=== PATIENT | male | born 1970 | race Caucasian/White ===

== ENCOUNTER 2016-10-27 18:30 | Emergency (ER) | payer MEDICARE, MEDICAID ==
[~2016-10-27] VITALS: Ht 182.9 cm; Wt 120.2 kg
[~2016-10-27 18:30] MED LIST: AMITRIPTYLINE 225 MG PO; ASPIRIN EC81 MG PO; ATORVASTATIN CA20 M1 PO; BACTRIM DS 8001 TA1 PO; BACTRIM DS 8001 TAB PO; BACTROBAN22 TP; CYCLOBENZAPRINE10 M1 PO; ETODOLAC400 MG PO; GABAPENTIN800 MG PO; HYDROCODONE-APA1 TA2 PO; KEFLEX 500MG.500 MG PO; KEFLEX500 M1 PO; LISINOPRIL 20MG20 MG PO; LISINOPRIL40 MG; LISINOPRIL40 MG PO; MEDROL 4MG. DOSE4 MG PO; PERCOCET 5/3251 EACH PO; PRILOSEC20 MG PO; SURFAK 240MG C240 MG PO; TRAMADOL 50MG T50 MG PO; VICODIN 5/500 T1 TAB PO
--- OUTSIDE RECORDS SUMMARY | 2016-10-27 18:42 | External Medical Summary Rpt ---
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 Care Taper Machine Name Role Phone [facility] Unavailable Unavailable [facility], [facility] ALFARIS MOH, ALFARIS Unavailable Unavailable MOH RHIANNON PRINGLELEY Unavailable Unavailable HANSEL MCNULTY, Unavailable Unavailable HANSEL ANDRES SAUL, Unavailable Unavailable ROSHNI MTZ JIMÉNEZ ALL, JIMÉNEZ ALL Unavailable Unavailable [facility] Un[facility] Unavailable [facility] BRANDSER, CRUZ A, Unavailable Unavailable BRANDSER, CRUZ A BEE CARLOS, DASHAWN Unavailable Unavailable F, BEE CARLOS, DASHAWN F [facility], Unavailable Unavailable [facility] MCLEAN, MCLEAN Unavailable Unavailable PATRICIA SAAD, Unavailable Unavailable PATRICIA SAAD [facility] Unavailable Unavailable [facility] Unavailable Unavailable [facility], Unavailable Unavailable [facility] SLADE DECALVO, Unavailable Unavailable MING V, SLADE DECALVO, MING V ANN MONREAL, Unavailable Unavailable ANN MONREAL JANELL M, Unavailable Unavailable DEVORAH BANG FINLEY Unavailable Unavailable KEEÁngel CASTILLO ARISTEOANNA Unavailable Unavailable ARISTEO SUKHWINDER CORTEZ CHACORTA Unavailable Unavailable SUKHWINDER CORTEZ Unavailable Unavailable ANN CLEVELAND, Unavailable Unavailable ANN C[facility]AND, Unavailable Unavailable NIKHIL RENEE [facility] Unavailable Unavailable INC, [facility] LUCAS KWADWO, LUCAS Unavailable Unavailable KWADWO RHONDA LUCAS S, Unavailable Unavailable RHONDA LUCAS S [facility] Unavailable Unavailable [facility], [facility], Unavailable Unavailable [facility], Unavailable Unavailable [facility], Unavailable Unavailable [facility] & Unavailable Unavailable [facility] BRITTANY GUPTA, Unavailable Unavailable BRITTANY GUPTA RACHEL J, Unavailable Unavailable [facility] Unavailable Unavailable [facility] CRUZ RICHARDSON, Unavailable Unavailable CRUZ RICHARDSON HAROLD V, Unavailable Unavailable JOVANNI GIBSON V [facility] Unavailable Unavailable SERVICES, [facility] & Unavailable Unavailable SPINE IN, [facility] Unavailable Unavailable ASSOCIAT, [facility] Unavailable Unavailable MEDICAL, [facility] Unavailable Unavailable [facility] CENTER, [facility] Unavailable Unavailable MEDICAL, [facility] MACIAS THO, MACIAS Unavailable Unavailable THO CANDIDO, SANJOYDEB, Unavailable Unavailable CANDIDO, SANJOYDEB NEUS SRIKANTH, NEUS SRIKANTH Unavailable Unavailable NEUS SRIKANTH, NEUS SRIKANTH Unavailable Unavailable NEUS, TYESHA E, NEUS, Unavailable Unavailable TYESHA E [facility], Unavailable Unavailable [facility] MCGEE DECKER, MCGEE Unavailable Unavailable DECKER [facility], Unavailable [facility]available PLL[facility], [facility] PORNOY LESA, PORNOY Unavailable Unavailable LES[facility], Unavailable Unavailable [facility] Unavailable Unavailable INCORPORAT, [facility] Unavailable Unavailable INCORPORAT, [facility] NENA MELARA, Unavailable Unavailable NENA MELARA [facility] Unavailable Unavailable SOTINGBETSY MACDONALD [facility] Unavailable Unavailable [facility], [facility] Unavailable Unavailable [facility] JOSE, MARCELO Unavailable Unavailable JOSE SONIA PHI, SONIA PHI Unavailable Unavailable [facility] # Unavailable Unavailable [id number], [facility] # [id number] [facility] # Unavailable Unavailable [id number], [facility] # [id number] [facility] # [id number], Unavailable Unavailable [facility] # [id number] ELOY GALINDO WELLS, Unavailable Unavailable ELOY VILLA, Unavailable Unavailable MAL VILLA Purpose Continuity of Care Document - 07-14-2007 through 2016 Problems Code Diagnosis DOS Provider Status [id number] SPONDYLOSIS 09-05-2016 [facility] W/O PAIN & MYELOPATH/R SPINE ADICULOPATH INSTIT Y CERV RGN [id number] PRIMARY 07-12-2016 [facility] TIS RIGHT ASSOCIAT SHOULDER E53127 PRIMARY 07-12-2016 [facility] TIS LEFT ASSOCIAT SHOULDER Z79247 PAIN IN 07-12-2016 [facility] RIGHT REGIONAL SHOULDER MEDICAL Z12089 PAIN IN 07-12-2016 [facility] LEFT REGIONAL SHOULDER MEDICAL C16544 PAIN IN 07-11-2016 [facility] UNSPECIFIED PAIN & SHOULDER SPINE INSTIT I10 ESSENTIAL 05-22-2016 [facility] HYPERTENSIO INC N K34874 PAIN IN 05-22-2016 [place] LEFT MEDICAL FINGERS IMAGING ASS [id number] LAC W/O FB 05-22-2016 [place] LT INDEX MEDICAL FINGER W/O IMAGING ASS DAMAGE NAIL INIT [id number] NDSPLC FX 05-22-2016 [facility], LT INDX PLLC FNGR INIT ENC OPN FX Z23 ENCOUNTER 05-22-2016 [facility] IMMUNIZATIO INC N Z720 TOBACCO USE 05-22-2016 [facility] INC Z5181 ENCOUNTER 04-18-2016 [facility] THERAPEUTIC INCORPORAT DRUG LEVEL MONITORING I96925 MCC 04-18-2016 [facility] OF OPIATE INCORPORAT ANALGESIC B24808 MIGRAINE 02-23-2016 [facility] PAINTER NOT PHYSICIANS, INTRACT W/O PLLC STATUS MIGRAINOSUS F00651 SPONDYLOSIS 02-16-2016 [facility] W/O PAIN & MYELOPATH/R SPINE ADICULOPATH INSTIT Y LUMB RGN M5416 RADICULOPAT 01-19-2016 [facility] HY LUMBAR PAIN & REGION SPINE INSTIT 7210 CERVICAL 07-07-2014 [facility] SPONDYLOSIS PAIN & WITHOUT SPINE MYELOPATHY INSTIT 7234 BRACHIAL 06-02-2014 [facility] NEURITIS OR PAIN & SPINE RADICULITIS INSTIT NOS 7244 THORACIC/KOREY 06-02-2014 [facility]ED MBOSACRAL PAIN & NEURITIS/RA SPINE DICULITIS INSTIT UNSPEC 7265 ENTHESOPATH 04-13-2014 [facility] Y OF HIP PAIN & REGION SPINE INSTIT 7202 SACROILIITI 04-07-2014 [facility]ED S NOT PAIN & ELSEWHERE SPINE CLASSIFIED INSTIT 7295 PAIN IN 04-04-2014 [place] SOFT MEDICAL TISSUES OF IMAGING ASS LIMB 80107 SWELLING OF 04-04-2014 [place] LIMB MEDICAL IMAGING ASS 7823 EDEMA 04-04-2014 [place] [facility] 6826 CELLULITIS 04-03-2014 [facility] N EMERGENCY OF LEG PHYS EXCEPT FOOT V642 SURG/OTH 03-30-2014 [facility] NOT [facility] CARRIED OUT INC BECAUSE PTS DECN 7213 LUMBOSACRAL 02-10-2014 [facility] PAIN & SPONDYLOSIS SPINE WITHOUT INSTIT MYELOPATHY 7212 THORACIC 07-28-2013 [facility] SPONDYLOSIS PAIN & WITHOUT SPINE MYELOPATHY INSTIT V5869 LONG-TERM 07-02-2013 [facility]ED (CURRENT) PAIN & USE OF SPINE OTHER INSTIT MEDICATIONS 92288 PAIN IN 06-25-2013 [place] [facility] PELVIC ASSOCIAT REGION AND THIGH 7222 DISPLCMT 06-24-2012 [facility] INTERVERT DISC SITE UNS W/O MYELOPATHY 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 7242 LUMBAGO 06-24-2012 [facility] 79087 CONTUSION 06-24-2012 [facility] THO OF [place] 94133 PAIN IN 05-26-2012 [place] [facility], RADIOLOGY UPPER ARM ASSOCIAT 03176 LATERAL 05-26-2012 [facility] EPIC[facility] IS OF [place] SERVICES 9593 INJURY 05-26-2012 [place] OTHER&UNSPE RADI[facility]Y CIFIED ASSOCIAT [place] FOREARM&WRI ST E8859 FALL FROM 05-26-2012 [facility] OTHER EMERGENCY SLIPPING SERVICES TRIPPING OR STUMBLING 71965 BLEPHARITIS 10-16-2011 NEUS SRIKANTH , UNSPECIFIED 6821 CELLULITIS 09-07-2011 [facility] OF NECK INC 6828 CELLULITIS 09-07-2011 [facility] AND ABSCESS OF OTHER SPECIFIED SITE 77280 SPINAL 06-05-2011 NEUS SRIKANTH STENOSIS UNSPEC REGION OTH THAN CERVICAL 7245 UNSPECIFIED 06-05-2011 NEUS SRIKANTH BACKACHE 7230 SPINAL 04-17-2011 [facility] STENOSIS IN REGIONAL CERVICAL MEDICAL REGION 69697 SPASM OF 04-04-2011 [facility] 47949 DIAB W/O 03-27-2011 [facility] COMP TYPE PRIMARY II/UNS NOT CARE CENTER STATED UNCNTRL 4019 UNSPECIFIED 03-27-2011 [facility] ESSENTIAL PRIMARY HYPERTENSIO CARE CENTER N 6868 OTH SPEC 03-27-2011 [facility] LOCAL PRIMARY INFECTIONS CARE CENTER SKIN&SUBCUT TISSUE 36346 CONTUSION 03-23-2011 [facility] OF [facility] EMERGENCY SERVICES 59986 PAIN IN 03-22-2011 [place] [facility], HAND RADIOLOGY ASSOCIAT 22741 CONTUSION 03-22-2011 [facility] OF BACK EMERGENCY SERVICES 58246 CONTUSION 03-22-2011 [facility] HAND EMERGENCY SERVICES E8889 UNSPECIFIED 03-22-2011 [place] FALL RADIOLOGY ASSOCIAT 7840 HEADACHE 11-10-2010 [facility] 6961 OTHER 10-01-2010 [facility] PSORIASIS EMERGENCY AND SIMILAR SERVICES DISORDERS 7231 CERVICALGIA 06-29-2010 [facility] 920 CONTUSION 04-14-2010 [facility] OF FACE REGIONAL SCALP AND MEDICAL NECK EXCEPT EYE V571 OTHER 03-15-2010 [facility] PHYSICAL REGIONAL THERAPY MEDICAL 51545 UNSPECIFIED 12-27-2009 [facility]ORDER 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 OTH 7220 DISPLCMT 06-06-2009 [facility] CERV H INTERVERT ORTHOPAEDIC DISC CTR PSC WITHOUT MYELOPATHY 8404 ROTATOR 05-05-2009 [facility] CUFF SPRAIN H AND STRAIN ORTHOPAEDIC CTR PSC 65063 EXOSTOSIS 05-02-2009 [facility] OF H UNSPECIFIED ORTHOPAEDIC SITE CTR PSC 44493 OSTEOARTHRO 04-22-2009 RADIOLOGY S UNSPEC ASSOCIATES WHETHER PSC GEN/LOC SHLDR REGION 35548 UNSPECIFIED 04-22-2009 [facility] H ARTHROPATHY ORTHOPAEDIC SHOULDER CTR PSC REGION 64508 PAIN IN 04-22-2009 [facility] JOINT, H SHOULDER ORTHOPAEDIC REGION CTR PSC 7820 DISTURBANCE 04-22-2009 [facility] 8406 SUPRASPINAT 04-22-2009 [facility] US SPRAIN H AND STRAIN ORTHOPAEDIC CTR PSC 51506 UNSPEC 04-18-2009 [facility] DISORDERS H BURSAE&TEND ORTHOPAEDIC ONS CTR PSC SHOULDER REGION 4011 ESSENTIAL 04-11-2009 [facility] HYPERTENSIO HEART PSC N, BENIGN 44430 REFLUX 04-11-2009 [facility] ESOPHAGITIS HEART PSC 37617 SHORTNESS 04-11-2009 [facility] OF BREATH HEART PSC 01361 CHEST PAIN 04-11-2009 [facility] UNSPECIFIED HEART PSC 11388 NONSPECIFIC 04-11-2009 [facility] ABNORMAL HEART PSC ELECTROCARD IOGRAM 12162 PAIN IN 04-04-2009 [facility], PRIMARY ANKLE AND CARE FOOT CENTERINC 55749 OTH SPEC 04-04-2009 [facility] D/O ROTATOR PRIMARY CUFF SYND CARE SHLDR&SASHA CENTERINC D D/O 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 25376 ESOPHAGEAL 03-30-2009 [facility] REFLUX PRIMARY CARE CENTERINC 4293 CARDIOMEGAL 03-29-2009 [place] Y [facility] ASSOCIATES PSC 94548 OTHER 03-29-2009 [place] DYSPNEA AND RADIOLOGY ASSOCIATES [place] [address] OTHER CHEST 03-29-2009 [facility] PAIN AMB SERVICE V489 UNSPECIFIED 03-01-2009 [facility] PROBLEM PRIMARY WITH HEAD CARE NECK OR CENTERINC TRUNK 7239 UNSPEC 02-14-2009 [facility] MUSCULOSKEL PRIMARY CARE D/O&SYMPTOM CENTERINC S REFERABLE NECK 73834 UNSPECIFIED 02-14-2009 [facility] SYNOVITIS PRIMARY AND CARE TENOSYNOVIT CENTERINC IS 9057 LATE EFF 10-27-2007 ST [facility] IN W/O MED CTR MENTION TENDON INJURY 7962 ELEVATED BP 10-02-2007 [facility] WITHOUT DX [facility] [employer] [facility], INC[facility] N 8409 SPRAIN&STRA 09-22-2007 EMERGENCY IN UNSPEC CARE PHYS SITE [facility] SHOULDER&UP PER ARM 9599 INJURY 09-22-2007 RADIOLOGY OTHER AND ASSOCIATES UNSPECIFIED PSC UNSPECIFIED SITE 39932 PAIN IN 09-02-2007 ST [facility], IVÁN FOREARM MED CTR 9597 INJURY 07-14-2007 ST OTHER&UNSPE IVÁN CIFIED KNEE MED CTR LEG ANKLE&FOOT Medications Na ND Rx Da Fi Fi Am Da Di Ph RX Ph St me C No te ll ll ou ys ag ar # ys at rm s nt no ma ic us Or Da si cy ia de te s n re d CY 00 10 10 1 30 10 DE 64 BL Ac CL 37 -1 -1 .0 AN 17 UM ti OB 80 9- 00 S 43 ve EN 75 20 20 PH 0 CH ZA 11 11 11 AR RI SC [address] IN CY IN E E 10 IN C MG TA BL ET 64 10 10 5 30 30 DE 64 NE Ac 67 -1 -1 .0 AN 17 US ti 90 2- 2- 00 S 09 ve 94 [address] 20 11 11 AR EV 2 MA EN CY E IN C CL 51 10 10 5 60 30 DE 64 NE Ac OB 67 -1 -1 .0 AN 17 US ti ET 21 1- 2- 00 S 09 ve 25 [address] OL 90 11 11 AR EV 3 MA EN 0. CY E 05 % IN OI C NT ME NT OX 53 10 10 0 20 2 WA 22 GR Ac YC 74 -0 -0 .0 L- 20 AY ti OD 60 7- 7- 00 MA 64 ve ON 20 20 20 RT 7 RO E- 30 11 11 BE AC 1 PH RT ET AR B AM MA IN CY OP # HE N 10 5- 05 32 91 5 CE 00 07 07 0 10 3 DE 64 GA Ac PH 14 -1 -1 .0 AN 13 IN ti AL 39 7- 8- 00 S 41 EY ve EX 89 20 20 PH 3 IN 70 11 11 AR PA 5 MA CH 50 CY AE 0 L MG IN S C CA PS UL E PATHAK 53 07 07 0 10 5 DE 64 GA Ac LF 74 -1 -1 .0 AN 13 IN ti AM 60 7- 8- 00 S 41 EY ve ET 27 20 20 PH 4 HO 20 11 11 AR PA XA 5 MA CH ZO CY AE LE L -T IN S MP C DS TA BL ET 00 05 05 0 12 3 DE 40 GA Ac 40 -2 -2 .0 AN 63 IN ti 60 8- 8- 00 S 63 EY ve 35 20 20 PH 5 70 11 11 AR PA 5 MA CH CY AE L IN S C SC 00 05 05 0 21 6 DE 64 GA Ac ED 60 -2 -2 .0 AN 11 IN ti NI 35 8- 8- 00 S 49 EY ve SO 33 20 20 PH 7 NE 71 11 11 AR PA 5 5 MA CH CY AE MG L IN S TA C BL ET TR 65 01 01 0 90 30 DE 40 NI Ac AM 16 -1 -1 .0 AN 62 CH ti AD 20 3- 3- 00 S 70 OL ve OL 62 20 20 PH 8 S 71 11 11 AR TA HC 1 MA NN L CY A 50 IN MG C TA BL ET AC 00 10 11 [address] Ac ET 60 -2 -0 .0 AN 62 OU ti AM 32 9- 1- 00 S 17 T ve IN 33 20 20 PH 6 KE OP 83 10 10 AR RR HE 2 MA IC N- CY K CO L D IN #3 C TA BL ET 00 09 09 0 40 5 DE 40 BA Ac 60 -2 -2 .0 AN 61 IL ti 33 3- 3- 00 S 89 EY ve 88 20 20 PH 4 [address] 8 MA EV CY EN C IN C LI 00 10 09 10 30 30 DE 63 DE Ac SI 17 -2 -0 .0 AN 86 L ti NO 23 0- 2- 00 S 10 CA ve SC 76 [address] [place] 08 09 10 AR IL 0 MA LO 20 CY DE MG IN CA C LV TA O BL MA ET RI A IS AB EL V TR 65 08 08 0 45 15 DE 40 NE Ac AM 16 -1 -1 .0 AN 61 US ti AD 20 8- 8- 00 S 65 ve OL [address] 71 10 10 AR EV HC 1 MA EN L CY E 50 IN MG C TA BL ET 00 08 08 0 16 4 DE 40 HU Ac 60 -1 -1 .0 AN 61 HN ti 35 3- 3- 00 S 63 ve 46 20 20 PH 3 TH 63 10 10 AR OM 2 MA CY M IN C LI 00 10 07 10 30 30 DE 63 DE Ac SI 17 -2 -2 .0 AN 86 L ti NO 23 0- 0- 00 S 10 CA ve SC 76 [address] [place] 08 09 10 AR [place] 0 MA LO 20 CY DE MG IN CA C LV TA O BL MA ET RI A IS AB EL V OX 00 07 07 0 24 2 WA 22 PO Ac YC 40 -0 -0 .0 L- 33 RN ti OD 60 5- 5- 00 MA 27 OY ve ON 51 20 20 RT 2 E- 20 10 10 GE AC 1 PH OF ET AR FR AM MA EY IN CY A OP # HE N 10 5- 15 32 69 5 LI 00 10 05 10 30 30 DE 63 DE Ac SI 17 -2 -2 .0 AN 86 L ti NO 23 0- 2- 00 S 10 CA ve SC 76 [address] [place] 08 09 10 AR IL 0 MA LO 20 CY DE MG IN CA C LV TA O BL MA ET RI A IS AB EL V LI 00 10 04 10 30 30 DE 63 DE Ac SI 17 -2 -1 .0 AN 86 L ti NO 23 0- 6- 00 S 10 CA ve SC 76 [address] [place] 08 09 10 AR IL 0 MA LO 20 CY DE MG IN CA C LV TA O BL MA ET RI A IS AB EL V LI 00 10 03 10 30 30 DE 63 DE Ac SI 17 -2 -1 .0 AN 86 L ti NO 23 0- 6- 00 S 10 CA ve SC 76 [address] [place] 08 09 10 AR IL 0 MA LO 20 CY DE MG IN CA C LV TA O BL MA ET RI A IS AB EL V NA 00 03 03 0 [address] Ac BU 09 -0 -0 .0 L- 56 OU ti ME 31 3- 3- 00 MA 41 T ve TO 01 20 20 RT 7 KE NE 50 10 10 RR 1 PH IC 50 AR K 0 MA L MG CY # TA BL 10 ET 15 69 LI 00 10 02 03 30 30 DE 63 DE Ac SI 17 -2 -2 .0 AN 86 L ti NO 23 0- 6- 00 S 10 CA ve SC 76 [address] [place] 08 09 10 AR IL 0 MA LO 20 CY DE MG CA LV TA O BL MA ET RI A IS AB EL V LI 00 10 01 02 30 30 DE 63 DE Ac SI 17 -2 -2 .0 AN 86 L ti NO 23 0- 8- 00 S 10 CA ve SC 76 [address] [place] 08 09 10 AR IL 0 MA LO 20 CY DE MG CA LV TA O BL MA ET RI A IS AB EL V TR 65 12 12 00 20 5 DE 40 PATHAK Ac AM 16 -1 -3 .0 AN 60 LL ti AD 20 5- 1- 00 S 04 IV ve OL 62 20 20 PH 1 AN 71 09 09 AR HC 1 MA CH L CY RI 50 ST IN MG A M TA BL ET 00 12 12 00 40 13 DE 40 LA Ac 60 -2 -3 .0 AN 60 RK ti 33 1- 1- 00 S 07 IN ve 88 20 20 PH 8 12 09 09 AR ANNI 8 MA HN CY J CY 00 12 12 00 20 7 DE 63 PATHAK Ac CL 59 -1 -3 .0 AN 88 LL ti OB 15 5- 1- 00 S 72 IV ve EN 65 20 20 PH 9 AN ZA 81 09 09 AR SC 0 MA CH IN CY RI E ST 10 IN A MG M TA BL ET LI 00 10 12 01 30 30 DE 63 DE Ac SI 17 -2 -3 .0 AN 86 L ti NO 23 0- 1- 00 S 10 CA ve SC 76 [address] [place] 08 09 09 AR IL 0 MA LO 20 CY DE MG CA LV TA O BL MA ET RI A IS AB EL V 00 10 12 01 60 30 DE 40 NE Ac 60 -1 -0 .0 AN 59 US ti 35 9- 3- 00 S 65 ve [address] 63 09 09 AR EV 2 MA EN CY E LI 00 10 11 00 30 30 DE 63 DE Ac SI 17 -2 -1 .0 AN 86 L ti NO 23 0- 9- 00 S 10 CA ve SC 76 [address] [place] 08 09 09 AR IL 0 MA LO 20 CY DE MG CA LV TA O BL MA ET RI A IS AB EL V ME 00 11 11 00 21 6 DE 63 LA Ac TH 78 -1 -1 .0 AN 87 RK ti YL 15 1- 9- 00 S 14 IN ve SC 02 20 20 PH 1 ED 20 09 09 AR ANNI NI 7 MA HN SO CY J LO NE 4 MG DO SE PK ME 68 11 11 00 30 30 DE 63 LA Ac LO 38 -0 -1 .0 AN 86 RK ti XI 20 3- 9- 00 S 77 IN ve CA 05 20 20 PH 3 M 10 09 09 AR ANNI 15 1 MA HN CY J MG TA BL ET 00 10 11 00 60 30 DE 40 NE Ac 60 -1 -0 .0 AN 59 US ti 35 9- 5- 00 S 65 ve [address] 63 09 09 AR EV 2 MA EN CY E SC 37 10 11 00 60 30 DE 63 NE Ac IL 00 -2 -0 .0 AN 86 US ti OS 00 0- 5- 00 S 10 ve EC [address] 50 09 09 AR EV OT 3 MA EN C CY E 20 .6 MG TA BL ET LI 00 10 10 00 30 30 DE 63 DE Ac SI 17 -1 -2 .0 AN 85 L ti NO 23 4- 2- 00 S 81 CA ve SC 76 [address] [place] 08 09 09 AR IL 0 MA LO 20 CY DE MG CA LV TA O BL MA ET RI A IS AB EL V DI 00 08 09 00 20 10 DE 63 MA Ac CL 78 -3 -1 .0 AN 83 RK ti OF 11 1- 0- 00 S 90 ES ve EN 78 20 20 PH 6 BE AC 96 09 09 AR RY 0 MA SO CY YOUNG D RO EC LD V 75 MG TA B 00 08 09 00 20 30 DE 63 MA Ac 14 -3 -1 .0 AN 83 RK ti 31 1- 0- 00 S 90 ES ve 47 20 20 PH 7 BE 30 09 09 AR RY 1 MA CY YOUNG RO LD V 00 05 05 00 6. 1 WA 26 MU Ac 59 -1 -2 00 LG 07 KH ti 10 2- 2- 0 RE 51 ER ve 38 20 20 EN 1 JE 50 08 08 # E 5 SA 07 NJ 34 OY 6 DE B 00 04 04 00 15 4 NE 91 No Ac 59 -0 -2 .0 WP 58 t ti 10 7- 4- 00 OR 95 Av ve 34 20 20 T ai [address] la 5 UG bl e CE NT ER 00 03 04 00 20 3 WA 25 No Ac 59 -1 -1 .0 LG 82 t ti 10 8- 7- 00 RE 37 Av ve 34 20 20 EN 9 ai 90 08 08 # la 5 bl 07 e 34 6 TR 65 01 03 00 15 2 WA 25 No Ac AM 16 -2 -2 .0 LG 58 t ti AD 20 8- 6- 00 RE 82 Av ve OL 62 20 20 EN 1 ai 71 08 08 # la HC 1 bl L 07 e 50 34 6 MG TA BL ET Immunization Name Date Route CVX Reacti Commen Provid Is Given on t er Refuse d TDAP DIOGENES No VACCIN 2016 ON MEM E 7 HOSP YRS/> INC IM Procedures Procedure DOS Code Location Performer Comment RADEX 29561 [facility] SH[facility] 7 W W [facility]TE REGIONAL REGIONAL MINIMUM 2 MEDICAL MEDICAL VIEWS SIMPLE 76513 [facility] PHYSICIAN U RENAE SCALP/NEC S, PLLC K/AX/SHAILESH T/TRUNK 2.5CM/< IM ADM 15028 [facility] PRQ ID 6 [facility] SUBQ/IM INC INC NJXS 1 VACCINE TDAP 48016 [facility] VACCINE 7 6 [facility] YRS/> IM INC INC APPLICATI 41170 [facility] ON FINGER 6 [facility] SPLINT INC INC STATIC RADEX 45875 [place] JIMÉNEZ ALL FINGR 6 MEDICAL MINIMUM 2 IMAGING VIEWS ASS DRUG TEST G0480 [facility] DEFINITV [address] RUSS CS CS METH P INCORPORA INCORPORA DAY 1-7 T T DRUG CL DRUG TEST G0479 [facility] 6 DIAGNOSTI DIAGNOSTI PRESUMP;I CS CS NSTRUMENT INCORPORA INCORPORA ED T T CHEMISTRY ANLYZER INJ J0702 [facility] BETAMETHA 6 PAIN & MAG SONE SPINE ACETATE & INSTIT PHOSPHATE 3 MG DSTR 04170 [facility] NROLYTC 6 PAIN & MAG AGNT SPINE PARVERTEB INSTIT FCT ADDL LMBR/SACR AL DSTR 69008 [facility] NROLYTC 6 PAIN & MAG AGNT SPINE PARVERTEB INSTIT FCT SNGL LMBR/SACR AL DSTR 69339 [facility] NROLYTC 6 PAIN & MAG AGNT SPINE PARVERTEB INSTIT FCT SNGL LMBR/SACR AL DSTR 75377 [facility] NROLYTC 6 PAIN & MAG AGNT SPINE PARVERTEB INSTIT FCT ADDL LMBR/SACR AL INJ J0702 [facility] BETAMETHA 6 PAIN & MAG SONE SPINE ACETATE & INSTIT PHOSPHATE 3 MG INJ J0702 [facility] BETAMETHA 6 PAIN & MAG SONE SPINE ACETATE & INSTIT PHOSPHATE 3 MG NJX 09308 [facility] ANES&/STR 6 PAIN & MAG D W/IMG SPINE TFRML INSTIT EDRL LMBR/SAC 1 LVL NJX 87586 [facility] ANES&/STR 6 PAIN & MAG D W/IMG SPINE TFRML INSTIT EDRL LMBR/SAC EA LV DRUG TEST G0480 [facility] DEFINITV [address] ID CS CS METH P DAY 1-7 DRUG CL DRUG TEST G0479 [facility] 6 DIAGNOSTI DIAGNOSTI PRESUMP;I CS CS NSTRUMENT ED CHEMISTRY ANLYZER INJ J0702 [facility] BETAMETHA 5 PAIN & MAG SONE SPINE ACETATE & INSTIT PHOSPHATE 3 MG DSTR 17181 [facility] NROLYTC 5 PAIN & MAG AGNT SPINE PARVERTEB INSTIT FCT ADDL LMBR/SACR AL DSTR 31807 [facility] NROLYTC 5 PAIN & MAG AGNT SPINE PARVERTEB INSTIT FCT SNGL LMBR/SACR AL DSTR 51734 [facility] NROLYTC 5 PAIN & MAG AGNT SPINE PARVERTEB INSTIT FCT SNGL CRVCL/THO RA DSTR 01632 [facility] NROLYTC 5 PAIN & MAG AGNT SPINE PARVERTEB INSTIT FCT ADDL CRVCL/THO RA NJX 34800 [facility] DX/THER 4 PAIN & MAG SBST SPINE EPIDURAL/ INSTIT SUBRACH CERV/THOR ACIC FLUOR 64017 [facility] NEEDLE/CA 4 PAIN & MAG TH SPINE SPINE/PAR INSTIT ASPINAL DX/THER ADDON NJX 48408 [facility] ANES&/STR 4 PAIN & MAG D W/IMG SPINE TFRML INSTIT EDRL LMBR/SAC EA LV NJX 07510 [facility] ANES&/STR 4 PAIN & MAG D W/IMG SPINE TFRML INSTIT EDRL LMBR/SAC 1 LVL ARTHROCEN 79443 ADVANCED [facility] TESIS 4 PAIN & MAG ASPIR&/IN SPINE J MAJOR INSTIT JT/BURSA W/O US FLUOROSCO 30451 ADV[facility]ED [facility] PIC 4 PAIN & MAG GUIDANCE SPINE NEEDLE INSTIT PLACEMENT ADD ON DUP-SCAN 62410 JEREMY GOMEZ XTR VEINS 4 MEDICAL SAAD IMAGING UNILATERA ASS L/LIMITED STUDY GLUC BLD 30593 CARLOS ENRIQUE MONACO GLUC MNTR 4 [facility] DEV INC INC CLEARED FDA SPEC HOME USE ARTHROCEN 90754 ADVANCED [facility] TESIS 4 PAIN & MAG ASPIR&/IN SPINE J MAJOR INSTIT JT/BURSA W/O US FLUOROSCO 94750 ADVANCED [facility] PIC 4 PAIN & MAG GUIDANCE SPINE [place] IN[place] [address] ADVANCED [facility] JOINT 4 PAIN & MAG ARTHRGRPH SPINE Y&/ANES/S INSTIT TEROID W/SHANE NJX 10589 ADVANCED [facility] DX/THER 4 PAIN & MAG AGT PVRT SPINE FACET JT INSTIT CRV/THRC 2ND LEVEL NJX 57638 ADVANCED [facility] DX/THER 4 PAIN & MAG AGT PVRT SPINE FACET JT INSTIT CRV/THRC 1 LEVEL NJX 00896 ADVANCED [facility] DX/THER 4 PAIN & MAG AGT PVRT SPINE FACET JT INSTIT CRV/THRC 3+ LEVEL NJX 36178 ADVANCED K[facility]NER DX/THER 4 PAIN & MAG AGT PVRT SPINE FACET JT INSTIT LMBR/SAC 3+ LEVEL NJX 33634 ADVANCED KERSCHNER DX/THER 4 PAIN & MAG AGT PVRT SPINE FACET JT INSTIT LMBR/SAC 1 LEVEL NJX 17687 ADVANCED KERS[facility]NER DX/THER 4 PAIN & MAG AGT PVRT SPINE FACET JT INSTIT LMBR/[place] 2[place] [address] ADVANCED K[facility]NER JOINT 4 PAIN & MAG ARTHRGRPH SPINE Y&/ANES/S INSTIT TEROID W/SHANE NJX 86029 ADVANCED [facility] DX/THER 4 PAIN & MAG SBST SPINE EPIDURAL/ INSTIT SUBRACH CERV/THOR ACIC FLUOR 10343 ADVANCED [facility]NER NEEDLE/CA 4 PAIN & MAG TH SPINE SPINE/PAR INSTIT ASPINAL DX/[place] NJX 33104 ADVANCED MAL DX/THER 4 PAIN & IRM AGT PVRT SPINE FACET JT INSTIT CRV/THRC 3+ L[place]EL NJX 01123 ADVANCED MAL DX/THER 4 PAIN & IRM AGT PVRT SPINE FACET JT INSTIT CRV/THRC 1 LEVEL NJX 43108 ADVANCED MAL DX/THER 4 PAIN & IRM AGT PVRT SPINE FACET JT INSTIT CRV/THRC 2ND LEVEL DSTR 66457 ADVANCED KERSCHNER NROLYTC 4 PAIN & MAG AGNT SPINE PARVERTEB INSTIT FCT SNGL LMBR/SACR AL DSTR 16299 ADVANCED KERSCHNER NROLYTC 4 PAIN & MAG AGNT SPINE PARVERTEB INSTIT FCT [place] [address] ADVANCED KERSCHNER JOINT 4 PAIN & MAG ARTHRGRPH SPINE Y&/ANES/S INSTIT TEROID W/SHANE DSTR 06057 ADVANCED KERSCHNER NROLYTC 4 PAIN & MAG AGNT SPINE PARVERTEB INSTIT FCT SNGL LMBR/SACR AL DSTR 17278 ADVANCED KERSCHNER NROLYTC 4 PAIN & MAG AGNT SPINE PARVERTEB INSTIT FCT ADDL LMBR/[place]CR [place] NJX 57781 ADVANCED KERSCHNER DX/THER 4 PAIN & MAG AGT PVRT SPINE FACET JT INSTIT LMBR/SAC 2ND LEVEL NJX 80733 ADVANCED KERSCHNER DX/THER 4 PAIN & MAG AGT PVRT SPINE FACET JT INSTIT LMBR/SAC 1 LEVEL NJX 72836 ADVANCED KERSCHNER DX/THER 4 PAIN & MAG AGT PVRT SPINE FACET JT INSTIT LMBR/SAC 3+ LEVEL NJX 07575 ADVANCED KERSCHNER ANES&/STR 4 PAIN & MAG D W/IMG SPINE TFRML INSTIT EDRL LMBR/SAC 1 LVL NJX 21125 ADVANCED KERSCHNER ANES&/STR 4 PAIN & MAG D W/IMG SPINE TFRML INSTIT EDRL LMBR/SAC EA LV DSTR 14874 ADVANCED KERSCHNER NROLYTC 4 PAIN & MAG AGNT SPINE PARVERTEB INSTIT FCT SNGL CRVCL/THO RA DSTR 36299 ADVANCED KERSCHNER NROLYTC 4 PAIN & MAG AGNT SPINE PARVERTEB INSTIT FCT ADDL CRVCL/[place] NJX 35269 ADVANCED KERSCHNER DX/THER 4 PAIN & MAG SBST SPINE EPIDURAL/ INSTIT SUBRACH CERV/THOR ACIC INJ J0702 ADVANCED KERSCHNER BETAMETHA 4 PAIN & MAG SONE SPINE ACETATE & INSTIT PHOSPHATE 3 MG FLUOR 26232 ADVANCED KERSCHNER NEEDLE/CA 4 PAIN & MAG TH SPINE SPINE/PAR INSTIT ASPINAL DX/THER ADDON DSTR 32759 ADVANCED KERSCHNER NROLYTC 4 PAIN & MAG AGNT SPINE PARVERTEB INSTIT FCT ADDL CRVCL/THO RA DSTR 85693 ADVANCED KERSCHNER NROLYTC 4 PAIN & MAG AGNT SPINE PARVERTEB INSTIT FCT SNGL CRVCL/THO RA NJX 23629 ADVANCED KERSCHNER DX/THER 4 PAIN & MAG AGT PVRT SPINE FACET JT INSTIT CRV/THRC 3+ LEVEL NJX 02115 ADVANCED KERSCHNER DX/THER 4 PAIN & MAG AGT PVRT SPINE FACET JT INSTIT CRV/THRC 1 LEVEL NJX 28380 ADVANCED KERSCHNER DX/THER 4 PAIN & MAG AGT PVRT SPINE FACET JT INSTIT CRV/THRC 2ND LEVEL NJX 69689 ADVANCED KERSCHNER ANES&/STR 4 PAIN & MAG D W/IMG SPINE TFRML INSTIT EDRL LMBR/SAC 1 LVL NJX 06307 ADVANCED KERSCHNER DX/THER 4 PAIN & MAG AGT PVRT SPINE FACET JT INSTIT CRV/THRC 2ND LEVEL NJX 71009 ADVANCED KERSCHNER DX/THER 4 PAIN & MAG AGT PVRT SPINE FACET JT INSTIT CRV/THRC 1 LEVEL NJX 39468 ADVANCED KERSCHNER DX/THER 4 PAIN & MAG AGT PVRT SPINE FACET JT INSTIT CRV/THRC 3+ LEVEL NJX 85197 ADVANCED KERSCHNER ANES&/STR 4 PAIN & MAG D W/IMG SPINE TFRML INSTIT EDRL [place]BR/[place]AC 1 [place] [address] ADVANCED MAL JOINT 4 PAIN & IRM ARTHRGRPH SPINE Y&/ANES/S INSTIT TEROID W/SHANE RADEX HIP 59879 TAD LUCAS 4 [facility] L ASSOCIAT COMPLETE MINIMUM 2 VIEWS NJX 05068 ADVANCED KERSCHNER ANES&/STR 4 PAIN & MAG D W/IMG SPINE TFRML INSTIT EDRL CRV/THRC EA LV NJX 98810 ADVANCED KERSCHNER ANES&/STR 4 PAIN & MAG D W/IMG SPINE TFRML INSTIT EDRL CRV/THRC 1 LVL EPIDUROGR 25240 ADVANCED KERSCHNER APY RS&I 4 PAIN & [place] [address] KERSCHNER KERSCHNER JOINT 3 MAG MAG ARTHRGRPH Y&/ANES/S TEROID W/SHANE INJECTION 89712 KERSCHNER KERSCHNER ANES 3 MAG MAG OTHER PERIPHERA L NERVE/BRA NCH DSTR 51673 KERSCHNER KERSCHNER NROLYTC 3 MAG MAG AGNT PARVERTEB FCT ADDL CRVCL/THO RA DSTR 98878 KERSCHNER KERSCHNER NROLYTC 3 MAG MAG AGNT PARVERTEB FCT SNGL CRVCL/THO RA LUMB-SACR L0637 DASCO HME DASCO HME AL ORTHOS 3 SAG-COR CNTRL RIGD A&P PREFAB RADEX 42791 [facility] ELBOW 2 EIDER VÍCTOR COMPLETE RADIOLOGY MINIMUM 3 ASSOCIAT VIEWS NEEDLE A4215 KERSCHNER KERSCHNER STERILE 2 MAG MAG ANY SIZE EACH NJX 79049 KERSCHNER KERSCHNER DX/THER 2 MAG MAG AGT PVRT FACET JT LMBR/SAC 3+ LEVEL NJX 66709 KERSCHNER KERSCHNER DX/THER 2 MAG MAG AGT PVRT FACET JT LMBR/SAC 1 LEVEL NJX 77191 KERSCHNER KERSCHNER DX/THER 2 MAG MAG AGT PVRT FACET JT LMBR/SAC 2ND LEVEL NJX 07052 KERSCHNER KERSCHNER DX/THER 2 MAG MAG AGT PVRT FACET JT CRV/THRC 1 LEVEL NJX 65999 KERSCHNER KERSCHNER DX/THER 2 MAG MAG AGT PVRT FACET JT CRV/THRC 2ND LEVEL NJX 56831 KERSCHNER KERSCHNER DX/THER 2 MAG MAG AGT PVRT FACET JT CRV/THRC 3+ LEVEL NJX 04049 KERSCHNER KERSCHNER DX/THER 2 MAG MAG AGT PVRT FACET JT CRV/THRC 3+ LEVEL NJX 25087 KERSCHNER KERSCHNER DX/THER 2 MAG MAG AGT PVRT FACET JT CRV/THRC 2ND LEVEL NJX 92645 KERSCHNER KERSCHNER DX/THER 2 MAG MAG AGT PVRT FACET JT CRV/THRC 1 LEVEL LOCM Q9967 KERSCHNER KERSCHNER 300-399 2 MAG MAG MG/ML IODINE CONCENTRA TION PER ML FLUOR 18686 KERSCHNER KERSCHNER NEEDLE/CA 2 MAG MAG TH SPINE/PAR ASPINAL DX/THER ADDON NJX 09475 KERSCHNER KERSCHNER DX/THER 2 MAG MAG SBST EPIDURAL/ SUBARACH LUMBAR/SA CRAL FLUOR 09732 KERSCHNER KERSCHNER NEEDLE/CA 2 MAG MAG TH SPINE/PAR ASPINAL DX/THER ADDON LOCM Q9967 KERSCHNER KERSCHNER 300-399 2 MAG MAG MG/ML IODINE CONCENTRA TION PER ML INJECTION J1100 KERSCHNER KERSCHNER 2 MAG MAG DEXAMETHO SONE SODIUM PHOSPHATE 1 MG NJX 10177 KERSCHNER KERSCHNER DX/THER 2 MAG MAG SBST EPIDURAL/ SUBRACH CERV/THOR ACIC LOCM Q9967 KERSCHNER KERSCHNER 300-399 2 MAG MAG MG/ML IODINE CONCENTRA TION PER ML NJX 93788 KERSCHNER KERSCHNER DX/THER 2 MAG MAG SBST EPIDURAL/ SUBARACH LUMBAR/SA CRAL LOCM Q9967 KERSCHNER KERSCHNER 300-399 2 MAG MAG MG/ML IODINE CONCENTRA TION PER ML INJECTION J1100 KERSCHNER KERSCHNER 2 MAG MAG DEXAMETHO SONE SODIUM PHOSPHATE 1 MG NJX 20749 KERSCHNER KERSCHNER DX/THER 2 MAG MAG SBST EPIDURAL/ SUBRACH CERV/THOR ACIC MRI 50562 MEADOW[facility]IE MEADOWVIE SPINAL 1 W W CANAL REGIONAL REGIONAL CERVICAL MEDICAL MEDICAL W/O CONTRAST MATRL THERAPEUT 82293 [facility] KRISTAL SRIKANTH IC 1 PRIMARY PROPHYLAC CARE TIC/DX CENTER INJECTION SUBQ/IM INJECTION J1885 [facility] NEUS SRIKANTH 1 PRIMARY KETOROLAC CARE CENTER TROMETHAM INE PER 15 MG BASIC 66668 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 METABOLIC 1 Y & Y & PANEL BIODIAGNO BIODIAGNO CALCIUM STICS STICS TOTAL COLLECTIO 37490 [facility] KRISTAL SRIKANTH N VENOUS 1 PRIMARY BLOOD CARE VENIPUNCT CENTER URE COLLECTIO 50044 [facility] N 1 PRIMARY PRIMARY CAPILLARY CARE CARE BLOOD CENTER CENTER SPECIMEN RADEX 63412 [facility] HAND 1 EIDER VÍCTOR MINIMUM 3 RADIOLOGY VIEWS ASSOCIAT COMPREHEN 97763 CARLOS ENRIQUE MONACO SIVE 1 [facility] METABOLIC INC INC PANEL CUL BACT 90205 CARLOS ENRIQUE MONACO AEROBIC 1 [facility] ADDL [place] [address] CARLOS ERNIQUE MONACO INFUSION 1 [facility] THERAPY INC INC PROPHYLAX IS/DX EA HOUR RADIOLOGI 60625 [place] PATRICIA C 1 MEDICAL SAAD EXAMINATI IMAGING ON TIBIA ASS & FIBULA 2 VIEWS BLOOD 64866 CARLOS ENRIQUE MONACO COUNT 1 [facility] COMPLETE INC INC AUTO&AUTO DIFRNTL WBC CULTURE 67878 CARLOS ENRIQUE MONACO BACTERIAL 1 [facility] BLOOD INC INC AEROBIC W/ID ISOLATES SUSCEPTIB 85133 CARLOS ENRIQUE MONACO LTY STDY 1 [facility] ANTIMICRB INC INC IAL MICRO/[place] [address] CARLOS ENRIQUE MONACO INFUSION 1 [facility] THERAPY/P INC INC ROPHYLAXI S /DX 1ST TO 1 HR BASIC 52697 CARLOS ENRIQUE MONACO METABOLIC 1 [facility] PANEL INC INC CALCIUM TOTAL SEDIMENTA 47314 CARLOS ENRIQUE MONACO TION RATE 1 [facility] RBC INC INC NON-AUTOM ATED 3D 89322 CARLOS ENRIQUE MONACO RENDERING 1 [facility] W/INTERP INC INC & [place] [address] CARLOS ENRIQUE MONACO HEAD/BRAI 1 [facility] W/O INC INC CONTRAST MATERIAL BLOOD 45100 CARLOS ENRIQUE MONACO COUNT 1 [facility] COMPLETE INC INC AUTO&AUTO DIFRNTL WBC PHYSICAL 06025 MEADOW[facility]IE MEADOWVIE THERAPY 0 W W [facility] N MEDICAL MEDICAL APPL 94499 MEADOWVIE MEADOWVIE MODALITY 0 W W 1/> [facility] MEDICAL ULTRASOUN D EA 15 MIN MRI 27383 SHAKILA ROBERTSON SPINAL 0 [facility] CANAL SPINE IN LUMBAR W/O CONTRAST MATERIAL MRI 29671 SHAKILA ROBERTSON SPINAL 0 [facility] CANAL SPINE IN CERVICAL W/O CONTRAST MATRL RADEX 89376 MEADOWVIE MEADOWVIE SACRUM & 0 W W COCCYX [facility] 2 MEDICAL MEDICAL VIEWS CENTER CENTER THERAPEUT 41268 MEADOWVIE MEADOWVIE IC 0 W W PROPHYLAC REGIONAL REGIONAL TIC/DX MEDICAL MEDICAL INJECTION CENTER CENTER SUBQ/IM THERAPEUT 07295 MEADOWVIE MEADOWVIE IC 9 W W PROPHYLAC REGIONAL REGIONAL TIC/DX MEDICAL MEDICAL INJECTION CENTER CENTER SUBQ/IM FLUOR 31098 RADIOLOGY MATEO, NEEDLE/CA 9 ELOY D TH ASSOCIATE SPINE/PAR S PSC ASPINAL DX/[place]X [address]01 RADIOLOGY MATEO, DX/THER 9 ELOY D SBST ASSOCIATE EPIDURAL/ S PSC SUBRACH CERV/THOR ACIC MRI 67845 [place]ON[place] GREFER, SPINAL 9 LTH DANIEL CANAL ORTHOPAED CERVICAL IC CTR W/O PSC CONTRAST MATRL [place] ANY 31116 RADIOLOGY Hi JUAREZT UPPER 9 CRUZ A EXTREMITY ASSOCIATE W/O S PSC CONTRAST MATRL NRV CNDJ 54984 MCKENNA ANDRES, AMPLT&LAT 9 HANSEL HADLEYY EA NRV MOTR W/O F-WAVE STD NRV CNDJ 37920 MCKENNA ANDRES, AMPLITUDE 9 HANSEL HAMM & LATENCY EACH NERVE SENSORY NDL EMG 1 29101 MCKENNA ANDRES, XTR W/WO 9 HANSEL HAMM RELATED PARASPINA L AREAS RADEX 23148 COMMONLADANA CANDY, SHOULDER 9 [facility] Do COMPLETE ORTHOPAED MINIMUM 2 IC CTR VIEWS PSC RADEX 50303 VIPIN GUPTA, SPINE 9 [facility] Do CERVICAL ORTHOPAED 2 OR 3 IC CTR VIEWS PSC ECHO 63298 [facility] TTHRC R-T 9 [facility] 2D HEART PSC W/WOM-MOD E COMPL SPEC&COLR D ECG 33241 [facility], ROUTINE 9 [facility] ECG HEART PSC W/LEAST 12 LDS W/I&R INJECTION 89939 [facility], CARDIAC 9 [facility] CATHJ L HEART PSC VENTR/L ATR ANGIOGRAP H L HRT 28123 [facility] CATHETERI 9 [facility] ZATION HEART P[place] [address] [facility], C-CATHJ 9 [facility] F/SLCTV C HEART PSC ANGRPH I SI&R 97026 [facility], F/NJX PX 9 [facility] DURING HEART PSC C-CATHJ VENTR&/AT R ANGRPH I SI&R 22542 [facility], F/NJX PX 9 [facility] DURING HEART PSC C-CATHJ PULM&/OR SELECT OBSERVATI 53582 [facility] CHIN BEE ON/INPATI 9 PRIMARY CAR[facility] MINUTES INITIAL 89888 [facility], INPATIENT 9 [facility] CONSULT HEART PSC NEW/ESTAB PT 110 MIN GROUND A0425 [facility] MILEAGE 9 CO AMB CO AMB PER SERVICE SERVICE STATUTE MILE [facility]0429 [facility] CO AMB CO AMB BLS SERVICE SERVICE EMERGENCY TRANSPORT BLS A0382 [facility] BR[facility]EN ROUTINE 9 CO AMB CO AMB DISPOSABL SERVICE SERVICE E SUPPLIES AMB A0422 [facility] OXYGEN&O2 9 CO AMB CO AMB SUPPLIES SERVICE SERVICE LIFE SUSTAININ G SITUATION RADIOLOGI 49203 Tk HONG 9 RHONDA S EXAMINATI RADIOLOGY ON CHEST SINGLE ASSOCIATE VIEW S PSC FRONTAL BASIC 33622 [facility] METABOLIC 9 [facility] PANEL CALCIUM TOTAL COLLECTIO 32914 [facility] JANET N VENOUS 9 PRIMARY Y, JOVANNI BLOOD CARE V VENIPUNCT CENTERINC URE RADEX 61433 RADIOLOGY MELARA, SHOULDER 8 NENA L COMPLETE ASSOCIATE MINIMUM 2 S PSC VIEWS Encounters Encounter Start End Date Code Location Performer Type Date OFFICE 71250 AD[facility]ANCED [facility] OUTPATIEN 7 7 PAIN & T VISIT SPINE 15 INSTIT MINUTES [facility] - 7 7 W OUTPATIEN [facility] OFF[facility] 44877 ADVANCED MCLEAN OUTPATIEN 7 7 PAIN & T VISIT SPINE 15 INSTIT MINUTES EMERGENCY 82453 ABRIL ROMAN 6 6 PHYSICIAN U [facility], [facility] T VISIT MODERATE SEVERITY EMERGENCY 34286 CARLOS ENRIQUE 6 6 [facility] T VISIT HIGH/URGE NT SEVERITY HOSPITAL CARLOS ENRIQUE - 6 6 [facility] OUTPATIEN [facility] T EMERGENCY 76832 ABRIL ROMAN 6 6 PHYSICIAN U [facility], [facility] T VISIT MODERATE SEVERITY OFFICE 60880 ADVANCED CHENTHILM OUTPATIEN 5 5 PAIN & URUGAN T VISIT SPINE HEM 15 INSTIT MINUTES OFFICE 81654 ADVANCED KERSCHNER OUTPATIEN 4 4 PAIN & MAG T VISIT SPINE 15 INSTIT MINUTES OFFICE 37297 ADVANCED KERSCHNER OUTPATIEN 4 4 PAIN & MAG T VISIT SPINE 15 INSTIT MINUTES OFFICE 52204 ADVANCED KERSCHNER OUTPATIEN 4 4 PAIN & MAG T VISIT SPINE 15 INSTIT MINUTES HOSPITAL CARLOS ENRIQUE - 4 4 [facility] OUTPATIEN INC T EMERGENCY 06087 [facility] DEPT 4 4 [place] MOH VISIT EMERGENCY HIGH PHYS SEVERITY& THREAT [facility] CARLOS ENRIQUE - 4 4 [facility] OUTPATIEN INC T EMERGENCY 53363 CARLOS ENRIQUE 4 4 [facility] DEPARTMEN INC T VISIT LOW/MODER SEVERITY OFFICE 74642 ADVANCED KERSCHNER OUTPATIEN 4 4 PAIN & MAG T VISIT SPINE 15 INSTIT MINUTES OFFICE 53188 ADVANCED MAL OUTPATIEN 4 4 PAIN & IRM T VISIT SPINE 15 INSTIT MINUTES OFFICE 67590 ADVANCED MAL OUTPATIEN 4 4 PAIN & IRM T VISIT SPINE 15 INSTIT MINUTES OFFICE 53742 ADVANCED MAL OUTPATIEN 4 4 PAIN & IRM T VISIT SPINE 15 INSTIT MINUTES OFFICE 22667 ADVANCED MAL OUTPATIEN 4 4 PAIN & IRM T VISIT SPINE 15 INSTIT MINUTES OFFICE 21611 ADVANCED KERSCHNER OUTPATIEN 4 4 PAIN & MAG T VISIT SPINE 15 INSTIT MINUTES OFFICE 56725 ADVANCED KERSCHNER OUTPATIEN 4 4 PAIN & MAG T VISIT SPINE 15 INSTIT MINUTES OFFICE 79244 ADVANCED KERSCHNER OUTPATIEN 4 4 PAIN & MAG T VISIT SPINE 15 INSTIT MINUTES OFFICE 61089 ADVANCED KERSCHNER OUTPATIEN 4 4 PAIN & MAG T VISIT SPINE 15 INSTIT MINUTES OFFICE 65049 ADVANCED KERSCHNER OUTPATIEN 4 4 PAIN & MAG T VISIT SPINE 15 INSTIT MINUTES OFFICE 40311 ADVANCED MAL OUTPATIEN 4 4 PAIN & IRM T VISIT SPINE 15 INSTIT MINUTES OFFICE 55785 ADVANCED KERSCHNER OUTPATIEN 4 4 PAIN & MAG T VISIT SPINE 15 INSTIT MINUTES OFFICE 42563 ADVANCED KERSCHNER OUTPATIEN 4 4 PAIN & MAG T VISIT SPINE 15 INSTIT MINUTES OFFICE 35559 ADVANCED MAL OUTPATIEN 4 4 PAIN & IRM T VISIT SPINE 15 INSTIT MINUTES OFFICE 22257 MACIAS OUTPATIEN 3 3 THO T VISIT 15 MINUTES EMERGENCY 37038 RICARDO PORNOY 2 2 EMERGENCY [facility] T VISIT HIGH/URGE NT SEVERITY OFFICE 47602 ADVANCED KERSCHNER OUTPATIEN 2 2 PAIN & MAG T VISIT SPINE 10 INSTIT MINUTES OFFICE 32121 NEUS SRIKANTH OUTPATIEN 2 2 T VISIT 15 MINUTES EMERGENCY 97215 [facility] PRETTY [facility] 2 2 DEPARTMEN T VISIT MODERATE SEVERITY EMERGENCY 61964 CARLOS ENRIQUE 2 2 [facility] DEPARTMEN INC T VISIT LOW/MODER SEVERITY HOSPITAL CARLOS ENRIQUE - 2 2 [facility] OUTPATIEN INC T OFFICE 10726 KERSCHNER KERSCHNER OUTPATIEN 2 2 MAG MAG T NEW 45 MINUTES OFFICE 71041 SONIA PHI SONIA PHI CONSULTAT 2 2 ION NEW/ESTAB PATIENT 40 MIN OFFICE 98274 NEUS SRIKANTH NEUS SRIKANTH OUTPATIEN 1 1 T VISIT 25 MINUTES [facility] - 1 1 W OUTPATIEN REGIONAL T MEDICAL OFFICE 21103 [facility] NEUS SRIKANTH OUTPATIEN 1 1 PRIMARY T VISIT CARE 15 CENTER MINUTES OFFICE 54584 [facility] NEUS SRIKANTH OUTPATIEN 1 1 PRIMARY T VISIT CARE 15 CENTER MINUTES EMERGENCY 25335 RICARDO PRETTY [place] 1 1 EMERGENCY DEPARTMEN SERVICES T VISIT HIGH/URGE NT SEVERITY EMERGENCY 16875 RICARDO ARAIZANOY 1 1 EMERGENCY [facility] T VISIT HIGH/URGE NT SEVERITY EMERGENCY 42483 CARLOS ENRIQUE 1 1 [facility] DEPARTMEN INC T VISIT HIGH/URGE NT SEVERITY HOSPITAL CARLOS ENRIQUE - 1 1 [facility] OUTPATIEN INC T HOSPITAL CARLOS ENRIQUE - 1 1 [facility] OUTPATIEN INC T EMERGENCY 71330 RICARDO CASTILLO DEPT 1 1 EMERGENCY ARISTEO VISIT SERVICES HIGH SEVERITY& THREAT FUNCJ EMERGENCY 02014 CARLOS ENRIQUE 1 1 [facility] INC T VISIT HIGH/URGE NT SEVERITY EMERGENCY 66399 RICARDO DIAZ 1 1 EMERGENCY KEE [facility] SERVICES T VISIT MODERATE SEVERITY OFFICE 45784 JHAVERI ARELY OUTPATIEN 1 1 CLINIC & DECKER T VISIT SPINE IN 25 MINUTES HOSPITAL MEADOWVIE - 0 0 W OUTPSYCHIATRIC REGIONAL T MEDICAL EMERGENCY 31179 MEADOWVIE 0 0 W [facility] T VISIT MEDICAL MODERATE SEVERITY HOSPITAL ME[facility]OW[facility]IE - [facility] 61372 JHAVERIFIELD ELI CONSULTAT 0 0 CLINIC & SRIKANTH ION SPINE IN NEW/ESTAB PATIENT 40 MIN OFFICE 09002 ZEE HERNANDEZ 0 0 PRIMARY TYESHA Jordan T VISIT CARE [address] [facility] - [facility] EM[facility] 86195 MEADOWVIE 0 0 W [facility] T VISIT MEDICAL MODERATE CENTER SEVERITY [facility]OSPITAL [facility] - [facility] 0 [facility] 71197 MEADOWVIE 0 0 W [facility] T VISIT MEDICAL MODERATE CENTER SEVERITY OFFICE 42923 ZEE HERNANDEZ 0 0 PRIMARY TYESHA E T VISIT CARE 15 CENTERINC MINUTES OFFICE 30334 ZEE EATON 9 9 [facility] Do T VISIT ORTHOPAED 25 IC CTR MINUTES [facility] EMERGENCY 40119 [facility] 9 9 [facility] MEDICAL MODERATE CENTER SEVERITY HOSPITAL LEANNESAULRULA - 9 9 W OUTPATIEN REGIONAL T MEDICAL CENTER OFFICE 83349 BRIANCHANG CANDY OUTPATIEN 9 9 LT BRITTANY Robles VISIT ORTHOPAED 25 IC CTR MINUTES [facility] OFFICE 28666 VIPIN CANDY OUTPATIEN 9 9 LT BR[place] Robles VISIT ORTHOPAED 25 IC CTR MINUTES [facility] ST - 9 9 IV[facility] OFF[facility] 50478 VIPIN CANDY, CONSULTAT 9 9 [facility] STEVENSON ORTHOPAED NEW/ESTAB IC CTR PATIENT PSC 40 MIN OFFICE 92912 [facility] T VISIT HEART PSC 25 MINUTES OFFICE 24205 [facility] NEUS, OUTPATIEN 9 9 PRIMARY TYESHA E T VISIT CARE 25 CENTERINC MINUTES OFFICE 11383 [facility] DEL OUTPATIEN 9 9 PRIMARY STRAUSS T VISIT CARE DECALVO, 15 CENTERINC BESSY MINUTES FREDDIE V OFFICE 31788 [facility]ESBER [facility] 9 9 PRIMARY Y, OJVANNI T NEW 20 CARE V MINUTES CENTERINC EMERGENCY 39648 CANDIDO 8 8 [facility] CTR SANJOYDEB T VISIT MODERATE SEVERITY OFFICE 62733 [facility] OUTPSYCHIATRIC 8 8 PO[place] ROSHNI T VISIT FAMILY 25 CARE, MINUTES INC. EMERGENCY 17458 EMERGENCY JOCELIN, 8 8 [facility]ISIT [facility] [place]/URGE [place] NT SEVERITY EMERGENCY [address] [place], 8 8 IVÁN Do [facility] T VISIT MODERATE SEVERITY EMERGENCY [address] ST [place], 8 8 IVÁN Dupree [facility] MED CTR T VISIT HIGH/URGE NT SEVERITY
--- OUTSIDE RECORDS SUMMARY | 2016-10-27 18:42 | External Medical Summary Rpt ---
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 Name Role Phone [facility] PAIN & SPINE [...] LUCAS S, Unavailable Unavailable RHONDA LUCAS S [facility] Unavailable Unavailable IMAGING ASS, [facility], Unavailable Unavailable [facility], Unavailable Unavailable [facility] [employer], Unavailable Unavailable [facility] & Unavailable Unavailable [facility] BRITTANY GUPTA, Unavailable Unavailable BRITTANY GUPTA RACHEL J, Unavailable Unavailable [facility] Unavailable Unavailable [facility] CRUZ RICHARDSON, Unavailable Unavailable CRUZ RICHARDSON HAROLD V, Unavailable Unavailable JOVANNI GIBSON V [facility] Unavailable Unavailable SERVICES, [facility] & Unavailable Unavailable SPINE IN, [facility] Unavailable Unavailable ASSOCIAT, [facility] Unavailable Unavailable MEDICAL, [facility] Unavailable Unavailable [facility]ENTER, [facility] Unavailable Unavailable MEDICAL, [facility] MACIAS THO, MACIAS Unavailable Unavailable THO CANDIDO, SANJOYDEB, Unavailable Unavailable CANDIDO, SANJOYDEB NEUS SRIKANTH, NEUS SRIKANTH Unavailable Unavailable NEUS SRIKANTH, NEUS SRIKANTH Unavailable Unavailable NEUS, TYESHA E, NEUS, Unavailable Unavailable TYESHA E [facility], Unavailable Unavailable [facility] MCGEE DEKCER, MCGEE Unavailable Unavailable DECKER [facility], Unavailable Unavailable PLL[facility], [facility] PORNOY LESA, PORNOY Unavailable Unavailable LESA [facility], Unavailable Unavailable [facility] Unavailable Unavailable INCORPORAT, [facility] Unavailable Unavailable INCORPORAT, [facility] NENA MELARA, Unavailable Unavailable NENA MELARA [facility] Unavailable Unavailable SOTINGBETSY MACDONALD [facility] Unavailable Unavailable EMERGENCY PH[facility], [facility] Unavailable Unavailable [facility] JOSE, MARCELO Unavailable Unavailable JOSE SONIA PHI, SONIA PHI Unavailable Unavailable [facility] # Unavailable Unavailable [id number], [facility] # [id number] [facility] # Unavailable Unavailable [id number], [facility] # [id number] [facility] # [id number], Unavailable Unavailable [facility] # [id number] ELOY GALINDO WELLS, Unavailable Unavailable ELOY VILLA, Unavailable Unavailable MAL VILLA Purpose Continuity of Care Document - 07-14-2007 through 2016 Problems Code Diagnosis DOS Provider Status [id number] SPONDYLOSIS 09-05-2016 ADV[facility]ED W/O PAIN & MYELOPATH/R SPINE ADICULOPATH INSTIT Y CERV RGN [id number] PRIMARY 07-12-2016 [facility] TIS RIGHT ASSOCIAT SHOULDER [id number] PRIMARY 07-12-2016 [facility] TIS LEFT ASSOCIAT SHOULDER [id number] PAIN IN 07-12-2016 [facility] RIGHT REGIONAL SHOULDER MEDICAL H17081 PAIN IN 07-12-2016 [facility] LEFT REGIONAL SHOULDER MEDICAL S13751 PAIN IN 07-11-2016 ADV[facility]ED UNSPECIFIED PAIN & SHOULDER SPINE INSTIT I10 ESSENTIAL 05-22-2016 [facility] HYPERTENSIO INC N E17920 PAIN IN 05-22-2016 [place] LEFT MEDICAL FINGERS IMAGING ASS [id number] LAC W/O FB 05-22-2016 [place] LT INDEX MEDICAL FINGER W/O IMAGING ASS DAMAGE NAIL INIT [id number] NDSPLC FX 05-22-2016 [facility], LT INDX PLLC FNGR INIT ENC OPN FX Z23 ENCOUNTER 05-22-2016 [facility] IMMUNIZATIO INC N Z720 TOBACCO USE 05-22-2016 [facility] INC Z5181 ENCOUNTER 04-18-2016 [facility] THERAPEUTIC INCORPORAT DRUG LEVEL MONITORING C96642 FCI 04-18-2016 [facility] CURRENT USE DIAGNOSTICS OF OPIATE INCORPORAT ANALGESIC A31377 MIGRAINE 02-23-2016 [facility] PAINTER NOT PHYSICIANS, INTRACT W/O PLLC STATUS MIGRAINOSUS [id number] SPONDYLOSIS 02-16-2016 ADVANCED W/O PAIN & MYELOPATH/R [...] SPINE CLASSIFIED INSTIT 7295 PAIN IN 04-04-2014 [place] SOFT MEDICAL TISSUES OF IMAGING ASS LIMB 16475 SWELLING OF 04-04-2014 [place] LIMB MEDICAL IMAGING ASS 7823 EDEMA 04-04-2014 [place] [facility] 6826 CELLULITIS 04-03-2014 [facility] [...] & USE OF SPINE OTHER INSTIT MEDICATIONS 34485 PAIN IN 06-25-2013 [facility] RADI[facility] PELVIC ASSOCIAT REGION AND THIGH 7222 DISPLCMT 06-24-2012 [facility] THO INTERVERT DISC SITE UNS W/O MYELOPATHY 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 7242 LUMBAGO 06-24-2012 [facility] THO 16915 CONTUSION 06-24-2012 MAC[facility] THO OF ELBOW 68146 PAIN IN 05-26-2012 [facility], RADIOLOGY UPPER ARM ASSOCIAT 15901 LATERAL 05-26-2012 [facility] EP[facility] IS OF [place] SERVICES 9593 INJURY 05-26-2012 [facility] OTHER&UNSPE RADIOLOGY CIFIED ASSOCIAT [place] FOREARM&WRI ST E8859 FALL FROM 05-26-2012 [facility] OTHER EMERGENCY SLIPPING SERVICES TRIPPING OR STUMBLING 72537 BLEPHARITIS 10-16-2011 NEUS SRIKANTH , UNSPECIFIED 6821 CELLULITIS 09-07-2011 [facility] AND ABSCESS [facility] OF NECK INC 6828 CELLULITIS 09-07-2011 [facility] AND ABSCESS OF OTHER SPECIFIED SITE 61503 SPINAL 06-05-2011 NEUS SRIKANTH STENOSIS UNSPEC REGION OTH THAN CERVICAL 7245 UNSPECIFIED 06-05-2011 NEUS SRIKANTH BACKACHE 7230 SPINAL 04-17-2011 [facility] STENOSIS IN REGIONAL CERVICAL MEDICAL REGION 19507 SPASM OF 04-04-2011 [facility] 36438 DIAB W/O 03-27-2011 [facility] COMP TYPE PRIMARY II/UNS NOT CARE CENTER STATED UNCNTRL 4019 UNSPECIFIED 03-27-2011 [facility] ESSENTIAL PRIMARY HYPERTENSIO CARE CENTER N 6868 OTH SPEC 03-27-2011 [facility] LOCAL PRIMARY INFECTIONS CARE CENTER SKIN&SUBCUT TISSUE 41366 CONTUSION 03-23-2011 [facility] OF [facility]ERG[facility] SERVICES 73524 PAIN IN 03-22-2011 [facility], HAND RADIOLOGY ASSOCIAT 49634 CONTUSION 03-22-2011 [facility] OF BACK EMERGENCY SERVICES 54928 CONTUSION 03-22-2011 [facility] HAND EMERGENCY SERVICES E8889 UNSPECIFIED 03-22-2011 [facility] FALL RADIOLOGY ASSOCIAT 7840 HEADACHE 11-10-2010 [facility] 6961 OTHER 10-01-2010 [facility] PSORIASIS EMERGENCY AND SIMILAR SERVICES DISORDERS 7231 CERVICALGIA 06-29-2010 [facility] 920 CONTUSION 04-14-2010 [facility] OF FACE REGIONAL SCALP AND MEDICAL NECK EXCEPT EYE V571 OTHER 03-15-2010 [facility] PHYSICAL REGIONAL THERAPY MEDICAL 80521 UNSPECIFIED 12-27-2009 [facility]ORDER [facility] 58744 OTHER 12-19-2009 [facility] DISORDER OF RADIOLOGY COCCYX ASSOCIAT 8056 CLOS FX 12-19-2009 [facility] SACRUM&COCC REGIONAL YX W/O MEDICAL MENTION SP CENTER CORD INJURY 86560 OTHER 11-07-2009 [facility] CHRONIC REGIONAL [facility] 3540 CARPAL 11-07-2009 [facility] TUNNEL REGIONAL [facility] 412 OLD 11-07-2009 [facility] MYOCARDIAL REGIONAL [facility] 6968 OTH 08-29-2009 [facility] PSORIASIS & PRIMARY SIMILAR CARE [facility]ORD[facility] OTH 7220 DISPLCMT 06-06-2009 [facility] CERV H INTERVERT ORTHOPAEDIC DISC CTR PSC WITHOUT MYELOPATHY 8404 ROTATOR 05-05-2009 [facility] CUFF SPRAIN H AND STRAIN ORTHOPAEDIC CTR PSC 90721 EXOSTOSIS 05-02-2009 [facility] OF H UNSPECIFIED ORTHOPAEDIC SITE CTR PSC 06215 OSTEOARTHRO 04-22-2009 RADIOLOGY S UNSPEC ASSOCIATES WHETHER PSC GEN/LOC SHLDR REGION 44036 UNSPECIFIED 04-22-2009 [facility] H ARTHROPATHY ORTHOPAEDIC SHOULDER CTR PSC REGION 98928 PAIN IN 04-22-2009 [facility] JOINT, H SHOULDER ORTHOPAEDIC REGION CTR PSC 7820 DISTURBANCE 04-22-2009 [facility] 8406 SUPRASPINAT 04-22-2009 [facility] US SPRAIN H AND STRAIN ORTHOPAEDIC CTR PSC 17573 UNSPEC 04-18-2009 [facility] DISORDERS H BURSAE&TEND ORTHOPAEDIC ONS CTR PSC SHOULDER REGION 4011 ESSENTIAL 04-11-2009 [facility] HYPERTENSIO HEART PSC N, BENIGN 70594 REFLUX 04-11-2009 [facility] ESOPHAGITIS HEART PSC 87710 SHORTNESS 04-11-2009 [facility] OF BREATH HEART PSC 99147 CHEST PAIN 04-11-2009 [facility] UNSPECIFIED HEART PSC 55569 NONSPECIFIC 04-11-2009 [facility] ABNORMAL HEART PSC ELECTROCARD IOGRAM 98670 PAIN IN 04-04-2009 [facility] JOINT, PRIMARY ANKLE AND CARE FOOT CENTERINC 94913 OTH SPEC 04-04-2009 [facility] D/O ROTATOR PRIMARY CUFF SYND CARE SHLDR&SASHA CENTERINC D D/O 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 79574 ESOPHAGEAL 03-30-2009 [facility] REFLUX PRIMARY CARE CENTERINC 4293 CARDIOMEGAL 03-29-2009 [facility] Y [facility] ASSOCIATES PSC 71990 OTHER 03-29-2009 [facility] DYSPNEA AND RADIOLOGY ASSOCIATES [place] [address] OTHER CHEST 03-29-2009 [facility] PAIN AMB SERVICE V489 UNSPECIFIED 03-01-2009 [facility] PROBLEM PRIMARY WITH HEAD CARE NECK OR CENTERINC TRUNK 7239 UNSPEC 02-14-2009 [facility] MUSCULOSKEL PRIMARY CARE D/O&SYMPTOM CENTERINC S REFERABLE NECK 57152 UNSPECIFIED 02-14-2009 [facility] SYNOVITIS PRIMARY AND CARE TENOSYNOVIT CENTERINC IS 9057 LATE EFF 10-27-2007 ST SPR[facility]STRA IVÁN IN W/O MED CTR MENTION TENDON INJURY 7962 ELEVATED BP 10-02-2007 [facility] WITHOUT DX [facility]ILY [employer] CARE, INC. N 8409 SPRAIN&STRA 09-22-2007 EMERGENCY IN UNSPEC CARE PHYS SITE [facility] SHOULDER&UP PER ARM 9599 INJURY 09-22-2007 RADIOLOGY OTHER AND ASSOCIATES UNSPECIFIED PSC UNSPECIFIED SITE 73268 PAIN IN 09-02-2007 ST JOINT, IVÁN FOREARM [...] CH ZA 11 11 11 [place] [address] IN CY IN E [...] PH 3 IN 70 11 11 AR MN 5 MA CH 50 CY AE 0 L MG IN S C CA PS UL E PATHAK 53 07 07 0 10 5 DE 64 GA Ac LF 74 -1 -1 .0 AN 13 IN ti AM 60 7- 8- 00 S 41 EY ve ET 27 20 20 PH 4 HO 20 11 11 AR MN XA 5 MA CH ZO CY AE LE L -T IN S MP C DS TA BL ET 00 05 05 0 12 3 DE 40 GA Ac 40 -2 -2 .0 AN 63 IN ti 60 8- 8- 00 S 63 EY ve 35 20 20 PH 5 70 11 11 AR MN 5 MA CH CY AE L IN S C WV 00 05 05 0 21 6 DE 64 GA Ac ED 60 -2 -2 .0 AN 11 IN ti NI 35 8- 8- 00 S 49 EY ve SO 33 20 20 PH 7 NE 71 11 11 AR MN 5 5 MA CH CY AE MG [...] 0- 2- 00 S 10 CA ve WV [address] IL [...] 0- 0- 00 S 10 CA ve WV [address] IL [...] 0- 2- 00 S 10 CA ve WV [address] [place] 08 09 10 AR IL 0 MA LO 20 CY DE MG IN CA C LV TA O BL MA ET RI A IS AB EL V LI 00 10 04 10 30 30 DE 63 DE Ac SI 17 -2 -1 .0 AN 86 L ti NO 23 0- 6- 00 S 10 CA ve WV [address] IL 08 09 10 AR IL 0 MA LO 20 CY DE MG IN CA C LV TA O BL MA ET RI A IS AB EL V LI 00 10 03 10 30 30 DE 63 DE Ac SI 17 -2 -1 .0 AN 86 L ti NO 23 0- 6- 00 S 10 CA ve WV [address] IL [...] 0- 6- 00 S 10 CA ve WV [address] IL 08 09 10 AR IL 0 MA LO 20 CY DE MG CA LV TA O BL MA ET RI A IS AB EL V LI 00 10 01 02 30 30 DE 63 DE Ac SI 17 -2 -2 .0 AN 86 L ti NO 23 0- 8- 00 S 10 CA ve WV [address] IL [...] 9 AN ZA 81 09 09 AR WV 0 MA CH IN CY RI E ST 10 IN A MG M TA BL ET LI 00 10 12 01 30 30 DE 63 DE Ac SI 17 -2 -3 .0 AN 86 L ti NO 23 0- 1- 00 S 10 CA ve WV [address] IL [...] 0- 9- 00 S 10 CA ve WV [address] [place] 08 09 09 AR IL 0 MA LO 20 CY DE MG CA LV TA O BL MA ET RI A IS AB EL V ME 00 11 11 00 21 6 DE 63 LA Ac TH 78 -1 -1 .0 AN 87 RK ti YL 15 1- 9- 00 S 14 IN ve WV 02 20 20 PH 1 ED 20 [...] AR EV 2 MA EN CY E WV 37 10 11 00 60 30 DE [...] 4- 2- 00 S 81 CA ve WV [address] IL [...] Procedure DOS Code Location Performer Comment RADEX 23435 [facility] 7 W W COMPLETE REGIONAL REGIONAL MINIMUM 2 MEDICAL MEDICAL VIEWS SIMPLE 99031 [facility] RE[facility] 6 PHYSICIAN U RENAE SCALP/NEC S, PLLC K/AX/SHAILESH T/TRUNK 2.5CM/< IM ADM 60899 [facility] PRQ ID 6 [facility] SUBQ/IM INC INC NJXS 1 VACCINE TDAP 60039 [facility]ACCINE 7 6 [facility] YRS/> IM INC INC APPLICATI 06635 [facility] ON FINGER 6 [facility] SPLINT INC INC STATIC RADEX 61154 [place] JIMÉNEZ ALL FINGR 6 MEDICAL MINIMUM 2 [...] ACETATE & INSTIT PHOSPHATE 3 MG DSTR 76515 ADVANCED KERSCHNER NROLYTC 6 PAIN & MAG AGNT SPINE PARVERTEB INSTIT FCT ADDL LMBR/SACR AL DSTR 10715 ADVANCED [facility] NROLYTC 6 PAIN & MAG AGNT SPINE PARVERTEB INSTIT FCT SNGL LMBR/SACR AL DSTR 43230 ADVANCED KERSCHNER NROLYTC 6 PAIN & MAG AGNT SPINE PARVERTEB INSTIT FCT SNGL LMBR/SACR AL DSTR 91799 ADVANCED KERSCHNER NROLYTC 6 PAIN & MAG AGNT SPINE PARVERTEB INSTIT FCT ADDL LMBR/SACR AL INJ J0702 ADVANCED [facility] BETAMETHA 6 PAIN & MAG SONE SPINE ACETATE & INSTIT PHOSPHATE 3 MG INJ J0702 ADVANCED [facility] BETAMETHA 6 PAIN & MAG SONE SPINE ACETATE & INSTIT PHOSPHATE 3 MG NJX 22492 ADVANCED K[facility] ANES&/STR 6 PAIN & MAG D W/IMG SPINE TFRML INSTIT EDRL LMBR/SAC 1 LVL NJX 39428 ADVANCED K[facility] ANES&/STR 6 PAIN & MAG [...] ACETATE & INSTIT PHOSPHATE 3 MG DSTR 70858 ADVANCED KERSCHNER NROLYTC 5 PAIN & MAG AGNT SPINE PARVERTEB INSTIT FCT ADDL LMBR/SACR AL DSTR 53265 ADVANCED KERSCHNER NROLYTC 5 PAIN & MAG AGNT SPINE PARVERTEB INSTIT FCT SNGL LMBR/SACR AL DSTR 26547 ADVANCED KERSCHNER NROLYTC 5 PAIN & MAG AGNT SPINE PARVERTEB INSTIT FCT SNGL CRVCL/THO RA DSTR 75056 ADVANCED K[facility]CHNER NROLYTC 5 PAIN & MAG AGNT SPINE PARVERTEB INSTIT FCT ADDL CRVCL/[place] NJX 62133 ADVANCED K[facility]CHNER DX/THER 4 PAIN & MAG SBST SPINE EPIDURAL/ INSTIT SUBRACH CERV/THOR ACIC FLUOR 20021 ADVANCED [facility] NEEDLE/CA 4 PAIN & MAG TH SPINE SPINE/PAR INSTIT ASPINAL DX/[place] NJX 40698 ADVANCED [facility] ANES&/STR 4 PAIN & MAG D W/IMG SPINE TFRML INSTIT EDRL LMBR/SAC EA LV NJX 02657 ADVANCED [facility] ANES&/STR 4 PAIN & MAG D W/IMG SPINE TFRML INSTIT EDRL LMBR/SAC 1 LVL ARTHROCEN 37068 AD[facility]ED [facility] TESIS 4 PAIN & MAG ASPIR&/IN SPINE J MAJOR INSTIT JT/BURSA W/O US FLUOROSCO 15462 ADVANCED [facility] PIC 4 PAIN & MAG GUIDANCE SPINE NEEDLE INSTIT PLACEMENT ADD ON DUP-SCAN 69147 JEREMY GOMEZ XTR VEINS 4 MEDICAL SAAD IMAGING UNILATERA ASS L/LIMITED STUDY GLUC BLD 52557 [facility] GLUC MNTR 4 [facility] DEV INC INC CLEARED FDA SPEC HOME USE ARTHROCEN 59622 ADV[facility]ED [facility] TESIS 4 PAIN & MAG ASPIR&/IN SPINE J MAJOR INSTIT JT/BURSA W/O US FLUOROSCO 39694 ADVANCED [facility] PIC 4 PAIN & MAG GUIDANCE SPINE NEED[place] IN[place] [address] ADVANCED [facility] JOINT 4 PAIN & MAG ARTHRGRPH SPINE Y&/ANES/S INSTIT TEROID W/SHANE NJX 03354 ADVANCED [facility] DX/THER 4 PAIN & MAG AGT PVRT SPINE FACET JT INSTIT CRV/THRC 2ND LEVEL NJX 33855 ADVANCED K[facility]CHNER DX/THER 4 PAIN & MAG AGT PVRT SPINE FACET JT INSTIT CRV/THRC 1 LEVEL NJX 60235 ADVANCED KERSCHNER DX/THER 4 PAIN & MAG AGT PVRT SPINE FACET JT INSTIT CRV/THRC 3+ LEVEL NJX 37731 ADVANCED KERSCHNER DX/THER 4 PAIN & MAG AGT PVRT SPINE FACET JT INSTIT LMBR/SAC 3+ LEVEL NJX 29957 ADVANCED KERSCHNER DX/THER 4 PAIN & MAG AGT PVRT SPINE FACET JT INSTIT LMBR/SAC 1 LEVEL NJX 91618 ADVANCED KERSCHNER DX/THER 4 PAIN & MAG AGT PVRT SPINE FACET JT INSTIT LMBR/[place] 2[place] [address] ADVANCED K[facility]CHNER JOINT 4 PAIN & MAG ARTHRGRPH SPINE Y&/ANES/S INSTIT TEROID W/SHANE NJX 10307 ADVANCED KERSCHNER DX/THER 4 PAIN & MAG SBST SPINE EPIDURAL/ INSTIT SUBRACH CERV/THOR ACIC FLUOR 96067 ADVANCED KERSCHNER NEEDLE/CA 4 PAIN & MAG TH SPINE SPINE/PAR INSTIT ASPINAL DX/THER [place]ON NJX 55423 ADVANCED MAL DX/THER 4 PAIN & IRM AGT PVRT SPINE FACET JT INSTIT CRV/THRC 3+ LEVEL NJX 97326 ADVANCED MAL DX/THER 4 PAIN & IRM AGT PVRT SPINE FACET JT INSTIT CRV/THRC 1 LEVEL NJX 67480 ADVANCED MAL DX/THER 4 PAIN & IRM AGT PVRT SPINE FACET JT INSTIT CRV/THRC 2ND LEVEL DSTR 21360 ADVANCED KERSCHNER NROLYTC 4 PAIN & MAG AGNT SPINE PARVERTEB INSTIT FCT SNGL LMBR/SACR AL DSTR 01538 ADVANCED KERSCHNER NROLYTC 4 PAIN & MAG AGNT SPINE PARVERTEB INSTIT [place] [address] ADVANCED KERSCHNER JOINT 4 PAIN & MAG ARTHRGRPH SPINE Y&/ANES/S INSTIT TEROID W/SHANE DSTR 99761 ADVANCED KERSCHNER NROLYTC 4 PAIN & MAG AGNT SPINE PARVERTEB INSTIT FCT SNGL LMBR/SACR AL DSTR 32036 ADVANCED KERSCHNER NROLYTC 4 PAIN & MAG AGNT SPINE PARVERTEB INSTIT FCT ADDL LMBR/SACR AL NJX 50661 ADVANCED KERSCHNER DX/THER 4 PAIN & MAG AGT PVRT SPINE FACET JT INSTIT LMBR/SAC 2ND LEVEL NJX 63092 ADVANCED KERSCHNER DX/THER 4 PAIN & MAG AGT PVRT SPINE FACET JT INSTIT LMBR/SAC 1 LEVEL NJX 93649 ADVANCED KERSCHNER DX/THER 4 PAIN & MAG AGT PVRT SPINE FACET JT INSTIT LMBR/SAC 3+ LEVEL NJX 71772 ADVANCED KERSCHNER ANES&/STR 4 PAIN & MAG D W/IMG SPINE TFRML INSTIT EDRL LMBR/SAC 1 LVL NJX 12403 ADVANCED KERSCHNER ANES&/STR 4 PAIN & MAG D W/IMG SPINE TFRML INSTIT EDRL LMBR/SAC EA LV DSTR 36720 ADVANCED KERSCHNER NROLYTC 4 PAIN & MAG AGNT SPINE PARVERTEB INSTIT FCT SNGL CRVCL/THO RA DSTR 35736 ADVANCED KERSCHNER NROLYTC 4 PAIN & MAG AGNT SPINE PARVERTEB INSTIT FCT ADDL CRVCL/THO [place] NJX 73260 ADVANCED KERSCHNER DX/THER 4 PAIN & MAG SBST SPINE EPIDURAL/ INSTIT SUBRACH CERV/THOR ACIC INJ J0702 ADVANCED [facility] BETAMETHA 4 PAIN & MAG SONE SPINE ACETATE & INSTIT PHOSPHATE 3 MG FLUOR 16313 ADVANCED K[facility]CHNER NEEDLE/CA 4 PAIN & MAG TH SPINE SPINE/PAR INSTIT ASPINAL DX/THER ADDON DSTR 93963 ADVANCED KERSCHNER NROLYTC 4 PAIN & MAG AGNT SPINE PARVERTEB INSTIT FCT ADDL CRVCL/THO RA DSTR 24382 ADVANCED KERSCHNER NROLYTC 4 PAIN & MAG AGNT SPINE PARVERTEB INSTIT FCT SNGL CRVCL/THO RA NJX 70489 ADVANCED KERSCHNER DX/THER 4 PAIN & MAG AGT PVRT SPINE FACET JT INSTIT CRV/THRC 3+ LEVEL NJX 40659 ADVANCED KERSCHNER DX/THER 4 PAIN & MAG AGT PVRT SPINE FACET JT INSTIT CRV/THRC 1 LEVEL NJX 29564 ADVANCED KERSCHNER DX/THER 4 PAIN & MAG AGT PVRT SPINE FACET JT INSTIT CRV/THRC 2ND LEVEL NJX 01395 ADVANCED KERSCHNER ANES&/STR 4 PAIN & MAG D W/IMG SPINE TFRML INSTIT EDRL LMBR/SAC 1 LVL NJX 03066 ADVANCED KERSCHNER DX/THER 4 PAIN & MAG AGT PVRT SPINE FACET JT INSTIT CRV/THRC 2ND LEVEL NJX 38891 ADVANCED KERSCHNER DX/THER 4 PAIN & MAG AGT PVRT SPINE FACET JT INSTIT CRV/THRC 1 LEVEL NJX 77339 ADVANCED KERSCHNER DX/THER 4 PAIN & MAG AGT PVRT SPINE FACET JT INSTIT CRV/THRC 3+ LEVEL NJX 48317 ADVANCED KERSCHNER ANES&/STR 4 PAIN & MAG D W/IMG SPINE TFRML INSTIT EDRL [place]BR/SAC 1 [place] [address] ADVANCED MAL JOINT 4 PAIN & IRM ARTHRGRPH SPINE Y&/ANES/S INSTIT TEROID W/SHANE RADEX HIP 18302 TAD LUCAS 4 [facility] RADIOLOGY L ASSOCIAT COMPLETE MINIMUM 2 VIEWS NJX 38426 ADVANCED KERSCHNER ANES&/STR 4 PAIN & MAG D W/IMG SPINE TFRML INSTIT EDRL CRV/THRC EA LV NJX 05456 ADVANCED KERSCHNER ANES&/STR 4 PAIN & MAG D W/IMG SPINE TFRML INSTIT EDRL CRV/THRC 1 LVL EPIDUROGR 12995 ADVANCED KERSCHNER APY RS&I 4 PAIN [place] [address] KERSCHNER KERSCHNER JOINT 3 MAG MAG ARTHRGRPH Y&/ANES/S TEROID W/SHANE INJECTION 88348 K[facility]NER KERSCHNER ANES 3 MAG MAG OTHER PERIPHERA L NERVE/BRA NCH DSTR 77991 KERSCHNER KERSCHNER NROLYTC 3 MAG MAG AGNT PARVERTEB FCT ADDL CRVCL/THO RA DSTR 67575 KERSCHNER KERSCHNER NROLYTC 3 MAG MAG AGNT PARVERTEB FCT SNGL CRVCL/THO RA LUMB-SACR L0637 DASCO HME DASCO HME AL ORTHOS 3 [facility] CNTRL RIGD A&P PREFAB RADEX 13780 [facility] 2 EIDER VÍCTOR COMPLETE RADIOLOGY MINIMUM 3 ASSOCIAT VIEWS NEEDLE A4215 [facility] KERSCHNER STERILE 2 [place]X 14296 KERSCHNER KERSCHNER DX/THER 2 MAG MAG AGT PVRT FACET JT LMBR/SAC 3+ LEVEL NJX 64063 KERSCHNER KERSCHNER DX/THER 2 MAG MAG AGT PVRT FACET JT LMBR/SAC 1 LEVEL NJX 58342 KERSCHNER KERSCHNER DX/THER 2 MAG MAG AGT PVRT FACET JT LMBR/SAC 2ND LEVEL NJX 17719 KERSCHNER KERSCHNER DX/THER 2 MAG MAG AGT PVRT FACET JT CRV/THRC 1 LEVEL NJX 40429 KERSCHNER KERSCHNER DX/THER 2 MAG MAG AGT PVRT FACET JT CRV/THRC 2ND LEVEL NJX 26893 KERSCHNER KERSCHNER DX/THER 2 MAG MAG AGT PVRT FACET JT CRV/THRC 3+ LEVEL NJX 00034 KERSCHNER KERSCHNER DX/THER 2 MAG MAG AGT PVRT FACET JT CRV/THRC 3+ LEVEL NJX 16186 KERSCHNER KERSCHNER DX/THER 2 MAG MAG AGT PVRT FACET JT CRV/THRC 2ND LEVEL NJX 13380 KERSCHNER KERSCHNER DX/THER 2 MAG MAG AGT PVRT FACET JT CRV/THRC 1 LEVEL LOCM Q9967 KERSCHNER KERSCHNER 300-399 2 MAG MAG MG/ML IODINE CONCENTRA TION PER ML FLUOR 42101 K[facility]NER KERSCHNER NEEDLE/CA 2 MAG MAG TH SPINE/PAR ASPINAL DX/THER ADDON NJX 00441 KERSCHNER KERSCHNER DX/THER 2 MAG MAG SBST EPIDURAL/ SUBARACH LUMBAR/SA CRAL FLUOR 23384 KERSCHNER KERSCHNER NEEDLE/CA 2 MAG MAG TH SPINE/PAR ASPINAL DX/THER ADDON LOCM Q9967 KERSCHNER KERSCHNER 300-399 2 MAG MAG MG/ML IODINE CONCENTRA TION PER ML INJECTION J1100 KERSCHNER KERSCHNER 2 MAG MAG DEXAMETHO SONE SODIUM PHOSPHATE 1 MG NJX 30606 KERSCHNER KERSCHNER DX/THER 2 MAG MAG SBST EPIDURAL/ SUBRACH CERV/THOR ACIC LOCM Q9967 KERSCHNER KERSCHNER [phone] 2 MAG MAG MG/ML IODINE CONCENTRA TION PER ML NJX 47091 KERSCHNER KERSCHNER DX/THER 2 MAG MAG SBST EPIDURAL/ SUBARACH LUMBAR/SA CRAL LOCM Q9967 KERSCHNER KERSCHNER 300-399 2 MAG MAG MG/ML IODINE CONCENTRA TION PER ML INJECTION J1100 KERSCHNER KERSCHNER 2 MAG MAG DEXAMETHO SONE SODIUM PHOSPHATE 1 MG NJX 55372 KERSCHNER KERSCHNER DX/THER 2 MAG MAG SBST EPIDURAL/ SUBRACH CERV/THOR ACIC MRI 34736 MEADOWVIE MEADOWVIE SPINAL 1 W W CANAL REGIONAL REGIONAL CERVICAL MEDICAL MEDICAL W/O CONTRAST MATRL THERAPEUT 83200 [facility] KRISTAL SRIKANTH IC 1 PRIMARY PROPHYLAC CARE TIC/DX CENTER INJECTION SUBQ/IM INJECTION J1885 [facility] NEUS SRIKANTH 1 PRIMARY KETOROLAC CARE CENTER TROMETHAM INE PER 15 MG BASIC 59362 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 METABOLIC 1 Y & Y & PANEL BIODIAGNO BIODIAGNO CALCIUM STICS STICS TOTAL COLLECTIO 41152 [facility] KRISTAL SRIKANTH N VENOUS 1 PRIMARY BLOOD CARE VENIPUNCT CENTER URE COLLECTIO 05167 [facility] N 1 PRIMARY PRIMARY CAPILLARY CARE CARE BLOOD CENTER CENTER SPECIMEN RADEX 44741 [facility] EIDER VÍCTOR MINIMUM 3 RADIOLOGY VIEWS ASSOCIAT COMPREHEN 38895 CARL[facility] ENRIQUE [facility] SIVE 1 [facility] METABOLIC INC INC PANEL CUL BACT 83639 CARLOS ENRIQUE MONACO AEROBIC 1 [facility] ADDL INC [place] [address] CARLOS ENRIQUE MONACO INFUSION 1 [facility] THERAPY INC INC PROPHYLAX IS/DX EA HOUR RADIOLOGI 56185 [place] PATRICIA C 1 MEDICAL SAAD EXAMINATI IMAGING ON TIBIA ASS & FIBULA 2 VIEWS BLOOD 56429 CARLOS ENRIQUE MONACO COUNT 1 [facility] COMPLETE INC INC AUTO&AUTO DIFRNTL WBC CULTURE 78850 CARLOS ENRIQUE MONACO BACTERIAL 1 [facility] BLOOD INC INC AEROBIC W/ID ISOLATES SUSCEPTIB 89711 CARLOS ENRIQUE MONACO LTY STDY 1 [facility] ANTIMICRB INC INC I[place] [address] CARLOS ENRIQUE MONACO INFUSION 1 [facility] THERAPY/P INC INC ROPHYLAXI S /DX 1ST TO 1 HR BASIC 68836 CARLOS ENRIQUE MONACO METABOLIC 1 [facility] PANEL INC INC CALCIUM TOTAL SEDIMENTA 81682 CARLOS ENRIQUE MONACO TION RATE 1 [facility] RBC INC INC NON-AUTOM ATED 3D 88091 CARLOS ENRIQUE MONACO RENDERING 1 [facility] W/INTERP INC INC & [place] [address] CARLOS ENRIQUE MONACO HEAD/BRAI 1 [facility] N W/O INC INC CONTRAST MATERIAL BLOOD 06201 CARLOS ENRIQUE MONACO COUNT 1 [facility] COMPLETE INC INC AUTO&AUTO DIFRNTL WBC PHYSICAL 76200 MEADOWVIE MEADOWVIE THERAPY 0 W W EVALUATIO [facility] N MEDICAL MEDICAL APPL 69328 MEADOWVIE MEADOWVIE MODALITY 0 W W 1/> [facility] MEDICAL ULTRASOUN D EA 15 MIN MRI 66112 SHAKILA ROBERTSON SPINAL [facility] CANAL SPINE IN LUMBAR W/O CONTRAST MATERIAL MRI 63676 SHAKILA ROBERTSON SPINAL 0 [facility] CANAL SPINE IN CERVICAL W/O CONTRAST MATRL RADEX 56319 MEADOWVIE MEADOWVIE SACRUM & 0 W W [facility]X [facility] 2 MEDICAL MEDICAL VIEWS CENTER CENTER THERAPEUT 47752 MEADOWVIE MEADOWVIE IC 0 W W PROPHYLAC [facility] CENTER SUBQ/IM THERAPEUT 26066 MEADOWVIE MEADOWVIE IC 9 W W PROPHYLAC REGIONAL [facility] CENTER SUBQ/IM FLUOR 33157 RADIOLOGY MATEO, NEEDLE/CA 9 ELOY D TH ASSOCIATE SPINE/PAR S PSC ASPINAL DX[place] [address] RADIOLOGY MATEO, DX/THER 9 ELOY D SBST ASSOCIATE EPIDURAL/ S PSC SUBRACH CERV/THOR ACIC MRI 56490 [place]ON[place] GREFER, SPINAL 9 LTH DANIEL CANAL ORTHOPAED CERVICAL IC CTR W/O [place] [address] RADIOLOGY Hi JUAREZT UPPER 9 CRUZ A EXTREMITY ASSOCIATE W/O S PSC CONTRAST MATRL NRV CNDJ 65975 MCKENNA ANDRES, AMPLT&LAT 9 HANSEL HADLEYY EA NRV MOTR W/O F-WAVE STD NRV CNDJ 27988 MCKENNA ANDRES, AMPLITUDE 9 HANSEL HAMM & LATENCY EACH NERVE SENSORY NDL EMG 1 57111 MCKENNA ANDRES, XTR W/WO 9 HANSEL HAMM RELATED PARASPINA L AREAS RADEX 02408 COMMONLADANA CANDY, SHOULDER 9 [facility] Do COMPLETE ORTHOPAED MINIMUM 2 IC CTR VIEWS PSC RADEX 24543 VIPIN GUPTA, SPINE 9 [facility] Do CERVICAL ORTHOPAED 2 OR 3 IC CTR VIEWS PSC ECHO 71694 [facility] TTHRC R-T 9 [facility] 2D HEART PSC W/WOM-MOD E COMPL SPEC&COLR D ECG 11202 [facility], ROUTINE 9 [facility] ECG HEART PSC W/LEAST 12 LDS W/I&R INJECTION 87958 [facility], CARDIAC 9 [facility] CATHJ L HEART PSC VENTR/L ATR ANGIOGRAP H L HRT 41010 [facility] CATHETERI 9 [facility] ZATION HEART P[place] [address] [facility], C-CATHJ 9 [facility] F/SLCTV C HEART PSC ANGRPH I SI&R 54796 [facility], F/NJX PX 9 [facility] R[facility] DURING HEART PSC C-CATHJ VENTR&/AT R ANGRPH I SI&R 02904 [facility], F/NJX PX 9 [facility] DURING HEART PSC C-CATHJ PULM&/OR SELECT OBSERVATI 60303 [facility] CHIN BEE ON/INPATI 9 PRIMARY CARLOS[facility] MINUTES INITIAL 43191 [facility], INPATIENT 9 [facility] CONSULT HEART PSC NEW/ESTAB PT 110 MIN GROUND A0425 [facility] MILEAGE 9 CO AMB CO AMB PER SERVICE SERVICE STATUTE MILE [facility] A0429 [facility] CO AMB CO AMB BLS SERVICE SERVICE EMERGENCY TRANSPORT BLS A0382 [facility] ROUTINE 9 CO AMB CO AMB DISPOSABL SERVICE SERVICE E SUPPLIES AMB A0422 [facility] OXYGEN&O2 9 CO AMB CO AMB SUPPLIES SERVICE SERVICE LIFE SUSTAININ G SITUATION RADIOLOGI 35222 Tk HONG 9 RHONDA S EXAMINATI RADIOLOGY ON CHEST SINGLE ASSOCIATE VIEW S PSC FRONTAL BASIC 33632 [facility] 9 [facility] PANEL CALCIUM TOTAL COLLECTIO 83434 [facility] JANET N VENOUS 9 PRIMARY Y, JOVANNI BLOOD CARE V VENIPUNCT CENTERINC URE RADEX 30080 RADIOLOGY MELARA, SHOULDER 8 NENA L COMPLETE ASSOCIATE MINIMUM 2 S PSC VIEWS Encounters Encounter Start End Date Code Location Performer Type Date OFFICE 18386 [facility] 7 7 PAIN & T VISIT SPINE 15 INSTIT MINUTES [facility] 7 7 W [facility]EN [facility] MEDICAL OFFICE 73530 [facility] OUTPATI[facility] 7 7 PAIN & T VISIT SPINE 15 INSTIT MINUTES EMERGENCY 86353 ABRIL ROMAN 6 6 PHYSICIAN U [facility] S, [facility] T VISIT MODERATE SEVERITY EMERGENCY 19568 CARLOS ENRIQUE 6 6 [facility] T VISIT HIGH/URGE NT SEVERITY HOSPITAL CARLOS ENRIQUE - 6 6 [facility] OUTPATIEN [facility] T EMERGENCY 17334 ABRIL ROMAN 6 6 PHYSICIAN U [facility] S, [facility] T VISIT MODERATE SEVERITY OFFICE 25847 [facility] OUTPATIEN 5 5 PAIN & URUGAN T VISIT SPINE HEM 15 INSTIT MINUTES OFFICE 22095 [facility] OUTPATIEN 4 4 PAIN & MAG T VISIT SPINE 15 INSTIT MINUTES OFFICE 53331 [facility] OUTPATIEN 4 4 PAIN & MAG T VISIT SPINE 15 INSTIT MINUTES OFFICE 32797 [facility] OUT[facility] 4 4 PAIN & MAG T VISIT SPINE 15 INSTIT MINUTES HOSPITAL CARLOS ENRIQUE - 4 4 [facility] OUT[facility] INC T EMERGENCY 32608 [facility] DEPT 4 4 [place] MOH VISIT EMERGENCY HIGH PHYS SEVERITY& THREAT [facility] CARLOS ENRIQUE - 4 4 [facility] OUTPATIEN INC T EMERGENCY 97957 CARLOS ENRIQUE 4 4 [facility] DEPARTMEN INC T VISIT LOW/MODER SEVERITY OFFICE 95841 [facility] OUTPATIEN 4 4 PAIN & MAG T VISIT SPINE 15 INSTIT MINUTES OFFICE 72988 [facility] MAL OUTPATIEN 4 4 PAIN & IRM T VISIT SPINE 15 INSTIT MINUTES OFFICE 03159 AD[facility]ANCED MAL OUTPATIEN 4 4 PAIN & IRM T VISIT SPINE 15 INSTIT MINUTES OFFICE 90671 ADVANCED MAL OUTPATIEN 4 4 PAIN & IRM T VISIT SPINE 15 INSTIT MINUTES OFFICE 08484 AD[facility]ANCED MAL OUTPATIEN 4 4 PAIN & IRM T VISIT SPINE 15 INSTIT MINUTES OFFICE 15226 [facility] OUTPATIEN 4 4 PAIN & MAG T VISIT SPINE 15 INSTIT MINUTES OFFICE 96318 [facility] OUTPATIEN 4 4 PAIN & MAG T VISIT SPINE 15 INSTIT MINUTES OFFICE 66860 [facility] OUTPATIEN 4 4 PAIN & MAG T VISIT SPINE 15 INSTIT MINUTES OFFICE 81719 [facility] OUTPATIEN 4 4 PAIN & MAG T VISIT SPINE 15 INSTIT MINUTES OFFICE 02766 [facility] OUTPATIEN 4 4 PAIN & MAG T VISIT SPINE 15 INSTIT MINUTES OFFICE 15151 ADVANCED MAL OUTPATIEN 4 4 PAIN & IRM T VISIT SPINE 15 INSTIT MINUTES OFFICE 64148 [facility] OUTPATIEN 4 4 PAIN & MAG T VISIT SPINE 15 INSTIT MINUTES OFFICE 68691 [facility]ED [facility] OUTPATIEN 4 4 PAIN & MAG T VISIT SPINE 15 INSTIT MINUTES OFFICE 25471 ADVANCED MAL OUTPATIEN 4 4 PAIN & IRM T VISIT SPINE 15 INSTIT MINUTES OFFICE 28351 MACIAS OUTPATIEN 3 3 THO T VISIT 15 MINUTES EMERGENCY 50967 RICARDO PORNOY 2 2 EMERGENCY [facility] T VISIT HIGH/URGE NT SEVERITY OFFICE 86359 [facility]ED [facility]ERS[facility]NER OUTPATIEN 2 2 PAIN & MAG T VISIT SPINE 10 INSTIT MINUTES OFFICE 50174 NEUS SRIKANTH OUTPATIEN 2 2 T VISIT 15 MINUTES EMERGENCY 48322 SUKHWINDER [facility] PRETTY [facility] 2 2 DEPARTMEN T VISIT MODERATE SEVERITY EMERGENCY 37932 CARLOS ENRIQUE 2 2 [facility]PART[facility] T VISIT LOW/MODER SEVERITY HOSPITAL CARLOS ENRIQUE - 2 2 [facility] OUTPATIEN INC T OFFICE 13715 KERSCHNER KERSCHNER OUTPATIEN 2 2 MAG MAG T NEW 45 MINUTES OFFICE 59904 SONIA PHI SONIA PHI CONSULTAT 2 2 ION NEW/ESTAB PATIENT 40 MIN OFFICE 96540 NEUS SRIKANTH NEUS SRIKANTH OUTPATIEN 1 1 T VISIT 25 MINUTES [facility] - 1 1 W OUTPATIEN REGIONAL T MEDICAL OFFICE 13666 [facility] NEUS SRIKANTH OUTPATIEN 1 1 PRIMARY T VISIT CARE 15 CENTER MINUTES OFFICE 04497 [facility] NEUS SRIKANTH OUTPATIEN 1 1 PRIMARY T VISIT CARE 15 CENTER MINUTES EMERGENCY 19754 RICARDO PRETTY [place] 1 1 EMERGENCY DEPARTMEN SERVICES T VISIT HIGH/URGE NT SEVERITY EMERGENCY 29492 RICARDO ARAIZANOY 1 1 EMERGENCY [facility] T VISIT HIGH/URGE NT SEVERITY EMERGENCY 39709 CARLOS ENRIQUE 1 1 [facility] DEPARTMEN INC T VISIT HIGH/URGE NT SEVERITY HOSPITAL CARLOS ENRIQUE - 1 1 [facility] OUTPATIEN INC T HOSPITAL CARLOS ENRIQUE - 1 1 [facility] OUTPATIEN INC T EMERGENCY 77180 RICARDO CASTILLO DEPT 1 1 EMERGENCY ARISTEO VISIT SERVICES HIGH SEVERITY& THREAT FUNCJ EMERGENCY 46827 CARLOS ENRIQUE 1 1 [facility] INC T VISIT HIGH/URGE NT SEVERITY EMERGENCY 18244 RICARDO DIAZ 1 1 EMERGENCY KEE [facility] SERVICES T VISIT MODERATE SEVERITY OFFICE 82021 JHAVERI ARELY OUTPATIEN 1 1 CLINIC & DECKER T VISIT SPINE IN 25 MINUTES HOSPITAL [facility] 03786 MEADOWVIE 0 0 [facility] T VISIT MEDICAL MODERATE SEVERITY [facility] ME[facility] - [facility] 0 [facility] 15065 JHAVERIFIELD ELI CONSULTAT 0 0 CLINIC & SRIKANTH ION SPINE IN NEW/ESTAB PATIENT 40 MIN OFFICE 49600 ZEE HERNANDEZ 0 0 PRIMARY TYESHA Jordan T VISIT CARE 25 CENTERINC MINUTES [facility] MEADOWVIE - 0 0 [facility] EMERGENC[facility] 69747 MEADOWVIE 0 0 [facility] T VISIT MEDICAL MODERATE CENTER SEVERITY [facility]OSPITAL [facility] 0 0 [facility] 23120 MEADOWVIE 0 0 [facility] T VISIT MEDICAL MODERATE CENTER SEVERITY OFFICE 99477 ZEE HERNANDEZ 0 0 PRIMARY TYESHA E T VISIT CARE 15 CENTERINC MINUTES OFFICE 82520 ZEE EATON 9 9 [facility] Do T VISIT ORTHOPAED 25 IC CTR MINUTES [facility] EMERGENCY 10349 EDAWRD 9 9 [facility] C[facility] SEVERITY [facility]OSPITAL LEANNESAULRULA - 9 9 W OUTPATIEN REGIONAL T MEDICAL CENTER OFFICE 46472 BRIANCHANG CANDY OUTPATIEN 9 9 LT [place] Robles VISIT ORTHOPAED 25 IC CTR MINUTES [facility] OFFICE 70572 VIPIN CANDY OUTPATIEN 9 9 LT [place] Robles VISIT ORTHOPAED 25 IC CTR MINUTES [facility] ST - 9 9 IV[facility] NTER OFFICE 02463 VIPIN CANDY, CONSULTAT 9 9 [facility] STEVENSON ORTHOPAED NEW/ESTAB IC CTR PATIENT PSC 40 MIN OFFICE 95173 [facility] 9 9 [facility] T VISIT HEART PSC 25 MINUTES OFFICE 56976 [facility] NEUS, OUTPATIEN 9 9 PRIMARY TYESHA E T VISIT CARE 25 CENTERINC MINUTES OFFICE 64863 [facility] DEL OUTPATIEN 9 9 PRIMARY STRAUSS T VISIT CARE DECALVO, 15 CENTERINC BESSY MINUTES FREDDIE V OFFICE 04955 [facility]ES[facility] 9 9 PRIMARY Y, JOVANNI T NEW 20 CARE V MINUTES CENTERINC EMERGENCY 49222 CANDIDO 8 8 [facility] SANJOYDEB T VISIT MODERATE SEVERITY OFFICE 62656 [facility] 8 8 [place] ROS[place]NI T VISIT FAMILY 25 CARE, MINUTES INC. EMERGENCY 64632 EMERGENCY JOCELIN, 8 8 [facility] SEVERITY EMERGENCY [address] [facility] [place], 8 8 IVÁN [facility] T VISIT MODERATE SEVERITY EMERGENCY [address] [facility] BANG, 8 8 IVÁN Dupree [facility] MED CTR T VISIT HIGH/URGE NT SEVERITY
--- OUTSIDE RECORDS SUMMARY | 2016-10-27 18:47 | External Medical Summary Rpt ---
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 Care Plant Tender Name Role Phone [facility] Unavailable Unavailable IN[facility], [facility] ALFARIS MOH, ALFARIS Unavailable Unavailable MOH SREEDHAR PRINGLE Unavailable Unavailable HANSEL MCNULTY, Unavailable Unavailable HANSEL ANDRES SAUL, Unavailable Unavailable SMITH ROSHNI JIMÉNEZ ALL, JIMÉNEZ ALL Unavailable Unavailable [facility] Unavailable Unavailable SERV[facility], [facility] BRANDSER CRUZ A, Unavailable Unavailable BRANDSER CRUZ A BEE CARLOS, DASHAWN Unavailable Unavailable F, BEE CARLOS, DASHAWN F [facility] Unavailable Unavailable [facility] CARIDAD MCLEAN Unavailable Unavailable PATRICIA SAAD, Unavailable Unavailable PATRICIA SAAD [facility] Unavailable Unavailable [facility] Un[facility] Unavailable [facility], Unavailable Unavailable [facility] SLADE DECALVO, Unavailable Unavailable MING V, SLADE DECALVO, MING V ANN MONREAL, Unavailable Unavailable ANN MONREAL JANELL M, Unavailable Unavailable DEVORAH BANG FINLEY Unavailable Unavailable KEE ANNA ARISTEO, ANNA Unavailable Unavailable ARISTEO SUKHWINDER CORTEZ CHACORTA Unavailable Unavailable SUKHWINDER CORTEZ Unavailable Unavailable ANN CLEVELAND, Unavailable Unavailable ANN CLEVELAND, Unavailable Unavailable DEEJAYCHCORTEZ TEJEDA VÍCTOR, Unavailable Unavailable HAGCHNENORA VÍCTOR [facility] Unavailable Unavailable INC, [facility] LUCAS KWADWO, LUCAS Unavailable Unavailable KWADWO RHONDA LUCAS S, Unavailable Unavailable RHONAD LUCAS S [facility] Unavailable Unavailable [facility], [facility], Unavailable Unavailable [facility], Unavailable Unavailable [facility], Unavailable Unavailable [facility] & Unavailable Unavailable [facility] BRITTANY GUPTA, Unavailable Unavailable BRITTANY GUPTA RACHEL J, Unavailable Unavailable [facility] Unavailable Unavailable [place], [facility] CRUZ RICHARDSON, Unavailable Unavailable CRUZ RICHARDSON HAROLD V, Unavailable Unavailable JOVANNI GIBSON V [facility] Unavailable Unavailable SERVICES, [facility] & Unavailable Unavailable SPINE IN, [facility] Unavailable Unavailable ASSOCIAT, [facility] Unavailable Unavailable MEDICAL, [facility] Unavailable Unavailable [facility], [facility] Unavailable Unavailable MEDICAL, [facility] MACIAS THO, MACIAS Unavailable Unavailable THO CANDIDO, SANJOYDEB, Unavailable Unavailable CANDIDO, SANJOYDEB NEUS SRIKANTH, NEUS SRIKANTH Unavailable Unavailable NEUS SRIKANTH, NEUS SRIKANTH Unavailable Unavailable NEUS, TYESHA E, NEUS, Unavailable Unavailable TYESHA E [facility], Unavailable Unavailable [facility] MCGEE DECKER, MCGEE Unavailable Unavailable DECKER [facility], Unavailable [facility]available [facility], [facility] PORNOY LESA, PORNOY Unavailable Unavailable [facility], Unavailable Unavailable [facility] Unavailable Unavailable INCORPORAT, [facility] Unavailable Unavailable INCORPORAT, [facility] NENA MELARA, Unavailable Unavailable NENA MELARA, Unavailable Unavailable SOTINGBETSY MACDONALD [facility] Unavailable Unavailable EMERGENCY PH[facility], [facility] Unavailable Unavailable [facility] MARCELO JOSE, MARCELO Unavailable Unavailable JOSE SONIA PHI, SONIA PHI Unavailable Unavailable [facility] # Unavailable Unavailable [id number], [facility] # [id number] [facility] # Unavailable Unavailable [id number], [facility] # [id number] [facility] [id number], Unavailable Unavailable [facility] # [id number] ELOY GALINDO, MATEO, Unavailable Unavailable ELOY RESENDEZ IRM, Unavailable Unavailable MAL VILLA Purpose Continuity of Care Document - 07-14-2007 through 2016 Problems Code Diagnosis DOS Provider Status [id number] SPONDYLOSIS 09-05-2016 [facility] W/O PAIN & MYELOPATH/R SPINE ADICULOPATH INSTIT Y CERV RGN [id number] PRIMARY 07-12-2016 [place] TIS RIGHT ASSOCIAT SHOULDER [id number] PRIMARY 07-12-2016 [place] TIS LEFT ASSOCIAT SHOULDER [id number] PAIN IN 07-12-2016 [facility] RIGHT REGIONAL SHOULDER MEDICAL H80328 PAIN IN 07-12-2016 [facility] LEFT REGIONAL SHOULDER MEDICAL Q48083 PAIN IN 07-11-2016 [facility] UNSPECIFIED PAIN & SHOULDER SPINE INSTIT I10 ESSENTIAL 05-22-2016 [facility] HYPERTENSIO INC N Y35608 PAIN IN 05-22-2016 [facility]ICAL [facility] [id number] LAC W/O FB 05-22-2016 [facility] LT INDEX MEDICAL FINGER W/O IMAGING ASS DAMAGE NAIL INIT [id number] NDSPLC FX 05-22-2016 [facility], LT INDX PLLC FNGR INIT ENC OPN FX Z23 ENCOUNTER 05-22-2016 [facility] IMMUNIZATIO INC N Z720 TOBACCO USE 05-22-2016 [facility] INC Z5181 ENCOUNTER 04-18-2016 [facility] THERAPEUTIC INCORPORAT DRUG LEVEL MONITORING [id number] INTERMEDIATE 04-18-2016 [facility] CURRENT USE DIAGNOSTICS OF OPIATE INCORPORAT ANALGESIC S27478 MIGRAINE 02-23-2016 [facility] UNS NOT PHYSICIANS, INTRACT W/O PLLC STATUS MIGRAINOSUS [id number] SPONDYLOSIS 02-16-2016 [facility] W/O PAIN & MYELOPATH/R [...] SPINE CLASSIFIED INSTIT 7295 PAIN IN 04-04-2014 [facility] TISSUES OF IMAGING ASS LIMB 23690 SWELLING OF 04-04-2014 [facility] 7823 EDEMA 04-04-2014 [facility] 6826 CELLULITIS 04-03-2014 [facility] [...] & USE OF SPINE OTHER INSTIT MEDICATIONS 93800 PAIN IN 06-25-2013 [place] [facility] PELVIC ASSOCIAT REGION AND THIGH 7222 DISPLCMT 06-24-2012 [facility] INTERVERT DISC SITE UNS W/O MYELOPATHY 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 7242 LUMBAGO 06-24-2012 [facility] 10229 CONTUSION 06-24-2012 [facility] THO OF ELBOW 31676 PAIN IN 05-26-2012 [place] JOINT, RADIOLOGY UPPER ARM ASSOCIAT 57905 LATERAL 05-26-2012 [facility] EP[facility] IS OF [place] SERVICES 9593 INJURY 05-26-2012 [place] OTHER&UNSPE RADIOLOGY CIFIED ASSOCIAT [place] FOREARM&WRI ST E8859 FALL FROM 05-26-2012 [facility] OTHER EMERGENCY SLIPPING SERVICES TRIPPING OR STUMBLING 29894 BLEPHARITIS 10-16-2011 NEUS SRIKANTH , UNSPECIFIED 6821 CELLULITIS 09-07-2011 [facility] OF NECK INC 6828 CELLULITIS 09-07-2011 [facility] AND ABSCESS OF OTHER SPECIFIED SITE 87042 SPINAL 06-05-2011 NEUS SRIKANTH STENOSIS UNSPEC REGION OTH THAN CERVICAL 7245 UNSPECIFIED 06-05-2011 NEUS SRIKANTH BACKACHE 7230 SPINAL 04-17-2011 [facility] STENOSIS IN REGIONAL CERVICAL MEDICAL REGION 95295 SPASM OF 04-04-2011 [facility] 98259 DIAB W/O 03-27-2011 [facility] COMP TYPE PRIMARY II/UNS NOT CARE CENTER STATED UNCNTRL 4019 UNSPECIFIED 03-27-2011 [facility] ESSENTIAL PRIMARY HYPERTENSIO CARE CENTER N 6868 OTH SPEC 03-27-2011 [facility] LOCAL [facility]IMARY INFECTIONS [facility]ARE CENTER SKIN&SUBCUT TISSUE 99120 CONTUSION 03-23-2011 [facility] 37555 PAIN IN 03-22-2011 [place] [facility], HAND RADIOLOGY ASSOCIAT 66979 CONTUSION 03-22-2011 [facility] OF BACK EMERGENCY SERVICES 63963 CONTUSION 03-22-2011 [facility] OF HAND EMERGENCY SERVICES E8889 UNSPECIFIED 03-22-2011 [place] FALL RADIOLOGY ASSOCIAT 7840 HEADACHE 11-10-2010 [facility] 6961 OTHER 10-01-2010 [facility] PSORIASIS EMERGENCY AND SIMILAR SERVICES DISORDERS 7231 CERVICALGIA 06-29-2010 [facility] 920 CONTUSION 04-14-2010 [facility]AL SCALP AND MEDICAL NECK EXCEPT EYE V571 OTHER 03-15-2010 [facility] PHYSICAL REGIONAL THERAPY MEDICAL 57057 UNSPECIFIED 12-27-2009 [facility] DISORDER PRIMARY OF COCCYX CARE CENTERINC 03093 OTHER 12-19-2009 [place] DISORDER OF RADIOLOGY COCCYX ASSOCIAT 8056 CLOS FX 12-19-2009 [facility] SACRUM&COCC REGIONAL YX W/O MEDICAL MENTION SP CENTER CORD INJURY 90190 OTHER 11-07-2009 [facility] CHRONIC REGIONAL PAIN [facility] 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 [facility] 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 [facility] 6968 OTH 08-29-2009 [facility] PSORIASIS & PRIMARY SIMILAR CARE DISORDERS CENTERINC OTH 7220 DISPLCMT 06-06-2009 [facility] CERV H INTERVERT ORTHOPAEDIC DISC CTR PSC WITHOUT MYELOPATHY 8404 ROTATOR 05-05-2009 [facility] CUFF SPRAIN H AND STRAIN ORTHOPAEDIC CTR PSC 30983 EXOSTOSIS 05-02-2009 [facility] OF H UNSPECIFIED ORTHOPAEDIC SITE CTR PSC 24526 OSTEOARTHRO 04-22-2009 RADIOLOGY S UNSPEC ASSOCIATES WHETHER PSC GEN/LOC SHLDR REGION 66873 UNSPECIFIED 04-22-2009 [facility] H ARTHROPATHY ORTHOPAEDIC SHOULDER CTR PSC REGION 39617 PAIN IN 04-22-2009 [facility] JOINT, H SHOULDER ORTHOPAEDIC REGION CTR PSC 7820 DISTURBANCE 04-22-2009 [facility] 8406 SUPRASPINAT 04-22-2009 [facility] US SPRAIN H AND STRAIN ORTHOPAEDIC CTR PSC 60558 UNSPEC 04-18-2009 [facility] DISORDERS H BURSAE&TEND ORTHOPAEDIC ONS CTR PSC SHOULDER REGION 4011 ESSENTIAL 04-11-2009 [facility] HYPERTENSIO HEART PSC N, BENIGN 20041 REFLUX 04-11-2009 [facility] ESOPHAGITIS HEART PSC 36942 SHORTNESS 04-11-2009 [facility] OF BREATH HEART PSC 35990 CHEST PAIN 04-11-2009 [facility] UNSPECIFIED HEART PSC 43201 NONSPECIFIC 04-11-2009 [facility] ABNORMAL HEART PSC ELECTROCARD IOGRAM 40153 PAIN IN 04-04-2009 [facility], PRIMARY ANKLE AND CARE FOOT CENTERINC 57385 OTH SPEC 04-04-2009 [facility] D/O ROTATOR PRIMARY CUFF SYND CARE SHLDR&SASHA CENTERINC D D/O 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 65683 ESOPHAGEAL 03-30-2009 [facility] REFLUX PRIMARY CARE CENTERINC 4293 CARDIOMEGAL 03-29-2009 [place] Y RADIOLOGY ASSOCIATES PSC 22383 OTHER 03-29-2009 [place] DYSPNEA AND RADIOLOGY ASSOCIATES [place] [address] OTHER CHEST 03-29-2009 [facility] PAIN AMB SERVICE V489 UNSPECIFIED 03-01-2009 [facility] PROBLEM PRIMARY WITH HEAD CARE NECK OR CENTERINC TRUNK 7239 UNSPEC 02-14-2009 [facility] MUSCULOSKEL PRIMARY CARE D/O&SYMPTOM CENTERINC S REFERABLE NECK 88080 UNSPECIFIED 02-14-2009 [facility] SYNOVITIS PRIMARY AND CARE TENOSYNOVIT CENTERINC IS 9057 LATE EFF 10-27-2007 ST SPR[facility]STRA IVÁN IN W/O MED CTR MENTION TENDON INJURY 7962 ELEVATED BP 10-02-2007 [facility] WITHOUT DX [facility] [employer] N 8409 SPRAIN&STRA 09-22-2007 EMERGENCY IN UNSPEC CARE PHYS SITE [facility] SHOULDER&UP PER ARM 9599 INJURY 09-22-2007 RADIOLOGY OTHER AND ASSOCIATES UNSPECIFIED PSC UNSPECIFIED SITE 94123 PAIN IN 09-02-2007 ST JOINT, IVÁN FOREARM [...] AN 17 UM ti OB 80 9- 9- 00 S 43 ve EN 75 20 20 PH 0 CH ZA 11 11 11 AR RI IN [address] IN CY IN E [...] PH 3 IN 70 11 11 AR MO 5 MA CH 50 CY AE 0 L MG IN S C CA PS UL E PATHAK 53 07 07 0 10 5 DE 64 GA Ac LF 74 -1 -1 .0 AN 13 IN ti AM 60 7- 8- 00 S 41 EY ve ET 27 20 20 PH 4 HO 20 11 11 AR MO XA 5 MA CH ZO CY AE LE L -T IN S MP C DS TA BL ET 00 05 05 0 12 3 DE 40 GA Ac 40 -2 -2 .0 AN 63 IN ti 60 8- 8- 00 S 63 EY ve 35 20 20 PH 5 70 11 11 AR MO 5 MA CH CY AE L IN S C IN 00 05 05 0 21 6 DE 64 GA Ac ED 60 -2 -2 .0 AN 11 IN ti NI 35 8- 8- 00 S 49 EY ve SO 33 20 20 PH 7 NE 71 11 11 AR MO 5 5 MA CH CY AE MG [...] 0- 2- 00 S 10 CA ve IN [address] [place] [...] 0- 0- 00 S 10 CA ve IN [address] IL [...] 0- 2- 00 S 10 CA ve IN [address] [place] 08 09 10 AR IL 0 MA LO 20 CY DE MG IN CA C LV TA O BL MA ET RI A IS AB EL V LI 00 10 04 10 30 30 DE 63 DE Ac SI 17 -2 -1 .0 AN 86 L ti NO 23 0- 6- 00 S 10 CA ve IN [address] IL 08 09 10 AR IL 0 MA LO 20 CY DE MG IN CA C LV TA O BL MA ET RI A IS AB EL V LI 00 10 03 10 30 30 DE 63 DE Ac SI 17 -2 -1 .0 AN 86 L ti NO 23 0- 6- 00 S 10 CA ve IN [address] IL [...] 0- 6- 00 S 10 CA ve IN [address] IL 08 09 10 AR IL 0 MA LO 20 CY DE MG CA LV TA O BL MA ET RI A IS AB EL V LI 00 10 01 02 30 30 DE 63 DE Ac SI 17 -2 -2 .0 AN 86 L ti NO 23 0- 8- 00 S 10 CA ve IN [address] IL 08 09 10 AR IL 0 MA LO 20 CY DE MG CA LV TA O BL MA ET RI A IS AB EL V CY 00 12 12 00 20 7 DE 63 PATHAK Ac CL 59 -1 -3 .0 AN 88 LL ti OB 15 5- 1- 00 S 72 IV ve EN 65 20 20 PH 9 AN ZA 81 09 09 AR IN 0 MA CH IN CY RI E ST 10 IN A MG M TA BL ET TR 65 12 12 00 20 5 [...] AR ANNI 8 MA HN CY J LI 00 10 12 01 30 30 DE 63 DE Ac SI 17 -2 -3 .0 AN 86 L ti NO 23 0- 1- 00 S 10 CA ve IN [address] IL [...] 0- 9- 00 S 10 CA ve IN [address] IL 08 09 09 AR IL 0 MA LO 20 CY DE MG CA LV TA O BL MA ET RI A IS AB EL V ME 00 11 11 00 21 6 DE 63 LA Ac TH 78 -1 -1 .0 AN 87 RK ti YL 15 1- 9- 00 S 14 IN ve IN 02 20 20 PH 1 ED 20 [...] HN CY J MG TA BL ET IN 37 10 11 00 60 30 DE 63 NE Ac IL 00 -2 -0 .0 AN 86 US ti OS 00 0- 5- 00 S 10 ve EC [address] 50 09 09 AR EV OT 3 MA EN C CY E 20 .6 MG TA BL ET 00 10 11 00 60 30 DE 40 NE Ac 60 -1 -0 .0 AN 59 US ti 35 9- 5- 00 S 65 ve [address] 63 09 09 AR EV 2 MA EN CY E LI 00 10 10 00 30 30 DE 63 DE Ac SI 17 -1 -2 .0 AN 85 L ti NO 23 4- 2- 00 S 81 CA ve IN [address] [place] [...] Procedure DOS Code Location Performer Comment RADEX [address] [facility] SHOULDER 7 [facility] COMPLETE RADIOLOGY MINIMUM 2 ASSOCIAT VIEWS IM ADM 47727 [facility] PRQ ID 6 [facility] SUBQ/IM INC INC NJXS 1 VACCINE TDAP 09538 [facility] VACCINE 7 6 [facility] YRS/> IM INC INC APPLICATI 38301 [facility] MNOAC[facility] ON FINGER 6 [facility] SPLINT INC INC STATIC SIMPLE 91456 [facility] MATIASTINGEAN REPAIR 6 PHYSICIAN U RENAE SCALP/NEC S, PLLC K/AX/SHAILESH T/TRUNK 2.5CM/< RADEX 60117 [facility] JIM[facility]NEZ ALL FINGR 6 MEDICAL MINIMUM 2 IMAGING VIEWS ASS DRUG TEST G0479 [facility] 6 DIAGNOSTI DIAGNOSTI PRESUMP;I CS NSTRUMENT INCORPORA INCORPORA ED T T CHEMISTRY ANLYZER DRUG TEST G0480 [facility] DEFINITV [address] RUSS CS CS METH P INCORPORA INCORPORA DAY 1-7 T T DRUG CL DSTR 79928 [facility] NROLYTC 6 PAIN & MAG AGNT SPINE PARVERTEB INSTIT FCT SNGL LMBR/SACR AL DSTR 31562 [facility] NROLYTC 6 PAIN & MAG AGNT SPINE PARVERTEB INSTIT FCT ADDL LMBR/SACR AL INJ J0702 [facility] BETAMETHA 6 PAIN & MAG SONE SPINE ACETATE & INSTIT PHOSPHATE 3 MG INJ J0702 [facility] BETAMETHA 6 PAIN & MAG SONE SPINE ACETATE & INSTIT PHOSPHATE 3 MG DSTR 55638 [facility] NROLYTC 6 PAIN & MAG AGNT SPINE PARVERTEB INSTIT FCT ADDL LMBR/SACR AL DSTR 78872 [facility] NROLYTC 6 PAIN & MAG AGNT SPINE PARVERTEB INSTIT FCT SNGL LMBR/SACR AL INJ J0702 [facility] BETAMETHA 6 PAIN & MAG SONE SPINE ACETATE & INSTIT PHOSPHATE 3 MG NJX 13133 [facility] ANES&/STR 6 PAIN & MAG D W/IMG SPINE TFRML INSTIT EDRL LMBR/SAC 1 LVL NJX 75852 [facility] ANES&/STR 6 PAIN & MAG D W/IMG SPINE TFRML INSTIT EDRL LMBR/SAC EA LV DRUG TEST G0480 [facility] DEFINITV [address] RUSS CS CS METH P DAY 1-7 DRUG CL DRUG TEST G0479 [facility] 6 DIAGNOSTI DIAGNOSTI PRESUMP;I CS CS NSTRUMENT ED CHEMISTRY ANLYZER DSTR 01267 [facility] NROLYTC 5 PAIN & MAG AGNT SPINE PARVERTEB INSTIT FCT SNGL LMBR/SACR AL DSTR 35746 [facility] NROLYTC 5 PAIN & MAG AGNT SPINE PARVERTEB INSTIT FCT ADDL LMBR/SACR AL INJ J0702 [facility] BETAMETHA 5 PAIN & MAG SONE SPINE ACETATE & INSTIT PHOSPHATE 3 MG DSTR 24614 [facility] NROLYTC 5 PAIN & MAG AGNT SPINE PARVERTEB INSTIT FCT SNGL CRVCL/THO RA DSTR 40462 [facility] NROLYTC 5 PAIN & MAG AGNT SPINE PARVERTEB INSTIT FCT ADDL CRVCL/THO RA FLUOR 39717 [facility] NEEDLE/CA 4 PAIN & MAG TH SPINE SPINE/PAR INSTIT ASPINAL DX/THER ADDON NJX 76599 AD[facility] DX/THER 4 PAIN & MAG SBST SPINE EPIDURAL/ INSTIT SUBRACH CERV/THOR ACIC NJX 87535 [facility] ANES&/STR 4 PAIN & MAG D W/IMG SPINE TFRML INSTIT EDRL LMBR/SAC 1 LVL NJX 65528 [facility] ANES&/STR 4 PAIN & MAG D W/IMG SPINE TFRML INSTIT EDRL LMBR/SAC EA LV FLUOROSCO 58703 [facility] PIC 4 PAIN & MAG GUIDANCE SPINE NEEDLE INSTIT PLACEMENT ADD ON ARTHROCEN 53257 [facility] TESIS 4 PAIN & MAG ASPIR&/IN SPINE J MAJOR INSTIT JT/BURSA W/O US DUP-SCAN 06689 [facility] XTR VEINS 4 [facility] INC INC UNILATERA L/LIMITED STUDY GLUC BLD 18995 [facility] GLUC MNTR 4 [facility] DEV INC INC CLEARED FDA SPEC HOME USE FLUOROSCO 27643 [facility] PIC 4 PAIN & MAG GUIDANCE SPINE NEEDLE INSTIT PLACEMENT ADD ON ARTHROCEN 81165 [facility] TESIS 4 PAIN & MAG ASPIR&/IN SPINE J MAJOR INSTIT JT/BURSA W/[place] [address] [facility] JOINT 4 PAIN & MAG ARTHRGRPH SPINE Y&/ANES/S INSTIT TEROID W/SHANE NJX 31505 [facility] DX/THER 4 PAIN & MAG AGT PVRT SPINE FACET JT INSTIT CRV/THRC 3+ LEVEL NJX 40462 [facility] DX/THER 4 PAIN & MAG AGT PVRT SPINE FACET JT INSTIT CRV/THRC 2ND LEVEL NJX 76998 [facility] DX/THER 4 PAIN & MAG AGT PVRT SPINE FACET JT INSTIT CRV/THRC 1 LEVEL NJX 95862 [facility] DX/THER 4 PAIN & MAG AGT PVRT SPINE FACET JT INSTIT LMBR/SAC 3+ LEVEL NJX 34388 AD[facility]ED [facility] DX/THER 4 PAIN & MAG AGT PVRT SPINE FACET JT INSTIT LMBR/SAC 1 LEVEL NJX 04858 [facility]ED [facility] DX/THER 4 PAIN & MAG AGT PVRT SPINE FACET JT INSTIT LMBR/[place] 2[place] [address] [facility] JOINT 4 PAIN & MAG ARTHRGRPH SPINE Y&/ANES/S INSTIT TEROID W/SHANE NJX 52404 [facility] DX/THER 4 PAIN & MAG SBST SPINE EPIDURAL/ INSTIT SUBRACH CERV/THOR ACIC FLUOR 96605 [facility] NEEDLE/CA 4 PAIN & MAG TH SPINE SPINE/PAR INSTIT ASPINAL DX/THER [place] NJX 41047 ADVANCED MAL DX/THER 4 PAIN & IRM AGT PVRT SPINE FACET JT INSTIT CRV/THRC 3+ LEVEL NJX 09748 ADVANCED MAL DX/THER 4 PAIN & IRM AGT PVRT SPINE FACET JT INSTIT CRV/THRC 2ND LEVEL NJX 61736 ADVANCED MAL DX/THER 4 PAIN & IRM AGT PVRT SPINE FACET JT INSTIT CRV/THRC 1 LEVEL DSTR 19639 [facility] NROLYTC 4 PAIN & MAG AGNT SPINE PARVERTEB INSTIT FCT SNGL LMBR/SACR AL DSTR 59677 [facility] NROLYTC 4 PAIN & MAG AGNT SPINE PARVERTEB INSTIT [place] [address] [facility] JOINT 4 PAIN & MAG ARTHRGRPH SPINE Y&/ANES/S INSTIT TEROID W/SHANE DSTR 14075 [facility] NROLYTC 4 PAIN & MAG AGNT SPINE PARVERTEB INSTIT FCT ADDL LMBR/SACR AL DSTR 54077 [facility] NROLYTC 4 PAIN & MAG AGNT SPINE PARVERTEB INSTIT FCT SNGL LMBR/SACR AL NJX 06166 ADVANCED K[facility]CHNER DX/THER 4 PAIN & MAG AGT PVRT SPINE FACET JT INSTIT LMBR/SAC 3+ LEVEL NJX 07517 AD[facility]ED K[facility]NER DX/THER 4 PAIN & MAG AGT PVRT SPINE FACET JT INSTIT LMBR/SAC 1 LEVEL NJX 13418 AD[facility]ED KERSCHNER DX/THER 4 PAIN & MAG AGT PVRT SPINE FACET JT INSTIT LMBR/SAC 2ND LEVEL NJX 26502 [facility] ANES&/STR 4 PAIN & MAG D W/IMG SPINE TFRML INSTIT EDRL LMBR/SAC 1 LVL NJX 19388 [facility]ED [facility] ANES&/STR 4 PAIN & MAG D W/IMG SPINE TFRML INSTIT EDRL LMBR/SAC EA LV DSTR 10555 [facility] NROLYTC 4 PAIN & MAG AGNT SPINE PARVERTEB INSTIT FCT SNGL CRVCL/THO RA DSTR 67271 [facility] NROLYTC 4 PAIN & MAG AGNT SPINE PARVERTEB INSTIT FCT ADDL CRVCL/THO RA INJ J0702 [facility] BETAMETHA 4 PAIN & MAG SONE SPINE ACETATE & INSTIT PHOSPHATE 3 MG NJX 86227 [facility] DX/THER 4 PAIN & MAG SBST SPINE EPIDURAL/ INSTIT SUBRACH CERV/THOR ACIC FLUOR 30494 [facility] NEEDLE/CA 4 PAIN & MAG TH SPINE SPINE/PAR INSTIT ASPINAL DX/THER ADDON DSTR 28144 [facility] NROLYTC 4 PAIN & MAG AGNT SPINE PARVERTEB INSTIT FCT SNGL CRVCL/THO RA DSTR 98932 [facility] NROLYTC 4 PAIN & MAG AGNT SPINE PARVERTEB INSTIT FCT ADDL CRVCL/TH[place] NJX 28382 AD[facility]ED [facility] DX/THER 4 PAIN & MAG AGT PVRT SPINE FACET JT INSTIT CRV/THRC 1 LEVEL NJX 80915 ADVANCED K[facility]CHNER DX/THER 4 PAIN & MAG AGT PVRT SPINE FACET JT INSTIT CRV/THRC 2ND LEVEL NJX 54225 ADVANCED KERSCHNER DX/THER 4 PAIN & MAG AGT PVRT SPINE FACET JT INSTIT CRV/THRC 3+ LEVEL NJX 19707 AD[facility]ED KERS[facility]NER ANES&/STR 4 PAIN & MAG D W/IMG SPINE TFRML INSTIT EDRL LMBR/SAC 1 LVL NJX 03414 ADVANCED K[facility]CHNER DX/THER 4 PAIN & MAG AGT PVRT SPINE FACET JT INSTIT CRV/THRC 3+ LEVEL NJX 60374 ADVANCED KERSCHNER DX/THER 4 PAIN & MAG AGT PVRT SPINE FACET JT INSTIT CRV/THRC 2ND LEVEL NJX 26087 ADVANCED KERSCHNER DX/THER 4 PAIN & MAG AGT PVRT SPINE FACET JT INSTIT CRV/THRC 1 LEVEL NJX 92223 [facility] ANES&/STR 4 PAIN & MAG D W/IMG SPINE TFRML INSTIT EDRL LMBR/[place]AC 1 [place] [address] ADVANCED MAL JOINT 4 PAIN & IRM ARTHRGRPH SPINE Y&/ANES/S INSTIT TEROID W/SHANE RADEX HIP 64856 TAD LUCAS 4 [facility] UNILATERA RADIOLOGY L ASSOCIAT COMPLETE MINIMUM 2 VIEWS NJX 13516 [facility] ANES&/STR 4 PAIN & MAG D W/IMG SPINE TFRML INSTIT EDRL CRV/[place] NJX [address] ADVANCED KERSCHNER ANES&/STR 4 PAIN & MAG D W/IMG SPINE TFRML INSTIT EDRL CRV/THRC 1 LVL EPIDUROGR 83355 ADVANCED KERSCHNER APY RS&I 4 PAIN & [place] [address] KERSCHNER KERSCHNER JOINT 3 MAG MAG ARTHRGRPH Y&/ANES/S TEROID W/SHANE INJECTION 45429 KERSCHNER KERSCHNER ANES 3 MAG MAG OTHER PERIPHERA L NERVE/BRA NCH DSTR 28032 KERSCHNER KERSCHNER NROLYTC 3 MAG MAG AGNT PARVERTEB FCT SNGL CRVCL/THO RA DSTR 02229 KERSCHNER KERSCHNER NROLYTC 3 MAG MAG AGNT PARVERTEB FCT ADDL CRVCL/THO RA LUMB-SACR L0637 DASCO HME DASCO HME AL ORTHOS 3 SAG-COR CNTRL RIGD A&P PREFAB RADEX 324[address] [facility]CTOR COMPLETE RADIOLOGY MINIMUM 3 ASSOCIAT VIEWS NEEDLE A4215 KERSCHNER KERSCHNER STERILE 2 MAG MAG [place]X [address]644 KERSCHNER KERSCHNER DX/THER 2 MAG MAG AGT PVRT FACET JT LMBR/SAC 3+ L[place]EL NJX 66623 KERSCHNER KERSCHNER DX/THER 2 MAG MAG AGT PVRT FACET JT LMBR/SAC 1 LEVEL NJX 51821 KERSCHNER KERSCHNER DX/THER 2 MAG MAG AGT PVRT FACET JT LMBR/SAC 2ND [place]X [address]131 KERSCHNER KERSCHNER DX/THER 2 MAG MAG AGT PVRT FACET JT CRV/THRC 2ND [place] NJX [address]22 KERSCHNER KERSCHNER DX/THER 2 MAG MAG AGT PVRT FACET JT CRV/THRC 1 L[place] NJX [address]75 KERSCHNER KERSCHNER DX/THER 2 MAG MAG AGT PVRT FACET JT CRV/THRC 3+ [place]X 41828 KERSCHNER KERSCHNER DX/THER 2 MAG MAG AGT PVRT FACET JT CRV/THRC 3+ [place] NJX 26778 KERSCHNER KERSCHNER DX/THER 2 MAG MAG AGT PVRT FACET JT CRV/THRC 1 L[place]EL NJX 34763 KERSCHNER KERSCHNER DX/THER 2 MAG MAG AGT PVRT FACET JT CRV/THRC 2ND LEVEL LOCM Q9967 KERSCHNER KERSCHNER 300-399 2 MAG MAG MG/ML IODINE CONCENTRA TION PER ML FLUOR 44864 KERSCHNER KERSCHNER NEEDLE/CA 2 MAG MAG TH SPINE/PAR ASPINAL DX/[place]X [address] KERSCHNER KERSCHNER DX/THER 2 MAG MAG SBST EPIDURAL/ SUBARACH LUMBAR/SA CRAL FLUOR 98092 KERSCHNER KERSCHNER NEEDLE/CA 2 MAG MAG TH SPINE/PAR [place]INAL [place] [address] KERSCHNER KERSCHNER DX/THER 2 MAG MAG SBST EPIDURAL/ SUBRACH CERV/THOR ACIC LOCM Q9967 KERSCHNER KERSCHNER 300-399 2 MAG MAG MG/ML IODINE CONCENTRA TION PER ML INJECTION J1100 KERSCHNER KERSCHNER 2 MAG MAG DEXAMETHO SONE SODIUM PHOSPHATE 1 MG LOCM Q9967 KERSCHNER KERSCHNER 300-399 2 MAG MAG MG/ML IODINE CONCENTRA [place] NJX 67193 KERSCHNER KERSCHNER DX/THER 2 MAG MAG SBST EPIDURAL/ SUBARACH LUMBAR/[place] NJX 68593 KERSCHNER KERSCHNER DX/THER 2 MAG MAG SBST EPIDURAL/ SUBRACH CERV/THOR ACIC LOCM Q9967 KERSCHNER KERSCHNER 300-399 2 MAG MAG MG/ML IODINE CONCENTRA TION PER ML INJECTION J1100 KERSCHNER KERSCHNER 2 MAG MAG DEXAMETHO SONE SODIUM PHOSPHATE 1 MG MRI 14334 MEADOWVIE MEADOWVIE SPINAL [address] 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 METABOLIC 1 Y & Y & PANEL BIODIAGNO BIODIAGNO CALCIUM STICS STICS TOTAL COLLECTIO 88277 ROCIO GIRALDO SRIKANTH N VENOUS 1 PRIMARY BLOOD CARE VENIPUNCT CENTER URE COLLECTIO 53919 ROCIO CO ROCIO CO N 1 PRIMARY PRIMARY CAPILLARY CARE CARE BLOOD CENTER CENTER SPECIMEN RADEX 94634 [place] DEEJAYJd HAND 1 EIDER VÍCTOR MINIMUM 3 RADIOLOGY VIEWS ASSOCIAT CUL BACT 24081 [facility] EN[facility] AEROBIC 1 [facility] ADDL INC INC METHS DEFINITIV E EA ISOL COMPREHEN 37623 [facility] SIVE 1 [facility] METABOLIC INC INC PANEL RADIOLOGI 54191 JEREMY GOMEZ C 1 MEDICAL SAAD EXAMINATI IMAGING ON TIBIA ASS & FIBULA 2 VIEWS BLOOD 71740 [facility] COUNT 1 [facility] COMPLETE INC INC AUTO&AUTO DIFRNTL WBC CULTURE 68949 [facility] BACTERIAL 1 [facility] BLOOD INC INC AEROBIC W/ID ISOLATES SUSCEPTIB 10593 [facility] ENRI[facility] LTY STDY 1 [facility] ANTIMICRB INC INC IAL [place] [address] [facility] INFUSION 1 [facility] THERAPY INC INC PROPHYLAX IS/[place] [address] [facility] ENRIQUE [facility] INFUSION 1 [facility] THERAPY/P INC INC ROPHYLAXI S /DX 1ST TO 1 HR 3D 47976 JEREMY GOMEZ RENDERING 1 MEDICAL SAAD W/INTERP IMAGING & ASS POSTPROCE SS SUPERVISI ON BASIC 09934 CAR[facility] ENRIQUE [facility] METABOLIC 1 [facility] PANEL INC INC CALCIUM TOTAL BLOOD 97069 [facility] ENRI[facility] COUNT 1 [facility] COMPLETE INC INC AUTO&AUTO DIFRNTL WBC SEDIMENTA 38366 [facility] ENRIQUE [facility] TION RATE 1 [facility] [place] [address] JEREMY GOMEZ HEAD/BRAI 1 MEDICAL SAAD N W/O IMAGING CONTRAST ASS MATERIAL APPL 03107 MEADOWVIE MEADOWVIE MODALITY 0 W W 1/> [facility] MEDICAL MEDICAL ULTRASOUN D EA 15 MIN PHYSICAL 43157 MEADOWVIE MEADOWVIE THERAPY 0 W W EVALUATIO [facility] MEDICAL MEDICAL MRI 48593 [facility] SPINAL 0 CLIN[facility] & JOSE CANAL SPINE IN CERVICAL W/O CONTRAST MATRL MRI 26481 [facility] SPINAL 0 CLINIC & JOSE CANAL SPINE IN LUMBAR W/O CONTRAST MATERIAL RADEX 49900 [facility] SACRUM & 0 EIDER VÍCTOR COCCYX RADIOLOGY MINIMUM 2 ASSOCIAT VIEWS THERAPEUT 00054 MEADOWVIE MEADOWVIE IC 0 W W PROPHYLAC REGIONAL REGIONAL TIC/DX MEDICAL MEDICAL INJECTION CENTER CENTER SUBQ/IM THERAPEUT 71394 MEADOWVIE MEADOWVIE IC 9 W W PROPHYLAC REGIONAL REGIONAL TIC/DX MEDICAL MEDICAL INJECTION CENTER CENTER SUBQ/IM FLUOR 63635 RADIOLOGY MATEO, NEEDLE/CA 9 ELOY D TH ASSOCIATE SPINE/PAR S PSC ASPINAL DX[place] [address] RADIOLOGY MATEO, DX/THER 9 ELOY D SBST ASSOCIATE EPIDURAL/ S PSC SUBRACH CERV/THOR ACIC MRI 79727 [facility] NIHARIKAFER, SPINAL 9 [facility] DANIEL CANAL ORTHOPAED CERVICAL IC CTR W/O PSC CONTRAST MATRL NRV CNDJ [address] AMPLT&LAT 9 IVÁN MINOR NCY EA NRV MOTR MEDICALCE MEDICALCE W/O NTER NTER F-WAVE STD NRV CNDJ 03544 MCKENNA ANDRES, AMPLITUDE 9 HANSEL HAMM & LATENCY EACH NERVE SENSORY NDL EMG [address] XTR W/WO 9 IVÁNDAMIAN MINOR RELATED PARASPINA MEDICALCE MEDICALCE L AREAS NTER NTER MRI ANY 09237 RADIOLOGY LARRY, HiT UPPER 9 CRUZ A EXTREMITY ASSOCIATE W/O S PSC CONTRAST MATRL RADEX 67221 COMMONLADANA CANDY, SPINE 9 [facility] [place] Do CERVICAL ORTHOPAED 2 OR 3 IC CTR VIEWS PSC RADEX 08639 [place] CANDY, SHOULDER 9 [facility] [place] Do COMPLETE ORTHOPAED MINIMUM 2 IC CTR VIEWS PSC ECHO 39910 [facility] TTHRC R-T 9 [facility] R 2D HEART PSC W/WOM-MOD E COMPL SPEC&COLR D ECG 95263 [facility], ROUTINE 9 [facility] R ECG HEART PSC W/LEAST 12 LDS W/I&R INJECTION 18404 [facility] CARDIAC 9 [facility] CATHJ L HEART PSC VENTR/L ATR ANGIOGRAP H OBSERVATI 57928 ROCIO CHIN BEE ON/INPATI 9 PRIMARY CARLOS, [facility] 50 MINUTES INITIAL 01410 [facility] INPATIENT 9 [facility] R CONSULT HEART PSC NEW/ESTAB PT 110 MIN L HRT 30763 [facility] CATHETERI 9 [facility] ZATION HEART [place] [address] [facility], C-CATHJ 9 [facility] R F/SLCTV C HEART PSC ANGRPH I SI&R 81185 [facility], F/NJX PX 9 [facility] DURING HEART PSC C-CATHJ VENTR&/AT R ANGRPH I SI&R 60941 [facility], F/NJX PX 9 VALLEY CURZ R DURING HEART PSC C-CATHJ PULM&/OR SELECT BLS A0382 [facility] ROUTINE 9 CO AMB CO AMB DISPOSABL SERVICE SERVICE E SUPPLIES RADIOLOGI 40832 Tk HONG 9 RHONDA S EXAMINATI RADIOLOGY ON CHEST SINGLE ASSOCIATE VIEW S PSC FRONTAL GROUND A0425 [facility] MILEAGE 9 CO AMB CO AMB PER SERVICE SERVICE STATUTE MILE AMBULANCE A0429 [facility] SERVICE 9 CO AMB CO AMB BLS SERVICE SERVICE EMERGENCY TRANSPORT AMB A0422 [facility] OXYGEN&O2 9 CO AMB CO AMB SUPPLIES SERVICE SERVICE LIFE SUSTAININ G SITUATION BASIC 76020 [facility] MET[facility]OLIC 9 [facility] INC PANEL CALCIUM TOTAL COLLECTIO 53495 ROCIO GONZALES N VENOUS 9 PRIMARY Y, JOVANNI BLOOD CARE V VENIPUNCT CENTERINC URE RADEX 63143 RADIOLOGY MELARA, SHOULDER 8 NENA L COMPLETE ASSOCIATE MINIMUM 2 S PSC VIEWS Encounters Encounter Start End Date Code Location Performer Type Date OFFICE 06409 [facility] 7 7 PAIN & T VISIT SPINE 15 INSTIT MINUTES [facility] - 7 7 W OUTPATIEN [facility] T MEDICAL OFFICE 34696 [facility] OUTPATIEN 7 7 PAIN & T VISIT SPINE 15 INSTIT MINUTES HOSPITAL CARLOS ENRIQUE - 6 6 [facility] OUTPATIEN INC T EMERGENCY 42818 CARLOS ENRIQUE 6 6 [facility] T VISIT HIGH/URGE NT SEVERITY EMERGENCY 28009 ABRIL ROMAN 6 6 PHYSICIAN U [facility] S, [facility] T VISIT MODERATE SEVERITY EMERGENCY 24719 ABRIL FLORENCIOTINGEAN 6 6 PHYSICIAN U [facility] S, [facility] T VISIT MODERATE SEVERITY OFFICE 90280 [facility] OUTPATIEN 5 5 PAIN & URUGAN T VISIT SPINE HEM 15 INSTIT MINUTES OFFICE 17772 [facility] K[facility] OUTPATIEN 4 4 PAIN & MAG T VISIT SPINE 15 INSTIT MINUTES OFFICE 16092 [facility] OUTPATIEN 4 4 PAIN & MAG T VISIT SPINE 15 INSTIT MINUTES OFFICE 54255 [facility] OUTPATIEN 4 4 PAIN & MAG T VISIT SPINE 15 INSTIT MINUTES HOSPITAL CARLOS ENRIQUE - 4 4 [facility] OUTPATIEN INC T EMERGENCY 54669 [facility] AL[facility]AR[facility] DEPT 4 4 [place] MOH VISIT EMERGENCY HIGH PHYS SEVERITY& THREAT FUNCJ EMERGENCY 77961 CARL[facility] ENRIQUE 4 4 [facility] DEPARTMEN INC T VISIT LOW/MODER SEVERITY HOSPITAL CARLOS ENRIQUE - 4 4 [facility] OUTPATIEN INC T OFFICE 78817 [facility] KERSCHNER OUTPATIEN 4 4 PAIN & MAG T VISIT SPINE 15 INSTIT MINUTES OFFICE 04917 [facility]ED MAL OUTPATIEN 4 4 PAIN & IRM T VISIT SPINE 15 INSTIT MINUTES OFFICE 21942 AD[facility]ED MAL OUTPATIEN 4 4 PAIN & IRM T VISIT SPINE 15 INSTIT MINUTES OFFICE 81219 ADVANCED MAL OUTPATIEN 4 4 PAIN & IRM T VISIT SPINE 15 INSTIT MINUTES OFFICE 82452 ADVANCED MAL OUTPATIEN 4 4 PAIN & IRM T VISIT SPINE 15 INSTIT MINUTES OFFICE 48037 [facility]ED KERSCHNER OUTPATIEN 4 4 PAIN & MAG T VISIT SPINE 15 INSTIT MINUTES OFFICE 76776 [facility] OUTPATIEN 4 4 PAIN & MAG T VISIT SPINE 15 INSTIT MINUTES OFFICE 26630 [facility] KERS[facility]NER OUTPATIEN 4 4 PAIN & MAG T VISIT SPINE 15 INSTIT MINUTES OFFICE 82684 AD[facility]ANCED KERSCHNER OUTPATIEN 4 4 PAIN & MAG T VISIT SPINE 15 INSTIT MINUTES OFFICE 99838 AD[facility]ANCED KERSCHNER OUTPATIEN 4 4 PAIN & MAG T VISIT SPINE 15 INSTIT MINUTES OFFICE 57379 ADVANCED MAL OUTPATIEN 4 4 PAIN & IRM T VISIT SPINE 15 INSTIT MINUTES OFFICE 41949 AD[facility]ANCED KERSCHNER OUTPATIEN 4 4 PAIN & MAG T VISIT SPINE 15 INSTIT MINUTES OFFICE 50467 AD[facility]ANCED [facility]ERSCHNER OUTPATIEN 4 4 PAIN & MAG T VISIT SPINE 15 INSTIT MINUTES OFFICE 16855 ADVANCED MAL OUTPATIEN 4 4 PAIN & IRM T VISIT SPINE 15 INSTIT MINUTES OFFICE 43936 MACIAS OUTPATIEN 3 3 THO T VISIT 15 MINUTES EMERGENCY 88296 RICARDO STRATTONY 2 2 EMERGENCY [facility] DEPARTMEN SERVICES T VISIT HIGH/URGE NT SEVERITY OFFICE 55036 ADVANCED KERSCHNER OUTPATIEN 2 2 PAIN & MAG T VISIT SPINE 10 INSTIT MINUTES OFFICE 32410 NEUS SRIKANTH OUTPATIEN 2 2 T VISIT 15 MINUTES EMERGENCY 50073 PRETTY [facility]ORTA PRETTY CHACORTA 2 2 DEPARTMEN T VISIT MODERATE SEVERITY EMERGENCY 51974 CARLOS ENRIQUE 2 2 [facility] DEPARTMEN INC T VISIT LOW/MODER SEVERITY HOSPITAL CARLOS ENRIQUE - 2 2 [facility] OUTPATIEN INC T OFFICE 46130 KERSCHNER KERSCHNER OUTPATIEN 2 2 MAG MAG T NEW 45 MINUTES OFFICE 07124 SONIA PHI SONIA PHI CONSULTAT 2 2 ION NEW/ESTAB PATIENT 40 MIN OFFICE 14563 NEUS SRIKANTH NEUS SRIKANTH OUTPATIEN 1 1 T VISIT 25 MINUTES HOSPITAL EFRAÍNVIE - 1 1 W OUTPATIEN REGIONAL T MEDICAL OFFICE 16305 [facility] CO NEUS SRIKANTH OUTPATIEN 1 1 PRIMARY T VISIT CARE 15 CENTER MINUTES OFFICE 56086 [facility] CO NEUS SRIKANTH OUTPATIEN 1 1 PRIMARY T VISIT CARE 15 CENTER MINUTES EMERGENCY 88652 RICARDO PRETTY [place] 1 1 EMERGENCY DEPARTMEN SERVICES T VISIT HIGH/URGE NT SEVERITY EMERGENCY 99570 RICARDO STRATTONY 1 1 EMERGENCY [facility] DEPARTMEN SERVICES T VISIT HIGH/URGE NT SEVERITY EMERGENCY 07090 CARLOS ENRIQUE 1 1 [facility] DEPARTMEN INC T VISIT HIGH/URGE NT SEVERITY HOSPITAL CARLOS ENRIQUE - 1 1 [facility] OUTPATIEN [facility] CARLOS ENRIQUE - 1 1 [facility] EMERGENCY 97690 CARLOS ENRIQUE 1 1 [facility] T VISIT HIGH/URGE NT SEVERITY EMERGENCY 87839 RICARDO CASTILLO DEPT 1 1 EMERGENCY ARISTEO VISIT SERVICES HIGH SEVERITY& THREAT FUNCJ EMERGENCY 61787 RICARDO DIAZ 1 1 EMERGENCY KEE [facility] SERVICES T VISIT MODERATE SEVERITY OFFICE 47673 [facility] & DECKER T VISIT SPINE IN 25 MINUTES EMERGENCY 68465 MEADOWVIE 0 0 W [facility] VISIT MEDICAL MODERATE SEVERITY HOSPITAL MEADOWVIE - 0 0 W [facility] MEADOWVIE - 0 0 W [facility] MEDICAL OFFICE 42729 SHAKILA SREEDHAR CONSULTAT 0 0 CLINIC & SRIKANTH ION SPINE IN NEW/ESTAB PATIENT 40 MIN OFFICE 15234 ZEE HERNANDEZ 0 0 PRIMARY TYESHA E T VISIT CARE 25 CENTERINC MINUTES EMERGENCY 87551 MEADOWVIE 0 0 W [facility] VISIT MEDICAL MODERATE CENTER SEVERITY HOSPITAL MEADOWVIE - 0 0 [facility] 43598 MEADOWVIE 0 0 W [facility] VISIT MEDICAL MODERATE CENTER SEVERITY HOSPITAL MEADOWVIE - 0 0 W [facility] CENTER OFFICE 58726 TRISHA HERNANDEZPATIEN 0 0 PRIMARY TYESHA E T VISIT CARE 15 CENTERINC MINUTES OFFICE 63066 ZEE EATON 9 9 [facility] [place] Do T VISIT ORTHOPAED 25 IC CTR MINUTES PSC EMERGENCY 28795 MEADOWVIE 9 9 W [facility] REGIONAL T VISIT MEDICAL MODERATE CENTER SEVERITY HOSPITAL EFRAÍNRULA - 9 9 W OUTPATIEN REGIONAL T MEDICAL CENTER OFFICE 16620 VIPIN CANDY OUTPATIEN 9 9 LT [place] Robles VISIT ORTHOPAED 25 IC CTR MINUTES [facility] OFFICE 14417 VIPIN CANDY OUTPATIEN 9 9 LT [place] Robles VISIT ORTHOPAED 25 IC CTR MINUTES [facility] H[facility]PITAL ST - 9 9 IV[facility] MEDICALCE NTER OFFICE 34542 VIPIN CANDY, CONSULTAT 9 9 [facility] [place] STEVENSON ORTHOPAED NEW/ESTAB IC CTR PATIENT PSC 40 MIN OFFICE 18366 [facility] 9 9 [facility] CRUZ R T VISIT HEART PSC 25 MINUTES OFFICE 29892 [facility] CO NEUS, OUTPATIEN 9 9 PRIMARY TYESHA E T VISIT CARE 25 CENTERINC MINUTES OFFICE 51106 [facility] CO DEL OUTPATIEN 9 9 PRIMARY STRAUSS T VISIT CARE DECALVO, 15 CENTERINC BESSY MINUTES FREDDIE V OFFICE 79344 ROCIO CO ELLEESBER OUTPATIEN 9 9 PRIMARY Y, JOVANNI T NEW 20 CARE V MINUTES CENTERINC EMERGENCY 90897 CANDIDO 8 8 [facility] SANJOYDEB T VISIT MODERATE SEVERITY OFFICE 39385 [facility] 8 8 POINT ROSHNI T VISIT FAMILY 25 CARE, MINUTES INC. EMERGENCY 09438 EMERGENCY JOCELIN, 8 8 REENA JUAREZ [facility] PHYS T VISIT [facility] NT SEVERITY EMERGENCY [address] [facility] [place], 8 8 IVÁN Do [facility] T VISIT MODERATE SEVERITY EMERGENCY [address]6480 ST BANG, 8 8 IVÁN Dupree [facility] MED CTR T VISIT HIGH/URGE NT SEVERITY
--- OUTSIDE RECORDS SUMMARY | 2016-10-27 18:47 | External Medical Summary Rpt ---
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 Name Role Phone [facility] Unavailable Unavailable IN[facility], [facility] ALFARIS MOH, ALFARIS Unavailable Unavailable MOH SREEDHAR PRINGLE Unavailable Unavailable HANSEL MCNULTY, Unavailable Unavailable HANSEL ANDRES SAUL, Unavailable Unavailable SMITH RSOHNI JIMÉNEZ ALL, JIMÉNEZ ALL Unavailable Unavailable BRACKEN [...] LUCAS S, Unavailable Unavailable RHONDA LUCAS S [facility] Unavailable Unavailable IMAGING [facility], [facility], Unavailable Unavailable [facility], Unavailable Unavailable [facility], Unavailable Unavailable [facility] & Unavailable Unavailable [facility] BRITTANY GUPTA, Unavailable Unavailable BRITTANY GUPTA RACHEL J, Unavailable Unavailable [facility] Unavailable Unavailable [facility], [facility] CRUZ RICHARDSON, Unavailable Unavailable CRUZ RICHARDSON HAROLD V, Unavailable Unavailable JOVANNI GIBSON V [facility] Unavailable Unavailable SERVICES, [facility] & Unavailable Unavailable SPINE IN, [facility] Unavailable Unavailable ASSOCIAT, [facility] Unavailable Unavailable MEDICAL, [facility] Unavailable Unavailable MED[facility] CENTER, [facility] Unavailable Unavailable MEDICAL, [facility] MACIAS THO, MACIAS Unavailable Unavailable THO CADNIDO, SANJOYDEB, Unavailable Unavailable CANDIDO, SANJOYDEB NEUS SRIKANTH, NEUS SRIKANTH Unavailable Unavailable NEUS SRIKANTH, NEUS SRIKANTH Unavailable Unavailable NEUS, TYESHA E, NEUS, Unavailable Unavailable TYESHA E [facility], Unavailable Unavailable [facility] MCGEE DECKER, MCGEE Unavailable Unavailable DECKER [facility], Unavailable Unavailable PLL[facility], [facility] PORNOY LESA, PORNOY Unavailable Unavailable LES[facility], Unavailable Unavailable [facility] Unavailable Unavailable INCORPORAT, [facility] Unavailable Unavailable INCORPORAT, [facility] NENA MELARA, Unavailable Unavailable NENA MELARA, Unavailable Unavailable SOTINGBETSY [facility] Unavailable Unavailable EMERGENCY PHYS, [facility] Unavailable Unavailable [facility] MARCELO JOSE, MARCELO Unavailable Unavailable JOSE SONIA PHI, SONIA PHI Unavailable Unavailable [facility] # Unavailable Unavailable [id number], [facility] # [id number] [facility] # Unavailable Unavailable [id number], [facility] # [id number] [facility] # [id number], Unavailable Unavailable [facility] # [id number] ELOY GALINDO, MATEO, Unavailable Unavailable ELOY RESENDEZ IRM, Unavailable Unavailable MAL [facility]ILLA Purpose Continuity of Care Document - 07-14-2007 through 2016 Problems Code Diagnosis DOS Provider Status [id number] SPONDYLOSIS 09-05-2016 [facility] W/O PAIN & MYELOPATH/R SPINE ADICULOPATH INSTIT Y CERV RGN [id number] PRIMARY 07-12-2016 [facility] TIS RIGHT ASSOCIAT SHOULDER [id number] PRIMARY 07-12-2016 [facility] TIS LEFT ASSOCIAT SHOULDER [id number] PAIN IN 07-12-2016 [facility] RIGHT REGIONAL SHOULDER MEDICAL V31118 PAIN IN 07-12-2016 [facility] LEFT REGIONAL SHOULDER MEDICAL [id number] PAIN IN 07-11-2016 [facility] UNSPECIFIED PAIN & SHOULDER SPINE INSTIT I10 ESSENTIAL 05-22-2016 [facility] HYPERTENSIO INC N [id number] PAIN IN 05-22-2016 [place] LEFT MEDICAL FINGERS [facility]ING ASS [id number] LAC W/O FB 05-22-2016 [place] LT INDEX MEDICAL FINGER W/O IMAGING ASS DAMAGE NAIL INIT [id number] NDSPLC FX 05-22-2016 [facility], LT INDX PLLC FNGR INIT ENC OPN FX Z23 ENCOUNTER 05-22-2016 [facility] IMMUNIZATIO INC N Z720 TOBACCO USE 05-22-2016 [facility] INC Z5181 ENCOUNTER 04-18-2016 [facility] THERAPEUTIC INCORPORAT DRUG LEVEL MONITORING [id number] SKILLED NURSING 04-18-2016 [facility] CURRENT USE DIAGNOSTICS OF OPIATE INCORPORAT ANALGESIC V69054 MIGRAINE 02-23-2016 [facility] UNS NOT PHYSICIANS, INTRACT W/O PLLC STATUS MIGRAINOSUS [id number] SPONDYLOSIS 02-16-2016 [facility] W/O PAIN & MYELOPATH/R [...] SPINE CLASSIFIED INSTIT 7295 PAIN IN 04-04-2014 [place] SOFT [facility]ICAL TISSUES OF IMAGING ASS LIMB 83843 SWELLING OF 04-04-2014 [facility] [place] 7823 EDEMA 04-04-2014 [facility] 6826 CELLULITIS 04-03-2014 [...] & USE OF SPINE OTHER INSTIT MEDICATIONS 07698 PAIN IN 06-25-2013 [facility] PELVIC ASSOCIAT REGION AND THIGH 7222 DISPLCMT 06-24-2012 [facility] INTERVERT DISC SITE UNS W/O MYELOPATHY 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 7242 LUMBAGO 06-24-2012 [facility] THO 37407 CONTUSION 06-24-2012 [facility] THO OF ELBOW 25201 PAIN IN 05-26-2012 [facility], RADIOLOGY UPPER ARM ASSOCIAT 99530 LATERAL 05-26-2012 [facility] IS OF EL[place] SERVICES 9593 INJURY 05-26-2012 [facility] OTHER&UNSPE RADIOLOGY CIFIED ASSOCIAT ELBOW FOREARM&WRI ST E8859 FALL FROM 05-26-2012 [place] OTHER EMERGENCY SLIPPING SERVICES TRIPPING OR STUMBLING 83468 BLEPHARITIS 10-16-2011 NEUS SRIKANTH , UNSPECIFIED 6821 CELLULITIS 09-07-2011 [facility] AND [facility]ESS [facility] OF NECK INC 6828 CELLULITIS 09-07-2011 [facility] AND ABSCESS OF OTHER SPECIFIED SITE 53944 SPINAL 06-05-2011 NEUS SRIKANTH STENOSIS UNSPEC REGION OTH THAN CERVICAL 7245 UNSPECIFIED 06-05-2011 NEUS SRIKANTH BACKACHE 7230 SPINAL 04-17-2011 [facility] STENOSIS IN REGIONAL CERVICAL MEDICAL REGION 35254 SPASM OF 04-04-2011 [facility] 47799 DIAB W/O 03-27-2011 [facility] COMP TYPE PRIMARY II/UNS NOT CARE CENTER STATED UNCNTRL 4019 UNSPECIFIED 03-27-2011 [facility] ESSENTIAL PRIMARY HYPERTENSIO CARE CENTER N 6868 OTH SPEC 03-27-2011 [facility] LOCAL PRIMARY INFECTIONS CARE CENTER SKIN&SUBCUT TISSUE 17997 CONTUSION 03-23-2011 [facility] [place] 50459 PAIN IN 03-22-2011 [facility], HAND RADIOLOGY ASSOCIAT 32807 CONTUSION 03-22-2011 [place] OF BACK EMERGENCY SERVICES 42387 CONTUSION 03-22-2011 [place] [facility] OF HAND EMERGENCY SERVICES E8889 UNSPECIFIED 03-22-2011 [facility] FALL RADIOLOGY ASSOCIAT 7840 HEADACHE 11-10-2010 [facility] 6961 OTHER 10-01-2010 [facility] PSORIASIS EMERGENCY AND SIMILAR SERVICES DISORDERS 7231 CERVICALGIA 06-29-2010 [facility] 920 CONTUSION 04-14-2010 [facility] SCALP AND MEDICAL NECK EXCEPT EYE V571 OTHER 03-15-2010 [facility] PHYSICAL REGIONAL THERAPY MEDICAL 81149 UNSPECIFIED 12-27-2009 [facility] DISORDER PRIMARY OF COCCYX CARE CENTERINC 70554 OTHER 12-19-2009 [facility] DISORDER OF RADIOLOGY COCCYX ASSOCIAT 8056 CLOS FX 12-19-2009 [facility] SACRUM&COCC REGIONAL YX W/O MEDICAL MENTION SP CENTER CORD INJURY 46138 OTHER 11-07-2009 [facility] CHRONIC REGIONAL [facility]IN [facility] 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 [facility] 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 [facility] 6968 OTH 08-29-2009 [facility] PSORIASIS & PRIMARY SIMILAR CARE DISORDERS CENTERINC OTH 7220 DISPLCMT 06-06-2009 [facility] CERV H INTERVERT ORTHOPAEDIC DISC CTR PSC WITHOUT MYELOPATHY 8404 ROTATOR 05-05-2009 [facility] CUFF SPRAIN H AND STRAIN ORTHOPAEDIC CTR PSC 06578 EXOSTOSIS 05-02-2009 [facility] OF H UNSPECIFIED ORTHOPAEDIC SITE CTR PSC 03836 OSTEOARTHRO 04-22-2009 RADIOLOGY S UNSPEC ASSOCIATES WHETHER PSC GEN/LOC SHLDR REGION 40572 UNSPECIFIED 04-22-2009 [facility] H ARTHROPATHY ORTHOPAEDIC SHOULDER CTR PSC REGION 57274 PAIN IN 04-22-2009 [facility] JOINT, H SHOULDER ORTHOPAEDIC REGION CTR PSC 7820 DISTURBANCE 04-22-2009 [facility] 8406 SUPRASPINAT 04-22-2009 [facility] US SPRAIN H AND STRAIN ORTHOPAEDIC CTR PSC 71557 UNSPEC 04-18-2009 [facility] DISORDERS H BURSAE&TEND ORTHOPAEDIC ONS CTR PSC SHOULDER REGION 4011 ESSENTIAL 04-11-2009 [facility] HYPERT[facility]ART PSC N, BENIGN 62354 REFLUX 04-11-2009 [facility] ESOPHAGITIS HEART PSC 07354 SHORTNESS 04-11-2009 [facility] OF BREATH HEART PSC 00446 CHEST PAIN 04-11-2009 [facility] UNSPECIFIED HEART PSC 78915 NONSPECIFIC 04-11-2009 [facility] ABNORMAL HEART PSC ELECTROCARD IOGRAM 00976 PAIN IN 04-04-2009 [facility] JOINT, PRIMARY ANKLE AND CARE FOOT CENTERINC 37640 OTH SPEC 04-04-2009 [facility] D/O ROTATOR PRIMARY CUFF SYND CARE SHLDR&SASHA CENTERINC D D/O 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 81586 ESOPHAGEAL 03-30-2009 [facility] REFLUX PRIMARY CARE CENTERINC 4293 CARDIOMEGAL 03-29-2009 [facility] Y RADIOLOGY ASSOCIATES PSC 26121 OTHER 03-29-2009 [facility] DYSPNEA AND RADIOLOGY ASSOCIATES [place] [address] OTHER CHEST 03-29-2009 [facility] PAIN AMB SERVICE V489 UNSPECIFIED 03-01-2009 [facility] PROBLEM PRIMARY WITH HEAD CARE NECK OR CENTERINC TRUNK 7239 UNSPEC 02-14-2009 [facility] MUSCULOSKEL PRIMARY CARE D/O&SYMPTOM CENTERINC S REFERABLE NECK 90856 UNSPECIFIED 02-14-2009 [facility] SYNOVITIS PRIMARY AND CARE TENOSYNOVIT CENTERINC IS 9057 LATE EFF 10-27-2007 ST [facility]STRA IVÁN IN W/O MED CTR MENTION TENDON INJURY 7962 ELEVATED BP 10-02-2007 [facility] WITHOUT DX [facility]ILY [employer], INC. N 8409 SPRAIN&STRA 09-22-2007 EMERGENCY IN UNSPEC CARE PHYS SITE [facility] SHOULDER&UP PER ARM 9599 INJURY 09-22-2007 RADIOLOGY OTHER AND ASSOCIATES UNSPECIFIED PSC UNSPECIFIED SITE 14143 PAIN IN 09-02-2007 ST JOINT, IVÁN FOREARM [...] CH ZA 11 11 11 AR RI LA [address] IN CY IN E [...] PH 3 IN 70 11 11 AR IN 5 MA CH 50 CY AE 0 L MG IN S C CA PS UL E PATHAK 53 07 07 0 10 5 DE 64 GA Ac LF 74 -1 -1 .0 AN 13 IN ti AM 60 7- 8- 00 S 41 EY ve ET 27 20 20 PH 4 HO 20 11 11 AR IN XA 5 MA CH ZO CY AE LE L -T IN S MP C DS TA BL ET 00 05 05 0 12 3 DE 40 GA Ac 40 -2 -2 .0 AN 63 IN ti 60 8- 8- 00 S 63 EY ve 35 20 20 PH 5 70 11 11 AR IN 5 MA CH CY AE L IN S C LA 00 05 05 0 21 6 DE 64 GA Ac ED 60 -2 -2 .0 AN 11 IN ti NI 35 8- 8- 00 S 49 EY ve SO 33 20 20 PH 7 NE 71 11 11 AR IN 5 5 MA CH CY AE MG [...] 0- 2- 00 S 10 CA ve LA [address] IL [...] 0- 0- 00 S 10 CA ve LA [address] IL [...] 0- 2- 00 S 10 CA ve LA [address] [place] 08 09 10 AR IL 0 MA LO 20 CY DE MG IN CA C LV TA O BL MA ET RI A IS AB EL V LI 00 10 04 10 30 30 DE 63 DE Ac SI 17 -2 -1 .0 AN 86 L ti NO 23 0- 6- 00 S 10 CA ve LA [address] IL 08 09 10 AR IL 0 MA LO 20 CY DE MG IN CA C LV TA O BL MA ET RI A IS AB EL V LI 00 10 03 10 30 30 DE 63 DE Ac SI 17 -2 -1 .0 AN 86 L ti NO 23 0- 6- 00 S 10 CA ve LA [address] IL [...] 0- 6- 00 S 10 CA ve LA [address] IL 08 09 10 AR IL 0 MA LO 20 CY DE MG CA LV TA O BL MA ET RI A IS AB EL V LI 00 10 01 02 30 30 DE 63 DE Ac SI 17 -2 -2 .0 AN 86 L ti NO 23 0- 8- 00 S 10 CA ve LA [address] IL [...] 9 AN ZA 81 09 09 AR LA 0 MA CH IN CY RI E [...] 0- 1- 00 S 10 CA ve LA [address] IL [...] 0- 9- 00 S 10 CA ve LA [address] [place] 08 09 09 AR IL 0 MA LO 20 CY DE MG CA LV TA O BL MA ET RI A IS AB EL V ME 00 11 11 00 21 6 DE 63 LA Ac TH 78 -1 -1 .0 AN 87 RK ti YL 15 1- 9- 00 S 14 IN ve LA 02 20 20 PH 1 ED 20 [...] HN CY J MG TA BL ET LA 37 10 11 00 60 30 DE [...] 4- 2- 00 S 81 CA ve LA [address] IL [...] Procedure DOS Code Location Performer Comment RADEX 37150 [facility] 7 [facility] COMPLETE RADIOLOGY MINIMUM 2 ASSOCIAT VIEWS IM ADM 50167 [facility] PRQ ID 6 [facility] SUBQ/IM INC INC NJXS 1 VACCINE TDAP 88376 [facility] VACCINE 7 6 [facility] YRS/> IM INC INC APPLICATI 11124 [facility] ON FINGER 6 [facility] SPLINT INC INC STATIC SIMPLE 43314 [facility] MATIASTINGEAN REPAIR 6 PHYSICIAN U RENAE SCALP/NEC S, PLLC K/AX/SHAILESH T/TRUNK 2.5CM/< RADEX 81167 [place] JIMÉNEZ ALL FINGR 6 MEDICAL MINIMUM 2 IMAGING VIEWS ASS DRUG TEST G0479 [facility] 6 DIAGNOSTI DIAGNOSTI PRESUMP;I CS NSTRUMENT INCORPORA INCORPORA ED T T CHEMISTRY ANLYZER DRUG TEST G0480 [facility] DEFINITV [address] RUSS CS CS METH P INCORPORA INCORPORA DAY 1-7 T T DRUG CL DSTR 91892 [facility] NROLYTC 6 PAIN & MAG AGNT SPINE PARVERTEB INSTIT FCT SNGL LMBR/SACR AL DSTR 15267 [facility] NROLYTC 6 PAIN & MAG AGNT SPINE PARVERTEB INSTIT FCT ADDL LMBR/SACR AL INJ J0702 [facility] BETAMETHA 6 PAIN & MAG SONE SPINE ACETATE & INSTIT PHOSPHATE 3 MG INJ J0702 [facility] BETAMETHA 6 PAIN & MAG SONE SPINE ACETATE & INSTIT PHOSPHATE 3 MG DSTR 41763 [facility] NROLYTC 6 PAIN & MAG AGNT SPINE PARVERTEB INSTIT FCT ADDL LMBR/SACR AL DSTR 77967 [facility]ED [facility] NROLYTC 6 PAIN & MAG AGNT SPINE PARVERTEB INSTIT FCT SNGL LMBR/SACR AL INJ J0702 [facility] BETAMETHA 6 PAIN & MAG SONE SPINE ACETATE & INSTIT PHOSPHATE 3 MG NJX 14730 [facility]ED [facility] ANES&/STR 6 PAIN & MAG D W/IMG SPINE TFRML INSTIT EDRL LMBR/SAC 1 LVL NJX 60949 [facility] ANES&/STR 6 PAIN & MAG D W/IMG SPINE TFRML INSTIT EDRL LMBR/SAC EA LV DRUG TEST G0480 [facility] DEFINITV [address] RUSS CS CS METH P DAY 1-7 DRUG CL DRUG TEST G0479 [facility] 6 DIAGNOSTI DIAGNOSTI PRESUMP;I CS CS NSTRUMENT ED CHEMISTRY ANLYZER DSTR 81408 [facility] NROLYTC 5 PAIN & MAG AGNT SPINE PARVERTEB INSTIT FCT SNGL LMBR/SACR AL DSTR 58277 [facility]ED [facility] NROLYTC 5 PAIN & MAG AGNT SPINE PARVERTEB INSTIT FCT ADDL LMBR/SACR AL INJ J0702 [facility] BETAMETHA 5 PAIN & MAG SONE SPINE ACETATE & INSTIT PHOSPHATE 3 MG DSTR 11434 [facility] NROLYTC 5 PAIN & MAG AGNT SPINE PARVERTEB INSTIT FCT SNGL CRVCL/THO RA DSTR 07955 [facility] NROLYTC 5 PAIN & MAG AGNT SPINE PARVERTEB INSTIT FCT ADDL CRVCL/THO RA FLUOR 86462 [facility] NEEDLE/CA 4 PAIN & MAG TH SPINE SPINE/PAR INSTIT ASPINAL DX/[place]X 65462 [facility] DX/THER 4 PAIN & MAG SBST SPINE EPIDURAL/ INSTIT SUBRACH CERV/[place] ACIC NJX 37330 [facility] ANES&/STR 4 PAIN & MAG D W/IMG SPINE TFRML INSTIT EDRL LMBR/SAC 1 LVL NJX 35898 [facility] ANES&/STR 4 PAIN & MAG D W/IMG SPINE TFRML INSTIT EDRL LMBR/SAC EA LV FLUOROSCO 64335 [facility] PIC 4 PAIN & MAG GUIDANCE SPINE NEEDLE INSTIT PLACEMENT ADD ON ARTHROCEN 26772 [facility] TESIS 4 PAIN & MAG ASPIR&/IN SPINE J MAJOR INSTIT JT/BURSA W/O US DUP-SCAN 38762 [facility] XTR VEINS 4 [facility] INC INC UNILATERA L/LIMITED STUDY GLUC BLD 38514 [facility] GLUC MNTR 4 [facility] DEV INC INC CLEARED FDA SPEC HOME USE FLUOROSCO 35266 [facility] PIC 4 PAIN & MAG GUIDANCE SPINE NEEDLE INSTIT PLACEMENT ADD ON ARTHROCEN 47025 [facility] TESIS 4 PAIN & MAG ASPIR&/IN SPINE J MAJOR INSTIT JT/BURSA W/[place] [address] [facility] JOINT 4 PAIN & MAG ARTHRGRPH SPINE Y&/ANES/S INSTIT TEROID W/SHNAE NJX 83436 [facility] DX/THER 4 PAIN & MAG AGT PVRT SPINE FACET JT INSTIT CRV/THRC 3+ LEVEL NJX 62769 [facility] DX/THER 4 PAIN & MAG AGT PVRT SPINE FACET JT INSTIT CRV/THRC 2ND LEVEL NJX 62213 [facility] DX/THER 4 PAIN & MAG AGT PVRT SPINE FACET JT INSTIT CRV/THRC 1 LEVEL NJX 41074 [facility]ED [facility] DX/THER 4 PAIN & MAG AGT PVRT SPINE FACET JT INSTIT LMBR/SAC 3+ LEVEL NJX 08519 [facility]ED [facility] DX/THER 4 PAIN & MAG AGT PVRT SPINE FACET JT INSTIT LMBR/SAC 1 LEVEL NJX 80451 [facility]ED [facility] DX/THER 4 PAIN & MAG AGT PVRT SPINE FACET JT INSTIT [place] 2[place] [address] [facility] JOINT 4 PAIN & MAG ARTHRGRPH SPINE Y&/ANES/S INSTIT TEROID W/SHANE NJX 46730 [facility] DX/THER 4 PAIN & MAG SBST SPINE EPIDURAL/ INSTIT SUBRACH CERV/THOR ACIC FLUOR 12828 [facility] NEEDLE/CA 4 PAIN & MAG TH SPINE SPINE/PAR INSTIT ASPINAL DX/[place] NJX 62335 ADVANCED MAL DX/THER 4 PAIN & IRM AGT PVRT SPINE FACET JT INSTIT CRV/THRC 3+ LEVEL NJX 76458 ADVANCED MAL DX/THER 4 PAIN & IRM AGT PVRT SPINE FACET JT INSTIT CRV/THRC 2ND LEVEL NJX 97356 ADVANCED MAL DX/THER 4 PAIN & IRM AGT PVRT SPINE FACET JT INSTIT CRV/THRC 1 LEVEL DSTR 63452 [facility] NROLYTC 4 PAIN & MAG AGNT SPINE PARVERTEB INSTIT FCT SNGL LMBR/SACR AL DSTR 83107 [facility] NROLYTC 4 PAIN & MAG AGNT SPINE PARVERTEB INSTIT [place] [address] [facility] JOINT 4 PAIN & MAG ARTHRGRPH SPINE Y&/ANES/S INSTIT TEROID W/SHANE DSTR 65866 [facility] NROLYTC 4 PAIN & MAG AGNT SPINE PARVERTEB INSTIT FCT ADDL LMBR/SACR AL DSTR 21376 [facility] NROLYTC 4 PAIN & MAG AGNT SPINE PARVERTEB INSTIT FCT SNGL LMBR/SACR AL NJX 41515 [facility]ED [facility] DX/THER 4 PAIN & MAG AGT PVRT SPINE FACET JT INSTIT LMBR/SAC 3+ LEVEL NJX 09725 [facility]ED [facility] DX/THER 4 PAIN & MAG AGT PVRT SPINE FACET JT INSTIT LMBR/SAC 1 LEVEL NJX 63398 [facility]ED [facility] DX/THER 4 PAIN & MAG AGT PVRT SPINE FACET JT INSTIT LMBR/SAC 2ND LEVEL NJX 77619 [facility] ANES&/STR 4 PAIN & MAG D W/IMG SPINE TFRML INSTIT EDRL LMBR/SAC 1 LVL NJX 00805 [facility]ED [facility] ANES&/STR 4 PAIN & MAG D W/IMG SPINE TFRML INSTIT EDRL LMBR/SAC EA LV DSTR 29489 [facility] NROLYTC 4 PAIN & MAG AGNT SPINE PARVERTEB INSTIT FCT SNGL CRVCL/THO RA DSTR 02946 [facility] NROLYTC 4 PAIN & MAG AGNT SPINE PARVERTEB INSTIT FCT ADDL CRVCL/THO RA INJ J0702 [facility] BETAMETHA 4 PAIN & MAG SONE SPINE ACETATE & INSTIT PHOSPHATE 3 MG NJX 51947 [facility] DX/THER 4 PAIN & MAG SBST SPINE EPIDURAL/ INSTIT SUBRACH CERV/THOR ACIC FLUOR 34907 [facility] NEEDLE/CA 4 PAIN & MAG TH SPINE SPINE/PAR INSTIT ASPINAL DX/THER ADDON DSTR 34307 [facility] NROLYTC 4 PAIN & MAG AGNT SPINE PARVERTEB INSTIT FCT SNGL CRVCL/THO RA DSTR 30033 [facility]ED [facility] NROLYTC 4 PAIN & MAG AGNT SPINE PARVERTEB INSTIT FCT ADDL CRVCL/THO [place] NJX 01552 [facility]ED [facility] DX/THER 4 PAIN & MAG AGT PVRT SPINE FACET JT INSTIT CRV/THRC 1 LEVEL NJX 09609 AD[facility]ED [facility] DX/THER 4 PAIN & MAG AGT PVRT SPINE FACET JT INSTIT CRV/THRC 2ND LEVEL NJX 27559 ADV[facility]ED K[facility]CHNER DX/THER 4 PAIN & MAG AGT PVRT SPINE FACET JT INSTIT CRV/THRC 3+ LEVEL NJX 32256 [facility]ED [facility] ANES&/STR 4 PAIN & MAG D W/IMG SPINE TFRML INSTIT EDRL LMBR/SAC 1 LVL NJX 72185 [facility]ED [facility] DX/THER 4 PAIN & MAG AGT PVRT SPINE FACET JT INSTIT CRV/THRC 3+ LEVEL NJX 49467 ADV[facility]ED K[facility]NER DX/THER 4 PAIN & MAG AGT PVRT SPINE FACET JT INSTIT CRV/THRC 2ND LEVEL NJX 33055 AD[facility]ED [facility] DX/THER 4 PAIN & MAG AGT PVRT SPINE FACET JT INSTIT CRV/THRC 1 LEVEL NJX 23222 [facility] ANES&/STR 4 PAIN & MAG D W/IMG SPINE TFRML INSTIT EDRL [place]BR/[place] 1 [place] [address] ADVANCED MAL JOINT 4 PAIN & IRM ARTHRGRPH SPINE Y&/ANES/S INSTIT TEROID W/SHANE RADEX HIP 90489 TAD LUCAS 4 [facility] RADIOLOGY L ASSOCIAT COMPLETE MINIMUM 2 V[place]WS NJX 47301 [facility]ED [facility] ANES&/STR 4 PAIN & MAG D W/IMG SPINE TFRML INSTIT EDRL CRV/THRC EA LV NJX 06568 AD[facility]ED [facility] ANES&/STR 4 PAIN & MAG D W/IMG SPINE TFRML INSTIT EDRL CRV/THRC 1 LVL EPIDUROGR 06814 ADVANCED KERSCHNER APY RS&I 4 PAIN [place] [address] KERSCHNER KERSCHNER JOINT 3 MAG MAG ARTHRGRPH Y&/ANES/S TEROID W/SHANE INJECTION 38200 [facility] KERSCHNER ANES 3 MAG MAG OTHER PERIPHERA L NERVE/BRA NCH DSTR 77341 K[facility]NER KERSCHNER NROLYTC 3 MAG MAG AGNT PARVERTEB FCT SNGL CRVCL/THO RA DSTR 08563 KERSCHNER KERSCHNER NROLYTC 3 MAG MAG AGNT PARVERTEB FCT ADDL CRVCL/THO RA LUMB-SACR L0637 [facility] HME DASCO HME AL ORTHOS 3 [facility] CNTRL RIGD A&P PREFAB RADEX 60418 [facility] 2 EIDER VÍCTOR COMPLETE RADIOLOGY MINIMUM 3 ASSOCIAT VIEWS NEEDLE A4215 [facility] KERSCHNER STERILE 2 MAG [place] NJX [address]5823 [facility]NER KERSCHNER DX/THER 2 MAG MAG AGT PVRT FACET JT LMBR/SAC 3+ LEVEL NJX 04425 [facility]ERS[facility]NER KERSCHNER DX/THER 2 MAG MAG AGT PVRT FACET JT LMBR/SAC 1 LEVEL NJX 49096 KERSCHNER KERSCHNER DX/THER 2 MAG MAG AGT PVRT FACET JT LMBR/SAC 2ND LEVEL NJX 40367 KERSCHNER KERSCHNER DX/THER 2 MAG MAG AGT PVRT FACET JT CRV/THRC 2ND LEVEL NJX 00557 KERSCHNER KERSCHNER DX/THER 2 MAG MAG AGT PVRT FACET JT CRV/THRC 1 LEVEL NJX 55785 KERSCHNER KERSCHNER DX/THER 2 MAG MAG AGT PVRT FACET JT CRV/THRC 3+ [place]EL NJX 87526 KERSCHNER KERSCHNER DX/THER 2 MAG MAG AGT PVRT FACET JT CRV/THRC 3+ [place]EL NJX 21141 KERSCHNER KERSCHNER DX/THER 2 MAG MAG AGT PVRT FACET JT CRV/THRC 1 LEVEL NJX 16427 KERSCHNER KERSCHNER DX/THER 2 MAG MAG AGT PVRT FACET JT CRV/THRC 2ND LEVEL LOCM Q9967 KERSCHNER KERSCHNER 300-399 2 MAG MAG MG/ML IODINE CONCENTRA TION PER ML FLUOR 14321 KERSCHNER KERSCHNER NEEDLE/CA 2 MAG MAG TH SPINE/PAR ASPINAL DX/[place] NJX 08009 KERSCHNER KERSCHNER DX/THER 2 MAG MAG SBST EPIDURAL/ SUBARACH LUMBAR/SA CRAL FLUOR 69248 KERSCHNER KERSCHNER NEEDLE/CA 2 MAG MAG TH SPINE/PAR ASPINAL DX/[place] NJX 97486 KERSCHNER KERSCHNER DX/THER 2 MAG MAG SBST EPIDURAL/ SUBRACH CERV/THOR ACIC LOCM Q9967 KERSCHNER KERSCHNER 300-399 2 MAG MAG MG/ML IODINE CONCENTRA TION PER ML INJECTION J1100 KERSCHNER KERSCHNER 2 MAG MAG DEXAMETHO SONE SODIUM PHOSPHATE 1 MG LOCM Q9967 KERSCHNER KERSCHNER 300-399 2 MAG MAG MG/ML IODINE CONCENTRA [place]ION [place] NJX 92748 KERSCHNER KERSCHNER DX/THER 2 MAG MAG SBST EPIDURAL/ SUBARACH LUMBAR/[place] NJX 83450 KERSCHNER KERSCHNER DX/THER 2 MAG MAG SBST EPIDURAL/ SUBRACH CERV/THOR ACIC LOCM Q9967 KERSCHNER KERSCHNER 300-399 2 MAG MAG MG/ML IODINE CONCENTRA TION PER ML INJECTION J1100 KERSCHNER KERSCHNER 2 MAG MAG DEXAMETHO SONE SODIUM PHOSPHATE 1 MG MRI 20508 MEADOWVIE MEADOWVIE SPINAL 1 W W [facility]NAL [facility] W/O CONTRAST MATRL THERAPEUT 74835 ROCIO GIRALDO SRIKANTH IC 1 PRIMARY PROPHYLAC CARE TIC/DX CENTER INJECTION SUBQ/IM INJECTION J1885 ROCIO GIRALDO SRIKANTH 1 PRIMARY KETOROLAC CARE CENTER TROMETHAM INE PER 15 MG BASIC 04624 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 METABOLIC 1 Y & Y & PANEL BIODIAGNO BIODIAGNO CALCIUM STICS STICS TOTAL COLLECTIO 24711 ROCIO GIRALDO SRIKANTH N VENOUS 1 PRIMARY BLOOD CARE VENIPUNCT CENTER URE COLLECTIO 96545 ROCIO CO ROCIO CO N 1 PRIMARY PRIMARY CAPILLARY CARE CARE BLOOD CENTER CENTER SPECIMEN RADEX 57515 VERBENA DEEJAYJd HAND 1 EIDER VÍCTOR MINIMUM 3 RADIOLOGY VIEWS ASSOCIAT CUL BACT 36773 [facility] AEROBIC 1 [facility] ADDL INC INC METHS DEFINITIV E EA ISOL COMPREHEN 17154 [facility] SIVE 1 [facility] METABOLIC INC INC PANEL RADIOLOGI 55030 JEREMY GOMEZ C 1 MEDICAL SAAD EXAMINATI IMAGING ON TIBIA ASS & FIBULA 2 VIEWS BLOOD 04740 [facility] COUNT 1 [facility] COMPLETE INC INC AUTO&AUTO DIFRNTL WBC CULTURE 44333 [facility] BACTERIAL 1 [facility] BLOOD INC INC AEROBIC W/ID ISOLATES SUSCEPTIB 05991 [facility] EN[facility] LTY STDY 1 [facility] ANTIMICRB INC INC I[place] [address] [facility] INFUSION 1 [facility] THERAPY INC [place] [address] [facility] EN[facility] INFUSION 1 [facility] THERAPY/P INC INC ROPHYLAXI S /DX 1ST TO 1 HR 3D 63744 JEREMY GOMEZ RENDERING 1 MEDICAL SAAD W/INTERP IMAGING & ASS POSTPROCE SS SUPERVISI ON BASIC 39096 [facility] EN[facility] METABOLIC 1 [facility] PANEL INC INC CALCIUM TOTAL BLOOD 92032 [facility] EN[facility] COUNT 1 [facility] COMPLETE INC INC AUTO&AUTO DIFRNTL WBC SEDIMENTA 56888 [facility] EN[facility] TION RATE 1 [facility] [place] [address] JEREMY GOMEZ HEAD/BRAI 1 MEDICAL SAAD N W/O IMAGING CONTRAST ASS MATERIAL APPL 40169 MEADOWVIE MEADOWVIE MODALITY 0 W W 1/> [facility] MEDICAL MEDICAL ULTRASOUN D EA 15 MIN PHYSICAL 68964 MEADOWVIE MEADOWVIE THERAPY 0 W W [facility] MRI 179[address] [facility] SPINAL 0 CLINIC & JOSE CANAL SPINE IN CERVICAL W/O CONTRAST MATRL MRI 84169 [facility] SPINAL 0 CLINIC & JOSE CANAL SPINE IN LUMBAR W/O CONTRAST MATERIAL RADEX 90371 [facility] & 0 EIDER VÍCTOR COCCYX RADIOLOGY MINIMUM 2 ASSOCIAT VIEWS THERAPEUT 86826 MEADOWVIE MEADOWVIE IC 0 W W PROPHYLAC REGIONAL REGIONAL TIC/DX [facility] IN[facility] C[facility] CENTER SUBQ/IM THERAPEUT 71784 MEADOWVIE MEADOWVIE IC 9 W W PROPHYLAC REGIONAL REGIONAL TIC/DX MEDICAL MEDICAL INJECTION CENTER CENTER SUBQ/IM FLUOR 07700 RADIOLOGY MATEO, NEEDLE/CA 9 ELOY D TH ASSOCIATE SPINE/PAR S PSC ASPINAL DX/[place] [address] RADIOLOGY MATEO, DX/THER 9 ELOY D SBST ASSOCIATE EPIDURAL/ S PSC SUBRACH CERV/THOR ACIC MRI 36224 [place] NIHARIKAFER, SPINAL 9 [facility] DANIEL CANAL ORTHOPAED CERVICAL IC CTR W/O PSC CONTRAST MATRL NRV CNDJ [address] AMPLT&LAT 9 IVÁN MINOR NCY EA NRV MOTR MEDICALCE MEDICALCE W/O NTER NTER F-WAVE STD NRV CNDJ 20081 MCKENNA ANDRES, AMPLITUDE 9 HANSEL HAMM & LATENCY EACH NERVE SENSORY NDL EMG [address] XTR W/WO 9 IVÁNDAMIAN MINOR RELATED PARASPINA MEDICALCE MEDICALCE L [place]TER [place] ANY 135[address] RADIOLOGY LARRY, HiT UPPER 9 CRUZ A EXTREMITY ASSOCIATE W/O S PSC CONTRAST MATRL RADEX 49347 COMMONLADANA CANDY, SPINE 9 [facility] BRITTANY Do CERVICAL ORTHOPAED 2 OR 3 IC CTR VIEWS PSC RADEX 61570 [place] CANDY, SHOULDER 9 [facility] BRITTANY Do COMPLETE ORTHOPAED MINIMUM 2 IC CTR VIEWS PSC ECHO 48121 [facility] TTHRC R-T 9 [place] [facility] 2D HEART PSC W/WOM-MOD E COMPL SPEC&COLR D ECG 80321 [facility], ROUTINE 9 [place] [facility] ECG HEART PSC W/LEAST 12 LDS W/I&R INJECTION 50424 [facility] CARDIAC 9 [place] [facility] CATHJ L HEART PSC VENTR/L ATR ANGIOGRAP H OBSERVATI 50980 [facility] CHIN BEE ON/INPATI 9 [facility]IMARY [facility] MINUTES INITIAL 19248 [facility], INPATIENT 9 [place] [facility] CONSULT HEART PSC NEW/ESTAB PT 110 MIN L HRT 71291 [facility] CATHETERI 9 [place] [facility] ZATION HEART P[place] [address] [facility], C-CATHJ 9 [place] [facility] F/SLCTV C HEART PSC ANGRPH I SI&R 70623 [facility], F/NJX PX 9 [place] [facility] DURING HEART PSC C-CATHJ VENTR&/AT R ANGRPH I SI&R 24540 [facility], F/NJX PX 9 [place] [facility] DURING HEART PSC C-CATHJ PULM&/OR SELECT BLS A0382 [facility] BR[facility]EN ROUTINE 9 CO AMB CO AMB DISPOSABL SERVICE SERVICE E SUPPLIES RADIOLOGI 06336 Tk HONG 9 RHONDA S EXAMINATI RADIOLOGY ON CHEST SINGLE ASSOCIATE VIEW S PSC FRONTAL GROUND A0425 [facility] MILEAGE 9 CO AMB CO AMB PER SERVICE SERVICE STATUTE MILE AMBULANCE A0429 [facility] BRACKEN SERVICE 9 CO AMB CO AMB BLS SERVICE SERVICE EMERGENCY TRANSPORT AMB A0422 [facility]ITIA OXYGEN&O2 9 CO AMB CO AMB SUPPLIES SERVICE SERVICE LIFE SUSTAININ G SITUATION BASIC 65279 [facility] METABOLIC 9 [facility] PANEL CALCIUM TOTAL COLLECTIO 45036 [facility] GONZALES N VENOUS 9 PRIMARY Y, JOVANNI BLOOD CARE V VENIPUNCT CENTERINC URE RADEX 26447 RADIOLOGY MELARA, SHOULDER 8 NENA L COMPLETE ASSOCIATE MINIMUM 2 S PSC VIEWS Encounters Encounter Start End Date Code Location Performer Type Date OFFICE 24699 [facility] 7 7 PAIN & T VISIT SPINE 15 INSTIT MINUTES [facility] 7 7 W OUTPATIEN [facility] T MEDICAL OFFICE 23158 [facility] 7 7 PAIN & T VISIT SPINE 15 INSTIT MINUTES [facility]OSPITAL CARL[facility] ENRIQUE - 6 6 [facility] OUTPATI[facility] INC T EMERGENCY 35536 CARLOS ENRIQUE 6 6 [facility] T VISIT HIGH/URGE NT SEVERITY EMERGENCY 85544 ABRIL ROMAN 6 6 PHYSICIAN U [facility] T VISIT MODERATE SEVERITY EMERGENCY 40402 ABRIL FLORENCIOTINGEAN 6 6 PHYSICIAN U [facility] T VISIT MODERATE SEVERITY OFFICE 00873 [facility] OUT[facility] 5 5 PAIN & URUGAN T VISIT SPINE HEM 15 INSTIT MINUTES OFFICE 37222 [facility] OUTPATIEN 4 4 PAIN & MAG T VISIT SPINE 15 INSTIT MINUTES OFFICE 60860 [facility] OUT[facility] 4 4 PAIN & MAG T VISIT SPINE 15 INSTIT MINUTES OFFICE 18562 [facility] 4 4 PAIN & MAG T VISIT SPINE 15 INSTIT MINUTES [facility]OSPITAL [facility]RI[facility] - 4 4 [facility] OUT[facility] INC T EMERGENCY 56047 [facility] DE[facility] 4 4 [place] MOH VISIT EMERGENCY HIGH PHYS SEVERITY& THREAT FUNCJ EMERGENCY 82192 CAR[facility] ENRIQUE 4 4 [facility] DEPARTMEN INC T VISIT LOW/MODER SEVERITY HOSPITAL CAR[facility]OS ENRIQUE - 4 4 [facility] OUTPATIEN INC T OFFICE 98351 [facility] OUTPATIEN 4 4 PAIN & MAG T VISIT SPINE 15 INSTIT MINUTES OFFICE 39588 [facility] MAL OUTPATIEN 4 4 PAIN & IRM T VISIT SPINE 15 INSTIT MINUTES OFFICE 84027 [facility] MAL OUTPATIEN 4 4 PAIN & IRM T VISIT SPINE 15 INSTIT MINUTES OFFICE 33308 AD[facility]ED MAL OUTPATIEN 4 4 PAIN & IRM T VISIT SPINE 15 INSTIT MINUTES OFFICE 99065 AD[facility]ED MAL OUTPATIEN 4 4 PAIN & IRM T VISIT SPINE 15 INSTIT MINUTES OFFICE 73619 [facility] OUTPATIEN 4 4 PAIN & MAG T VISIT SPINE 15 INSTIT MINUTES OFFICE 25158 [facility] OUTPATIEN 4 4 PAIN & MAG T VISIT SPINE 15 INSTIT MINUTES OFFICE 10439 [facility] OUTPATIEN 4 4 PAIN & MAG T VISIT SPINE 15 INSTIT MINUTES OFFICE 09772 [facility] OUTPATIEN 4 4 PAIN & MAG T VISIT SPINE 15 INSTIT MINUTES OFFICE 77244 [facility] OUTPATIEN 4 4 PAIN & MAG T VISIT SPINE 15 INSTIT MINUTES OFFICE 46371 ADVANCED MAL OUTPATIEN 4 4 PAIN & IRM T VISIT SPINE 15 INSTIT MINUTES OFFICE 54216 [facility] OUTPATIEN 4 4 PAIN & MAG T VISIT SPINE 15 INSTIT MINUTES OFFICE 38312 [facility] OUTPATIEN 4 4 PAIN & MAG T VISIT SPINE 15 INSTIT MINUTES OFFICE 10873 ADVANCED MAL OUTPATIEN 4 4 PAIN & IRM T VISIT SPINE 15 INSTIT MINUTES OFFICE 59321 MACIAS OUTPATIEN 3 3 THO T VISIT 15 MINUTES EMERGENCY 23267 RICARDO STRATTONY 2 2 EMERGENCY [facility] DEPARTMEN SERVICES T VISIT HIGH/URGE NT SEVERITY OFFICE 65092 [facility] KERSCHNER OUTPATIEN 2 2 PAIN & MAG T VISIT SPINE 10 INSTIT MINUTES OFFICE 00752 NEUS SRIKANTH OUTPATIEN 2 2 T VISIT 15 MINUTES EMERGENCY 84472 PRETTY [place]A PRETTY CHACORTA 2 2 DEPARTMEN T VISIT MODERATE SEVERITY EMERGENCY 27639 CARLOS ENRIQUE 2 2 [facility] DEPARTMEN INC T VISIT LOW/MODER SEVERITY HOSPITAL CARLOS ENRIQUE - 2 2 [facility] OUTPATIEN INC T OFFICE 85870 KERSCHNER KERSCHNER OUTPATIEN 2 2 MAG MAG T NEW 45 MINUTES OFFICE 47671 SONIA PHI SONIA PHI CONSULTAT 2 2 ION NEW/ESTAB PATIENT 40 MIN OFFICE 48712 NEUS SRIKANTH NEUS [facility]RIK[facility]TH OUTPATIEN 1 1 T VISIT 25 MINUTES HOSPITAL EFRAÍNVIE - 1 1 W OUTPATIEN REGIONAL T MEDICAL OFFICE 29755 [place] NEUS SRIKANTH OUTPATIEN 1 1 PRIMARY T VISIT CARE 15 CENTER MINUTES OFFICE 38982 [facility] [place] NEUS SRIKANTH OUTPATIEN 1 1 PRIMARY T VISIT CARE 15 CENTER MINUTES EMERGENCY 46048 RICARDO PRETTY [place] 1 1 EMERGENCY DEPARTMEN SERVICES T VISIT HIGH/URGE NT SEVERITY EMERGENCY 17323 RICARDO STRATTONY 1 1 EMERGENCY [place] DEPARTMEN SERVICES T VISIT HIGH/URGE NT SEVERITY EMERGENCY 42322 CARLOS ENRIQUE 1 1 [facility] DEPARTMEN INC T VISIT HIGH/URGE NT SEVERITY HOSPITAL CARLOS ENRIQUE - 1 1 [facility] OUTPATIEN [facility] CARLOS ENRIQUE - 1 1 [facility] OUT[facility] EMERGENCY 32174 CARLOS ENRIQUE 1 1 [facility] T VISIT HIGH/URGE NT SEVERITY EMERGENCY 15832 RICARDO CASTILLO DEPT 1 1 EMERGENCY ARISTEO VISIT SERVICES HIGH SEVERITY& THREAT FUNCJ EMERGENCY 60846 RICARDO DIAZ 1 1 EMERGENCY KEE [facility] T VISIT MODERATE SEVERITY OFFICE 07899 [facility] & DEC[facility]ER T VISIT SPINE IN 25 MINUTES EMERGENCY 63103 MEADOWVIE 0 0 W [facility] VISIT MEDICAL MODERATE SEVERITY HOSPITAL MEADOWVIE - 0 0 [facility] MEADOWVIE - 0 0 W [facility] MEDICAL OFFICE 31789 SHAKILA SREEDHAR CONSULTAT 0 0 CLINIC & SRIKANTH ION SPINE IN NEW/ESTAB PATIENT 40 MIN OFFICE 73342 ZEE HERNANDEZ 0 0 PRIMARY TYESHA E T VISIT CARE 25 CENTERINC MINUTES EMERGENCY 00034 MEADOWVIE 0 0 W [facility] VISIT MEDICAL MODERATE CENTER SEVERITY HOSPITAL MEADOWVIE - 0 0 W OUT[facility]IST [facility] EMERGENC[facility] 98997 MEADOWVIE 0 0 W [facility] VISIT MEDICAL MODERATE CENTER SEVERITY HOSPITAL MEADOWVIE - 0 0 W [facility] CENTER OFFICE 87945 TRISHA HERNANDEZPATIEN 0 0 PRIMARY TYESHA E T VISIT CARE 15 CENTERINC MINUTES OFFICE 38527 ZEE EATON 9 9 [facility] BR[facility] Do T VISIT ORTHOPAED 25 IC CTR MINUTES PSC EMERGENCY 68215 MEADOWVIE 9 9 W [facility] T VISIT MEDICAL MODERATE CENTER SEVERITY HOSPITAL EFRAÍNRULA - 9 9 W OUTPATIEN REGIONAL T MEDICAL CENTER OFFICE 16204 VIPIN CANDY OUTPATIEN 9 9 LT BRITTANY Robles VISIT ORTHOPAED 25 IC CTR MINUTES [facility] OFFICE 47689 VIPIN CANDY OUTPATIEN 9 9 LT BRITTANY Robles VISIT ORTHOPAED 25 IC CTR MINUTES [facility] H[facility]PITAL ST - 9 9 [facility] MEDICALCE NTER OFFICE 49100 VIPIN CANDY, CONSULTAT 9 9 [facility] BRITTANY STEVENSON ORTHOPAED NEW/ESTAB IC CTR PATIENT PSC 40 MIN OFFICE 65813 [facility] 9 9 [place] CRUZ R T VISIT HEART PSC 25 MINUTES OFFICE 79845 [facility] [place] NEUS, OUTPATIEN 9 9 PRIMARY TYESHA E T VISIT CARE 25 CENTERINC MINUTES OFFICE 91117 [facility] CO DEL OUTPATIEN 9 9 PRIMARY STRAUSS T VISIT CARE DECALVO, 15 CENTERINC BESSY MINUTES FREDDIE V OFFICE 24349 ROCIO CO ELLEESBER OUTPATIEN 9 9 PRIMARY Y, JOVANNI T NEW 20 CARE V MINUTES CENTERINC EMERGENCY 11867 CANDIDO 8 8 [facility] MED CTR SANJOYDEB T VISIT MODERATE SEVERITY OFFICE 15036 [facility] 8 8 [place] ROS[place] T VISIT FAMILY 25 CARE, MINUTES INC. EMERGENCY 03601 EMERGENCY JOCELIN, 8 8 REENA JUAREZ [facility] PHYS T VISIT [facility] [place]/URGE [place] NT SEVERITY EMERGENCY [address] [place], 8 8 IVÁN Do [facility] T VISIT MODERATE SEVERITY EMERGENCY [address] [place], 8 8 IVÁN Dupree [facility] MED CTR T VISIT HIGH/URGE NT SEVERITY
--- OUTSIDE RECORDS SUMMARY | 2016-10-27 18:48 | External Medical Summary Rpt ---
Author Author JUDITH Rushing, [employer] Organization [employer] Address Unknown Phone Unavailable
--- OUTSIDE RECORDS SUMMARY | 2016-10-27 18:48 | External Medical Summary Rpt ---
Demographics Preferred Language Lao Marital Status Unknown Adventism Affiliation Unknown Race Unknown Ethnic Group Unknown Author Author , Organization [employer] Address Unknown Phone Unavailable Purpose Continuity of Care Document - through 2016 Immunization No patient found.
--- OUTSIDE RECORDS SUMMARY | 2016-10-27 18:48 | External Medical Summary Rpt ---
Demographics Preferred Language Vietnamese Marital Status Unknown Mu-Ism Affiliation Unknown Race Unknown Ethnic Group Unknown Author Author , Organization [employer] Address Unknown Phone Unavailable Purpose Continuity of Care Document - through 2016 Immunization No patient found.
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
[2016-10-27] MEDS ORDERED: ROBAXIN500 M1 PO (20:02)
[2016-10-27] MEDS ORDERED: DICLOFENAC 50MG50 MG PO (20:02)
--- NOTE | 2016-10-27 20:13 | RADIOLOGY REPORT PS360 ---
CT HEAD W/O CONTRAST INDICATION: Patient fell hitting head Routine axial images for brain followed by additional post-processing axial bone window images. Axial CT scanning from the base of the skull through the vertex to evaluate the brain was performed. Subsequent post processing 2-D CT bone windows were submitted to PACS and are useful to evaluate calvarium, visualize portions of paranasal sinuses, mastoids and base of skull. Multiaxial scans are obtained from the base of the skull to the vertex and performed without contrast. The base of the skull appeared normal. The ventricular system was normal. There was no ischemic infarct or bleed and there were no extra-axial fluid collections. The bony calvarium appeared intact. IMPRESSION: Negative noncontrast CT scan of the brain.
--- NOTE | 2016-10-27 20:17 | RADIOLOGY REPORT PS360 ---
CT CERVICAL SPINE W/O CONT COMPARISON: None HISTORY: Neck pain after falling and hitting head TECHNIQUE: Multiaxial scans of cervical spine were obtained. Sagittal coronal reformats were evaluated as well. FINDINGS: There is mild reversal of normal cervical lordosis likely indicating muscle spasm. C1-C7 appear intact and disc spaces are well maintained throughout. There is minor posterior osteophytic spurring at the C5-6 level. The spinal canal is normal in size throughout. There is minor narrowing of the neuroforamina on the left side C5-C6 secondary to posterior osteophytic spurring the prevertebral soft tissues are normal and the odontoid is normal. IMPRESSION: Findings of muscle spasm along with mild degenerative disc disease C5-6
[2016-10-27 20:20] VITALS: BP 134/83
== END 2016-10-27 20:21 | disposition home or self-care (01) ==
LOC: UTC 18:30 → ER 18:36 → UTC 18:36 → ER 20:21
DX: S09.90XA Unspecified injury of head, initial encounter (principal); M54.2 Cervicalgia; I10 Essential (primary) hypertension; E11.9 Type 2 diabetes mellitus without complications; W01.0XXA Fall on same level from slipping, tripping and stumbling without subsequent striking against object, initial encounter; Y92.009 Unspecified place in unspecified non-institutional (private) residence as the place of occurrence of the external cause

== ENCOUNTER → 2016-12-28 | Outpatient (CLI) | payer MEDICARE, MEDICAID ==
[~2016-12-28] MED LIST changes: +DICLOFENAC 50MG50 MG PO; +INDOCIN25 MG PO; +ROBAXIN500 M1 PO; +VOLTAREN100 GM TP
--- NOTE | 2016-12-31 14:50 | RADIOLOGY REPORT PS360 ---
MRI-C-SPINE W/O, MRI-3D RENDERING/MYELOGRAM Ordering Physician: SUSANA GROVER Patient Age: 46 years Male HISTORY: SPONDYLOSIS WITHOUT MYELOPATHY neck pain with right shoulder in 3 months. Right arm numbness tingling and burning right radiculopathy.Neck pain right shoulder pain 3 months right arm numbness tingling morning Patient is large breathing heavy. Difficult scan. COMPARISON made to previous x-ray 10/27/2016 TECHNIQUE: Sagittal STIR, T1, T2, axial T1 and T2. On 1.5T Siemens wide bore MRI. 3-D MR myelogram image set obtained & performed on MRI workstation. Additional sagittal thin section T2 weighted dataset obtained from this latter acquisition as well (---76 CPT) FINDINGS Cranial cervical junction appears satisfactory otherwise note slight today's marrow signal throughout the C-spine could reflect some fatty marrow to red marrow conversion. Most typically encountered in L5 smokers or patients with anemia. Warrants correlation CBC.. C2/3. Disc intact. Cord normal. Only Mild central disc prominence. C3/4. Central disc protrusion. Mild/moderate. This focal central disc protrusion protrusion extends just over 3 mm posteriorly where it does abut and mildly effacing the cervical cord at midline.. No foramen widely patent. C4/5. Disc intact... Foramen adequate patent. C5/6. Most prominent findings at this level. Cervical spondylosis. Diffuse disc/osteophyte posteriorly which yields flattening the thecal sac and cervical cord. Additional spurring to the left paracentral. Mainly mainly hard disc protrusion to the left, which flattens and mildly effaces the cervical cord to the left paracentral.. The features do yield mild spinal stenosis with central canal measuring 8.5 mm.... Features do yield encroachment most evident at the entry of left foramen more so than right. I would note that there is slight increased signal within the cervical cord at this C5/6 level on the sensitive STIR as well as T2 images. This may reflect associated myelopathy C6/7 disc intact neural foramen patent. C7/T1 T1/T2 disc intact. 3-D MRI myelogram image set shows the the more pronounced narrowing and indentation of thecal sac C 5/6 level. With additional pronounced indentations the left due to the prominent leftward spur at C5-C6 IMPRESSION: 1. Cervical spondylosis. & Degenerative disc features most evident C5/6.: C5/6.. Diffuse disc/osteophyte features diffusely flattened cervical cord. However it is the additional prominent leftward spur & hard disc that additionally significantly efface cervical cord to the left... Features yield spinal stenosis. Also note Subtle increased T2,/ edema signal within the cervical cord at this level which which may reflect reflects associated myelopathy at this level 2... At C3/4:. Small central disc protrusion which does focally indents, effaces the cervical cord at midline.
== END ==
LOC: RAD 12:55
DX: M47.812 Spondylosis without myelopathy or radiculopathy, cervical region (principal)

== ENCOUNTER 2017-01-15 21:11 | Emergency (ER) | payer MEDICARE, MEDICAID ==
[~2017-01-15] VITALS: Ht 182.9 cm; Wt 120.2 kg
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
[2017-01-15 22:15] VITALS: BP 160/110
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
--- OUTSIDE RECORDS SUMMARY | 2017-01-18 18:51 | External Medical Summary Rpt ---
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 Name Role Phone [facility] Unavailable Unavailable [facility], [facility] ALFARIS MOH, ALFARIS Unavailable Unavailable MOH SREEDHAR PRINGLE Unavailable Unavailable HANSEL MCNULTY, Unavailable Unavailable HANSEL ANDRES BLEROSHNI ALMANZAR, Unavailable Unavailable BLECHER ROSHNI JIMÉNEZ ALL, JIMÉNEZ ALL Unavailable Unavailable [...] [facility] SLADE DECALVO, Unavailable Unavailable MING Rafaela, SLADE DECALVO, MING V ANN MONREAL, Unavailable Unavailable ANN MONREAL JANELL M, Unavailable Unavailable DEVORAH BANG FINLEY Unavailable Unavailable KEE ANNE JR, FULLER, Unavailable Unavailable ANNA CHUNG Unavailable Unavailable ARISTEO SUKHWINDER CORTEZ Unavailable Unavailable SUKHWINDER CORTEZ Unavailable Unavailable ANN CLEVELAND, Unavailable Unavailable ANN CLEVELAND, Unavailable Unavailable NIKHIL RENEE [facility] Unavailable Unavailable INC, [facility] LUCAS RIC, LUCAS Unavailable Unavailable KWADWO RHONDA LUCAS S, Unavailable Unavailable RHONDA LUCAS S [facility] Unavailable Unavailable IMAGING [facility], [facility], Unavailable Unavailable [facility], Unavailable Unavailable [facility], Unavailable Unavailable [facility] & Unavailable Unavailable [facility] BRITTANY GUPTA, Unavailable Unavailable BRITTANY GUPTA RACHEL J, Unavailable Unavailable [facility] Unavailable Unavailable [facility] CRUZ RICHARDSON, Unavailable Unavailable CRUZ RICHARDSON HAROLD V, Unavailable Unavailable JOVANNI GIBSON V [facility] Unavailable Unavailable SERVICES, [facility] & Unavailable Unavailable SPINE IN, [facility] IN [facility] Unavailable Unavailable ASSOCIAT, [facility] Unavailable Unavailable MEDICAL, [facility] Unavailable Unavailable MEDICAL CENTER, [facility] Unavailable Unavailable MEDICAL, [facility] MACIAS THO, MACIAS Unavailable Unavailable THO CANDIDO, SANJOYDEB, Unavailable Unavailable CANDIDO, SANJOYDEB NEUS SRIKANTH, NEUS SRIKANTH Unavailable Unavailable NEUS SRIKANTH, NEUS SRIKANTH Unavailable Unavailable NEUS, TYESHA E, NEUS, Unavailable Unavailable TYESHA E [facility], Unavailable Unavailable [facility] MCGEE DECKER, MCGEE Unavailable Unavailable DECKER [facility], Unavailable Unavailable PLL[facility], [facility] PORNOY LESA, PORNOY Unavailable Unavailable L[facility], Unavailable Unavailable [facility] Unavailable Unavailable INCORPORAT, [facility] Unavailable Unavailable INCORPORAT, [facility] GAELAT NENA MELARA, Unavailable Unavailable [facility]NA [facility] MAC[facility]ALD, Unavailable Unavailable SOTINGBETSY MACDONALD [facility] Unavailable Unavailable EMERGENCY PHYS, [facility] Un[facility] M[facility]EL[facility] JOSE, MARCELO Unavailable Unavailable JOSE SONIA PHI, SONIA PHI Unavailable Unavailable [facility] # Unavailable Unavailable [id number], [facility] # [id number] [facility] # Unavailable Unavailable [id number], [facility] # [id number] [facility] [id number], Unavailable Unavailable [facility] # [id number] ELOY GALINDO WELLS, Unavailable Unavailable ELOY JAMESM, Unavailable Unavailable MAL VILLA Purpose Continuity of Care Document - 07-14-2007 through 2016 Problems Code Diagnosis DOS Provider Status I10 ESSENTIAL 12-08-2016 [facility], HYPERTENSIO PLLC N [id number] PAIN IN 12-08-2016 [facility], SHOULDER PLLC E119 TYPE 2 10-27-2016 [facility] MELLITUS INC WITHOUT COMPLICATIO NS M542 CERVICALGIA 10-27-2016 [facility] [id number] UNSPECIFIED 10-27-2016 [facility] IN[facility]ICAL HEAD IMAGING ASS INITIAL ENCOUNTER Z5181 ENCOUNTER 10-01-2016 [facility] THERAPEUTIC INCORPORAT DRUG LEVEL MONITORING [id number] FAMILY PARTNER 10-01-2016 [facility] CURRENT USE DIAG[facility]ST[facility] OF OPIATE INCORPORAT ANALGESIC Y11489 SPONDYLOSIS 09-05-2016 [facility] W/O PAIN & MYELOPATH/R SPINE ADICULOPATH INSTIT Y CERV RGN T38977 PRIMARY 07-12-2016 [facility] TIS RIGHT ASSOCIAT SHOULDER Q88721 PRIMARY 07-12-2016 [facility] TIS LEFT ASSOCIAT SHOULDER L74161 PAIN IN 07-12-2016 [facility] LEFT REGIONAL SHOULDER MEDICAL Z21909 PAIN IN 07-11-2016 [facility] UNSPECIFIED PAIN & SHOULDER SPINE INSTIT W32836 PAIN IN 05-22-2016 [place] LEFT MEDICAL FINGERS IM[facility] ASS [id number] LAC W/O FB 05-22-2016 [place] LT INDEX MEDICAL FINGER W/O IMAGING ASS DAMAGE NAIL INIT [id number] NDSPLC FX 05-22-2016 [facility] DIST PHAL [facility], LT INDX PLLC FNGR INIT ENC OPN FX Z23 ENCOUNTER 05-22-2016 [facility] IMMUNIZATIO INC N Z720 TOBACCO USE 05-22-2016 [facility] INC X51313 MIGRAINE 02-23-2016 [facility] UNS NOT PHYSICIANS, INTRACT W/O PLLC STATUS MIGRAINOSUS M29642 SPONDYLOSIS 02-16-2016 [facility] W/O PAIN & MYELOPATH/R [...] SPINE CLASSIFIED INSTIT 7295 PAIN IN 04-04-2014 [facility] SOFT [facility]ICAL TISSUES OF IMAGING ASS LIMB 95107 SWELLING OF 04-04-2014 [facility] 7823 EDEMA 04-04-2014 [facility] 6826 CELLULITIS 04-03-2014 [facility] [...] & USE OF SPINE OTHER INSTIT MEDICATIONS 88195 PAIN IN 06-25-2013 [facility] PELVIC ASSOCIAT REGION AND THIGH 7222 DISPLCMT 06-24-2012 [facility] THO INTERVERT DISC SITE UNS W/O MYELOPATHY 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 7242 LUMBAGO 06-24-2012 [facility] 93968 CONTUSION 06-24-2012 [facility] THO OF ELBOW 46720 PAIN IN 05-26-2012 [facility], RADIOLOGY UPPER ARM ASSOCIAT 00166 LATERAL 05-26-2012 [facility] IS OF [place] SERVICES 9593 INJURY 05-26-2012 [facility] OTHER&UNSPE RADIOLOGY CIFIED ASSOCIAT [place] FOREARM&WRI ST E8859 FALL FROM 05-26-2012 [facility] OTHER EMERGENCY SLIPPING SERVICES TRIPPING OR STUMBLING 14489 BLEPHARITIS 10-16-2011 NEUS SRIKANTH , UNSPECIFIED 6821 CELLULITIS 09-07-2011 [facility] OF NECK INC 6828 CELLULITIS 09-07-2011 [facility] [place] AND ABSCESS OF OTHER SPECIFIED SITE 43435 SPINAL 06-05-2011 NEUS SRIKANTH STENOSIS UNSPEC REGION OTH THAN CERVICAL 7245 UNSPECIFIED 06-05-2011 NEUS SRIKANTH BACKACHE 7230 SPINAL 04-17-2011 [facility] STENOSIS IN REGIONAL CERVICAL MEDICAL REGION 15903 SPASM OF 04-04-2011 [facility] 35402 DIAB W/O 03-27-2011 [facility] COMP TYPE PRIMARY II/UNS NOT CARE CENTER STATED UNCNTRL 4019 UNSPECIFIED 03-27-2011 [facility] ESSENTIAL PRIMARY HYPERTENSIO CARE CENTER N 6868 OTH SPEC 03-27-2011 [facility] LOCAL [facility]IMARY INFECTIONS CARE CENTER SKIN&SUBCUT TISSUE 75679 CONTUSION 03-23-2011 [facility] 37814 PAIN IN 03-22-2011 [facility], HAND RADIOLOGY ASSOCIAT 05892 CONTUSION 03-22-2011 [facility] OF BACK EMERGENCY SERVICES 26181 CONTUSION 03-22-2011 [facility] OF HAND [facility]ERGENCY SERVICES E8889 UNSPECIFIED 03-22-2011 [facility] FALL [facility] ASSOCIAT 7840 HEADACHE 11-10-2010 [facility] 6961 OTHER 10-01-2010 [facility] PSORIASIS EMERGENCY AND SIMILAR SERVICES DISORDERS 7231 CERVICALGIA 06-29-2010 [facility] 920 CONTUSION 04-14-2010 [facility] OF FACE REGIONAL SCALP AND MEDICAL NECK EXCEPT EYE V571 OTHER 03-15-2010 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[facility]AL INFARCTION [facility]ICAL [facility] 6968 OT 08-29-2009 [facility] PSORIASIS & PRIMARY SIMILAR CARE DISORDERS CENTERINC OTH 7220 DISPLCMT 06-06-2009 [facility] CERV H INTERVERT ORTHOPAEDIC DISC CTR PSC WITHOUT MYELOPATHY 8404 ROTATOR 05-05-2009 [facility] CUFF SPRAIN H AND STRAIN ORTHOPAEDIC CTR PSC 85044 EXOSTOSIS 05-02-2009 [facility] OF H UNSPECIFIED ORTHOPAEDIC SITE CTR PSC 63146 OSTEOARTHRO 04-22-2009 RADIOLOGY S UNSPEC ASSOCIATES WHETHER PSC GEN/LOC SHLDR REGION 78264 UNSPECIFIED 04-22-2009 [facility] H ARTHROPATHY ORTHOPAEDIC SHOULDER CTR PSC REGION 14180 PAIN IN 04-22-2009 [facility], H SHOULDER ORTHOPAEDIC REGION CTR PSC 7820 DISTURBANCE 04-22-2009 [facility] 8406 SUPRASPINAT 04-22-2009 [facility] US SPRAIN H AND STRAIN ORTHOPAEDIC CTR PSC 06339 UNSPEC 04-18-2009 [facility] DISORDERS H BURSAE&TEND ORTHOPAEDIC ONS CTR PSC SHOULDER REGION 4011 ESSENTIAL 04-11-2009 [facility] HYPERTENSIO HEART PSC N, BENIGN 44313 REFLUX 04-11-2009 [facility] ESOPHAGITIS HEART PSC 76498 SHORTNESS 04-11-2009 [facility] OF BREATH HEART PSC 26175 CHEST PAIN 04-11-2009 [facility] UNSPECIFIED HEART PSC 74247 NONSPECIFIC 04-11-2009 [facility] ABNORMAL HEART PSC ELECTROCARD IOGRAM 98649 PAIN IN 04-04-2009 [facility], PRIMARY ANKLE AND CARE FOOT CENTERINC 70037 OTH SPEC 04-04-2009 [facility] D/O ROTATOR PRIMARY CUFF SYND CARE SHLDR&SASHA CENTERINC D D/O 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 91315 ESOPHAGEAL 03-30-2009 [facility] REFLUX PRIMARY CARE CENTERINC 4293 CARDIOMEGAL 03-29-2009 [facility]ATES PSC 80886 OTHER 03-29-2009 [facility] DYSPNEA AND RADIOLOGY ASSOCIATES [place] [address] OTHER CHEST 03-29-2009 [facility] PAIN AMB SERVICE V489 UNSPECIFIED 03-01-2009 [facility] PROBLEM PRIMARY WITH HEAD CARE NECK OR CENTERINC TRUNK 7239 UNSPEC 02-14-2009 [facility] MUSCULOSKEL PRIMARY CARE D/O&SYMPTOM CENTERINC S REFERABLE NECK 25218 UNSPECIFIED 02-14-2009 [facility] SYNOVITIS PRIMARY AND CARE TENOSYNOVIT CENTERINC IS 9057 LATE EFF 10-27-2007 ST SPRAIN&STRA [facility] IN W/O MED CTR MENTION TENDON INJURY 7962 ELEVATED BP 10-02-2007 [facility] WITHOUT DX [facility]ILY [facility] N 8409 SPRAIN&STRA 09-22-2007 EMERGENCY IN UNSPEC CARE PHYS SITE [place] SHOULDER&UP PER ARM 9599 INJURY 09-22-2007 RADI[facility] OTHER AND ASSOCIATES UNSPECIFIED PSC UNSPECIFIED SITE 31794 PAIN IN 09-02-2007 ST [facility], IVÁN FOREARM MED CTR 9597 INJURY 07-14-2007 ST OTHER&UNSPE IVÁN CIFIED KNEE MED CTR LEG ANKLE&FOOT Allergies, Adverse Reactions, Alerts Clinical Alert Notifications Alert Diabetes: no A1C in the last 6 months Diabetes: no eye exam in the last 365 days Diabetes: no lipid panel in the last 365 days Diabetes: no urine protein screening in the last 365 days Medications Na ND Rx Da Fi Fi [...] CH ZA 11 11 11 AR RI ME [address] IN CY IN E [...] PH 3 IN 70 11 11 AR WY 5 MA CH 50 CY AE 0 L MG IN S C CA PS UL E PATHAK 53 07 07 0 10 5 DE 64 GA Ac LF 74 -1 -1 .0 AN 13 IN ti AM 60 7- 8- 00 S 41 EY ve ET 27 20 20 PH 4 HO 20 11 11 AR WY XA 5 MA CH ZO CY AE LE L -T IN S MP C DS TA BL ET 00 05 05 0 12 3 DE 40 GA Ac 40 -2 -2 .0 AN 63 IN ti 60 8- 8- 00 S 63 EY ve 35 20 20 PH 5 70 11 11 AR WY 5 MA CH CY AE L IN S C ME 00 05 05 0 21 6 DE 64 GA Ac ED 60 -2 -2 .0 AN 11 IN ti NI 35 8- 8- 00 S 49 EY ve SO 33 20 20 PH 7 NE 71 11 11 AR WY 5 5 MA CH CY AE MG [...] 0- 2- 00 S 10 CA ve ME [address] IL [...] 0- 0- 00 S 10 CA ve ME [address] IL [...] 0- 2- 00 S 10 CA ve ME [address] [place] 08 09 10 AR IL 0 MA LO 20 CY DE MG IN CA C LV TA O BL MA ET RI A IS AB EL V LI 00 10 04 10 30 30 DE 63 DE Ac SI 17 -2 -1 .0 AN 86 L ti NO 23 0- 6- 00 S 10 CA ve ME [address] IL 08 09 10 AR IL 0 MA LO 20 CY DE MG IN CA C LV TA O BL MA ET RI A IS AB EL V LI 00 10 03 10 30 30 DE 63 DE Ac SI 17 -2 -1 .0 AN 86 L ti NO 23 0- 6- 00 S 10 CA ve ME [address] IL [...] 0- 6- 00 S 10 CA ve ME [address] IL 08 09 10 AR IL 0 MA LO 20 CY DE MG CA LV TA O BL MA ET RI A IS AB EL V LI 00 10 01 02 30 30 DE 63 DE Ac SI 17 -2 -2 .0 AN 86 L ti NO 23 0- 8- 00 S 10 CA ve ME [address] IL [...] 9 AN ZA 81 09 09 AR ME 0 MA CH IN CY RI E [...] IN MG A M TA BL ET LI 00 10 12 01 30 30 DE 63 DE Ac SI 17 -2 -3 .0 AN 86 L ti NO 23 0- 1- 00 S 10 CA ve ME [address] IL 08 09 09 AR IL 0 MA LO 20 CY DE MG CA LV TA O BL MA ET RI A IS AB EL V 00 12 12 00 40 13 DE 40 LA Ac 60 -2 -3 .0 AN 60 RK ti 33 1- 1- 00 S 07 IN ve 88 20 20 PH 8 12 09 09 AR ANNI 8 MA HN CY J 00 10 12 01 60 30 DE 40 NE Ac 60 -1 -0 .0 AN 59 US ti 35 9- 3- 00 S 65 ve [address] 63 09 09 AR EV 2 MA EN CY E ME 00 11 11 00 21 6 DE 63 LA Ac TH 78 -1 -1 .0 AN 87 RK ti YL 15 1- 9- 00 S 14 IN ve ME 02 20 20 PH 1 ED 20 [...] HN CY J MG TA BL ET LI 00 10 11 00 30 30 DE 63 DE Ac SI 17 -2 -1 .0 AN 86 L ti NO 23 0- 9- 00 S 10 CA ve ME [address] IL 08 09 09 AR IL 0 MA LO 20 CY DE MG CA LV TA O BL MA ET RI A IS AB EL V 00 10 11 00 60 30 DE 40 NE Ac 60 -1 -0 .0 AN 59 US ti 35 9- 5- 00 S 65 ve [address] 63 09 09 AR EV 2 MA EN CY E ME 37 10 11 00 60 30 DE [...] 4- 2- 00 S 81 CA ve ME [address] IL [...] MG TA BL ET Immunization Name Date Rout CVX Reac Dose Comm Prov Is Faci e tion ent ider Refu lity Give sed n TDAP 12-0 115 TEENA No TEENA 6-20 [facility] 16 [facility] INE 7 HOSP HOSP YRS/ INC INC > IM Procedures Procedure DOS Code Location Performer Comment THERAPEUT 38566 [facility] IC 7 [facility] PROPHYLAC INC INC TIC/DX INJECTION SUBQ/IM INJECTION J2405 [facility] ONDANSETR INC INC ON HCL PER 1 MG RADEX 45849 [facility] SH[facility]ER 7 W W COMPLETE REGIONAL REGIONAL MINIMUM [address] [place] [address] [facility] CERVICAL 7 [facility] SPINE W/[place] [address] [facility] HEAD/BRAI 7 [facility] N W/O INC INC CONTRAST MATERIAL DRUG TEST 37629 [facility] PRSMV 7 DIAGNOSTI DIAGNOSTI INSTRMNT CS CS CHEMISTRY INCORPORA INCORPORA T T ANALYZERS DRUG TEST G0480 [facility] DEFINITV [address] ID CS CS METH P INCORPORA INCORPORA DAY 1-7 T T DRUG CL RADEX 38723 [facility] SHOULDER 7 W W COMPLETE REGIONAL REGIONAL MINIMUM 2 MEDICAL MEDICAL VIEWS IM ADM 96865 [facility] PRQ ID 6 [facility] SUBQ/IM INC INC NJXS 1 VACCINE TDAP 43129 [facility] VACCINE 7 6 [facility]OS[facility]OS[facility] YRS/> IM INC INC SIMPLE 66311 [facility] PHYSICIAN U RENAE SCALP/NEC S, PLLC K/AX/SHAILESH T/TRUNK 2.5CM/< APPLICATI 22028 [facility] ON FINGER 6 [facility] SPLINT INC INC STATIC RADEX 25241 [place] JIMÉNEZ ALL FINGR 6 MEDICAL MINIMUM 2 IMAGING VIEWS ASS DRUG TEST G0480 [facility] DEFINITV [address] ID CS CS METH P INCORPORA INCORPORA DAY 1-7 T T DRUG CL DRUG TEST G0479 [facility] 6 DIAGNOSTI DIAGNOSTI PRESUMP;I CS CS NSTRUMENT INCORPORA INCORPORA ED T T CHEMISTRY ANLYZER DSTR 89025 [facility] NROLYTC 6 PAIN & MAG AGNT SPINE PARVERTEB INSTIT FCT ADDL LMBR/SACR AL DSTR 32487 [facility] NROLYTC 6 PAIN & MAG AGNT SPINE PARVERTEB INSTIT FCT SNGL LMBR/SACR AL INJ J0702 [facility] BETAMETHA 6 PAIN & MAG SONE SPINE ACETATE & INSTIT PHOSPHATE 3 MG INJ J0702 [facility] BETAMETHA 6 PAIN & MAG SONE SPINE ACETATE & INSTIT PHOSPHATE 3 MG DSTR 83010 ADV[facility]ED K[facility]CHNER NROLYTC 6 PAIN & MAG AGNT SPINE PARVERTEB INSTIT FCT SNGL LMBR/SACR AL DSTR 61601 AD[facility]ED K[facility]CHNER NROLYTC 6 PAIN & MAG AGNT SPINE PARVERTEB INSTIT FCT ADDL LMBR/[place]CR [place] NJX 17299 [facility] ANES&/STR 6 PAIN & MAG D W/IMG SPINE TFRML INSTIT EDRL LMBR/SAC EA LV NJX 98702 [facility]ED [facility] ANES&/STR 6 PAIN & MAG D W/IMG SPINE TFRML INSTIT EDRL LMBR/SAC 1 LVL INJ J0702 [facility]ED [facility] BETAMETHA 6 PAIN & MAG SONE SPINE ACETATE & INSTIT PHOSPHATE 3 MG DRUG TEST G0479 [facility] 6 DIAGNOSTI DIAGNOSTI PRESUMP;I CS CS NSTRUMENT ED CHEMISTRY ANLYZER DRUG TEST G0480 [facility] DEFINITV [address] ID CS CS METH P DAY 1-7 DRUG CL DSTR 76676 ADVANCED KERSCHNER NROLYTC 5 PAIN & MAG AGNT SPINE PARVERTEB INSTIT FCT SNGL LMBR/SACR AL DSTR 87208 ADVANCED K[facility]CHNER NROLYTC 5 PAIN & MAG AGNT SPINE PARVERTEB INSTIT FCT ADDL LMBR/SACR AL INJ J0702 AD[facility]ED [facility] BETAMETHA 5 PAIN & MAG SONE SPINE ACETATE & INSTIT PHOSPHATE 3 MG DSTR 75654 AD[facility]ED K[facility]CHNER NROLYTC 5 PAIN & MAG AGNT SPINE PARVERTEB INSTIT FCT ADDL CRVCL/THO RA DSTR 76942 [facility] NROLYTC 5 PAIN & MAG AGNT SPINE PARVERTEB INSTIT FCT SNGL CRVCL/THO RA FLUOR 12133 [facility] NEEDLE/CA 4 PAIN & MAG TH SPINE SPINE/PAR INSTIT ASPINAL DX/[place]X 85447 ADV[facility]ED [facility] DX/THER 4 PAIN & MAG SBST SPINE EPIDURAL/ INSTIT SUBRACH CERV/THOR ACIC NJX 55274 [facility] ANES&/STR 4 PAIN & MAG D W/IMG SPINE TFRML INSTIT EDRL LMBR/SAC 1 LVL NJX 12359 [facility] ANES&/STR 4 PAIN & MAG D W/IMG SPINE TFRML INSTIT EDRL LMBR/SAC EA LV ARTHROCEN 60939 [facility] TESIS 4 PAIN & MAG ASPIR&/IN SPINE J MAJOR INSTIT JT/BURSA W/O US FLUOROSCO 91383 [facility] PIC 4 PAIN & MAG GUIDANCE SPINE NEEDLE INSTIT PLACEMENT ADD ON DUP-SCAN 77213 [place] PATRICIA XTR VEINS 4 MEDICAL SAAD IMAGING UNILATERA ASS L/LIMITED STUDY GLUC BLD 97685 [facility] GLUC MNTR 4 [facility] DEV INC INC CLEARED FDA SPEC HOME USE FLUOROSCO 34711 [facility] PIC 4 PAIN & MAG GUIDANCE SPINE NEEDLE INSTIT PLACEMENT ADD ON ARTHROCEN 85044 [facility] TESIS 4 PAIN & MAG ASPIR&/IN SPINE J MAJOR INSTIT JT/BURSA W/[place] [address] [facility] JOINT 4 PAIN & MAG ARTHRGRPH SPINE Y&/ANES/S INSTIT TEROID W/SHANE NJX 56211 [facility]ED [facility] DX/THER 4 PAIN & MAG AGT PVRT SPINE FACET JT INSTIT CRV/THRC 2ND LEVEL NJX 28361 [facility] DX/THER 4 PAIN & MAG AGT PVRT SPINE FACET JT INSTIT CRV/THRC 1 LEVEL NJX 17275 [facility]ED [facility] DX/THER 4 PAIN & MAG AGT PVRT SPINE FACET JT INSTIT CRV/THRC 3+ LEVEL NJX 83542 AD[facility]ED [facility] DX/THER 4 PAIN & MAG AGT PVRT SPINE FACET JT INSTIT LMBR/SAC 3+ LEVEL NJX 86005 ADVANCED K[facility]CHNER DX/THER 4 PAIN & MAG AGT PVRT SPINE FACET JT INSTIT LMBR/SAC 1 LEVEL NJX 38470 AD[facility]ED [facility] DX/THER 4 PAIN & MAG AGT PVRT SPINE FACET JT INSTIT [place]BR/[place] 2[place] [address] [facility] JOINT 4 PAIN & MAG ARTHRGRPH SPINE Y&/ANES/S INSTIT TEROID W/SHANE NJX 08998 [facility] DX/THER 4 PAIN & MAG SBST SPINE EPIDURAL/ INSTIT SUBRACH CERV/THOR ACIC FLUOR 83603 [facility] NEEDLE/CA 4 PAIN & MAG TH SPINE SPINE/PAR INSTIT ASPINAL DX/THER [place] NJX 57965 ADVANCED MAL DX/THER 4 PAIN & IRM AGT PVRT SPINE FACET JT INSTIT CRV/THRC 2ND LEVEL NJX 13017 ADVANCED MAL DX/THER 4 PAIN & IRM AGT PVRT SPINE FACET JT INSTIT CRV/THRC 1 LEVEL NJX 47176 ADVANCED MAL DX/THER 4 PAIN & IRM AGT PVRT SPINE FACET JT INSTIT CRV/THRC 3+ LEVEL DSTR 87319 [facility]ED [facility] NROLYTC 4 PAIN & MAG AGNT SPINE PARVERTEB INSTIT FCT SNGL LMBR/SACR AL DSTR 92158 AD[facility]ED [facility] NROLYTC 4 PAIN & MAG AGNT SPINE PARVERTEB INSTIT F[place] [address] AD[facility]ANCED [facility]NER JOINT 4 PAIN & MAG ARTHRGRPH SPINE Y&/ANES/S INSTIT TEROID W/SHANE DSTR 74468 [facility] NROLYTC 4 PAIN & MAG AGNT SPINE PARVERTEB INSTIT FCT ADDL LMBR/SACR AL DSTR 70603 [facility]ED [facility] NROLYTC 4 PAIN & MAG AGNT SPINE PARVERTEB INSTIT FCT [place]BR/[place]CR [place] NJX 93213 ADV[facility]ED [facility] DX/THER 4 PAIN & MAG AGT PVRT SPINE FACET JT INSTIT LMBR/SAC 3+ LEVEL NJX 35453 ADVANCED K[facility]NER DX/THER 4 PAIN & MAG AGT PVRT SPINE FACET JT INSTIT LMBR/SAC 1 LEVEL NJX 54290 AD[facility]ED K[facility] DX/THER 4 PAIN & MAG AGT PVRT SPINE FACET JT INSTIT LMBR/SAC 2ND LEVEL NJX 61101 [facility]ED [facility] ANES&/STR 4 PAIN & MAG D W/IMG SPINE TFRML INSTIT EDRL LMBR/SAC 1 LVL NJX 98819 [facility]ED [facility] ANES&/STR 4 PAIN & MAG D W/IMG SPINE TFRML INSTIT EDRL LMBR/SAC EA LV DSTR 51980 AD[facility]ED [facility] NROLYTC 4 PAIN & MAG AGNT SPINE PARVERTEB INSTIT FCT SNGL CRVCL/THO RA DSTR 32341 [facility]ED [facility] NROLYTC 4 PAIN & MAG AGNT SPINE PARVERTEB INSTIT FCT ADDL CRVCL/[place] NJX 50269 ADV[facility]ED [facility] DX/THER 4 PAIN & MAG SBST SPINE EPIDURAL/ INSTIT SUBRACH CERV/THOR ACIC FLUOR 09264 AD[facility]ED [facility] NEEDLE/CA 4 PAIN & MAG TH SPINE SPINE/PAR INSTIT ASPINAL DX/THER ADDON INJ J0702 [facility] BETAMETHA 4 PAIN & MAG SONE SPINE ACETATE & INSTIT PHOSPHATE 3 MG DSTR 95363 AD[facility]ED [facility]NER NROLYTC 4 PAIN & MAG AGNT SPINE PARVERTEB INSTIT FCT ADDL CRVCL/THO RA DSTR 50240 AD[facility]ANCED K[facility]CHNER NROLYTC 4 PAIN & MAG AGNT SPINE PARVERTEB INSTIT FCT SNGL CRVCL/THO RA NJX 95929 ADVANCED [facility]NER DX/THER 4 PAIN & MAG AGT PVRT SPINE FACET JT INSTIT CRV/THRC 3+ LEVEL NJX 94617 ADVANCED KERSCHNER DX/THER 4 PAIN & MAG AGT PVRT SPINE FACET JT INSTIT CRV/THRC 1 LEVEL NJX 43793 ADVANCED KERSCHNER DX/THER 4 PAIN & MAG AGT PVRT SPINE FACET JT INSTIT CRV/THRC 2ND LEVEL NJX 49378 ADVANCED KERSCHNER ANES&/STR 4 PAIN & MAG D W/IMG SPINE TFRML INSTIT EDRL LMBR/SAC 1 LVL NJX 61449 ADVANCED KERSCHNER DX/THER 4 PAIN & MAG AGT PVRT SPINE FACET JT INSTIT CRV/THRC 2ND LEVEL NJX 50865 ADVANCED KERSCHNER DX/THER 4 PAIN & MAG AGT PVRT SPINE FACET JT INSTIT CRV/THRC 1 LEVEL NJX 24594 ADVANCED KERSCHNER DX/THER 4 PAIN & MAG AGT PVRT SPINE FACET JT INSTIT CRV/THRC 3+ LEVEL NJX 29694 ADVANCED KERSCHNER ANES&/STR 4 PAIN & MAG D W/IMG SPINE TFRML INSTIT EDRL LMBR/[place] 1 [place] [address] ADVANCED MAL JOINT 4 PAIN & IRM ARTHRGRPH SPINE Y&/ANES/S INSTIT TEROID W/SHANE RADEX HIP 63518 [facility] 4 [facility] COMPLETE MINIMUM 2 VIEWS EPIDUROGR 71960 ADVANCED KERSCHNER APY RS&I 4 PAIN & MAG SPINE INSTIT NJX 04649 ADVANCED KERSCHNER ANES&/STR 4 PAIN & MAG D W/IMG SPINE TFRML INSTIT EDRL CRV/THRC [place] NJX 91573 ADVANCED KERSCHNER ANES&/STR 4 PAIN & MAG D W/IMG SPINE TFRML INSTIT EDRL CRV/THRC 1 [place] [address] KERSCHNER KERSCHNER JOINT 3 MAG MAG ARTHRGRPH Y&/ANES/S TEROID W/SHANE INJECTION 35383 KERSCHNER KERSCHNER ANES 3 MAG MAG OTHER PERIPHERA L NERVE/BRA NCH DSTR 20292 KERSCHNER KERSCHNER NROLYTC 3 MAG MAG AGNT PARVERTEB FCT SNGL CRVCL/THO RA DSTR 24002 KERSCHNER KERSCHNER NROLYTC 3 MAG MAG AGNT PARVERTEB FCT ADDL CRVCL/THO RA LUMB-SACR L0637 DASCO HME DASCO HME AL ORTHOS 3 SAG-[employer] CNTRL RIGD A&P PREFAB RADEX 13535 [place] [facility] 2 EIDER VÍCTOR COMPLETE RADIOLOGY MINIMUM 3 ASSOCIAT VIEWS NEEDLE A4215 KERSCHNER KERSCHNER STERILE 2 [place] [address] KERSCHNER KERSCHNER DX/THER 2 MAG MAG AGT PVRT FACET JT LMBR/SAC 3+ [place] NJX 41300 KERSCHNER KERSCHNER DX/THER 2 MAG MAG AGT PVRT FACET JT LMBR/SAC 2ND [place]EL NJX [address]62 KERSCHNER KERSCHNER DX/THER 2 MAG MAG AGT PVRT FACET JT LMBR/SAC 1 [place]EL NJX [address]103 KERSCHNER KERSCHNER DX/THER 2 MAG MAG AGT PVRT FACET JT CRV/THRC 2ND LEVEL NJX 03704 KERSCHNER KERSCHNER DX/THER 2 MAG MAG AGT PVRT FACET JT CRV/THRC 1 L[place]EL NJX 79306 KERSCHNER KERSCHNER DX/THER 2 MAG MAG AGT PVRT FACET JT CRV/THRC 3+ [place]EL NJX 66996 KERSCHNER KERSCHNER DX/THER 2 MAG MAG AGT PVRT FACET JT CRV/THRC 3+ LEVEL NJX 65777 KERSCHNER KERSCHNER DX/THER 2 MAG MAG AGT PVRT FACET JT CRV/THRC 1 LEVEL NJX 58679 KERSCHNER KERSCHNER DX/THER 2 MAG MAG AGT PVRT FACET JT CRV/THRC 2ND LEVEL NJX 91990 KERSCHNER KERSCHNER DX/THER 2 MAG MAG SBST EPIDURAL/ SUBARACH LUMBAR/SA CRAL FLUOR 34800 KERSCHNER KERSCHNER NEEDLE/CA 2 MAG MAG TH SPINE/PAR ASPINAL DX/THER ADDON LOCM Q9967 KERSCHNER KERSCHNER 300-399 2 MAG MAG MG/ML IODINE CONCENTRA TION PER ML LOCM Q9967 KERSCHNER KERSCHNER 300-399 2 MAG MAG MG/ML IODINE CONCENTRA TION PER ML FLUOR 71978 KERSCHNER KERSCHNER NEEDLE/CA 2 MAG MAG TH SPINE/PAR ASPINAL DX/[place] NJX 02392 KERSCHNER KERSCHNER DX/THER 2 MAG MAG SBST EPIDURAL/ SUBRACH CERV/THOR ACIC INJECTION J1100 KERSCHNER KERSCHNER 2 MAG MAG DEXAMETHO SONE SODIUM PHOSPHATE 1 MG NJX 03546 KERSCHNER KERSCHNER DX/THER 2 MAG MAG SBST EPIDURAL/ SUBARACH LUMBAR/SA CRAL LOCM Q9967 KERSCHNER KERSCHNER 300-399 2 MAG MAG MG/ML IODINE CONCENTRA TION PER ML LOCM Q9967 KERSCHNER KERSCHNER 300-399 2 MAG MAG MG/ML IODINE CONCENTRA TION PER ML NJX 79635 KERSCHNER KERSCHNER DX/THER 2 MAG MAG SBST EPIDURAL/ SUBRACH CERV/THOR ACIC INJECTION J1100 KERSCHNER KERSCHNER 2 MAG MAG DEXAMETHO SONE SODIUM PHOSPHATE 1 MG MRI 93490 MEADOWRULA MEAWRULA SPINAL 1 W W CANAL REGIONAL REGIONAL CERVICAL MEDICAL MEDICAL W/O CONTRAST MATRL THERAPEUT 92661 ROCIO GIRALDO SRIKANTH IC 1 PRIMARY PROPHYLAC CARE TIC/DX CENTER INJECTION SUBQ/IM INJECTION J1885 ROCIO CO NEUS SRIKANTH 1 PRIMARY KETOROLAC CARE CENTER TROMETHAM INE PER 15 MG BASIC 72257 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 METABOLIC 1 Y & Y & PANEL BIODIAGNO BIODIAGNO CALCIUM STICS STICS TOTAL COLLECTIO 02144 ROCIO GIRALDO SRIKANTH N VENOUS 1 PRIMARY BLOOD CARE VENIPUNCT CENTER URE COLLECTIO 34630 ROCIO CHIN ROCIO CO N 1 PRIMARY PRIMARY CAPILLARY CARE CARE BLOOD CENTER CENTER SPECIMEN RADEX 67923 [facility] 1 VALERIANO RENEE MINIMUM 3 [place] [address] [facility]LOS ENRIQUE [facility] INFUSION 1 [facility] THERAPY INC INC PROPHYLAX IS/DX EA HOUR RADIOLOGI 86435 CARLOS ENRIQUE [facility] C 1 [facility] EXAMINATI INC INC ON TIBIA & FIBULA 2 VIEWS CULTURE 06056 [facility] ENRIQUE [facility] BACTERIAL 1 [facility] BLOOD INC INC AEROBIC W/ID ISOLATES SUSCEPTIB 96122 CARLOS ENRIQUE [facility] LTY STDY 1 [facility] ANTIMICRB INC INC IAL MICRO/AGA R DILUTJ COMPREHEN 64952 CARLOS ENRIQUE [facility] SIVE 1 [facility] METABOLIC INC INC PANEL BLOOD 56814 CARLOS ENRIQUE [facility] COUNT 1 [facility] COMPLETE INC INC AUTO&[place] [address] CARLOS ENRIQUE [facility] INFUSION 1 [facility] THERAPY/P INC INC ROPHYLAXI S /DX 1ST TO 1 HR CUL BACT 06189 CARLOS ENRIQUE [facility] AEROBIC 1 [facility] ADDL INC INC METHS DEFINITIV E EA ISOL SEDIMENTA 50627 CARLOS ENRIQUE [facility] TION RATE 1 [facility] [place] [address] [place] HEAD/BRAI 1 MEDICAL SAAD N W/O IMAGING CONTRAST ASS MATERIAL BLOOD 50876 CARLOS ENRIQUE [facility] COUNT 1 [facility] COMPLETE INC INC AUTO&AUTO DIFRNTL WBC BASIC 97146 CARLOS ENRIQUE [facility] METABOLIC 1 [facility] PANEL INC INC CALCIUM TOTAL 3D 55097 [place] PAT[place] RENDERING 1 MEDICAL SAAD W/INTERP IMAGING & ASS POSTPROCE SS SUPERVISI ON PHYSICAL 03723 MEADOWVIE MEADOWVIE THERAPY 0 W W EVALUATIO REGIONAL REGIONAL N MEDICAL MEDICAL APPL 16798 MEADOWVIE MEADOWVIE MODALITY 0 W W 1/> AREAS [facility] MEDICAL MEDICAL ULTRASOUN D EA 15 MIN MRI 40213 [facility] CANAL SPINE IN CERVICAL W/O CONTRAST MATRL MRI 35383 [facility] SPINAL 0 [facility] CANAL SPINE IN LUMBAR W/O CONTRAST MATERIAL RADEX 38187 SEYMOURWRULA AHUJAWRULA SACRUM & 0 W W COCCYX REGIONAL REGIONAL MINIMUM 2 MEDICAL MEDICAL VIEWS CENTER CENTER THERAPEUT 45387 [facility] AHUJAWVIE IC 0 W W PROPHYLAC REGIONAL REGIONAL TIC/DX MEDICAL MEDICAL INJECTION CENTER CENTER SUBQ/IM THERAPEUT 72350 MEADOWVIE MEADOWVIE IC 9 W W PROPHYLAC REGIONAL REGIONAL TIC/DX MEDICAL MEDICAL INJECTION CENTER CENTER SUBQ/IM FLUOR 48985 RADIOLOGY MATEO, NEEDLE/CA 9 ELOY D TH ASSOCIATE SPINE/PAR S PSC ASPINAL DX/[place]X 34964 RADIOLOGY MATEO, DX/THER 9 ELOY D SBST ASSOCIATE EPIDURAL/ S PSC SUBRACH CERV/THOR ACIC MRI 33860 RADIOLOGY BRANDSER, SPINAL 9 CRUZ A CANAL ASSOCIATE CERVICAL S PSC W/O CONTRAST MATRL NRV CNDJ 47421 MCKENNA ANDRES, AMPLT&LAT 9 HANSEL HAMM NCY EA NRV MOTR W/O F-WAVE STD NRV CNDJ 17446 MCKENNA ANDRES, AMPLITUDE 9 HANSEL HAMM & LATENCY EACH NERVE SENSORY NDL EMG 1 34851 MCKENNA ANDRES, XTR W/WO 9 HANSEL HAMM RELATED PARASPINA L AREAS MRI ANY 06841 COMMONHi HELLERT UPPER 9 LTH DANIEL EXTREMITY ORTHOPAED W/O IC CTR CONTRAST PSC MATRL RADEX 23046 COMMONWEA CANDY, SPINE 9 LTH BRITTANY Do CERVICAL ORTHOPAED 2 OR 3 IC CTR VIEWS PSC RADEX 19986 COMMONWEA CANDY, SHOULDER 9 LTH BRITTANY Do COMPLETE ORTHOPAED MINIMUM 2 IC CTR VIEWS PSC ECHO 67331 [facility] R-T 9 VALLEY CRUZ R 2D HEART PSC W/WOM-MOD E COMPL SPEC&COLR D ECG 58408 [facility], ROUTINE 9 [facility] CRUZ R ECG HEART PSC W/LEAST 12 LDS W/I&R INJECTION 44853 [facility], CARDIAC 9 VALLEY CRUZ R CATHJ L HEART PSC VENTR/L ATR ANGIOGRAP H OBSERVATI 08312 ROCIO CHIN BEE ON/INPATI 9 PRIMARY CARLOS, [facility]ES INITIAL 60113 [facility], INPATIENT 9 VALLEY CRUZ R CONSULT HEART PSC NEW/ESTAB PT 110 MIN L HRT 08658 [facility], CATHETERI 9 VALLEY CRUZ R ZATION HEART [place] [address] [facility], C-CATHJ 9 VALLEY CRUZ R F/SLCTV C HEART PSC ANGRPH I SI&R 68617 [facility], F/NJX PX 9 VAL[facility] CRUZ R DURING HEART PSC C-CATHJ VENTR&/AT R ANGRPH I SI&R 42491 [facility], F/NJX PX 9 VALLEY CRUZ R DURING HEART PSC C-CATHJ PULM&/OR SELECT BLS A0382 [facility] CO AMB CO AMB DISPOSABL SERVICE SERVICE E SUPPLIES AMB A0422 [facility]2 9 CO AMB CO AMB SUPPLIES SERVICE SERVICE LIFE SUSTAININ G SITUATION GROUND A0425 [facility] MILEAGE 9 CO AMB CO AMB PER SERVICE SERVICE STATUTE MILE AMBULANCE A0429 [facility] BRACKEN SERVICE 9 CO AMB CO AMB BLS SERVICE SERVICE EMERGENCY TRANSPORT RADIOLOGI 38514 [place] Tk LUCAS 9 RHONDA S EXAMINATI RADIOLOGY ON CHEST SINGLE ASSOCIATE VIEW S PSC FRONTAL BASIC 34092 [facility] METABOLIC 9 [place] INC PANEL CALCIUM TOTAL COLLECTIO 58138 ROCIO GONZALES N VENOUS 9 PRIMARY Y, JOVANNI BLOOD CARE V VENIPUNCT CENTERINC URE RADEX 10907 RADIOLOGY MELARA, SHOULDER 8 NENA L COMPLETE ASSOCIATE MINIMUM 2 S PSC VIEWS Encounters Encounter Start End Date Code Location Performer Type Date HOSPITAL CARLOS ENRIQUE - 7 [facility] OUTPATIEN INC T EMERGENCY 03316 ABRIL ANNE, 7 7 PHYSICIAN [facility] S, [facility] T VISIT HIGH/URGE NT SEVERITY EMERGENCY 54016 [facility] 7 [facility] LOW/MODER SEVERITY [facility] 7 7 [facility] CARLOS ENRIQUE - 7 7 [facility] OUTPATIEN INC T EMERGENCY 38371 [facility] T VISIT MODERATE SEVERITY OFFICE 64809 [facility] OUT[facility] 7 7 PAIN & T VISIT SPINE 15 INSTIT MINUTES [facility] - 7 7 W [facility] MEDICAL OFFICE 71324 [facility] OUTPATIEN 7 7 PAIN & T VISIT SPINE 15 INSTIT MINUTES EMERGENCY 52540 ABRIL ROMAN 6 6 PHYSICIAN U RENAE [facility] S, [facility] T VISIT MODERATE SEVERITY HOSPITAL CARLOS ENRIQUE - 6 6 [facility] OUTPATIEN [facility] T EMERGENCY 39987 CARLOS ENRIQUE 6 6 [facility] T VISIT HIGH/URGE NT SEVERITY EMERGENCY 58462 ABRIL ROMAN 6 6 PHYSICIAN Ángel MACDONALD [facility] S, [facility] T VISIT MODERATE SEVERITY OFFICE 35175 [facility] OUTPATI[facility] 5 5 PAIN & URUGAN T VISIT SPINE HEM 15 INSTIT MINUTES OFFICE 48127 [facility] OUTPATIEN 4 4 PAIN & MAG T VISIT SPINE 15 INSTIT MINUTES OFFICE 25578 [facility] OUTPATIEN 4 4 PAIN & MAG T VISIT SPINE 15 INSTIT MINUTES OFFICE 47254 [facility] OUTPATIEN 4 4 PAIN & MAG T VISIT SPINE 15 INSTIT MINUTES HOSPITAL CARLOS ENRIQUE - 4 4 [facility] OUTPATIEN INC T EMERGENCY 08334 [facility] ALFARIS DEPT 4 4 ANKUSH MOH VISIT EMERGENCY HIGH PHYS SEVERITY& THREAT FUNCJ EMERGENCY 97124 CARLOS ENRIQUE 4 4 [facility] DEPARTMEN INC T VISIT LOW/MODER SEVERITY [facility] CARLOS ENRIQUE - 4 4 [facility] OUTPATIEN INC T OFFICE 20333 [facility] OUTPATIEN 4 4 PAIN & MAG T VISIT SPINE 15 INSTIT MINUTES OFFICE 14365 [facility] MAL OUTPATIEN 4 4 PAIN & IRM T VISIT SPINE 15 INSTIT MINUTES OFFICE 10492 [facility] MAL OUTPATIEN 4 4 PAIN & IRM T VISIT SPINE 15 INSTIT MINUTES OFFICE 15004 ADVANCED MAL OUTPATIEN 4 4 PAIN & IRM T VISIT SPINE 15 INSTIT MINUTES OFFICE 02066 [facility]ED MAL OUTPATIEN 4 4 PAIN & IRM T VISIT SPINE 15 INSTIT MINUTES OFFICE 78836 [facility] OUTPATIEN 4 4 PAIN & MAG T VISIT SPINE 15 INSTIT MINUTES OFFICE 01985 [facility] OUTPATIEN 4 4 PAIN & MAG T VISIT SPINE 15 INSTIT MINUTES OFFICE 32270 [facility] OUTPATIEN 4 4 PAIN & MAG T VISIT SPINE 15 INSTIT MINUTES OFFICE 51376 [facility] K[facility]NER OUTPATIEN 4 4 PAIN & MAG T VISIT SPINE 15 INSTIT MINUTES OFFICE 09530 [facility]CHNER OUTPATIEN 4 4 PAIN & MAG T VISIT SPINE 15 INSTIT MINUTES OFFICE 21033 AD[facility]ED MAL OUTPATIEN 4 4 PAIN & IRM T VISIT SPINE 15 INSTIT MINUTES OFFICE 17433 [facility] OUTPATIEN 4 4 PAIN & MAG T VISIT SPINE 15 INSTIT MINUTES OFFICE 38907 [facility]NER OUTPATIEN 4 4 PAIN & MAG T VISIT SPINE 15 INSTIT MINUTES OFFICE 23171 ADVANCED MAL OUTPATIEN 4 4 PAIN & IRM T VISIT SPINE 15 INSTIT MINUTES OFFICE 96673 MACIAS OUTPATIEN 3 3 THO T VISIT 15 MINUTES EMERGENCY 00929 RICARDO PORBEREY 2 2 EMERGENCY [facility] T VISIT HIGH/URGE NT SEVERITY OFFICE 16645 [facility] OUTPATIEN 2 2 PAIN & MAG T VISIT SPINE 10 INSTIT MINUTES OFFICE 04490 NEUS SRIKANTH OUTPATIEN 2 2 T VISIT 15 MINUTES EMERGENCY 28147 SUKHWINDER PRETTY [place] 2 2 DEPARTMEN T VISIT MODERATE SEVERITY HOSPITAL CARLOS ENRIQUE - 2 2 [facility] OUTPATIEN INC T EMERGENCY 76857 CARLOS ENRIQUE 2 2 [facility] DEPARTMEN INC T VISIT LOW/MODER SEVERITY OFFICE 36022 KERSCHNER KERSCHNER OUTPATIEN 2 2 MAG MAG T NEW 45 MINUTES OFFICE 26195 SONIA PHI SONIA PHI CONSULTAT 2 2 ION NEW/ESTAB PATIENT 40 MIN OFFICE 00565 NEUS SRIKANTH NEUS SRIKANTH OUTPATIEN 1 1 T VISIT 25 MINUTES HOSPITAL EFRAÍNVIE - 1 1 W OUTPATIEN REGIONAL T MEDICAL OFFICE 83096 ROC[facility] CO NEUS SRIKANTH OUTPATIEN 1 1 PRIMARY T VISIT CARE 15 CENTER MINUTES OFFICE 15999 [facility] CO NEUS SRIKANTH OUTPATIEN 1 1 PRIMARY T VISIT CARE 15 CENTER MINUTES EMERGENCY 33008 RICARDO PRETTY [place] 1 1 EMERGENCY DEPARTMEN SERVICES T VISIT HIGH/URGE NT SEVERITY EMERGENCY 05996 RICARDO STRATTONY 1 1 EMERGENCY [facility] T VISIT HIGH/URGE NT SEVERITY HOSPITAL CARLOS ENRIQUE - 1 1 [facility] OUTPATIEN INC T EMERGENCY 28110 CARLOS ENRIQUE 1 1 [facility] DEPARTMEN INC T VISIT HIGH/URGE NT SEVERITY HOSPITAL CARLOS ENRIQUE - 1 1 [facility] OUTPATIEN INC T EMERGENCY 65391 RICARDO CASTILLO DEPT 1 1 EMERGENCY ARISTEO VISIT SERVICES HIGH SEVERITY& THREAT FUNCJ EMERGENCY 18329 CARLOS ENRIQUE 1 1 [facility] DEPARTMEN INC T VISIT HIGH/URGE NT SEVERITY EMERGENCY 04409 RICARDO DIAZ 1 1 [facility] VISIT MODERATE SEVERITY OFFICE 19272 SHAKILA MCGEE OUTPATIEN 1 1 CLINIC & DECKER T VISIT SPINE IN 25 MINUTES HOSPITAL MEADOWVIE - 0 0 W OUTPATIEN REGIONAL T MEDICAL EMERGENCY 84855 MEADOWVIE 0 0 W [facility] REGIONAL T VISIT MEDICAL MODERATE SEVERITY HOSPITAL MEADOWVIE - 0 0 W OUTPATIEN REGIONAL T MEDICAL OFFICE 69188 JHAVERIFIELD ELI CONSULTAT 0 0 CLINIC & SRIKANTH ION SPINE IN NEW/ESTAB PATIENT 40 MIN OFFICE 33240 ZEE HERNANDEZ 0 0 PRIMARY TYESHA E T VISIT CARE 25 CENTERINC MINUTES [facility] MEADOWVIE - 0 0 [facility] EMERGENCY 64581 MEADOWVIE 0 0 W [facility] REGIONAL T VISIT MEDICAL MODERATE CENTER SEVERITY HOSPITAL MEADOWVIE - 0 0 W OUTPATIEN REGIONAL T MEDICAL CENTER EMERGENCY 02626 MEADOWVIE 0 0 W [facility] REGIONAL T VISIT MEDICAL MODERATE CENTER SEVERITY OFFICE 58210 ZEE HERNANDEZ 0 0 PRIMARY TYESHA E T VISIT CARE 15 CENTERINC MINUTES OFFICE 56547 ZEE EATON 9 9 [facility] BR[facility]ANY Do T VISIT ORTHOPAED 25 IC CTR MINUTES [facility] SEYMOURWVIE - 9 9 W [facility] EMERGENCY 90534 [facility] 9 9 W [facility] REGIONAL T VISIT MEDICAL MODERATE CENTER SEVERITY OFFICE 04881 VIPIN CANDY, OUTPATIEN 9 9 [facility] BRITTANY Robles VISIT ORTHOPAED 25 IC CTR MINUTES [facility] OFFICE 32730 VIPIN CANDY, OUTPATIEN 9 9 [facility] BRITTANY Do T VISIT ORTHOPAED 25 IC CTR MINUTES [facility] ST - 9 9 IVÁN [facility] T MEDICALCE NTER OFFICE 28676 COMMONCHANG CANDY, CONSULTAT 9 9 [facility]ANY STEVENSON ORTHOPAED NEW/ESTAB IC CTR PATIENT PSC 40 MIN OFFICE 80607 [facility] 9 9 VALENCIA CRUZ R T VISIT HEART PSC 25 MINUTES OFFICE 75282 ROCIO CO KRISTAL OUTPATIEN 9 9 PRIMARY TYESHA E T VISIT CARE 25 CENTERINC MINUTES OFFICE 31388 ROCIO CO DEL OUTPATIEN 9 9 PRIMARY STRAUSS T VISIT CARE DECALVO, 15 CENTERINC BESSY MINUTES FREDDIE V OFFICE 77165 ROCIO CO ALBER [facility] 9 9 PRIMARY Y, JOVANNI T NEW 20 CARE V MINUTES CENTERINC EMERGENCY 61366 CANDIDO 8 8 [facility] SANJOYDEB T VISIT MODERATE SEVERITY OFFICE 94740 [facility] 8 8 [place] T VISIT FAMILY 25 CARE, MINUTES INC. EMERGENCY 34943 EMERGENCY JOCELIN, 8 8 REENA JUAREZ [facility] PHYS T VISIT [facility] HIGH/URGE [place] NT SEVERITY EMERGENCY 86287 MILLIE, 8 8 IVÁN Do [facility] MED CTR T VISIT MODERATE SEVERITY EMERGENCY 30149 [facility], 8 8 IVÁN Dupree [facility] MED CTR T VISIT HIGH/URGE NT SEVERITY
--- OUTSIDE RECORDS SUMMARY | 2017-01-18 18:51 | External Medical Summary Rpt ---
Author Author , JUDITH Organization JUDITH Address Unknown Phone [email or web address] Care Team Providers Care Assayer Helper Name Role Phone ADVANCED PAIN & [...] LUCAS S, Unavailable Unavailable RHONDA LUCAS S [facility] Unavailable Unavailable IMAGING ASS, [facility], Unavailable Unavailable [facility], Unavailable Unavailable [facility], Unavailable Unavailable [facility] & Unavailable Unavailable [facility] BRITTANY GUPTA, Unavailable Unavailable BRITTANY GUPTA RACHEL J, Unavailable Unavailable [facility] Unavailable Unavailable [facility] CRUZ RICHARDSON, Unavailable Unavailable CRUZ RICHARDSON HAROLD V, Unavailable Unavailable JOVANNI GIBSON V [facility] Unavailable Unavailable SERVICES, [facility] & Unavailable Unavailable SPINE IN, [facility] Unavailable Unavailable ASSOCIAT, [facility] Unavailable Unavailable MEDICAL, [facility] Unavailable Unavailable [facility]ENTER, [facility] Unavailable Unavailable MEDICAL, [facility] MACIAS THO, MACIAS Unavailable Unavailable THO CANDIDO, SANJOYDEB, Unavailable Unavailable CANDIDO, SANJOYDEB NEUS SRIKANTH, NEUS SRIKANTH Unavailable Unavailable NEUS SRIKANTH, NEUS SRIKANTH Unavailable Unavailable NEUS, TYESHA E, NEUS, Unavailable Unavailable TYESHA E [facility], Unavailable Unavailable [facility] MCGEE DECKER, MCGEE Unavailable Unavailable DECKER [facility], Unavailable Unavailable PLLC, [facility] PORNOY LESA, PORNOY Unavailable Unavailable LESA [facility], Unavailable Unavailable [facility] Unavailable Unavailable INCORPORAT, [facility] Unavailable Unavailable INCORPORAT, [facility] GAELAT NENA MELARA, Unavailable Unavailable [facility] MACDONALD, Unavailable Unavailable SOTINGBETSY MACDONALD [facility] Unavailable Unavailable EMERGENCY PHYS, [facility] Un[facility] M[facility] JOSE, MARCELO Unavailable Unavailable JOSE SONIA PHI, SONIA PHI Unavailable Unavailable [facility] # Unavailable Unavailable [id number], [facility] # [id number] [facility] # Unavailable Unavailable [id number], [facility] # [id number] [facility] [id number], Unavailable Unavailable [facility] # [id number] ELOY GALINDO WELLS, Unavailable Unavailable ELOY JAMESM, Unavailable Unavailable MAL VILLA Purpose Continuity of Care Document - 07-14-2007 through 2016 Problems Code Diagnosis DOS Provider Status I10 ESSENTIAL 12-08-2016 [facility] HYPERTENSIO PLLC N [id number] PAIN IN 12-08-2016 [facility] RIGHT [facility], SHOULDER PLLC E119 TYPE 2 10-27-2016 [facility] MELLITUS INC WITHOUT COMPLICATIO NS M542 CERVICALGIA 10-27-2016 [facility] [id number] UNSPECIFIED 10-27-2016 [facility] INJURY OF MEDICAL HEAD IMAGING ASS INITIAL ENCOUNTER Z5181 ENCOUNTER 10-01-2016 [facility] THERAPEUTIC INCORPORAT DRUG LEVEL MONITORING 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 [id number] SPONDYLOSIS 09-05-2016 [facility] W/O PAIN & MYELOPATH/R SPINE ADICULOPATH INSTIT Y CERV RGN V53982 PRIMARY 07-12-2016 [facility] T[facility] RIGHT ASSOCIAT SHOULDER E90441 PRIMARY 07-12-2016 [facility] TIS LEFT ASSOCIAT SHOULDER [id number] PAIN IN 07-12-2016 [facility] LEFT REGIONAL SHOULDER MEDICAL Y36363 PAIN IN 07-11-2016 [facility] UNSPECIFIED PAIN & SHOULDER SPINE INSTIT N30628 PAIN IN 05-22-2016 [facility] LEFT MEDICAL FINGERS IMAGING ASS [id number] LAC W/O FB 05-22-2016 [place] LT INDEX MEDICAL FINGER W/O IMAGING ASS DAMAGE NAIL INIT [id number] NDSPLC FX 05-22-2016 [facility] DIST PHAL PHYS[facility], LT INDX PLLC FNGR INIT ENC OPN FX Z23 ENCOUNTER 05-22-2016 [facility] FOR [facility] IMMUNIZATIO INC N Z720 TOBACCO USE 05-22-2016 [facility] INC Q67124 MIGRAINE 02-23-2016 [facility] UNS NOT PHYSICIANS, INTRACT W/O PLLC STATUS MIGRAINOSUS Q22534 SPONDYLOSIS 02-16-2016 [facility] W/O PAIN & MYELOPATH/R [...] SPINE CLASSIFIED INSTIT 7295 PAIN IN 04-04-2014 [facility] SOFT MEDICAL TISSUES OF IMAGING ASS LIMB 35795 SWELLING OF 04-04-2014 [facility]B [facility] 7823 EDEMA 04-04-2014 [facility] 6826 CELLULITIS 04-03-2014 [facility] [...] & USE OF SPINE OTHER INSTIT MEDICATIONS 29636 PAIN IN 06-25-2013 [facility] PELVIC ASSOCIAT REGION AND THIGH 7222 DISPLCMT 06-24-2012 [facility] THO INTERVERT DISC SITE UNS W/O MYELOPATHY 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 7242 LUMBAGO 06-24-2012 [facility] THO 37928 CONTUSION 06-24-2012 MACI[facility] THO OF [place] 48437 PAIN IN 05-26-2012 [place], RADIOLOGY UPPER ARM ASSOCIAT 80502 LATERAL 05-26-2012 [facility] OF [place] SERVICES 9593 INJURY 05-26-2012 [place] OTHER&UNSPE RADIOLOGY CIFIED ASSOCIAT [place] FOREARM&WRI ST E8859 FALL FROM 05-26-2012 [facility] OTHER EMERGENCY SLIPPING SERVICES TRIPPING OR STUMBLING 72775 BLEPHARITIS 10-16-2011 NEUS SRIKANTH , UNSPECIFIED 6821 CELLULITIS 09-07-2011 [facility] AND ABSCESS [facility] OF NECK INC 6828 CELLULITIS 09-07-2011 [facility] AND ABSCESS OF OTHER SPECIFIED SITE 69616 SPINAL 06-05-2011 NEUS SRIKANTH STENOSIS UNSPEC REGION OTH THAN CERVICAL 7245 UNSPECIFIED 06-05-2011 NEUS SRIKANTH BACKACHE 7230 SPINAL 04-17-2011 [facility] STENOSIS IN REGIONAL CERVICAL MEDICAL REGION 99033 SPASM OF 04-04-2011 [facility] 28320 DIAB W/O 03-27-2011 [facility] COMP TYPE PRIMARY II/UNS NOT CARE CENTER STATED UNCNTRL 4019 UNSPECIFIED 03-27-2011 [facility] ESSENTIAL PRIMARY HYPERTENSIO CARE CENTER N 6868 OTH SPEC 03-27-2011 [facility] LOCAL PRIMARY INFECTIONS CARE CENTER SKIN&SUBCUT TISSUE 91804 CONTUSION 03-23-2011 [facility] 85358 PAIN IN 03-22-2011 [facility], HAND RADIOLOGY ASSOCIAT 59782 CONTUSION 03-22-2011 [facility] OF BACK EMERGENCY SERVICES 28981 CONTUSION 03-22-2011 [facility] OF HAND EMERGENCY SERVICES E8889 UNSPECIFIED 03-22-2011 [facility] FALL RADIOLOGY ASSOCIAT 7840 HEADACHE 11-10-2010 [facility] 6961 OTHER 10-01-2010 [facility] PSORIASIS EMERGENCY AND SIMILAR SERVICES DISORDERS 7231 CERVICALGIA 06-29-2010 [facility] 920 CONTUSION 04-14-2010 [facility] OF FACE REGIONAL SCALP AND MEDICAL NECK EXCEPT EYE V571 OTHER 03-15-2010 [facility] PHYSICAL [facility]AL THERAPY MEDICAL 92266 UNSPECIFIED 12-27-2009 [facility] DISORDER PRIMARY OF COCCYX CARE CENTERINC 87830 OTHER 12-19-2009 [place] DISORDER OF RADIOLOGY COCCYX ASSOCIAT 8056 CLOS FX 12-19-2009 [facility] SACRUM&COCC REGIONAL YX W/O MEDICAL MENTION SP CENTER CORD INJURY 31173 OTHER 11-07-2009 [facility] CHRONIC REGIONAL PAIN [facility] 3540 CARPAL 11-07-2009 [facility] T[facility]NEL [facility]AL [facility] 412 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 [facility]ICAL CENTER 6968 OT 08-29-2009 [facility] PSORIASIS & PRIMARY SIMILAR CARE DISORDERS CENTERINC OTH 7220 DISPLCMT 06-06-2009 [facility] CERV H INTERVERT ORTHOPAEDIC DISC CTR PSC WITHOUT MYELOPATHY 8404 ROTATOR 05-05-2009 [facility] CUFF SPRAIN H AND STRAIN ORTHOPAEDIC CTR PSC 89739 EXOSTOSIS 05-02-2009 [facility] OF H UNSPECIFIED ORTHOPAEDIC SITE CTR PSC 61429 OSTEOARTHRO 04-22-2009 RADIOLOGY S UNSPEC ASSOCIATES WHETHER PSC GEN/LOC SHLDR REGION 27068 UNSPECIFIED 04-22-2009 [facility] H ARTHROPATHY ORTHOPAEDIC SHOULDER CTR PSC REGION 56260 PAIN IN 04-22-2009 [facility] JOINT, H SHOULDER ORTHOPAEDIC REGION CTR PSC 7820 DISTURBANCE 04-22-2009 [facility] 8406 SUPRASPINAT 04-22-2009 [facility] US SPRAIN H AND STRAIN ORTHOPAEDIC CTR PSC 73769 UNSPEC 04-18-2009 [facility] DISORDERS H BURSAE&TEND ORTHOPAEDIC ONS CTR PSC SHOULDER REGION 4011 ESSENTIAL 04-11-2009 [facility] HYPERTENSIO HEART PSC N, BENIGN 75743 REFLUX 04-11-2009 [facility] ESOPHAGITIS HEART PSC 26054 SHORTNESS 04-11-2009 [facility] OF BREATH HEART PSC 72479 CHEST PAIN 04-11-2009 [facility] UNSPECIFIED HEART PSC 76225 NONSPECIFIC 04-11-2009 [facility] ABNORMAL HEART PSC ELECTROCARD IOGRAM 23440 PAIN IN 04-04-2009 [facility], PRIMARY ANKLE AND CARE FOOT CENTERINC 24672 OTH SPEC 04-04-2009 [facility] D/O ROTATOR PRIMARY CUFF SYND CARE SHLDR&SASHA CENTERINC D D/O 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 20629 ESOPHAGEAL 03-30-2009 [facility] REFLUX PRIMARY CARE CENTERINC 4293 CARDIOMEGAL 03-29-2009 [facility] Y RADIOLOGY ASSOCIATES PSC 71882 OTHER 03-29-2009 [facility] DYSPNEA AND RADIOLOGY ASSOCIATES [place] [address] OTHER CHEST 03-29-2009 [facility] PAIN AMB SERVICE V489 UNSPECIFIED 03-01-2009 [facility] PROBLEM PRIMARY WITH HEAD CARE NECK OR CENTERINC TRUNK 7239 UNSPEC 02-14-2009 [facility] MUSCULOSKEL PRIMARY CARE D/O&SYMPTOM CENTERINC S REFERABLE NECK 94160 UNSPECIFIED 02-14-2009 [facility] SYNOVITIS PRIMARY AND CARE TENOSYNOVIT CENTERINC IS 9057 LATE EFF 10-27-2007 ST SPRAIN&STRA IVÁN IN W/O MED CTR MENTION TENDON INJURY 7962 ELEVATED BP 10-02-2007 [facility] WITHOUT DX [facility] N 8409 SPRAIN&STRA 09-22-2007 EMERGENCY IN UNSPEC CARE PHYS SITE [place] SHOULDER&UP PER ARM 9599 INJURY 09-22-2007 RADIOLOGY OTHER AND ASSOCIATES UNSPECIFIED PSC UNSPECIFIED SITE 75517 PAIN IN 09-02-2007 ST JOINT, IVÁN FOREARM [...] CH ZA 11 11 11 AR RI CO [address] IN CY IN E [...] PH 3 IN 70 11 11 AR OK 5 MA CH 50 CY AE 0 L MG IN S C CA PS UL E PATHAK 53 07 07 0 10 5 DE 64 GA Ac LF 74 -1 -1 .0 AN 13 IN ti AM 60 7- 8- 00 S 41 EY ve ET 27 20 20 PH 4 HO 20 11 11 AR OK XA 5 MA CH ZO CY AE LE L -T IN S MP C DS TA BL ET 00 05 05 0 12 3 DE 40 GA Ac 40 -2 -2 .0 AN 63 IN ti 60 8- 8- 00 S 63 EY ve 35 20 20 PH 5 70 11 11 AR OK 5 MA CH CY AE L IN S C CO 00 05 05 0 21 6 DE 64 GA Ac ED 60 -2 -2 .0 AN 11 IN ti NI 35 8- 8- 00 S 49 EY ve SO 33 20 20 PH 7 NE 71 11 11 AR OK 5 5 MA CH CY AE MG [...] 0- 2- 00 S 10 CA ve CO [address] [place] [...] 0- 0- 00 S 10 CA ve CO [address] IL [...] 0- 2- 00 S 10 CA ve CO [address] [place] 08 09 10 AR IL 0 MA LO 20 CY DE MG IN CA C LV TA O BL MA ET RI A IS AB EL V LI 00 10 04 10 30 30 DE 63 DE Ac SI 17 -2 -1 .0 AN 86 L ti NO 23 0- 6- 00 S 10 CA ve CO 76 [address] IL 08 09 10 AR IL 0 MA LO 20 CY DE MG IN CA C LV TA O BL MA ET RI A IS AB EL V LI 00 10 03 10 30 30 DE 63 DE Ac SI 17 -2 -1 .0 AN 86 L ti NO 23 0- 6- 00 S 10 CA ve CO [address] IL [...] 0- 6- 00 S 10 CA ve CO [address] IL 08 09 10 AR IL 0 MA LO 20 CY DE MG CA LV TA O BL MA ET RI A IS AB EL V LI 00 10 01 02 30 30 DE 63 DE Ac SI 17 -2 -2 .0 AN 86 L ti NO 23 0- 8- 00 S 10 CA ve CO [address] IL [...] 9 AN ZA 81 09 09 AR CO 0 MA CH IN CY RI E [...] 0- 1- 00 S 10 CA ve CO [address] IL [...] 1- 9- 00 S 14 IN ve CO 02 20 20 PH 1 ED 20 [...] 0- 9- 00 S 10 CA ve CO [address] IL [...] AR EV 2 MA EN CY E CO 37 10 11 00 60 30 DE [...] 4- 2- 00 S 81 CA ve CO [address] IL [...] Procedure DOS Code Location Performer Comment THERAPEUT 95297 [facility] IC 7 [facility] PROPHYLAC INC INC TIC/DX INJECTION SUBQ/IM INJECTION J2405 [facility] 7 [facility] ONDANSETR INC INC ON HCL PER 1 MG RADEX 27693 [facility] SHOULDER 7 W W COMPLETE REGIONAL REGIONAL MINIMUM [address] [place] [address] [facility] CERVICAL 7 [facility] SPINE W/[place] [address] [facility] HEAD/BRAI 7 [facility] N W/O INC INC CONTRAST MATERIAL DRUG TEST 85239 [facility] PRSMV 7 DIAGNOSTI DIAGNOSTI INSTRMNT CS CS CHEMISTRY INCORPORA INCORPORA T T ANALYZERS DRUG TEST G0480 [facility] DEFINITV [address] ID CS CS METH P INCORPORA INCORPORA DAY 1-7 T T DRUG CL RADEX 62938 [facility] SHOULDER 7 W W COMPLETE REGIONAL REGIONAL MINIMUM 2 MEDICAL MEDICAL VIEWS IM ADM 12524 [facility] PRQ ID 6 [facility] SUBQ/IM INC INC NJXS 1 VACCINE TDAP 33072 [facility] VACCINE 7 6 [facility] YRS/> IM INC INC SIMPLE 25549 [facility] REPAIR 6 PHYSICIAN U RENAE SCALP/NEC S, PLLC K/AX/SHAILESH T/TRUNK 2.5CM/< APPLICATI 59266 [facility] ON FINGER 6 [facility] SPLINT INC INC STATIC RADEX 93485 [place] JIMÉNEZ ALL FINGR 6 MEDICAL MINIMUM 2 IMAGING VIEWS ASS DRUG TEST G0480 [facility] DEFINITV [address] ID CS CS METH P INCORPORA INCORPORA DAY 1-7 T T DRUG CL DRUG TEST G0479 [facility] 6 DIAGNOSTI DIAGNOSTI PRESUMP;I CS CS NSTRUMENT INCORPORA INCORPORA ED T T CHEMISTRY ANLYZER DSTR 98701 ADVANCED K[facility]CH[facility] NROLYTC 6 PAIN & MAG AGNT SPINE PARVERTEB INSTIT FCT ADDL LMBR/SACR AL DSTR 45092 ADVANCED K[facility]CHNER NROLYTC 6 PAIN & MAG AGNT SPINE PARVERTEB INSTIT FCT SNGL LMBR/SACR AL INJ J0702 ADVANCED K[facility]CHNER BETAMETHA 6 PAIN & MAG SONE SPINE ACETATE & INSTIT PHOSPHATE 3 MG INJ J0702 ADVANCED K[facility]NER BETAMETHA 6 PAIN & MAG SONE SPINE ACETATE & INSTIT PHOSPHATE 3 MG DSTR 28896 ADVANCED KERSCHNER NROLYTC 6 PAIN & MAG AGNT SPINE PARVERTEB INSTIT FCT SNGL LMBR/SACR AL DSTR 25631 ADVANCED KERSCHNER NROLYTC 6 PAIN & MAG AGNT SPINE PARVERTEB INSTIT FCT ADDL LMBR/SACR AL NJX 65595 ADVANCED KERSCHNER ANES&/STR 6 PAIN & MAG D W/IMG SPINE TFRML INSTIT EDRL LMBR/SAC EA LV NJX 18104 ADVANCED K[facility]CHNER ANES&/STR 6 PAIN & MAG [...] METH P DAY 1-7 DRUG CL DSTR 14423 ADVANCED KERSCHNER NROLYTC 5 PAIN & MAG AGNT SPINE PARVERTEB INSTIT FCT SNGL LMBR/SACR AL DSTR 45133 ADVANCED KERSCHNER NROLYTC 5 PAIN & MAG AGNT SPINE PARVERTEB INSTIT FCT ADDL LMBR/SACR AL INJ J0702 ADVANCED KERSCHNER BETAMETHA 5 PAIN & MAG SONE SPINE ACETATE & INSTIT PHOSPHATE 3 MG DSTR 63085 ADVANCED KERSCHNER NROLYTC 5 PAIN & MAG AGNT SPINE PARVERTEB INSTIT FCT ADDL CRVCL/THO RA DSTR 22388 ADVANCED K[facility] NROLYTC 5 PAIN & MAG AGNT SPINE PARVERTEB INSTIT FCT SNGL CRVCL/THO RA FLUOR 60471 ADVANCED K[facility] NEEDLE/CA 4 PAIN & MAG TH SPINE SPINE/PAR INSTIT ASPINAL DX/[place] NJX 37534 ADVANCED KERSCHNER DX/THER 4 PAIN & MAG SBST SPINE EPIDURAL/ INSTIT SUBRACH CERV/[place]IC NJX 49473 ADVANCED [facility] ANES&/STR 4 PAIN & MAG D W/IMG SPINE TFRML INSTIT EDRL LMBR/SAC 1 LVL NJX 00710 ADVANCED KERS[facility]NER ANES&/STR 4 PAIN & MAG D W/IMG SPINE TFRML INSTIT EDRL LMBR/SAC EA LV ARTHROCEN 53792 AD[facility]ANCED [facility] TESIS 4 PAIN & MAG ASPIR&/IN SPINE J MAJOR INSTIT JT/BURSA W/O US FLUOROSCO 83182 ADVANCED [facility] PIC 4 PAIN & MAG GUIDANCE SPINE NEEDLE INSTIT PLACEMENT ADD ON DUP-SCAN 92179 [place] PATRICIA XTR VEINS 4 MEDICAL SAAD IMAGING UNILATERA ASS L/LIMITED STUDY GLUC BLD 25197 [facility] GLUC MNTR 4 [facility] DEV INC INC CLEARED FDA SPEC HOME USE FLUOROSCO 05659 ADVANCED [facility] PIC 4 PAIN & MAG GUIDANCE SPINE NEEDLE INSTIT PLACEMENT ADD ON ARTHROCEN 78406 ADVANCED [facility] TESIS 4 PAIN & MAG ASPIR&/IN SPINE J MAJOR INSTIT JT/BURSA [place] [address] ADVANCED [facility] JOINT 4 PAIN & MAG ARTHRGRPH SPINE Y&/ANES/S INSTIT TEROID W/SHANE NJX 83492 ADVANCED K[facility]NER DX/THER 4 PAIN & MAG AGT PVRT SPINE FACET JT INSTIT CRV/THRC 2ND LEVEL NJX 76250 ADVANCED KERSCHNER DX/THER 4 PAIN & MAG AGT PVRT SPINE FACET JT INSTIT CRV/THRC 1 LEVEL NJX 63017 ADVANCED KERSCHNER DX/THER 4 PAIN & MAG AGT PVRT SPINE FACET JT INSTIT CRV/THRC 3+ LEVEL NJX 29727 ADVANCED KERSCHNER DX/THER 4 PAIN & MAG AGT PVRT SPINE FACET JT INSTIT LMBR/SAC 3+ LEVEL NJX 67118 ADVANCED KERSCHNER DX/THER 4 PAIN & MAG AGT PVRT SPINE FACET JT INSTIT LMBR/SAC 1 LEVEL NJX 13602 ADVANCED KERSCHNER DX/THER 4 PAIN & MAG AGT PVRT SPINE FACET JT INSTIT [place] 2[place] [address] ADVANCED K[facility]CHNER JOINT 4 PAIN & MAG ARTHRGRPH SPINE Y&/ANES/S INSTIT TEROID W/SHANE NJX 30270 ADVANCED KERSCHNER DX/THER 4 PAIN & MAG SBST SPINE EPIDURAL/ INSTIT SUBRACH CERV/THOR ACIC FLUOR 76078 ADVANCED KERSCHNER NEEDLE/CA 4 PAIN & MAG TH SPINE SPINE/PAR INSTIT ASPINAL DX/THER ADDON NJX 52990 ADVANCED MAL DX/THER 4 PAIN & IRM AGT PVRT SPINE FACET JT INSTIT CRV/THRC 2ND LEVEL NJX 35297 ADVANCED MAL DX/THER 4 PAIN & IRM AGT PVRT SPINE FACET JT INSTIT CRV/THRC 1 LEVEL NJX 24884 ADVANCED MAL DX/THER 4 PAIN & IRM AGT PVRT SPINE FACET JT INSTIT CRV/THRC 3+ LEVEL DSTR 33139 ADVANCED KERSCHNER NROLYTC 4 PAIN & MAG AGNT SPINE PARVERTEB INSTIT FCT SNGL LMBR/SACR AL DSTR 79327 ADVANCED KERSCHNER NROLYTC 4 PAIN & MAG AGNT SPINE PARVERTEB INSTIT FCT [place] [address] ADVANCED KERSCHNER JOINT 4 PAIN & MAG ARTHRGRPH SPINE Y&/ANES/S INSTIT TEROID W/SHANE DSTR 40672 ADVANCED KERSCHNER NROLYTC 4 PAIN & MAG AGNT SPINE PARVERTEB INSTIT FCT ADDL LMBR/SACR AL DSTR 69148 ADVANCED KERSCHNER NROLYTC 4 PAIN & MAG AGNT SPINE PARVERTEB INSTIT FCT SNGL LMBR/SACR AL NJX 12260 ADVANCED KERSCHNER DX/THER 4 PAIN & MAG AGT PVRT SPINE FACET JT INSTIT LMBR/SAC 3+ LEVEL NJX 55008 ADVANCED KERSCHNER DX/THER 4 PAIN & MAG AGT PVRT SPINE FACET JT INSTIT LMBR/SAC 1 LEVEL NJX 29876 ADVANCED KERSCHNER DX/THER 4 PAIN & MAG AGT PVRT SPINE FACET JT INSTIT LMBR/SAC 2ND LEVEL NJX 33795 ADVANCED KERSCHNER ANES&/STR 4 PAIN & MAG D W/IMG SPINE TFRML INSTIT EDRL LMBR/SAC 1 LVL NJX 88711 ADVANCED KERSCHNER ANES&/STR 4 PAIN & MAG D W/IMG SPINE TFRML INSTIT EDRL LMBR/SAC EA LV DSTR 36896 ADVANCED KERSCHNER NROLYTC 4 PAIN & MAG AGNT SPINE PARVERTEB INSTIT FCT SNGL CRVCL/THO RA DSTR 54716 ADVANCED KERSCHNER NROLYTC 4 PAIN & MAG AGNT SPINE PARVERTEB INSTIT FCT ADDL CRVCL/THO RA NJX 12532 ADVANCED KERSCHNER DX/THER 4 PAIN & MAG SBST SPINE EPIDURAL/ INSTIT SUBRACH CERV/THOR ACIC FLUOR 28851 ADVANCED KERSCHNER NEEDLE/CA 4 PAIN & MAG TH SPINE SPINE/PAR INSTIT ASPINAL DX/THER ADDON INJ J0702 ADVANCED K[facility]NER BETAMETHA 4 PAIN & MAG SONE SPINE ACETATE & INSTIT PHOSPHATE 3 MG DSTR 66144 ADVANCED KERSCHNER NROLYTC 4 PAIN & MAG AGNT SPINE PARVERTEB INSTIT FCT ADDL CRVCL/THO RA DSTR 02986 ADVANCED KERSCHNER NROLYTC 4 PAIN & MAG AGNT SPINE PARVERTEB INSTIT FCT SNGL CRVCL/THO RA NJX 23561 ADVANCED KERSCHNER DX/THER 4 PAIN & MAG AGT PVRT SPINE FACET JT INSTIT CRV/THRC 3+ LEVEL NJX 09468 ADVANCED KERSCHNER DX/THER 4 PAIN & MAG AGT PVRT SPINE FACET JT INSTIT CRV/THRC 1 LEVEL NJX 05006 ADVANCED KERSCHNER DX/THER 4 PAIN & MAG AGT PVRT SPINE FACET JT INSTIT CRV/THRC 2ND LEVEL NJX 99591 ADVANCED KERSCHNER ANES&/STR 4 PAIN & MAG D W/IMG SPINE TFRML INSTIT EDRL LMBR/SAC 1 LVL NJX 51926 ADVANCED KERSCHNER DX/THER 4 PAIN & MAG AGT PVRT SPINE FACET JT INSTIT CRV/THRC 2ND LEVEL NJX 12521 ADVANCED KERSCHNER DX/THER 4 PAIN & MAG AGT PVRT SPINE FACET JT INSTIT CRV/THRC 1 LEVEL NJX 42197 ADVANCED KERSCHNER DX/THER 4 PAIN & MAG AGT PVRT SPINE FACET JT INSTIT CRV/THRC 3+ LEVEL NJX 94366 ADVANCED KERSCHNER ANES&/STR 4 PAIN & MAG D W/IMG SPINE TFRML INSTIT EDRL [place]BR/[place]AC 1 [place] [address] ADVANCED MAL JOINT 4 PAIN & IRM ARTHRGRPH SPINE Y&/ANES/S INSTIT TEROID W/SHANE RADEX HIP 95328 [facility] 4 [facility] RADIOLOGY L ASSOCIAT COMPLETE MINIMUM 2 VIEWS EPIDUROGR 51030 ADVANCED KERSCHNER APY RS&I 4 PAIN & MAG SPINE INSTIT NJX 64128 ADVANCED KERSCHNER ANES&/STR 4 PAIN & MAG D W/IMG SPINE TFRML INSTIT EDRL CRV/THRC EA LV NJX 38371 ADVANCED KERSCHNER ANES&/STR 4 PAIN & MAG D W/IMG SPINE TFRML INSTIT EDRL CRV/TH[place] 1 [place] [address] KERSCHNER KERSCHNER JOINT 3 MAG MAG ARTHRGRPH Y&/ANES/S TEROID W/SHANE INJECTION 64482 [facility] KERSCHNER ANES 3 MAG MAG OTHER PERIPHERA L NERVE/BRA NCH DSTR 60083 K[facility]CHNER KERSCHNER NROLYTC 3 MAG MAG AGNT PARVERTEB FCT SNGL CRVCL/THO RA DSTR 26285 KERSCHNER KERSCHNER NROLYTC 3 MAG MAG AGNT PARVERTEB FCT ADDL CRVCL/THO RA LUMB-SACR L0637 D[facility] HME DASCO HME AL ORTHOS 3 SAG-[facility] CNTRL RIGD A&P PREFAB RADEX 69830 [place] [facility] EL[place] 2 EIDER VÍCTOR COMPLETE RADIOLOGY MINIMUM 3 ASSOCIAT VIEWS NEEDLE A4215 [facility] KERSCHNER STERILE 2 MAG [place] NJX 386[address] K[facility]CHNER KERSCHNER DX/THER 2 MAG MAG AGT PVRT FACET JT LMBR/SAC 3+ LEVEL NJX 94834 KERSCHNER KERSCHNER DX/THER 2 MAG MAG AGT PVRT FACET JT LMBR/SAC 2ND LEVEL NJX 33988 KERSCHNER KERSCHNER DX/THER 2 MAG MAG AGT PVRT FACET JT LMBR/SAC 1 [place]EL NJX [address]805 KERSCHNER KERSCHNER DX/THER 2 MAG MAG AGT PVRT FACET JT CRV/THRC 2ND [place] NJX [address]30 KERSCHNER KERSCHNER DX/THER 2 MAG MAG AGT PVRT FACET JT CRV/THRC 1 [place] NJX [address]36 KERSCHNER KERSCHNER DX/THER 2 MAG MAG AGT PVRT FACET JT CRV/THRC 3+ [place] NJX [address]81 KERSCHNER KERSCHNER DX/THER 2 MAG MAG AGT PVRT FACET JT CRV/THRC 3+ [place] [address] KERSCHNER KERSCHNER DX/THER 2 MAG MAG AGT PVRT FACET JT CRV/THRC 1 [place] NJX [address]85 KERSCHNER KERSCHNER DX/THER 2 MAG MAG AGT PVRT FACET JT CRV/THRC 2ND [place] NJX [address] KERSCHNER KERSCHNER DX/THER 2 MAG MAG SBST EPIDURAL/ SUBARACH LUMBAR/SA CRAL FLUOR 67582 KERSCHNER KERSCHNER NEEDLE/CA 2 MAG MAG TH SPINE/PAR ASPINAL DX/THER ADDON LOCM Q9967 KERSCHNER KERSCHNER 300-399 2 MAG MAG MG/ML IODINE CONCENTRA TION PER ML LOCM Q9967 KERSCHNER KERSCHNER 300-399 2 MAG MAG MG/ML IODINE CONCENTRA TION PER ML FLUOR 55678 KERSCHNER KERSCHNER NEEDLE/CA 2 MAG MAG TH SPINE/PAR ASPINAL DX/[place] [address] KERSCHNER KERSCHNER DX/THER 2 MAG MAG SBST EPIDURAL/ SUBRACH CERV/THOR ACIC INJECTION J1100 KERSCHNER KERSCHNER 2 MAG MAG DEXAMETHO SONE SODIUM PHOSPHATE 1 MG NJX [address]886 KERSCHNER KERSCHNER DX/THER 2 MAG MAG SBST EPIDURAL/ SUBARACH LUMBAR/SA CRAL LOCM Q9967 KERSCHNER KERSCHNER 300-399 2 MAG MAG MG/ML IODINE CONCENTRA TION PER ML LOCM Q9967 KERSCHNER KERSCHNER 300-399 2 MAG MAG MG/ML IODINE CONCENTRA [place] NJX [address]76 KERSCHNER KERSCHNER DX/THER 2 MAG MAG SBST EPIDURAL/ SUBRACH CERV/THOR ACIC INJECTION J1100 KERSCHNER KERSCHNER 2 MAG MAG DEXAMETHO SONE SODIUM PHOSPHATE 1 MG MRI 43799 MEADOWRULA MEAWRULA SPINAL 1 W W CANAL REGIONAL REGIONAL CERVICAL MEDICAL MEDICAL W/O CONTRAST MATRL THERAPEUT 24584 ROCIO GIRALDO SRIKANTH IC 1 PRIMARY PROPHYLAC CARE TIC/DX CENTER INJECTION SUBQ/IM INJECTION J1885 ROCIO CO NEUS SRIKANTH 1 PRIMARY KETOROLAC CARE CENTER TROMETHAM INE PER 15 MG BASIC 98373 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 METABOLIC 1 Y & Y & PANEL BIODIAGNO BIODIAGNO CALCIUM STICS STICS TOTAL COLLECTIO 66419 ROCIO GIRALDO SRIKANTH N VENOUS 1 PRIMARY BLOOD CARE VENIPUNCT CENTER URE COLLECTIO 43276 ROCIO CHIN ROCIO CO N 1 PRIMARY PRIMARY CAPILLARY CARE CARE BLOOD CENTER CENTER SPECIMEN RADEX 14879 [facility] HAND 1 VALERIANO RENEE MINIMUM 3 [place] [address] CAR[facility] ENRIQUE [facility] INFUSION 1 [facility] THERAPY INC INC PROPHYLAX IS/DX EA HOUR RADIOLOGI 00658 [facility] EN[facility]QUE [facility] C 1 [facility] EXAMINATI INC INC ON TIBIA & FIBULA 2 VIEWS CULTURE 64364 [facility] EN[facility] BACTERIAL 1 [facility] BLOOD INC INC AEROBIC W/ID ISOLATES SUSCEPTIB 88531 CARLOS ENRIQUE [facility] LTY STDY 1 [facility] ANTIMICRB INC INC IAL MICRO/AGA R DILUTJ COMPREHEN 25047 [facility]LOS ENRIQUE [facility] SIVE 1 [facility] METABOLIC INC INC PANEL BLOOD 13507 [facility] ENRIQUE [facility] COUNT 1 [facility] COMPLETE INC INC AUTO&[place] [address] CARL[facility] ENRIQUE [facility] INFUSION 1 [facility] THERAPY/P INC INC ROPHYLAXI S /DX 1ST TO 1 HR CUL BACT 73145 CARLOS ENRIQUE [facility] AEROBIC 1 [facility] ADDL INC INC METHS DEFINITIV E EA ISOL SEDIMENTA 66777 CARLOS ENRIQUE MONACO TION RATE 1 [facility] [place] [address] [place] HEAD/BRAI 1 MEDICAL SAAD N W/O IMAGING CONTRAST ASS MATERIAL BLOOD 68750 CARLOS ENRIQUE MONACO COUNT 1 [facility] COMPLETE INC INC AUTO&AUTO DIFRNTL WBC BASIC 69792 CARLOS ENRIQUE MONACO METABOLIC 1 [facility] PANEL INC INC CALCIUM TOTAL 3D 03191 [place] RENDERING 1 MEDICAL SAAD W/INTERP IMAGING & ASS POSTPROCE SS SUPERVISI ON PHYSICAL 60965 MEADOW[facility]IE MEADOWVIE THERAPY 0 W W [facility] N MEDICAL MEDICAL APPL 38974 MEADOWVIE MEADOWVIE MODALITY 0 W W 1/> [facility]AS [facility] MEDICAL MEDICAL ULTRASOUN D EA 15 MIN MRI 90311 [facility] & JOSE CANAL SPINE IN CERVICAL W/O CONTRAST MATRL MRI 59542 [facility] SPINAL 0 CLINIC & JOSE CANAL SPINE IN LUMBAR W/O CONTRAST MATERIAL RADEX 09312 [facility] AHUJAWRULA SACRUM & 0 W W [facility] MINIMUM 2 MEDICAL MEDICAL VIEWS CENTER CENTER THERAPEUT 00482 [place] AHUJAWVIE IC 0 W W PROPHYLAC REGIONAL REGIONAL TIC/DX MEDICAL MEDICAL INJECTION CENTER CENTER SUBQ/IM THERAPEUT 41988 MEADOWVIE MEADOWVIE IC 9 W W PROPHYL[facility]IONAL TIC/DX MEDICAL MEDICAL INJECTION CENTER CENTER SUBQ/IM FLUOR 60814 RADIOLOGY MATEO, NEEDLE/CA 9 ELOY D TH ASSOCIATE SPINE/PAR S PSC ASPINAL DX[place] [address] RADIOLOGY MATEO, DX/THER 9 ELOY D SBST ASSOCIATE EPIDURAL/ S PSC SUBRACH CERV/THOR ACIC MRI 78125 RADIOLOGY BRANDSER, SPINAL 9 CRUZ A CANAL ASSOCIATE CERVICAL S PSC W/O CONTRAST MATRL NRV CNDJ 95079 MCKENNA ANDRES, AMPLT&LAT 9 HANSEL HAMM NCY EA NRV MOTR W/O F-WAVE STD NRV CNDJ 83148 MCKENNA ANDRES, AMPLITUDE 9 HANSEL HAMM & LATENCY EACH NERVE SENSORY NDL EMG 1 50729 MCKENNA ANDRES, XTR W/WO 9 HANSEL AHMM RELATED PARASPINA [place] 78625 COMMONHi HELLERT UPPER 9 LTH DANIEL EXTREMITY ORTHOPAED W/O IC CTR CONTRAST PSC MATRL RADEX 87783 COMMON[facility] CANDY, SPINE 9 LTH BRITTANY Do CERVICAL ORTHOPAED 2 OR 3 IC CTR VIEWS PSC RADEX 85400 COMMON[facility] CANDY, SHOULDER 9 LTH BRITTANY Do COMPLETE ORTHOPAED MINIMUM 2 IC CTR VIEWS PSC ECHO 91215 [facility] CRUZ R 2D HEART PSC W/WOM-MOD E COMPL SPEC&COLR D ECG 17951 [facility], ROUTINE 9 [facility] CRUZ R ECG HEART PSC W/LEAST 12 LDS W/I&R INJECTION 25233 [facility], CARDIAC 9 [facility] CRUZ R CATHJ L HEART PSC VENTR/L ATR ANGIOGRAP H OBSERVATI 14823 ROCIO CHIN BEE ON/INPATI 9 PRIMARY CARLOS, [facility] MINUTES INITIAL 71875 [facility], INPATIENT 9 [facility] CRUZ R CONSULT HEART PSC NEW/ESTAB PT 110 MIN L HRT 67014 [facility], CATHETERI 9 [facility] CRU[facility] R ZATION HEART P[place] [address] [facility], C-CATHJ 9 [facility] CRUZ R F/SLCTV C HEART PSC ANGRPH I SI&R 24203 [facility], F/NJX PX 9 [facility] CRU[facility] R DURING HEART PSC C-CATHJ VENTR&/AT R ANGRPH I SI&R 64944 [facility], F/NJX PX 9 [facility] CRUZ R DURING HEART PSC C-CATHJ PULM&/OR SELECT BLS A0382 [facility] 9 CO AMB CO AMB DISPOSABL SERVICE SERVICE E SUPPLIES AMB A0422 [facility]2 9 CO AMB CO AMB SUPPLIES SERVICE SERVICE LIFE SUSTAININ G SITUATION GROUND A0425 [facility] MILEAGE 9 CO AMB CO AMB PER SERVICE SERVICE STATUTE MILE AMBULANCE A0429 [facility] BRACKEN SERVICE 9 CO AMB CO AMB BLS SERVICE SERVICE EMERGENCY TRANSPORT RADIOLOGI 69691 [facility] Tk LUCAS 9 RHONDA S EXAMINATI RADIOLOGY ON CHEST SINGLE ASSOCIATE VIEW S PSC FRONTAL BASIC 13400 [facility] METABOLIC 9 [place] [place] INC PANEL CALCIUM TOTAL COLLECTIO 10437 ROCIO GONZALES N VENOUS 9 PRIMARY Y, JOVANNI BLOOD CARE V VENIPUNCT CENTERINC URE RADEX 29647 RADIOLOGY MELARA, SHOULDER 8 NENA L COMPLETE ASSOCIATE MINIMUM 2 S PSC VIEWS Encounters Encounter Start End Date Code Location Performer Type Date HOSPITAL CARLOS ENRIQUE - 7 [facility] INC T EMERGENCY 13405 ABRIL ANNE, 7 7 PHYSICIAN [facility] S, [facility] T VISIT HIGH/URGE NT SEVERITY EMERGENCY 20271 [facility] 7 [facility] LOW/MODER SEVERITY [facility] 7 7 [facility] CARLOS ENRIQUE - 7 7 [facility] INC T EMERGENCY 56571 [facility] 7 [facility] T VISIT MODERATE SEVERITY OFFICE 71064 [facility] OUTPATIEN 7 7 PAIN & T VISIT SPINE 15 INSTIT MINUTES [facility] - 7 7 W [facility] MEDICAL OFFICE 30527 [facility] MLCEAN OUTPATIEN 7 7 PAIN & T VISIT SPINE 15 INSTIT MINUTES EMERGENCY 64250 ABRIL ROMAN 6 6 PHYSICIAN U RENAE [facility] S, [facility] T VISIT MODERATE SEVERITY HOSPITAL CARLOS ENRIQUE - 6 6 [facility] OUTPATIEN [facility] T EMERGENCY 66219 CARLOS ENRIQUE [address] [facility] T VISIT HIGH/URGE NT SEVERITY EMERGENCY 14197 ABRIL ROMAN 6 6 PHYSICIAN Ángel MACDONALD [facility] S, [facility] T VISIT MODERATE SEVERITY OFFICE 63566 [facility] OUT[facility] 5 5 PAIN & URUGAN T VISIT SPINE HEM 15 INSTIT MINUTES OFFICE 21256 [facility] OUTPATIEN 4 4 PAIN & MAG T VISIT SPINE 15 INSTIT MINUTES OFFICE 01485 [facility] OUTPATIEN 4 4 PAIN & MAG T VISIT SPINE 15 INSTIT MINUTES OFFICE 14305 [facility] OUT[facility] 4 4 PAIN & MAG T VISIT SPINE 15 INSTIT MINUTES HOSPITAL CARLOS ENRIQUE - 4 4 [facility] INC T EMERGENCY 25327 [facility] DEPT 4 4 [place] MOH VISIT EMERGENCY HIGH PHYS SEVERITY& THREAT FUNCJ EMERGENCY 79981 CARLOS ENRIQUE 4 4 [facility] DEPARTMEN INC T VISIT LOW/MODER SEVERITY [facility] CARLOS ENRIQUE - 4 4 [facility] INC T OFFICE 77109 [facility] OUTPATIEN 4 4 PAIN & MAG T VISIT SPINE 15 INSTIT MINUTES OFFICE 90226 [facility] MAL OUTPATIEN 4 4 PAIN & IRM T VISIT SPINE 15 INSTIT MINUTES OFFICE 75066 [facility] MAL OUTPATIEN 4 4 PAIN & IRM T VISIT SPINE 15 INSTIT MINUTES OFFICE 20556 ADVANCED MAL OUTPATIEN 4 4 PAIN & IRM T VISIT SPINE 15 INSTIT MINUTES OFFICE 57946 AD[facility]ED MAL OUTPATIEN 4 4 PAIN & IRM T VISIT SPINE 15 INSTIT MINUTES OFFICE 33689 [facility] OUTPATIEN 4 4 PAIN & MAG T VISIT SPINE 15 INSTIT MINUTES OFFICE 25646 [facility] OUTPATIEN 4 4 PAIN & MAG T VISIT SPINE 15 INSTIT MINUTES OFFICE 45116 [facility] OUTPATIEN 4 4 PAIN & MAG T VISIT SPINE 15 INSTIT MINUTES OFFICE 16434 [facility] OUTPATIEN 4 4 PAIN & MAG T VISIT SPINE 15 INSTIT MINUTES OFFICE 54184 [facility] OUTPATIEN 4 4 PAIN & MAG T VISIT SPINE 15 INSTIT MINUTES OFFICE 20570 AD[facility]ED MAL OUTPATIEN 4 4 PAIN & IRM T VISIT SPINE 15 INSTIT MINUTES OFFICE 28647 [facility] OUTPATIEN 4 4 PAIN & MAG T VISIT SPINE 15 INSTIT MINUTES OFFICE 16192 [facility] OUTPATIEN 4 4 PAIN & MAG T VISIT SPINE 15 INSTIT MINUTES OFFICE 96481 ADVANCED MAL OUTPATIEN 4 4 PAIN & IRM T VISIT SPINE 15 INSTIT MINUTES OFFICE 47797 MACIAS OUTPATIEN 3 3 THO T VISIT 15 MINUTES EMERGENCY 55101 RICARDO PORBEREY 2 2 EMERGENCY [facility] DEPART[facility] T VISIT HIGH/URGE NT SEVERITY OFFICE 64045 [facility] OUTPATIEN 2 2 PAIN & MAG T VISIT SPINE 10 INSTIT MINUTES OFFICE 84441 NEUS SRIKANTH OUTPATIEN 2 2 T VISIT 15 MINUTES EMERGENCY 30951 SUKHWINDER PRETTY [place]A 2 2 DEPARTMEN T VISIT MODERATE SEVERITY HOSPITAL CARLOS ENRIQUE - 2 2 [facility] OUTPATIEN INC T EMERGENCY 20447 CARLOS ENRIQUE 2 2 [facility] DEPARTMEN INC T VISIT LOW/MODER SEVERITY OFFICE 75891 KERSCHNER KERSCHNER OUTPATIEN 2 2 MAG MAG T NEW 45 MINUTES OFFICE 74643 SONIA PHI SONIA PHI CONSULTAT 2 2 ION NEW/ESTAB PATIENT 40 MIN OFFICE 46098 NEUS SRIKANTH [facility]US [facility] OUTPATIEN 1 1 T VISIT 25 MINUTES HOSPITAL EFRAÍNVIE - 1 1 W OUTPATIEN REGIONAL T MEDICAL OFFICE 28587 [facility] NEUS SRIKANTH OUTPATIEN 1 1 PRIMARY T VISIT CARE 15 CENTER MINUTES OFFICE 31073 [facility] NEUS SRIKANTH OUTPATIEN 1 1 PRIMARY T VISIT CARE 15 CENTER MINUTES EMERGENCY 30468 RICARDO PRETTY [place] 1 1 EMERGENCY DEPARTMEN SERVICES T VISIT HIGH/URGE NT SEVERITY EMERGENCY 42614 RICARDO STRATTONY 1 1 EMERGENCY [facility] DEPARTMEN SERVICES T VISIT HIGH/URGE NT SEVERITY HOSPITAL CARLOS ENRIQUE - 1 1 [facility] OUTPATIEN INC T EMERGENCY 76290 CARLOS ENRIQUE 1 1 [facility] DEPARTMEN INC T VISIT HIGH/URGE NT SEVERITY HOSPITAL CARLOS ENRIQUE - 1 1 [facility] OUTPATIEN INC T EMERGENCY 24845 RICARDO CASTILLO DEPT 1 1 EMERGENCY ARISTEO VISIT SERVICES HIGH SEVERITY& THREAT FUNCJ EMERGENCY 13155 CARLOS ENRIQUE 1 1 [facility] DEPARTMEN INC T VISIT HIGH/URGE NT SEVERITY EMERGENCY 91811 RICARDO DIAZ 1 1 [facility] T VISIT MODERATE SEVERITY OFFICE 76114 SHAKILA MCGEE OUTPATIEN 1 1 CLINIC & DECKER T VISIT SPINE IN 25 MINUTES HOSPITAL MEADOWVIE - 0 0 W OUTPATIEN REGIONAL T MEDICAL EMERGENCY 81901 MEADOWVIE 0 0 W [facility] REGIONAL T VISIT MEDICAL MODERATE SEVERITY HOSPITAL MEADOWVIE - 0 0 W OUTPATIEN REGIONAL T MEDICAL OFFICE 38349 JHAVERIFIELD ELI CONSULTAT 0 0 CLINIC & SRIKANTH ION SPINE IN NEW/ESTAB PATIENT 40 MIN OFFICE 75845 ZEE HERNANDEZ 0 0 PRIMARY TYESHA E T VISIT CARE 25 CENTERINC MINUTES [facility] MEADOWVIE [facility] 0 [facility] EMERGENCY 02958 MEADOWVIE 0 0 W [facility] REGIONAL T VISIT MEDICAL MODERATE CENTER SEVERITY HOSPITAL MEADOWVIE - 0 0 W OUTPATIEN REGIONAL T MEDICAL CENTER EMERGENCY 09738 MEADOWVIE 0 0 W [facility] REGIONAL T VISIT MEDICAL MODERATE CENTER SEVERITY OFFICE 55738 ZEE HERNANDEZ 0 0 PRIMARY TYESHA E T VISIT CARE 15 CENTERINC MINUTES OFFICE 71150 ZEE EATON 9 9 [facility] BRITTANY Do T VISIT ORTHOPAED 25 IC CTR MINUTES [facility] SEYMOURWVIE - 9 9 [facility] EMERGENCY 04730 [facility] 9 9 W [facility] REGIONAL T VISIT MEDICAL MODERATE CENTER SEVERITY OFFICE 16791 VIPIN CANDY, OUTPATIEN 9 9 [facility] BRITTANY Robles VISIT ORTHOPAED 25 IC CTR MINUTES [facility] OFFICE 71515 VIPIN CANDY, OUTPATIEN 9 9 [facility] BRITTANY Do T VISIT ORTHOPAED 25 IC CTR MINUTES [facility] ST - 9 9 IVÁN [facility] MEDICALCE NTER OFFICE 59966 COMMONCHANG CANDY, CONSULTAT 9 9 [facility] BR[facility]ANY STEVENSON ORTHOPAED NEW/ESTAB IC CTR PATIENT PSC 40 MIN OFFICE 86470 [facility] 9 WAGGONER CRUZ R T VISIT HEART PSC 25 MINUTES OFFICE 95037 [facility] KRISTAL OUTPATIEN 9 9 PRIMARY TYESHA E T VISIT CARE 25 CENTERINC MINUTES OFFICE 48303 [facility] DEL OUTPATIEN 9 9 PRIMARY STRAUSS T VISIT CARE DECALVO, 15 CENTERINC BESSY MINUTES FREDDIE V OFFICE 14851 [facility] ALBER [facility] 9 9 PRIMARY Y, JOVANNI T NEW 20 CARE V MINUTES CENTERINC EMERGENCY 35446 CANDIDO 8 8 [facility] SANJOYDEB T VISIT MODERATE SEVERITY OFFICE 90546 [facility] 8 8 PO[place] ROSHNI T VISIT FAMILY 25 CARE, MINUTES INC. EMERGENCY 91237 EMERGENCY JOCELIN, 8 8 REENA JUAREZ [facility] PHYS T VISIT [facility] HIGH/URGE [place] NT SEVERITY EMERGENCY 86932 MILLIE, 8 8 IVÁN Do [facility] MED CTR T VISIT MODERATE SEVERITY EMERGENCY 15597 [facility], 8 8 IVÁN Dupree [facility] MED CTR T VISIT HIGH/URGE NT SEVERITY
--- OUTSIDE RECORDS SUMMARY | 2017-01-18 18:55 | External Medical Summary Rpt ---
Author Author , JUDITH Organization JUDITH Address Unknown Phone [email or web address] Care Team Providers Care Candle Wicker Name Role Phone [facility] Unavailable Unavailable [facility], [facility] ALFARIS MOH, ALFARIS Unavailable Unavailable MOH SREEDHAR PRINGLE Unavailable Unavailable HANSEL MCNULTY, Unavailable Unavailable HANSEL ANDRES BEINEKE Unavailable Unavailable BLECHER, ROSHNI, Unavailable Unavailable BLECHER, ROSHNI JIMÉNEZ ALL, JIMÉNEZ ALL Unavailable Unavailable [...] SLADE DECALVO, Unavailable Unavailable MING V, SLADE DECALCANDELARIA, MING ANN GROSSMAN, Unavailable Unavailable ANN MONREAL JANELL M, Unavailable Unavailable DEVORAH BANG FINLEY Unavailable Unavailable KEE ANNE JR, FULLER, Unavailable Unavailable ANNA CHUNG Unavailable Unavailable ARISTEO SUKHWINDER CORTEZ CHACORTA Unavailable Unavailable SUKHWINDER CORTEZ Unavailable Unavailable ANN CLEVELAND, Unavailable Unavailable ANN CLEVELAND, Unavailable Unavailable DEEJAYCHCORTEZ RENEE, Unavailable Unavailable NIKHIL RENEE [facility] Unavailable Unavailable INC, [facility] LANCE LUCAS Unavailable Unavailable LUCAS KWADWO, LUCAS Unavailable Unavailable KWADWO RHONDA LUCAS, Unavailable Unavailable RHONDA LUCAS S [facility] Unavailable Unavailable IMAGING ASS, [facility], Unavailable Unavailable [facility], Unavailable Unavailable [facility], Unavailable Unavailable [facility] & Unavailable Unavailable [facility] BRITTANY GUPTA, Unavailable Unavailable BRITTANY GUPTA RACHEL J, Unavailable Unavailable [facility] Unavailable Unavailable [facility] CRUZ RICHARDSON, Unavailable Unavailable CRUZ RICHARDSON HAROLD V, Unavailable Unavailable JOVANNI GIBSON V [facility] Unavailable Unavailable SERVICES, [facility] & Unavailable Unavailable SPINE IN, [facility] Unavailable [facility]available ASSOCIAT[facility] Unavailable Unavailable MEDICAL, [facility] Unavailable Unavailable MED[facility] CENTER, [facility] Unavailable Unavailable MEDICAL, [facility] MACIAS THO, MACIAS Unavailable Unavailable THO CANDIDO, SANJOYDEB, Unavailable Unavailable CANDIDO, SANJOYDEB NEUS SRIKANTH, NEUS SRIKANTH Unavailable Unavailable NEUS SRIKANTH, NEUS SRIKANTH Unavailable Unavailable NEUS, TYESHA E, NEUS, Unavailable Unavailable TYESHA E [facility], Unavailable Unavailable [facility] MCGEE DECKER, MCGEE Unavailable Unavailable DECKER [facility], [facility] PORNOY LESA, PORNOY Unavailable Unavailable L[facility], Unavailable Unavailable [facility] Unavailable Unavailable INCORPORAT, [facility] Unavailable Unavailable INCORPORAT, [facility] NENA MELARA, Unavailable Unavailable NENA MELARA RENAE, Unavailable Unavailable SOJUHI [facility] Un[facility], [facility] Unavailable [facility]available [facility] WELIA HEALTHER MARCELO JOSE, MARCELO Unavailable Unavailable JOSE SONIA PHI, SONIA PHI Unavailable Unavailable [facility] # Unavailable Unavailable [id number], [email or web address] # [id number] [facility] # Unavailable Unavailable [id number], [facility] # [id number] [facility] # [id number], Unavailable Unavailable [facility] # [id number] ELOY GALINDO, MATEO, Unavailable Unavailable ELOY VILLA, Unavailable Unavailable MAL VILLA Purpose Continuity of Care Document - 07-14-2007 through 2016 Problems Code Diagnosis DOS Provider Status I10 ESSENTIAL 12-08-2016 [facility], HYPERTENSIO PLLC N [id number] PAIN IN 12-08-2016 [facility], SHOULDER PLLC E119 TYPE 2 10-27-2016 [facility] MELLITUS INC WITHOUT COMPLICATIO NS M542 CERVICALGIA 10-27-2016 [place] [facility] [id number] UNSPECIFIED 10-27-2016 [place] INJURY OF MEDICAL HEAD IMAGING ASS INITIAL ENCOUNTER Z5181 ENCOUNTER 10-01-2016 [facility] THERAPEUTIC INCORPORAT DRUG LEVEL MONITORING 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 L88341 SPONDYLOSIS 09-05-2016 [facility] W/O PAIN & MYELOPATH/R SPINE ADICULOPATH INSTIT Y CERV RGN U35860 PRIMARY 07-12-2016 [facility] TIS RIGHT ASSOCIAT SHOULDER P26595 PRIMARY 07-12-2016 [facility] TIS LEFT ASSOCIAT SHOULDER C63922 PAIN IN 07-12-2016 [facility] LEFT REGIONAL SHOULDER MEDICAL C61025 PAIN IN 07-11-2016 [facility] UNSPECIFIED PAIN & SHOULDER SPINE INSTIT M25532 PAIN IN 05-22-2016 [place] LEFT MEDICAL FINGERS IMAGING ASS [id number] LAC W/O FB 05-22-2016 [place] LT INDEX MEDICAL FINGER W/O IMAGING ASS DAMAGE NAIL INIT [id number] NDSPLC FX 05-22-2016 [facility] DIST PHAL [facility], LT INDX PLLC FNGR INIT ENC OPN FX Z23 ENCOUNTER 05-22-2016 [facility] IMMUNIZATIO INC N Z720 TOBACCO USE 05-22-2016 [facility] INC O55250 MIGRAINE 02-23-2016 [facility] UNS NOT PHYSICIANS, INTRACT W/O PLLC STATUS MIGRAINOSUS M20715 SPONDYLOSIS 02-16-2016 [facility] W/O PAIN & MYELOPATH/R [...] CLASSIFIED INSTIT 7295 PAIN IN 04-04-2014 [place] SOFT MEDICAL TISSUES OF IMAGING ASS LIMB 42207 SWELLING OF 04-04-2014 [place] LIMB [facility]ICAL [facility] 7823 EDEMA 04-04-2014 [place] [facility] 6826 CELLULITIS 04-03-2014 [facility] [...] & USE OF SPINE OTHER INSTIT MEDICATIONS 35479 PAIN IN 06-25-2013 [place] PELVIC ASSOCIAT REGION AND THIGH 7222 DISPLCMT 06-24-2012 [facility] THO INTERVERT DISC SITE UNS W/O MYELOPATHY 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 7242 LUMBAGO 06-24-2012 [facility] THO 96793 CONTUSION 06-24-2012 [facility] THO OF ELBOW 18375 PAIN IN 05-26-2012 [place] [facility], RADIOLOGY UPPER ARM ASSOCIAT 05915 LATERAL 05-26-2012 [facility] IS OF [place] SERVICES 9593 INJURY 05-26-2012 [place] OTHER&UNSPE RADIOLOGY CIFIED ASSOCIAT [place] FOREARM&WRI ST E8859 FALL FROM 05-26-2012 [facility] OTHER [facility]ERGENCY SLIPPING SERVICES TRIPPING OR STUMBLING 02368 BLEPHARITIS 10-16-2011 NEUS SRIKANTH , UNSPECIFIED 6821 CELLULITIS 09-07-2011 [facility] OF NECK INC 6828 CELLULITIS 09-07-2011 [facility] AND ABSCESS OF OTHER SPECIFIED SITE 91663 SPINAL 06-05-2011 NE[facility] SRIKANTH STENOSIS UNSPEC REGION OTH THAN CERVICAL 7245 UNSPECIFIED 06-05-2011 [facility] S[facility]KANTH BACKACHE 7230 SPINAL 04-17-2011 [facility] STENOSIS IN REGIONAL CERVICAL MEDICAL REGION 33018 SPASM OF 04-04-2011 [facility] 79933 DIAB W/O 10-11-2011 [facility] COMP TYPE PRIMARY II/UNS NOT CARE CENTER STATED UNCNTRL 4019 UNSPECIFIED 03-27-2011 [facility] ESSENTIAL PRIMARY HYPERTENSIO CARE CENTER N 6868 OTH SPEC 03-27-2011 [facility] LOCAL PRIMARY INFECTIONS CARE CENTER SKIN&SUBCUT TISSUE 72893 CONTUSION 03-23-2011 [facility] [place] 27076 PAIN IN 03-22-2011 [place] [facility], HAND RADIOLOGY ASSOCIAT 80500 CONTUSION 03-22-2011 [facility] OF BACK EMERGENCY SERVICES 95734 CONTUSION 03-22-2011 [facility] HAND EMERGENCY SERVICES E8889 UNSPECIFIED 03-22-2011 [place] FALL [facility]IOLOG[facility] ASSOCIAT 7840 HEADACHE 11-10-2010 [facility] 6961 OTHER 10-01-2010 [facility] PSORIASIS EMERGENCY AND SIMILAR SERVICES DISORDERS 7231 CERVICALGIA 06-29-2010 [facility] 920 CONTUSION 04-14-2010 [facility] OF FACE REGIONAL SCALP AND MEDICAL NECK EXCEPT EYE V571 OTHER 03-15-2010 [facility] REG[facility]AL THERAPY MEDICAL 04074 UNSPECIFIED 12-27-2009 [facility] DISORDER PRIMARY OF COCCYX CARE CENTERINC 08201 OTHER 12-19-2009 [place] DISORDER OF RADIOLOGY COCCYX ASSOCIAT 8056 CLOS FX 12-19-2009 [facility] SACRUM&COCC REGIONAL YX W/O MEDICAL MENTION SP CENTER CORD INJURY 23235 OTHER 11-07-2009 [facility] CHRONIC REGIONAL PAIN MEDICAL CENTER 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 6968 OT 08-29-2009 [facility] PSORIASIS & PRIMARY SIMILAR CARE DISORDERS CENTERINC OTH 7220 DISPLCMT 06-06-2009 [facility] CERV H INTERVERT ORTHOPAEDIC DISC CTR PSC WITHOUT MYELOPATHY 8404 ROTATOR 05-05-2009 [facility] CUFF SPRAIN H AND STRAIN ORTHOPAEDIC CTR PSC 59000 EXOSTOSIS 05-02-2009 [facility] OF H UNSPECIFIED ORTHOPAEDIC SITE CTR PSC 11283 OSTEOARTHRO 04-22-2009 RADIOLOGY S UNSPEC ASSOCIATES WHETHER PSC GEN/LOC SHLDR REGION 43967 UNSPECIFIED 04-22-2009 [facility] H ARTHROPATHY ORTHOPAEDIC SHOULDER CTR PSC REGION 77891 PAIN IN 04-22-2009 [facility] JOINT, H SHOULDER ORTHOPAEDIC REGION CTR PSC 7820 DISTURBANCE 04-22-2009 [facility] 8406 SUPRASPINAT 04-22-2009 [facility] US SPRAIN H AND STRAIN ORTHOPAEDIC CTR PSC 50075 UNSPEC 04-18-2009 [facility] DISORDERS H BURSAE&TEND ORTHOPAEDIC ONS CTR PSC SHOULDER REGION 4011 ESSENTIAL 04-11-2009 [facility] HYPERTENSIO HEART PSC N, BENIGN 80792 REFLUX 04-11-2009 [facility] ESOPHAGITIS HEART PSC 63505 SHORTNESS 04-11-2009 [facility] OF BREATH HEART PSC 64286 CHEST PAIN 04-11-2009 [facility] UNSPECIFIED HEART PSC 57247 NONSPECIFIC 04-11-2009 [facility] ABNORMAL HEART PSC ELECTROCARD IOGRAM 05925 PAIN IN 04-04-2009 [facility], PRIMARY ANKLE AND CARE FOOT CENTERINC 23714 OTH SPEC 04-04-2009 [facility] D/O ROTATOR PRIMARY CUFF SYND CARE SHLDR&SASHA CENTERINC D D/O 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 15838 ESOPHAGEAL 03-30-2009 [facility] REFLUX PRIMARY CARE CENTERINC 4293 CARDIOMEGAL 03-29-2009 [facility] PSC 19903 OTHER 03-29-2009 [place] DYSPNEA AND RADIOLOGY ASSOCIATES [place] [address] OTHER CHEST 03-29-2009 [facility] PAIN AMB SERVICE V489 UNSPECIFIED 03-01-2009 [facility] PROBLEM PRIMARY WITH HEAD CARE NECK OR CENTERINC TRUNK 7239 UNSPEC 02-14-2009 [facility] MUSCULOSKEL PRIMARY CARE D/O&SYMPTOM CENTERINC S REFERABLE NECK 74371 UNSPECIFIED 02-14-2009 [facility] SYNOVITIS PRIMARY AND CARE TENOSYNOVIT CENTERINC IS 9057 LATE EFF 10-27-2007 ST SPRAIN&STRA IVÁN IN W/O MED CTR MENTION TENDON INJURY 7962 ELEVATED BP 10-02-2007 [facility] WITHOUT DX FAMILY [employer] [facility] N 8409 SPRAIN&STRA 09-22-2007 EMERGENCY IN UNSPEC CARE PHYS SITE [place] SHOULDER&UP PER ARM 9599 INJURY 09-22-2007 RADIOLOGY OTHER AND ASSOCIATES UNSPECIFIED PSC UNSPECIFIED SITE 27175 PAIN IN 09-02-2007 ST JOINT, IVÁN FOREARM [...] CH ZA 11 11 11 AR RI MA [address] IN CY IN E [...] PH 3 IN 70 11 11 AR NH 5 MA CH 50 CY AE 0 L MG IN S C CA PS UL E PATHAK 53 07 07 0 10 5 DE 64 GA Ac LF 74 -1 -1 .0 AN 13 IN ti AM 60 7- 8- 00 S 41 EY ve ET 27 20 20 PH 4 HO 20 11 11 AR NH XA 5 MA CH ZO CY AE LE L -T IN S MP C DS TA BL ET 00 05 05 0 12 3 DE 40 GA Ac 40 -2 -2 .0 AN 63 IN ti 60 8- 8- 00 S 63 EY ve 35 20 20 PH 5 70 11 11 AR NH 5 MA CH CY AE L IN S C MA 00 05 05 0 21 6 DE 64 GA Ac ED 60 -2 -2 .0 AN 11 IN ti NI 35 8- 8- 00 S 49 EY ve SO 33 20 20 PH 7 NE 71 11 11 AR NH 5 5 MA CH CY AE MG [...] 0- 2- 00 S 10 CA ve MA [address] IL [...] 0- 0- 00 S 10 CA ve MA [address] IL [...] 0- 2- 00 S 10 CA ve MA [address] IL 08 09 10 AR IL 0 MA LO 20 CY DE MG IN CA C LV TA O BL MA ET RI A IS AB EL V LI 00 10 04 10 30 30 DE 63 DE Ac SI 17 -2 -1 .0 AN 86 L ti NO 23 0- 6- 00 S 10 CA ve MA [address] IL 08 09 10 AR IL 0 MA LO 20 CY DE MG IN CA C LV TA O BL MA ET RI A IS AB EL V LI 00 10 03 10 30 30 DE 63 DE Ac SI 17 -2 -1 .0 AN 86 L ti NO 23 0- 6- 00 S 10 CA ve MA [address] IL [...] 0- 6- 00 S 10 CA ve MA [address] IL 08 09 10 AR IL 0 MA LO 20 CY DE MG CA LV TA O BL MA ET RI A IS AB EL V LI 00 10 01 02 30 30 DE 63 DE Ac SI 17 -2 -2 .0 AN 86 L ti NO 23 0- 8- 00 S 10 CA ve MA [address] IL [...] 9 AN ZA 81 09 09 AR MA 0 MA CH IN CY RI E [...] 0- 1- 00 S 10 CA ve MA [address] IL [...] EV 2 MA EN CY E ME 68 11 11 00 30 30 DE 63 LA Ac LO 38 -0 -1 .0 AN 86 RK ti XI 20 3- 9- 00 S 77 IN ve CA 05 20 20 PH 3 M 10 09 09 AR ANNI 15 1 MA HN CY J MG TA BL ET ME 00 11 11 00 21 6 DE 63 LA Ac TH 78 -1 -1 .0 AN 87 RK ti YL 15 1- 9- 00 S 14 IN ve MA 02 20 20 PH 1 ED 20 09 09 AR ANNI NI 7 MA HN SO CY J LO NE 4 MG DO SE PK LI 00 10 11 00 30 30 DE 63 DE Ac SI 17 -2 -1 .0 AN 86 L ti NO 23 0- 9- 00 S 10 CA ve MA [address] IL 08 09 09 AR IL 0 MA LO 20 CY DE MG CA LV TA O BL MA ET RI A IS AB EL V MA 37 10 11 00 60 30 DE [...] 4- 2- 00 S 81 CA ve MA [address] IL [...] Procedure DOS Code Location Performer Comment THERAPEUT 55907 [facility] IC 7 [facility] PROPHYLAC INC INC TIC/DX INJECTION SUBQ/IM INJECTION J2405 [facility] 7 [facility] ONDANSETR INC INC ON HCL PER 1 MG RADEX 99503 TAD LUCAS SHOULDER 7 COMPLETE RADIOLOGY MINIMUM [address] [place] [address] [facility] HEAD/BRAI 7 MEDICAL N W/[place] [address] [facility] [place] [facility] CERVICAL 7 MEDICAL SPINE W/O IMAGING CONTRAST ASS MATERIAL DRUG TEST 89098 [facility] PRSMV 7 DIAGNOSTI DIAGNOSTI INSTRMNT CS CS CHEMISTRY INCORPORA INCORPORA T T ANALYZERS DRUG TEST G0480 [facility] DEFINITV [address] ID CS CS METH P INCORPORA INCORPORA DAY 1-7 T T DRUG CL RADEX 06786 [facility] SHOULD[facility] 7 EIDER COMPLETE RADIOLOGY MINIMUM 2 ASSOCIAT VIEWS APPLICATI 04071 [facility] ON FINGER 6 [facility] SPLINT INC INC STATIC RADEX 83624 [place] JIMÉNEZ ALL FINGR 6 MEDICAL MINIMUM 2 IMAGING VIEWS ASS IM ADM 19078 [facility] PRQ ID 6 [facility] SUBQ/IM INC INC NJXS 1 VACCINE SIMPLE 34868 [facility] SOTINGEAN REPAIR 6 PHYSICIAN U RENAE SCALP/NEC S, PLLC K/AX/SHAILESH T/TRUNK 2.5CM/< TDAP 34553 [facility] VACCINE 7 6 [facility] YRS/> IM INC INC DRUG TEST G0480 [facility] DEFINITV [address] ID CS CS METH P INCORPORA INCORPORA DAY 1-7 T T DRUG CL DRUG TEST G0479 [facility] 6 DIAGNOSTI DIAGNOSTI PRESUMP;I CS CS NSTRUMENT INCORPORA INCORPORA ED T T CHEMISTRY ANLYZER INJ J0702 [facility] BETAMETHA 6 PAIN & MAG SONE SPINE ACETATE & INSTIT PHOSPHATE 3 MG DSTR 84160 AD[facility]ED K[facility]CH[facility] NROLYTC 6 PAIN & MAG AGNT SPINE PARVERTEB INSTIT FCT SNGL LMBR/SACR AL DSTR 94630 ADVANCED K[facility]CH[facility] NROLYTC 6 PAIN & MAG AGNT SPINE PARVERTEB INSTIT FCT ADDL LMBR/SACR AL DSTR 63914 ADVANCED KERSCHNER NROLYTC 6 PAIN & MAG AGNT SPINE PARVERTEB INSTIT FCT ADDL LMBR/SACR AL DSTR 65273 ADVANCED KERSCHNER NROLYTC 6 PAIN & MAG AGNT SPINE PARVERTEB INSTIT FCT SNGL LMBR/SACR AL INJ J0702 [facility]ANCED [facility] BETAMETHA 6 PAIN & MAG SONE SPINE ACETATE & INSTIT PHOSPHATE 3 MG INJ J0702 [facility] BETAMETHA 6 PAIN & MAG SONE SPINE ACETATE & INSTIT PHOSPHATE 3 MG NJX 99288 ADVANCED K[facility] ANES&/STR 6 PAIN & MAG D W/IMG SPINE TFRML INSTIT EDRL LMBR/SAC 1 LVL NJX 46298 AD[facility]ED [facility] ANES&/STR 6 PAIN & MAG D W/IMG SPINE TFRML INSTIT EDRL LMBR/SAC EA LV DRUG TEST G0479 [facility] 6 DIAGNOSTI DIAGNOSTI PRESUMP;I CS CS NSTRUMENT ED CHEMISTRY ANLYZER DRUG TEST G0480 [facility] DEFINITV [address] ID CS CS METH P DAY 1-7 DRUG CL DSTR 41948 ADVANCED KERSCHNER NROLYTC 5 PAIN & MAG AGNT SPINE PARVERTEB INSTIT FCT ADDL LMBR/SACR AL INJ J0702 AD[facility]ANCED [facility] BETAMETHA 5 PAIN & MAG SONE SPINE ACETATE & INSTIT PHOSPHATE 3 MG DSTR 42972 ADVANCED KERSCHNER NROLYTC 5 PAIN & MAG AGNT SPINE PARVERTEB INSTIT FCT SNGL LMBR/SACR AL DSTR 30106 ADVANCED KERSCHNER NROLYTC 5 PAIN & MAG AGNT SPINE PARVERTEB INSTIT FCT SNGL CRVCL/THO RA DSTR 43551 ADVANCED KERSCHNER NROLYTC 5 PAIN & MAG AGNT SPINE PARVERTEB INSTIT FCT ADDL CRVCL/THO RA FLUOR 20835 [facility] NEEDLE/CA 4 PAIN & MAG TH SPINE SPINE/PAR INSTIT ASPINAL DX/[place] NJX 98581 ADVANCED KERSCH[facility] DX/THER 4 PAIN & MAG SBST SPINE EPIDURAL/ INSTIT SUBRACH CERV/THOR ACIC NJX 45548 [facility] ANES&/STR 4 PAIN & MAG D W/IMG SPINE TFRML INSTIT EDRL LMBR/SAC 1 LVL NJX 76636 [facility] ANES&/STR 4 PAIN & MAG D W/IMG SPINE TFRML INSTIT EDRL LMBR/SAC EA LV ARTHROCEN 30513 [facility] TESIS 4 PAIN & MAG ASPIR&/IN SPINE J MAJOR INSTIT JT/BURSA W/O US FLUOROSCO 04360 [facility] PIC 4 PAIN & MAG GUIDANCE SPINE NEEDLE INSTIT PLACEMENT ADD ON DUP-SCAN 75645 [facility] XTR VEINS 4 [facility] INC INC UNILATERA L/LIMITED STUDY GLUC BLD 89643 [facility] GLUC MNTR 4 [facility] DEV INC INC CLEARED FDA SPEC HOME USE ARTHROCEN 09652 [facility] TESIS 4 PAIN & MAG ASPIR&/IN SPINE J MAJOR INSTIT JT/BURSA W/O US FLUOROSCO 69597 [facility] PIC 4 PAIN & MAG GUIDANCE SPINE [place] IN[place] [address] AD[facility]ED [facility] JOINT 4 PAIN & MAG ARTHRGRPH SPINE Y&/ANES/S INSTIT TEROID W/SHANE NJX 53973 ADV[facility]ED [facility] DX/THER 4 PAIN & MAG AGT PVRT SPINE FACET JT INSTIT CRV/THRC 1 LEVEL NJX 57593 ADVANCED KERSCHNER DX/THER 4 PAIN & MAG AGT PVRT SPINE FACET JT INSTIT CRV/THRC 3+ LEVEL NJX 49560 AD[facility]ANCED KERSCH[facility] DX/THER 4 PAIN & MAG AGT PVRT SPINE FACET JT INSTIT CRV/THRC 2ND LEVEL NJX 05474 ADV[facility]ED KERSCHNER DX/THER 4 PAIN & MAG AGT PVRT SPINE FACET JT INSTIT LMBR/SAC 1 LEVEL NJX 64953 ADVANCED KERSCHNER DX/THER 4 PAIN & MAG AGT PVRT SPINE FACET JT INSTIT LMBR/SAC 3+ LEVEL NJX 45831 ADVANCED KERSCHNER DX/THER 4 PAIN & MAG AGT PVRT SPINE FACET JT INSTIT [place] 2[place] [address] [facility] JOINT 4 PAIN & MAG ARTHRGRPH SPINE Y&/ANES/S INSTIT TEROID W/SHANE FLUOR 04326 AD[facility]ED K[facility]CH[facility] NEEDLE/CA 4 PAIN & MAG TH SPINE SPINE/PAR INSTIT ASPINAL DX/THER [place] NJX 13505 ADVANCED KERSCHNER DX/THER 4 PAIN & MAG SBST SPINE EPIDURAL/ INSTIT SUBRACH CERV/THOR ACIC NJX 39527 ADVANCED MAL DX/THER 4 PAIN & IRM AGT PVRT SPINE FACET JT INSTIT CRV/THRC 3+ LEVEL NJX 54525 ADVANCED MAL DX/THER 4 PAIN & IRM AGT PVRT SPINE FACET JT INSTIT CRV/THRC 2ND LEVEL NJX 82001 ADVANCED MAL DX/THER 4 PAIN & IRM AGT PVRT SPINE FACET JT INSTIT CRV/THRC 1 LEVEL DSTR 94943 AD[facility]ANCED KERSCHNER NROLYTC 4 PAIN & MAG AGNT SPINE PARVERTEB INSTIT FCT SNGL LMBR/SACR AL DSTR 64828 AD[facility]ANCED KERSCHNER NROLYTC 4 PAIN & MAG AGNT SPINE PARVERTEB INSTIT [place] [address] ADVANCED KERSCHNER JOINT 4 PAIN & MAG ARTHRGRPH SPINE Y&/ANES/S INSTIT TEROID W/SHANE DSTR 34008 ADVANCED KERSCHNER NROLYTC 4 PAIN & MAG AGNT SPINE PARVERTEB INSTIT FCT SNGL LMBR/SACR AL DSTR 24492 AD[facility]ANCED KERSCHNER NROLYTC 4 PAIN & MAG AGNT SPINE PARVERTEB INSTIT FCT ADDL LMBR/SACR AL NJX 62383 ADVANCED KERSCHNER DX/THER 4 PAIN & MAG AGT PVRT SPINE FACET JT INSTIT LMBR/SAC 3+ LEVEL NJX 11228 ADVANCED KERSCHNER DX/THER 4 PAIN & MAG AGT PVRT SPINE FACET JT INSTIT LMBR/SAC 2ND LEVEL NJX 41240 ADVANCED KERSCHNER DX/THER 4 PAIN & MAG AGT PVRT SPINE FACET JT INSTIT LMBR/SAC 1 LEVEL NJX 21877 AD[facility]ANCED KERSCHNER ANES&/STR 4 PAIN & MAG D W/IMG SPINE TFRML INSTIT EDRL LMBR/SAC 1 LVL NJX 28673 ADVANCED KERSCHNER ANES&/STR 4 PAIN & MAG D W/IMG SPINE TFRML INSTIT EDRL LMBR/SAC EA LV DSTR 66778 ADVANCED KERSCHNER NROLYTC 4 PAIN & MAG AGNT SPINE PARVERTEB INSTIT FCT SNGL CRVCL/THO RA DSTR 93987 AD[facility]ED K[facility]CHNER NROLYTC 4 PAIN & MAG AGNT SPINE PARVERTEB INSTIT FCT ADDL CRVCL/THO RA INJ J0702 [facility] BETAMETHA 4 PAIN & MAG SONE SPINE ACETATE & INSTIT PHOSPHATE 3 MG FLUOR 19914 ADVANCED KERSCHNER NEEDLE/CA 4 PAIN & MAG TH SPINE SPINE/PAR INSTIT ASPINAL DX/[place] NJX 58945 ADVANCED KERSCHNER DX/THER 4 PAIN & MAG SBST SPINE EPIDURAL/ INSTIT SUBRACH CERV/THOR ACIC DSTR 86091 ADVANCED KERSCHNER NROLYTC 4 PAIN & MAG AGNT SPINE PARVERTEB INSTIT FCT SNGL CRVCL/THO RA DSTR 70329 ADVANCED KERSCHNER NROLYTC 4 PAIN & MAG AGNT SPINE PARVERTEB INSTIT FCT ADDL CRVCL/THO RA NJX 63819 ADVANCED KERSCHNER DX/THER 4 PAIN & MAG AGT PVRT SPINE FACET JT INSTIT CRV/THRC 1 LEVEL NJX 45019 ADVANCED KERSCHNER DX/THER 4 PAIN & MAG AGT PVRT SPINE FACET JT INSTIT CRV/THRC 3+ LEVEL NJX 37267 ADVANCED KERSCHNER DX/THER 4 PAIN & MAG AGT PVRT SPINE FACET JT INSTIT CRV/THRC 2ND LEVEL NJX 59377 ADVANCED KERSCHNER ANES&/STR 4 PAIN & MAG D W/IMG SPINE TFRML INSTIT EDRL LMBR/SAC 1 LVL NJX 72100 ADVANCED KERSCHNER DX/THER 4 PAIN & MAG AGT PVRT SPINE FACET JT INSTIT CRV/THRC 3+ LEVEL NJX 42838 ADVANCED KERSCHNER DX/THER 4 PAIN & MAG AGT PVRT SPINE FACET JT INSTIT CRV/THRC 2ND LEVEL NJX 65413 ADVANCED KERSCHNER DX/THER 4 PAIN & MAG AGT PVRT SPINE FACET JT INSTIT CRV/THRC 1 LEVEL NJX 26055 AD[facility]ANCED KERSCHNER ANES&/STR 4 PAIN & MAG D W/IMG SPINE TFRML INSTIT EDRL LMBR/[place] 1 [place] [address] ADVANCED MAL JOINT 4 PAIN & IRM ARTHRGRPH SPINE Y&/ANES/S INSTIT TEROID W/SHANE RADEX HIP 13775 [facility] 4 [facility] COMPLETE MINIMUM 2 VIEWS NJX 97603 ADVANCED KERSCHNER ANES&/STR 4 PAIN & MAG D W/IMG SPINE TFRML INSTIT EDRL CRV/THRC [place] LV NJX 55287 ADVANCED KERSCHNER ANES&/STR 4 PAIN & MAG D W/IMG SPINE TFRML INSTIT EDRL CRV/THRC 1 LVL EPIDUROGR 49370 ADVANCED KERSCHNER APY RS&I 4 PAIN & [place] [address] KERSCHNER KERSCHNER JOINT 3 MAG MAG ARTHRGRPH Y&/ANES/S TEROID W/SHANE INJECTION 95675 KERSCHNER KERSCHNER ANES 3 MAG MAG OTHER PERIPHERA L NERVE/BRA NCH DSTR 09608 KERSCHNER KERSCHNER NROLYTC 3 MAG MAG AGNT PARVERTEB FCT SNGL CRVCL/THO RA DSTR 72048 KERSCHNER KERSCHNER NROLYTC 3 MAG MAG AGNT PARVERTEB FCT ADDL CRVCL/THO RA LUMB-SACR L0637 DASCO HME DASCO HME AL ORTHOS 3 SAG-COR CNTRL RIGD A&P PREFAB RADEX 94797 TAD OCAMPO ELBOW 2 VALERIANO RENEE COMPLETE RADIOLOGY MINIMUM 3 [place]X [address] KERSCHNER KERSCHNER DX/THER 2 MAG MAG AGT PVRT FACET JT LMBR/SAC 3+ LEVEL NEEDLE A4215 KERSCHNER KERSCHNER STERILE 2 MAG MAG ANY SIZE EACH NJX 55006 KERSCHNER KERSCHNER DX/THER 2 MAG MAG AGT PVRT FACET JT LMBR/SAC 2ND [place] NJX [address]3822 KERSCHNER KERSCHNER DX/THER 2 MAG MAG AGT PVRT FACET JT LMBR/SAC 1 [place] NJX [address]8095 KERSCHNER KERSCHNER DX/THER 2 MAG MAG AGT PVRT FACET JT CRV/THRC 2ND [place]EL NJX 61931 KERSCHNER KERSCHNER DX/THER 2 MAG MAG AGT PVRT FACET JT CRV/THRC 3+ [place] NJX 23571 KERSCHNER KERSCHNER DX/THER 2 MAG MAG AGT PVRT FACET JT CRV/THRC 1 LEVEL NJX 12051 KERSCHNER KERSCHNER DX/THER 2 MAG MAG AGT PVRT FACET JT CRV/THRC 1 [place]EL NJX [address]674 KERSCHNER KERSCHNER DX/THER 2 MAG MAG AGT PVRT FACET JT CRV/THRC 3+ [place] NJX 56807 KERSCHNER KERSCHNER DX/THER 2 MAG MAG AGT PVRT FACET JT CRV/THRC 2ND [place]EL NJX 86405 KERSCHNER KERSCHNER DX/THER 2 MAG MAG SBST EPIDURAL/ SUBARACH LUMBAR/SA CRAL LOCM Q9967 MARYSESCHNER MARYSESCHNER 300-399 2 MAG MAG MG/ML IODINE CONCENTRA TION PER ML FLUOR 56568 KERSCHNER KERSCHNER NEEDLE/CA 2 MAG MAG TH SPINE/PAR ASPINAL DX/THER ADDON FLUOR 57774 KERSCHNER KERSCHNER NEEDLE/CA 2 MAG MAG TH SPINE/PAR ASPINAL DX/THER ADDON LOCM Q9967 KERSCHNER KERSCHNER 300-399 2 MAG MAG MG/ML IODINE CONCENTRA [place] NJX 90772 KERSCHNER KERSCHNER DX/THER 2 MAG MAG SBST EPIDURAL/ SUBRACH CERV/THOR ACIC INJECTION J1100 KERSCHNER KERSCHNER 2 MAG MAG DEXAMETHO SONE SODIUM PHOSPHATE 1 MG NJX 57977 KERSCHNER KERSCHNER DX/THER 2 MAG MAG SBST EPIDURAL/ SUBARACH LUMBAR/SA CRAL LOCM Q9967 KERSCHNER KERSCHNER 300-399 2 MAG MAG MG/ML IODINE CONCENTRA TION PER ML LOCM Q9967 KERSCHNER KERSCHNER 300-399 2 MAG MAG MG/ML IODINE CONCENTRA TION PER ML NJX 14415 KERSCHNER KERSCHNER DX/THER 2 MAG MAG SBST EPIDURAL/ SUBRACH CERV/THOR ACIC INJECTION J1100 KERSCHNER KERSCHNER 2 MAG MAG DEXAMETHO SONE SODIUM PHOSPHATE 1 MG MRI 05316 MEADOWVIE MEADOWVIE SPINAL 1 W W CANAL [facility] CERVICAL MEDICAL MEDICAL W/O CONTRAST MATRL THERAPEUT 37492 ROCIO GIRALDO SRIKANTH IC 1 PRIMARY PROPHYLAC CARE TIC/DX CENTER INJECTION SUBQ/IM INJECTION J1885 ROCIO GIRALDO SRIKANTH 1 [facility] TROMETHAM INE PER 15 MG BASIC 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 METABOLIC 1 Y & Y & PANEL BIODIAGNO BIODIAGNO CALCIUM STICS STICS TOTAL COLLECTIO 65080 ROCIO GIRALDO SRIKANTH N VENOUS 1 PRIMARY BLOOD CARE VENIPUNCT CENTER URE COLLECTIO 77718 ROCIO CHAN CO N 1 PRIMARY PRIMARY CAPILLARY CARE CARE BLOOD CENTER CENTER SPECIMEN RADEX 04507 [facility] HAND 1 EIDER VÍCTOR MINIMUM 3 RADIOLOGY VIEWS ASSOCIAT COMPREHEN 11735 CARLOS ENRIQUE DAVISE 1 [facility] METABOLIC INC INC PANEL CUL BACT 56652 CARLOS ENRIQUE MONACO AEROBIC 1 [facility] ADDL INC INC METHS DEFINITIV E EA ISOL CULTURE 57035 CARLOS ENRIQUE MONACO BACTERIAL 1 [facility] BLOOD INC INC AEROBIC W/ID ISOLATES SUSCEPTIB 81060 CARLOS ENRIQUE MONACO LTY STDY 1 [facility] ANTIMICRB INC INC IAL MICRO/AGA R DILUTJ BLOOD 70672 CARLOS ENRIQUE MONACO COUNT 1 [facility] COMPLETE INC INC AUTO&AUTO DIFRNTL WBC RADIOLOGI 52887 [facility] CABRERAPATRICIA C 1 MEDICAL SAAD EXAMINATI IMAGING ON TIBIA ASS & FIBULA 2 [place] [address] CARLOS ENRIQUE MONACO INFUSION 1 [facility] THERAPY/P INC INC ROPHYLAXI S /DX 1ST [place] [address] CARLOS ENRIQUE MONACO INFUSION 1 [facility] THERAPY INC [place] PROP[place] [address] [facility] [place] PATRICIA HEAD/BRAI 1 MEDICAL SAAD N W/O IMAGING CONTRAST ASS MATERIAL BLOOD 02196 CARLOS ENRIQUE MONACO COUNT 1 [facility] COMPLETE INC INC AUTO&AUTO DIFRNTL WBC BASIC 72381 CARLOS ENRIQUE MONACO METABOLIC 1 [facility] PANEL INC INC CALCIUM TOTAL 3D 73860 [place] PAT[place]IC[place] RENDERING 1 MEDICAL SAAD W/INTERP IMAGING & ASS POSTPROCE SS SUPERVISI ON SEDIMENTA 91400 CARLOS ENRIQUE MONACO TION RATE 1 [facility] RBC INC INC NON-AUTOM ATED PHYSICAL 72699 [facility] ME[facility]OW[facility] THERAPY 0 W W [facility] N MEDICAL MEDICAL APPL 58040 MEADOW[facility]IE MEADOWVIE MODALITY 0 W W 1/> AREAS [facility] MEDICAL MEDICAL ULTRASOUN D EA [address] [facility] SPINAL 0 [facility] CANAL SPINE IN LUMBAR W/O CONTRAST MATERIAL MRI [address] [facility] SPINAL 0 [facility] CANAL SPINE IN CERVICAL W/O CONTRAST MATRL RADEX 13693 [facility] SACRUM & 0 EIDER VÍCTOR COCCYX RADIOLOGY MINIMUM 2 ASSOCIAT VIEWS THERAPEUT 93498 [facility] LEON IC 0 W W PROPHYLAC REGIONAL REGIONAL TIC/DX [facility]ICAL MEDICAL INJECTION CENTER CENTER SUBQ/IM THERAPEUT 86102 LEANNEDOWVIE SEYMOURWVIE IC 9 W W PROPHYLAC REGIONAL REGIONAL TIC/DX MEDICAL MEDICAL INJECTION CENTER CENTER SUBQ/[place] NJX [address] RADIOLOGY MATEO, DX/THER 9 ELOY D SBST ASSOCIATE EPIDURAL/ S PSC SUBRACH CERV/THOR ACIC FLUOR 53655 RADIOLOGY MATEO, NEEDLE/CA 9 ELOY D TH ASSOCIATE SPINE/PAR S PSC ASPINAL DX/THER ADDON MRI 32744 [facility] GREFER, SPINAL 9 [facility] DANIEL CANAL ORTHOPAED CERVICAL IC CTR W/O PSC CONTRAST MATRL MRI ANY 10057 RADIOLOGY LARRY, JT UPPER 9 CRUZ A EXTREMITY ASSOCIATE W/O S PSC CONTRAST MATRL NDL EMG [address] XTR W/WO 9 IVÁN MINOR RELATED PARASPINA MEDICALCE MEDICALCE L AREAS NTER NTER NRV CNDJ [address] AMPLT&LAT 9 IVÁN IVÁN NCY EA NRV MOTR MEDICALCE MEDICALCE W/O NTER NTER F-WAVE STD NRV CNDJ 85652 [place], [place], AMPLITUDE 9 HANSEL HAMM & LATENCY EACH NERVE SENSORY RADEX 84042 [place] CANDY, SPINE 9 [facility] BRITTANY Do CERVICAL ORTHOPAED 2 OR 3 IC CTR VIEWS PSC RADEX 92874 [place] CANDY, SHOULDER 9 [facility] Do COMPLETE ORTHOPAED MINIMUM 2 IC CTR VIEWS PSC ECHO 63421 [place] TTHRC R-T 9 [facility] R 2D HEART PSC W/WOM-MOD E COMPL SPEC&COLR D ECG 59946 BUCKY RICHARDSON, ROUTINE 9 [facility] ECG HEART PSC W/LEAST 12 LDS W/I&R L HRT 88990 [place] CATHETERI 9 [facility] ZATION HEART [place] [address] [facility], C-CATHJ 9 [facility] F/SLCTV C HEART PSC ANGRPH I SI&R 94125 [facility], F/NJX PX 9 [facility] DURING HEART PSC C-CATHJ VENTR&/AT R ANGRPH I SI&R 39048 [facility], F/NJX PX 9 [facility] DURING HEART PSC C-CATHJ PULM&/OR SELECT INJECTION 95591 [facility], CARDIAC 9 [facility] CATHJ L HEART PSC VENTR/L ATR ANGIOGRAP H OBSERVATI 12861 ROCIO CHIN BEE ON/INPATI 9 PRIMARY CARLOS, ENT [facility] 50 MINUTES INITIAL 05880 [facility], INPATIENT 9 [facility] R CONSULT HEART PSC NEW/ESTAB PT 110 MIN GROUND A0425 [facility] BRACKEN MILEAGE 9 CO AMB CO AMB PER SERVICE SERVICE STATUTE MILE AMBULANCE A0429 [facility]ACK[facility] BRACKEN SERVICE 9 CO AMB CO AMB BLS SERVICE SERVICE EMERGENCY TRANSPORT AMB A0422 BRACKEN BRACKEN OXYGEN&O2 9 CO AMB CO AMB SUPPLIES SERVICE SERVICE LIFE SUSTAININ G SITUATION RADIOLOGI 86540 [facility] 9 RHONDA S EXAMINATI RADIOLOGY ON CHEST SINGLE ASSOCIATE VIEW S PSC FRONTAL BLS A0382 [facility]ACK[facility] BRACKEN ROUTINE 9 CO AMB CO AMB DISPOSABL SERVICE SERVICE E SUPPLIES COLLECTIO 34643 ROCIO GONZALES N VENOUS 9 PRIMARY Y, JOVANNI BLOOD CARE V VENIPUNCT CENTERINC URE BASIC 03054 [facility] METABOLIC 9 [facility] INC PANEL CALCIUM TOTAL RADEX 49717 RADIOLOGY MELARA, SHOULDER 8 NENA L COMPLETE ASSOCIATE MINIMUM 2 S PSC VIEWS Encounters Encounter Start End Date Code Location Performer Type Date EMERGENCY 87101 ABRIL ANNE, 7 7 PHYSICIAN JR RHOADES S, PLLC T VISIT HIGH/URGE NT [facility] CARLOS ENRIQUE Adhikari 7 [facility] INC T EMERGENCY 57886 [facility] 7 [facility] VIS[facility]OW/MODER SEVERITY [facility] 7 7 [facility] T EMERGENCY 19162 CAR[facility]OS ENRIQUE 7 7 [facility] T VISIT MODERATE SEVERITY OFFICE 07286 [facility] OUTPATIEN 7 7 PAIN & T VISIT SPINE 15 INSTIT MINUTES [facility] 29008 [facility] [place] [facility] 7 PAIN & T VISIT SPINE 15 INSTIT MINUTES HOSPITAL CARLOS ENRIQUE - 6 6 [facility] EMERGENC[facility] 90834 CARLOSE NRIQUE 6 6 [facility] T VISIT HIGH/URGE NT SEVERITY EMERGENCY 30602 ABRIL SALASEAN 6 6 PHYSICIAN U [facility] T VISIT MODERATE SEVERITY EMERGENCY 45028 ABRIL SALASEAN 6 6 PHYSICIAN U [facility] T VISIT MODERATE SEVERITY OFFICE 13157 [facility] OUTPATIEN 5 5 PAIN & URUGAN T VISIT SPINE HEM 15 INSTIT MINUTES OFFICE 17367 [facility] KERSCHNER OUTPATIEN 4 4 PAIN & MAG T VISIT SPINE 15 INSTIT MINUTES OFFICE 03918 [facility] OUTPATIEN 4 4 PAIN & MAG T VISIT SPINE 15 INSTIT MINUTES OFFICE 37616 [facility] OUTPATIEN 4 4 PAIN & MAG T VISIT SPINE 15 INSTIT MINUTES HOSPITAL CARLOS ENRIQUE - 4 4 [facility] OUTPATIEN INC T EMERGENCY 88993 [facility] 4 4 [place] MOH VISIT EMERGENCY HIGH PHYS SEVERITY& THREAT FUNCJ EMERGENCY 32293 CARLOS ENRIQUE 4 4 [facility] DEPARTMEN INC T VISIT LOW/MODER SEVERITY HOSPITAL CARLOS ENRIQUE - 4 4 [facility] OUTPATIEN INC T OFFICE 32155 [facility] OUTPATIEN 4 4 PAIN & MAG T VISIT SPINE 15 INSTIT MINUTES OFFICE 93240 [facility]ED MAL OUTPATIEN 4 4 PAIN & IRM T VISIT SPINE 15 INSTIT MINUTES OFFICE 45673 [facility]ED MAL OUTPATIEN 4 4 PAIN & IRM T VISIT SPINE 15 INSTIT MINUTES OFFICE 93309 ADVANCED MAL OUTPATIEN 4 4 PAIN & IRM T VISIT SPINE 15 INSTIT MINUTES OFFICE 21236 AD[facility]ANCED MAL OUTPATIEN 4 4 PAIN & IRM T VISIT SPINE 15 INSTIT MINUTES OFFICE 69783 [facility]ED KERSCHNER OUTPATIEN 4 4 PAIN & MAG T VISIT SPINE 15 INSTIT MINUTES OFFICE 91406 AD[facility]ED KERSCHNER OUTPATIEN 4 4 PAIN & MAG T VISIT SPINE 15 INSTIT MINUTES OFFICE 95164 [facility] OUTPATIEN 4 4 PAIN & MAG T VISIT SPINE 15 INSTIT MINUTES OFFICE 14715 AD[facility]ED K[facility]NER OUTPATIEN 4 4 PAIN & MAG T VISIT SPINE 15 INSTIT MINUTES OFFICE 01256 AD[facility]ED KERSCHNER OUTPATIEN 4 4 PAIN & MAG T VISIT SPINE 15 INSTIT MINUTES OFFICE 06349 ADVANCED MAL OUTPATIEN 4 4 PAIN & IRM T VISIT SPINE 15 INSTIT MINUTES OFFICE 19952 AD[facility]ANCED KERSCHNER OUTPATIEN 4 4 PAIN & MAG T VISIT SPINE 15 INSTIT MINUTES OFFICE 88782 [facility]ED [facility]NER OUTPATIEN 4 4 PAIN & MAG T VISIT SPINE 15 INSTIT MINUTES OFFICE 39317 AD[facility]ANCED MAL OUTPATIEN 4 4 PAIN & IRM T VISIT SPINE 15 INSTIT MINUTES OFFICE 22555 MACIAS OUTPATIEN 3 3 THO T VISIT 15 MINUTES EMERGENCY 55463 RICARDO WORTHINGTON 2 2 EMERGENCY [facility] DE[facility] T VISIT HIGH/URGE NT SEVERITY OFFICE 50194 [facility]ED KERSCHNER OUTPATIEN 2 2 PAIN & MAG T VISIT SPINE 10 INSTIT MINUTES OFFICE 69667 NEUS SRIKANTH OUTPATIEN 2 2 T VISIT 15 MINUTES EMERGENCY 23567 CARLOS ENRIQUE 2 2 [facility] DEPARTMEN INC T VISIT LOW/MODER SEVERITY HOSPITAL CARLOS ENRIQUE - 2 2 [facility] OUTPATIEN INC T EMERGENCY 79814 SUKHWINDER PRETTY CHACORTA 2 2 DEPARTMEN T VISIT MODERATE SEVERITY OFFICE 46104 KERSCHNER KERSCHNER OUTPATIEN 2 2 MAG MAG T NEW 45 MINUTES OFFICE 31465 SONIA PHI SONIA PHI CONSULTAT 2 2 ION NEW/ESTAB PATIENT 40 MIN OFFICE 35041 NEUS SRIKANTH NEUS SRIKANTH OUTPATIEN 1 1 T VISIT 25 MINUTES [facility] 40232 ROC[facility] CO NEUS SRIKANTH OUTPATIEN 1 1 PRIMARY T VISIT CARE 15 CENTER MINUTES OFFICE 27773 [facility] CO NEUS SRIKANTH OUTPATIEN 1 1 PRIMARY T VISIT CARE 15 CENTER MINUTES EMERGENCY 44606 RICARDO PRETTY [place]A 1 1 EMERGENCY DEPARTMEN SERVICES T VISIT HIGH/URGE NT SEVERITY EMERGENCY 92870 RICARDO WORTHINGTON 1 1 EMERGENCY [facility] DEPARTMEN SERVICES T VISIT HIGH/URGE NT SEVERITY EMERGENCY 89157 CARLOS ENRIQUE 1 1 [facility] DEPARTMEN INC T VISIT HIGH/URGE NT SEVERITY HOSPITAL CARLOS ENRIQUE - 1 1 [facility] OUTPATIEN INC T EMERGENCY 66502 RICARDO CASTILLO DEPT 1 1 EMERGENCY ARISTEO VISIT SERVICES HIGH SEVERITY& THREAT FUNCJ EMERGENCY 29120 CARLOS ENRIQUE 1 1 [facility] HIGH/URGE NT SEVERITY HOSPITAL CARLOS ENRIQUE - 1 1 [facility] OUTPATIEN INC T EMERGENCY 60129 RICARDO DIAZ 1 1 EMERGENCY [facility] SERVICES T VISIT MODERATE SEVERITY OFFICE 52603 SHAKILA MCGEE OUTPATIEN 1 1 CLINIC & DECKER T VISIT SPINE IN 25 MINUTES HOSPITAL ME[facility]OWVIE [facility] 47098 MEADOWVIE 0 0 W [facility] T VISIT MEDICAL MODERATE SEVERITY HOSPITAL MEADOWVIE - [facility] 01271 SHAKILA ELI CONSULTAT 0 0 CLINIC & SRIKANTH ION SPINE IN NEW/ESTAB PATIENT 40 MIN OFFICE 67669 ROCIO GIRALDO OUTPATIEN 0 0 PRIMARY TYESHA E T VISIT CARE 25 CENTERINC MINUTES EMERGENCY 25322 MEADOWVIE 0 0 W [facility] T VISIT MEDICAL MODERATE CENTER SEVERITY [facility]OSPITAL [facility] - [facility] EMERGENCY 43155 MEADOWVIE 0 0 W [facility] T VISIT MEDICAL MODERATE CENTER SEVERITY OFFICE 04426 ROCIO CO LILLIES OUTPATIEN 0 0 PRIMARY TYESHA E T VISIT CARE 15 CENTERINC MINUTES OFFICE 45515 ZEE EATON 9 9 [facility] DILMA T VISIT ORTHOPAED 25 IC CTR MINUTES PSC EMERGENCY 78792 MEADOWVIE 9 9 W [facility] T VISIT MEDICAL MODERATE CENTER SEVERITY HOSPITAL LEANNEDOWVIE - 9 9 W OUTPATIEN REGIONAL T MEDICAL CENTER OFFICE 70375 VIPIN GUPTA, OUTPATIEN 9 9 LT BRITTANY Robles VISIT ORTHOPAED 25 IC CTR MINUTES [facility] OFFICE 61561 VIPIN GUPTA, OUTPATIEN 9 9 LT [place] Robles VISIT ORTHOPAED 25 IC CTR MINUTES [facility] ST - 9 9 IVÁN OUTPATIEN T MEDICALCE NTER OFFICE 58555 VIPIN GUPTA, CONSULTAT 9 9 [facility] BRITTANY Do ION ORTHOPAED NEW/ESTAB IC CTR PATIENT PSC 40 MIN OFFICE 62641 [place] OUTPATIEN 9 9 [facility]UZ R T VISIT HEART PSC 25 MINUTES OFFICE 37978 ROC[facility] CO KRISTAL OUTPATIEN 9 9 PRIMARY TYESHA E T VISIT CARE 25 CENTERINC MINUTES OFFICE 53182 [facility] CO DEL OUTPATIEN 9 9 PRIMARY STRAUSS T VISIT CARE DECALVO, 15 CENTERINC BESSY MINUTES FREDDIE V OFFICE 66938 ROCIO CO ALBER OUTPATIEN 9 9 PRIMARY Y, JOVANNI T NEW 20 CARE V MINUTES CENTERINC EMERGENCY 75435 CANDIDO 8 8 CORNELIO MINORMEN [facility] CTR SANJOYDEB T VISIT MODERATE SEVERITY OFFICE 13815 [facility] SMITH OUTJOSEFINA 8 8 [place] ROSHNI T VISIT FAMILY 25 CARE, MINUTES INC. EMERGENCY 84299 EMERGENCY ELLJOHN, 8 8 REENA JUAREZ DEPARTMEN PHYS T VISIT [facility] NT SEVERITY EMERGENCY [address]08[address] [facility] PIN[facility], 8 8 IVÁN Do DEPARTMEN MED CTR T VISIT MODERATE SEVERITY EMERGENCY 05103 ST BANG, 8 8 IVÁN Dupree DEPARTMEN MED CTR T VISIT HIGH/URGE NT SEVERITY
--- OUTSIDE RECORDS SUMMARY | 2017-01-18 18:55 | External Medical Summary Rpt ---
Author Author , JUDITH Organization JUDITH Address Unknown Phone [email or web address] Care Team Providers Care Seat Mender Name Role Phone [facility] [...] CARLOS, DASHAWN Unavailable Unavailable F, BEE CARLOS, DASHANW F [facility], Unavailable Unavailable [facility] [...] [facility] Un[facility] Unavailable [facility], [facility] LANCE LUCAS Unavailable Unavailable LUCAS KWADWO, LUCAS Unavailable Unavailable KWADWO RHONDA LUCAS, Unavailable Unavailable RHONDA LUCAS S [facility] Unavailable Unavailable IMAGING ASS, [facility], Unavailable Unavailable [facility], Unavailable Unavailable [facility], Unavailable Unavailable [facility] & Unavailable Unavailable [facility] BRITTANY GUPTA, Unavailable Unavailable BRITTANY GUPTA RACHEL J, Unavailable Unavailable [facility] Unavailable Unavailable [facility] CRUZ RICHARDSON, Unavailable Unavailable CRUZ RICHARDSON HAROLD V, Unavailable Unavailable JOVANNI GIBSON V [facility] Unavailable Unavailable SERVICES, [facility] & Unavailable Unavailable SPINE IN, [facility] Unavailable Unavailable ASSOCIAT, [facility] [place] [facility] Unavailable Unavailable MEDICAL, [facility] Unavailable Unavailable MEDICAL CENTER, [facility] Unavailable Unavailable MEDICAL, [facility] MACIAS THO, MACIAS Unavailable Unavailable THO CANDIDO, SANJOYDEB, Unavailable Unavailable CANDIDO, SANJOYDEB NEUS SRIKANTH, NEUS SRIKANTH Unavailable Unavailable NEUS SRIKANTH, NEUS SRIKANTH Unavailable Unavailable NEUS, TYESHA E, NEUS, Unavailable Unavailable TYESHA E [facility], Unavailable Unavailable [facility] MCGEE DECKER, MCGEE Unavailable Unavailable DECKER [facility], [facility] PORNOY LESA, PORNOY Unavailable Unavailable LES[facility], Unavailable Unavailable [facility] Unavailable Unavailable INCORPORAT, [facility] Unavailable Unavailable INCORPORAT, [facility] NENA MELARA, Unavailable Unavailable NENA MELARA RENAE, Unavailable Unavailable [facility] Unavailable Unavailable [facility], [facility] Un[facility] M[facility]ELO JOSE, MARCELO Unavailable Unavailable JOSE SONIA PHI, SONIA PHI Unavailable Unavailable [facility] # Unavailable Unavailable [id number], [facility] # [id number] [facility] # Unavailable Unavailable [id number], [facility] # [id number] [facility] # [id number], Unavailable Unavailable [facility] # [id number] ELOY GALINDO, MATEO, Unavailable Unavailable ELOY VILLA, Unavailable Unavailable MAL VILLA Purpose Continuity of Care Document - 07-14-2007 through 2016 Problems Code Diagnosis DOS Provider Status I10 ESSENTIAL 12-08-2016 [facility] HYPERTENSIO PLLC N [id number] PAIN IN 12-08-2016 [facility], SHOULDER PLLC E119 TYPE 2 10-27-2016 [facility] MELLITUS INC WITHOUT COMPLICATIO NS M542 CERVICALGIA 10-27-2016 [place] [facility] [id number] UNSPECIFIED 10-27-2016 [place] INJURY OF MEDICAL HEAD IMAGING ASS INITIAL ENCOUNTER Z5181 ENCOUNTER 10-01-2016 [facility] THERAPEUTIC INCORPORAT DRUG LEVEL MONITORING X85471 CHCF 10-01-2016 [facility] CURRENT USE DIAGNOSTICS OF OPIATE INCORPORAT ANALGESIC Q21572 SPONDYLOSIS 09-05-2016 [facility] W/O PAIN & MYELOPATH/R SPINE ADICULOPATH INSTIT Y CERV RGN I13357 PRIMARY 07-12-2016 [place] [facility] TIS RIGHT ASSOCIAT SHOULDER H01159 PRIMARY 07-12-2016 [place] [facility] TIS LEFT ASSOCIAT SHOULDER J65708 PAIN IN 07-12-2016 [facility] LEFT REGIONAL SHOULDER MEDICAL A56975 PAIN IN 07-11-2016 [facility] UNSPECIFIED PAIN & SHOULDER SPINE INSTIT L44233 PAIN IN 05-22-2016 [place] LEFT MEDICAL FINGERS IMAGING ASS [id number] LAC W/O FB 05-22-2016 [place] LT INDEX MEDICAL FINGER W/O IMAGING ASS DAMAGE NAIL INIT [id number] NDSPLC FX 05-22-2016 [facility] DIST PHAL PHYS[facility], LT INDX PLLC FNGR INIT ENC OPN FX Z23 ENCOUNTER 05-22-2016 [facility] FOR [facility] IMMUNIZATIO INC N Z720 TOBACCO USE 05-22-2016 [facility] INC S98454 MIGRAINE 02-23-2016 [facility] UNS NOT PHYSICIANS, INTRACT W/O PLLC STATUS MIGRAINOSUS H87156 SPONDYLOSIS 02-16-2016 [facility] W/O PAIN & MYELOPATH/R [...] SOFT MEDICAL TISSUES OF IMAGING ASS LIMB 15579 SWELLING OF 04-04-2014 [place] LIMB MEDICAL [...] & USE OF SPINE OTHER INSTIT MEDICATIONS 00343 PAIN IN 06-25-2013 [place] [facility] PELVIC ASSOCIAT REGION AND THIGH 7222 DISPLCMT 06-24-2012 [facility] THO INTERVERT DISC SITE UNS W/O MYELOPATHY 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 7242 LUMBAGO 06-24-2012 [facility] THO 98593 CONTUSION 06-24-2012 [facility] THO OF ELBOW 72724 PAIN IN 05-26-2012 [place] [facility], RADIOLOGY UPPER ARM ASSOCIAT 78840 LATERAL 05-26-2012 [facility] IS OF [place] SERVICES 9593 INJURY 05-26-2012 [place] OTHER&UNSPE RADIOLOGY CIFIED ASSOCIAT [place]OW FOREARM&WRI ST E8859 FALL FROM 05-26-2012 [facility] OTHER EMERGENCY SLIPPING SERVICES TRIPPING OR STUMBLING 12745 BLEPHARITIS 10-16-2011 NEUS SRIKANTH , UNSPECIFIED 6821 CELLULITIS 09-07-2011 [facility] AND [facility]ESS [facility] OF NECK INC 6828 CELLULITIS 09-07-2011 [facility] [place] AND ABSCESS OF OTHER SPECIFIED SITE 54565 SPINAL 06-05-2011 NEUS SRIKANTH STENOSIS UNSPEC REGION OTH THAN CERVICAL 7245 UNSPECIFIED 06-05-2011 NEUS SRIKANTH BACKACHE 7230 SPINAL 04-17-2011 [facility] STENOSIS IN REGIONAL CERVICAL MEDICAL REGION 21967 SPASM OF 04-04-2011 [facility] 87993 DIAB W/O 10-11-2011 [facility] COMP TYPE PRIMARY II/UNS NOT CARE CENTER STATED UNCNTRL 4019 UNSPECIFIED 03-27-2011 [facility] ESSENTIAL PRIMARY HYPERTENSIO CARE CENTER N 6868 OTH SPEC 03-27-2011 [facility] LOCAL PRIMARY INFECTIONS CARE CENTER SKIN&SUBCUT TISSUE 97203 CONTUSION 03-23-2011 [facility] [place] 13534 PAIN IN 03-22-2011 [place] [facility], HAND RADIOLOGY ASSOCIAT 00219 CONTUSION 03-22-2011 [facility] OF BACK EMERGENCY SERVICES 11072 CONTUSION 03-22-2011 [facility] HAND EMERGENCY SERVICES E8889 UNSPECIFIED 03-22-2011 [place] FALL RADIOLOGY ASSOCIAT 7840 HEADACHE 11-10-2010 [facility] 6961 OTHER 10-01-2010 [facility] PSORIASIS EMERGENCY AND SIMILAR SERVICES DISORDERS 7231 CERVICALGIA 06-29-2010 [facility] 920 CONTUSION 04-14-2010 [facility] OF FACE REGIONAL SCALP AND MEDICAL NECK EXCEPT EYE V571 OTHER 03-15-2010 [facility] THERAPY MEDICAL 99707 UNSPECIFIED 12-27-2009 [facility] DISORDER PRIMARY OF COCCYX CARE CENTERINC 31857 OTHER 12-19-2009 [place] DISORDER OF RADIOLOGY COCCYX ASSOCIAT 8056 CLOS FX 12-19-2009 [facility] SACRUM&COCC REGIONAL YX W/O MEDICAL MENTION SP CENTER CORD INJURY 72717 OTHER 11-07-2009 [facility] CHRONIC [facility] PAIN MEDICAL CENTER 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 6968 OT 08-29-2009 [facility] PSORIASIS & PRIMARY SIMILAR CARE DISORDERS CENTERINC OTH 7220 DISPLCMT 06-06-2009 [facility] CERV H INTERVERT ORTHOPAEDIC DISC CTR PSC WITHOUT MYELOPATHY 8404 ROTATOR 05-05-2009 [facility] CUFF SPRAIN H AND STRAIN ORTHOPAEDIC CTR PSC 29719 EXOSTOSIS 05-02-2009 [facility] OF H UNSPECIFIED ORTHOPAEDIC SITE CTR PSC 56747 OSTEOARTHRO 04-22-2009 RADIOLOGY S UNSPEC ASSOCIATES WHETHER PSC GEN/LOC SHLDR REGION 01100 UNSPECIFIED 04-22-2009 [facility] H ARTHROPATHY ORTHOPAEDIC SHOULDER CTR PSC REGION 29911 PAIN IN 04-22-2009 [facility] JOINT, H SHOULDER ORTHOPAEDIC REGION CTR PSC 7820 DISTURBANCE 04-22-2009 [facility] 8406 SUPRASPINAT 04-22-2009 [facility] US SPRAIN H AND STRAIN ORTHOPAEDIC CTR PSC 12215 UNSPEC 04-18-2009 [facility] DISORDERS H BURSAE&TEND ORTHOPAEDIC ONS CTR PSC SHOULDER REGION 4011 ESSENTIAL 04-11-2009 [facility] HYPERTENSIO HEART PSC N, BENIGN 12504 REFLUX 04-11-2009 [facility] ESOPHAGITIS HEART PSC 62905 SHORTNESS 04-11-2009 [facility] OF BREATH HEART PSC 94563 CHEST PAIN 04-11-2009 [facility] UNSPECIFIED HEART PSC 56539 NONSPECIFIC 04-11-2009 [facility] ABNORMAL HEART PSC ELECTROCARD IOGRAM 71648 PAIN IN 04-04-2009 [facility], PRIMARY ANKLE AND CARE FOOT CENTERINC 40567 OTH SPEC 04-04-2009 [facility] D/O ROTATOR PRIMARY CUFF SYND CARE SHLDR&SASHA CENTERINC D D/O 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 41574 ESOPHAGEAL 03-30-2009 [facility] REFLUX PRIMARY CARE CENTERINC 4293 CARDIOMEGAL 03-29-2009 [place] Y RADIOLOGY ASSOCIATES PSC 88466 OTHER 03-29-2009 [place] DYSPNEA AND RADIOLOGY ASSOCIATES [place] [address] OTHER CHEST 03-29-2009 [facility] PAIN AMB SERVICE V489 UNSPECIFIED 03-01-2009 [facility] PROBLEM PRIMARY WITH HEAD CARE NECK OR CENTERINC TRUNK 7239 UNSPEC 02-14-2009 [facility] MUSCULOSKEL PRIMARY CARE D/O&SYMPTOM CENTERINC S REFERABLE NECK 38875 UNSPECIFIED 02-14-2009 [facility] SYNOVITIS PRIMARY AND CARE TENOSYNOVIT CENTERINC IS 9057 LATE EFF 10-27-2007 ST SPRAIN&STRA IVNÁ IN W/O MED CTR MENTION TENDON INJURY 7962 ELEVATED BP 10-02-2007 [facility] [place] WITHOUT DX [facility]ILY NewsiT [facility] N 8409 SPRAIN&STRA 09-22-2007 EMERGENCY IN UNSPEC CARE PHYS SITE [place] SHOULDER&UP PER ARM 9599 INJURY 09-22-2007 RADIOLOGY OTHER AND ASSOCIATES UNSPECIFIED PSC UNSPECIFIED SITE 67186 PAIN IN 09-02-2007 ST JOINT, IVÁN FOREARM [...] CH ZA 11 11 11 [place] [address] IN CY IN E [...] PH 3 IN 70 11 11 AR VT 5 MA CH 50 CY AE 0 L MG IN S C CA PS UL E PATHAK 53 07 07 0 10 5 DE 64 GA Ac LF 74 -1 -1 .0 AN 13 IN ti AM 60 7- 8- 00 S 41 EY ve ET 27 20 20 PH 4 HO 20 11 11 AR VT XA 5 MA CH ZO CY AE LE L -T IN S MP C DS TA BL ET 00 05 05 0 12 3 DE 40 GA Ac 40 -2 -2 .0 AN 63 IN ti 60 8- 8- 00 S 63 EY ve 35 20 20 PH 5 70 11 11 AR VT 5 MA CH CY AE L IN S C WA 00 05 05 0 21 6 DE 64 GA Ac ED 60 -2 -2 .0 AN 11 IN ti NI 35 8- 8- 00 S 49 EY ve SO 33 20 20 PH 7 NE 71 11 11 AR VT 5 5 MA CH CY AE MG [...] 0- 2- 00 S 10 CA ve WA [address] [place] [...] 0- 0- 00 S 10 CA ve WA [address] IL [...] 0- 2- 00 S 10 CA ve WA [address] [place] 08 09 10 AR IL 0 MA LO 20 CY DE MG IN CA C LV TA O BL MA ET RI A IS AB EL V LI 00 10 04 10 30 30 DE 63 DE Ac SI 17 -2 -1 .0 AN 86 L ti NO 23 0- 6- 00 S 10 CA ve WA [address] IL 08 09 10 AR IL 0 MA LO 20 CY DE MG IN CA C LV TA O BL MA ET RI A IS AB EL V LI 00 10 03 10 30 30 DE 63 DE Ac SI 17 -2 -1 .0 AN 86 L ti NO 23 0- 6- 00 S 10 CA ve WA [address] IL [...] 0- 6- 00 S 10 CA ve WA [address] IL 08 09 10 AR IL 0 MA LO 20 CY DE MG CA LV TA O BL MA ET RI A IS AB EL V LI 00 10 01 02 30 30 DE 63 DE Ac SI 17 -2 -2 .0 AN 86 L ti NO 23 0- 8- 00 S 10 CA ve WA [address] IL [...] 9 AN ZA 81 09 09 AR WA 0 MA CH IN CY RI E [...] 0- 1- 00 S 10 CA ve WA [address] IL [...] 1- 9- 00 S 14 IN ve WA 02 20 20 PH 1 ED 20 09 09 AR NANI NI 7 MA HN SO CY J LO NE 4 MG DO SE PK LI 00 10 11 00 30 30 DE 63 DE Ac SI 17 -2 -1 .0 AN 86 L ti NO 23 0- 9- 00 S 10 CA ve WA [address] IL 08 09 09 AR IL 0 MA LO 20 CY DE MG CA LV TA O BL MA ET RI A IS AB EL V WA 37 10 11 00 60 30 DE [...] 4- 2- 00 S 81 CA ve WA [address] [place] [...] Procedure DOS Code Location Performer Comment THERAPEUT 27909 [facility] EN[facility] IC 7 [facility] PROPHYLAC INC INC TIC/DX INJECTION SUBQ/IM INJECTION J2405 [facility] 7 [facility] ONDANSETR INC INC ON HCL PER 1 MG RADEX 12276 TAD LUCAS SHOULDER 7 COMPLETE RADIOLOGY MINIM[place] [address] [place] [address] [facility] HEAD/BRAI 7 MEDICAL N W/[place] [address] [facility] CERVICAL 7 MEDICAL SPINE W/O IMAGING CONTRAST ASS MATERIAL DRUG TEST 12718 [facility] PRSMV 7 DIAGNOSTI DIAGNOSTI INSTRMNT CS CS CHEMISTRY INCORPORA INCORPORA T T ANALYZERS DRUG TEST G0480 [facility] DEFINITV [address] ID CS CS METH P INCORPORA INCORPORA DAY 1-7 T T DRUG CL RADEX 09518 [facility] SH[facility] 7 EIDER COMPLETE RADIOLOGY MINIMUM 2 ASSOCIAT VIEWS APPLICATI 54179 [facility] ENRIQUE MONACO ON FINGER 6 [facility] SPLINT INC INC STATIC RADEX 28628 [place] JIMÉNEZ ALL FINGR 6 MEDICAL MINIMUM 2 IMAGING VIEWS ASS IM ADM 52557 [facility] PRQ ID 6 [facility] SUBQ/IM INC INC NJXS 1 VACCINE SIMPLE 94954 [facility] SOTINGEAN REPAIR 6 PHYSICIAN U RENAE SCALP/NEC S, PLLC K/AX/SHAILESH T/TRUNK 2.5CM/< TDAP 04635 [facility] EN[facility] VACCINE 7 6 MEM [...] ACETATE & INSTIT PHOSPHATE 3 MG DSTR 29504 ADVANCED KERSCHNER NROLYTC 6 PAIN & MAG AGNT SPINE PARVERTEB INSTIT FCT SNGL LMBR/SACR AL DSTR 18454 ADVANCED KERSCHNER NROLYTC 6 PAIN & MAG AGNT SPINE PARVERTEB INSTIT FCT ADDL LMBR/SACR AL DSTR 06458 ADVANCED KERSCHNER NROLYTC 6 PAIN & MAG AGNT SPINE PARVERTEB INSTIT FCT ADDL LMBR/SACR AL DSTR 82858 ADVANCED KERSCHNER NROLYTC 6 PAIN & MAG AGNT SPINE PARVERTEB INSTIT FCT SNGL LMBR/SACR AL INJ J0702 ADVANCED K[facility]NER BETAMETHA 6 PAIN & MAG SONE SPINE ACETATE & INSTIT PHOSPHATE 3 MG INJ J0702 ADVANCED K[facility] BETAMETHA 6 PAIN & MAG SONE SPINE ACETATE & INSTIT PHOSPHATE 3 MG NJX 83714 ADVANCED KERSCHNER ANES&/STR 6 PAIN & MAG D W/IMG SPINE TFRML INSTIT EDRL LMBR/SAC 1 LVL NJX 01325 ADVANCED KERSCHNER ANES&/STR 6 PAIN & MAG D W/IMG SPINE TFRML INSTIT EDRL LMBR/SAC EA LV DRUG TEST G0479 [facility] 6 DIAGNOSTI DIAGNOSTI PRESUMP;I CS CS NSTRUMENT ED CHEMISTRY ANLYZER DRUG TEST G0480 [facility] DEFINITV [address] ID CS CS METH P DAY 1-7 DRUG CL DSTR 78539 ADVANCED KERSCHNER NROLYTC 5 PAIN & MAG AGNT SPINE PARVERTEB INSTIT FCT ADDL LMBR/SACR AL INJ J0702 ADVANCED K[facility]CHNER BETAMETHA 5 PAIN & MAG SONE SPINE ACETATE & INSTIT PHOSPHATE 3 MG DSTR 65172 ADVANCED KERSCHNER NROLYTC 5 PAIN & MAG AGNT SPINE PARVERTEB INSTIT FCT SNGL LMBR/SACR AL DSTR 74679 ADVANCED KERSCHNER NROLYTC 5 PAIN & MAG AGNT SPINE PARVERTEB INSTIT FCT SNGL CRVCL/THO RA DSTR 49756 ADVANCED KERSCHNER NROLYTC 5 PAIN & MAG AGNT SPINE PARVERTEB INSTIT FCT ADDL CRVCL/THO RA FLUOR 75567 ADVANCED KERSCHNER NEEDLE/CA 4 PAIN & MAG TH SPINE SPINE/PAR INSTIT ASPINAL DX/[place] NJX 01397 ADVANCED KERSCHNER DX/THER 4 PAIN & MAG SBST SPINE EPIDURAL/ INSTIT SUBRACH CERV/[place]OR [place]IC NJX 45011 ADVANCED [facility] ANES&/STR 4 PAIN & MAG D W/IMG SPINE TFRML INSTIT EDRL LMBR/SAC 1 LVL NJX 01839 ADVANCED KERSCHNER ANES&/STR 4 PAIN & MAG D W/IMG SPINE TFRML INSTIT EDRL LMBR/SAC EA LV ARTHROCEN 45460 ADVANCED [facility] TESIS 4 PAIN & MAG ASPIR&/IN SPINE J MAJOR INSTIT JT/BURSA W/O US FLUOROSCO 04461 ADVANCED KERSCHNER PIC 4 PAIN & MAG GUIDANCE SPINE NEEDLE INSTIT PLACEMENT ADD ON DUP-SCAN 42256 [facility] EN[facility] XTR VEINS 4 [facility] INC INC UNILATERA L/LIMITED STUDY GLUC BLD 27948 [facility] ENRIQUE [facility] GLUC MNTR 4 [facility] DEV INC INC CLEARED FDA SPEC HOME USE ARTHROCEN 47011 ADVANCED [facility] TESIS 4 PAIN & MAG ASPIR&/IN SPINE J MAJOR INSTIT JT/BURSA W/O US FLUOROSCO 04068 ADVANCED KERS[facility]NER PIC 4 PAIN & MAG GUIDANCE SPINE [place] IN[place] [address] ADVANCED [facility]NER JOINT 4 PAIN & MAG ARTHRGRPH SPINE Y&/ANES/S INSTIT TEROID W/SHANE NJX 89056 ADVANCED KERSCHNER DX/THER 4 PAIN & MAG AGT PVRT SPINE FACET JT INSTIT CRV/THRC 1 LEVEL NJX 16672 ADVANCED KERSCHNER DX/THER 4 PAIN & MAG AGT PVRT SPINE FACET JT INSTIT CRV/THRC 3+ LEVEL NJX 37651 ADVANCED KERSCHNER DX/THER 4 PAIN & MAG AGT PVRT SPINE FACET JT INSTIT CRV/THRC 2ND LEVEL NJX 65932 ADVANCED KERSCHNER DX/THER 4 PAIN & MAG AGT PVRT SPINE FACET JT INSTIT LMBR/SAC 1 LEVEL NJX 22990 ADVANCED KERSCHNER DX/THER 4 PAIN & MAG AGT PVRT SPINE FACET JT INSTIT LMBR/SAC 3+ LEVEL NJX 57070 ADVANCED KERSCHNER DX/THER 4 PAIN & MAG AGT PVRT SPINE FACET JT INSTIT LMBR/[place] 2[place] [address] ADVANCED KERSCHNER JOINT 4 PAIN & MAG ARTHRGRPH SPINE Y&/ANES/S INSTIT TEROID W/SHANE FLUOR 05116 ADVANCED KERSCHNER NEEDLE/CA 4 PAIN & MAG TH SPINE SPINE/PAR INSTIT ASPINAL DX/[place]X 27177 ADVANCED KERSCHNER DX/THER 4 PAIN & MAG SBST SPINE EPIDURAL/ INSTIT SUBRACH CERV/THOR ACIC NJX 62219 ADVANCED MAL DX/THER 4 PAIN & IRM AGT PVRT SPINE FACET JT INSTIT CRV/THRC 3+ LEVEL NJX 27826 ADVANCED MAL DX/THER 4 PAIN & IRM AGT PVRT SPINE FACET JT INSTIT CRV/THRC 2ND LEVEL NJX 45843 ADVANCED MAL DX/THER 4 PAIN & IRM AGT PVRT SPINE FACET JT INSTIT CRV/THRC 1 LEVEL DSTR 32622 ADVANCED KERSCHNER NROLYTC 4 PAIN & MAG AGNT SPINE PARVERTEB INSTIT FCT SNGL LMBR/SACR AL DSTR 88066 ADVANCED KERSCHNER NROLYTC 4 PAIN & MAG AGNT SPINE PARVERTEB INSTIT F[place] [address] ADVANCED KERSCHNER JOINT 4 PAIN & MAG ARTHRGRPH SPINE Y&/ANES/S INSTIT TEROID W/SHANE DSTR 90034 ADVANCED KERSCHNER NROLYTC 4 PAIN & MAG AGNT SPINE PARVERTEB INSTIT FCT SNGL LMBR/SACR AL DSTR 37318 ADVANCED KERSCHNER NROLYTC 4 PAIN & MAG AGNT SPINE PARVERTEB INSTIT FCT ADDL LMBR/SACR AL NJX 47705 ADVANCED KERSCHNER DX/THER 4 PAIN & MAG AGT PVRT SPINE FACET JT INSTIT LMBR/SAC 3+ LEVEL NJX 49525 ADVANCED KERSCHNER DX/THER 4 PAIN & MAG AGT PVRT SPINE FACET JT INSTIT LMBR/SAC 2ND LEVEL NJX 55406 ADVANCED KERSCHNER DX/THER 4 PAIN & MAG AGT PVRT SPINE FACET JT INSTIT LMBR/SAC 1 LEVEL NJX 45759 ADVANCED KERSCHNER ANES&/STR 4 PAIN & MAG D W/IMG SPINE TFRML INSTIT EDRL LMBR/SAC 1 LVL NJX 34652 ADVANCED KERSCHNER ANES&/STR 4 PAIN & MAG D W/IMG SPINE TFRML INSTIT EDRL LMBR/SAC EA LV DSTR 64930 ADVANCED KERSCHNER NROLYTC 4 PAIN & MAG AGNT SPINE PARVERTEB INSTIT FCT SNGL CRVCL/THO RA DSTR 53153 ADVANCED KERSCHNER NROLYTC 4 PAIN & MAG AGNT SPINE PARVERTEB INSTIT FCT ADDL CRVCL/THO RA INJ J0702 ADVANCED K[facility]NER BETAMETHA 4 PAIN & MAG SONE SPINE ACETATE & INSTIT PHOSPHATE 3 MG FLUOR 43722 ADVANCED KERSCHNER NEEDLE/CA 4 PAIN & MAG TH SPINE SPINE/PAR INSTIT ASPINAL DX/[place] NJX 13952 ADVANCED KERSCHNER DX/THER 4 PAIN & MAG SBST SPINE EPIDURAL/ INSTIT SUBRACH CERV/THOR ACIC DSTR 30414 ADVANCED KERSCHNER NROLYTC 4 PAIN & MAG AGNT SPINE PARVERTEB INSTIT FCT SNGL CRVCL/THO RA DSTR 32043 ADVANCED KERSCHNER NROLYTC 4 PAIN & MAG AGNT SPINE PARVERTEB INSTIT FCT ADDL CRVCL/THO [place] NJX 64188 ADVANCED KERSCHNER DX/THER 4 PAIN & MAG AGT PVRT SPINE FACET JT INSTIT CRV/THRC 1 LEVEL NJX 12766 ADVANCED KERSCHNER DX/THER 4 PAIN & MAG AGT PVRT SPINE FACET JT INSTIT CRV/THRC 3+ LEVEL NJX 52675 ADVANCED KERSCHNER DX/THER 4 PAIN & MAG AGT PVRT SPINE FACET JT INSTIT CRV/THRC 2ND LEVEL NJX 56206 ADVANCED KERSCHNER ANES&/STR 4 PAIN & MAG D W/IMG SPINE TFRML INSTIT EDRL LMBR/SAC 1 LVL NJX 69307 ADVANCED KERSCHNER DX/THER 4 PAIN & MAG AGT PVRT SPINE FACET JT INSTIT CRV/THRC 3+ LEVEL NJX 54489 ADVANCED KERSCHNER DX/THER 4 PAIN & MAG AGT PVRT SPINE FACET JT INSTIT CRV/THRC 2ND LEVEL NJX 30920 ADVANCED KERSCHNER DX/THER 4 PAIN & MAG AGT PVRT SPINE FACET JT INSTIT CRV/THRC 1 LEVEL NJX 91125 ADVANCED KERSCHNER ANES&/STR 4 PAIN & MAG D W/IMG SPINE TFRML INSTIT EDRL [place]BR/[place] 1 [place] [address] ADVANCED MAL JOINT 4 PAIN & IRM ARTHRGRPH SPINE Y&/ANES/S INSTIT TEROID W/SHANE RADEX HIP 14756 [facility] [place] RADIOLOGY L ASSOCIAT COMPLETE MINIMUM 2 VIEWS NJX 63950 ADVANCED KERSCHNER ANES&/STR 4 PAIN & MAG D W/IMG SPINE TFRML INSTIT EDRL CRV/THRC EA LV NJX 50671 ADVANCED KERSCHNER ANES&/STR 4 PAIN & MAG D W/IMG SPINE TFRML INSTIT EDRL CRV/THRC 1 LVL EPIDUROGR 43534 ADVANCED KERSCHNER APY RS&I 4 PAIN [place] [address] KERSCHNER KERSCHNER JOINT 3 MAG MAG ARTHRGRPH Y&/ANES/S TEROID W/SHANE INJECTION 11389 KERSCHNER KERSCHNER ANES 3 MAG MAG OTHER PERIPHERA L NERVE/BRA NCH DSTR 95217 KERSCHNER KERSCHNER NROLYTC 3 MAG MAG AGNT PARVERTEB FCT SNGL CRVCL/THO RA DSTR 02342 KERSCHNER KERSCHNER NROLYTC 3 MAG MAG AGNT PARVERTEB FCT ADDL CRVCL/THO RA LUMB-SACR L0637 DASCO HME DASCO HME AL ORTHOS 3 [facility] CNTRL RIGD A&P PREFAB RADEX 13973 TAD OCAMPO ELBOW 2 VALERIANO RENEE COMPLETE RADIOLOGY MINIMUM 3 [place]X [address]11 KERSCHNER KERSCHNER DX/THER 2 MAG MAG AGT PVRT FACET JT LMBR/SAC 3+ LEVEL NEEDLE [id number] KERSCHNER KERSCHNER STERILE 2 [place] [address] KERSCHNER KERSCHNER DX/THER 2 MAG MAG AGT PVRT FACET JT LMBR/SAC 2ND [place] NJX 85403 KERSCHNER KERSCHNER DX/THER 2 MAG MAG AGT PVRT FACET JT LMBR/SAC 1 LEVEL NJX 00141 KERSCHNER KERSCHNER DX/THER 2 MAG MAG AGT PVRT FACET JT CRV/THRC 2ND [place] NJX 89954 KERSCHNER KERSCHNER DX/THER 2 MAG MAG AGT PVRT FACET JT CRV/THRC 3+ [place] NJX 29148 KERSCHNER KERSCHNER DX/THER 2 MAG MAG AGT PVRT FACET JT CRV/THRC 1 LEVEL NJX 63691 KERSCHNER KERSCHNER DX/THER 2 MAG MAG AGT PVRT FACET JT CRV/THRC 1 LEVEL NJX 37696 KERSCHNER KERSCHNER DX/THER 2 MAG MAG AGT PVRT FACET JT CRV/THRC 3+ [place]EL NJX 79460 KERSCHNER KERSCHNER DX/THER 2 MAG MAG AGT PVRT FACET JT CRV/THRC 2ND [place] NJX [address]226 KERSCHNER KERSCHNER DX/THER 2 MAG MAG SBST EPIDURAL/ SUBARACH LUMBAR/SA CRAL LOCM Q9967 MARYSESCHNER MARYSESCHNER 300-399 2 MAG MAG MG/ML IODINE CONCENTRA TION PER ML FLUOR 89439 KERSCHNER KERSCHNER NEEDLE/CA 2 MAG MAG TH SPINE/PAR ASPINAL DX/THER ADDON FLUOR 27829 KERSCHNER KERSCHNER NEEDLE/CA 2 MAG MAG TH SPINE/PAR ASPINAL DX/THER ADDON LOCM Q9967 KERSCHNER KERSCHNER 300-399 2 MAG MAG MG/ML IODINE [place] NJX 72061 KERSCHNER KERSCHNER DX/THER 2 MAG MAG SBST EPIDURAL/ SUBRACH CERV/THOR ACIC INJECTION J1100 KERSCHNER KERSCHNER 2 MAG MAG DEXAMETHO SONE SODIUM PHOSPHATE 1 MG NJX [address]178 KERSCHNER KERSCHNER DX/THER 2 MAG MAG SBST EPIDURAL/ SUBARACH LUMBAR/SA CRAL LOCM Q9967 KERSCHNER KERSCHNER 300-399 2 MAG MAG MG/ML IODINE CONCENTRA TION PER ML LOCM Q9967 KERSCHNER KERSCHNER 300-399 2 MAG MAG MG/ML IODINE CONCENTRA [place] NJX 66870 KERSCHNER KERSCHNER DX/THER 2 MAG MAG SBST EPIDURAL/ SUBRACH CERV/THOR ACIC INJECTION J1100 KERSCHNER KERSCHNER 2 MAG MAG DEXAMETHO SONE SODIUM PHOSPHATE 1 MG MRI 10562 MEADOWVIE MEADOWVIE SPINAL 1 W W CANAL [facility] CERVICAL MEDICAL MEDICAL W/O CONTRAST MATRL THERAPEUT 31107 ROCIO GIRALDO SRIKANTH IC 1 PRIMARY PROPHYLAC CARE TIC/DX CENTER INJECTION SUBQ/IM INJECTION J1885 ROCIO GIRALDO SRIKANTH 1 PRIMARY KETOROLAC CARE CENTER TROMETHAM INE PER 15 MG BASIC 04429 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 METABOLIC 1 Y & Y & PANEL BIODIAGNO BIODIAGNO CALCIUM STICS STICS TOTAL COLLECTIO 39869 ROCIO GIRALDO SRIKANTH N VENOUS 1 PRIMARY BLOOD CARE VENIPUNCT CENTER URE COLLECTIO 41183 ROCIO CHAN CO N 1 PRIMARY PRIMARY CAPILLARY CARE CARE BLOOD CENTER CENTER SPECIMEN RADEX 27769 [facility] HAND 1 EIDER VÍCTOR MINIMUM 3 RADIOLOGY VIEWS ASSOCIAT COMPREHEN 40549 CARLOS ENRIQUE DAVISE 1 [facility] METABOLIC INC INC PANEL CUL BACT 40789 CARLOS ENRIQUE MONACO AEROBIC 1 [facility] ADDL INC INC METHS DEFINITIV E EA ISOL CULTURE 50109 CARLOS ENRIQUE MONACO BACTERIAL 1 [facility] BLOOD INC INC AEROBIC W/ID ISOLATES SUSCEPTIB 12257 CARLOS ENRIQUE MONACO LTY STDY 1 [facility] ANTIMICRB INC INC IAL MICRO/AGA R DILUTJ BLOOD 37228 CARLOS ENRIQUE MONACO COUNT 1 [facility] COMPLETE INC INC AUTO&AUTO DIFRNTL WBC RAD[facility]OLOGI 24112 [facility]RER[facility] C 1 MEDICAL SAAD EXAMINATI IMAGING ON TIBIA ASS & FIBULA 2 [place] [address] CARLOS ENRIQUE MONACO INFUSION 1 [facility] THERAPY/P INC INC ROPHYLAXI S /DX 1ST [place] 1 [place] [address] CARLOS ENRIQUE MONACO INFUSION 1 [facility] THERAPY INC [place] [address] [facility] [place] PATRICIA HEAD/BRAI 1 MEDICAL SAAD N W/O IMAGING CONTRAST ASS MATERIAL BLOOD 31343 CARLOS ENRIQUE MONACO COUNT 1 [facility] COMPLETE INC INC AUTO&AUTO DIFRNTL WBC BASIC 82088 CARLOS ENRIQUE MONACO METABOLIC 1 [facility] PANEL INC INC CALCIUM TOTAL 3D 25410 [place] PATRICIA RENDERING 1 MEDICAL SAAD W/INTERP IMAGING & ASS POSTPROCE SS SUPERVISI ON SEDIMENTA 96424 CARLOS ENRIQUE MONACO TION RATE 1 [facility] RBC INC INC NON-AUTOM ATED PHYSICAL 52826 MEADOWVIE MEADOWVIE THERAPY 0 W [facility] N MEDICAL MEDICAL APPL 63416 MEADOWVIE MEADOWVIE MODALITY 0 W W 1/> AREAS [facility] MEDICAL MEDICAL ULTRASOUN D EA 15 MIN MRI 29424 [facility] SPINAL 0 [facility] CANAL SPINE IN LUMBAR W/O CONTRAST MATERIAL MRI 32517 [facility] SPINAL 0 [facility] CANAL SPINE IN CERVICAL W/O CONTRAST MATRL RADEX 89873 [facility] SACRUM & 0 EIDER VÍCTOR COCCYX RADIOLOGY MINIMUM 2 ASSOCIAT VIEWS THERAPEUT 23200 [facility] LEON IC 0 W W [facility] TIC/DX [facility] INJECTION CENTER CENTER SUBQ/IM THERAPEUT 92912 LEANNEDOWVIE SEYMOURWVIE IC 9 W W [facility] TIC/DX MEDICAL MEDICAL INJECTION CENTER CENTER SUBQ/[place]X [address] RADIOLOGY MATEO, DX/THER 9 ELOY D SBST ASSOCIATE EPIDURAL/ S PSC SUBRACH CERV/THOR ACIC FLUOR 90592 RADIOLOGY MATEO, NEEDLE/CA 9 ELOY D TH ASSOCIATE SPINE/PAR S PSC ASPINAL DX/THER ADDON MRI 34435 [place] GREFER, SPINAL 9 [facility] DANIEL CANAL ORTHOPAED CERVICAL IC CTR W/O PSC CONTRAST MATRL [place] ANY 09127 RADIOLOGY LARRY, JT UPPER 9 CRUZ A EXTREMITY ASSOCIATE W/O S PSC CONTRAST MATRL NDL EMG [address] XTR W/WO 9 IVÁN MINOR RELATED PARASPINA MEDICALCE MEDICALCE L AREAS NTER NTER NRV CNDJ [address] AMPLT&LAT 9 IVÁN IVÁN NCY EA NRV MOTR MEDICALCE MEDICALCE W/O NTER NTER F-WAVE STD NRV CNDJ 76461 [place], [place], AMPLITUDE 9 HANSEL HAMM & LATENCY EACH NERVE SENSORY RADEX 15803 [place] CANDY, SPINE 9 [facility] BRITTANY Do CERVICAL ORTHOPAED 2 OR 3 IC CTR VIEWS PSC RADEX 41540 [place] CANDY, SHOULDER 9 [facility] Do COMPLETE ORTHOPAED MINIMUM 2 IC CTR VIEWS PSC ECHO 80355 [place] TTHRC R-T 9 [place] CRUZ R 2D HEART PSC W/WOM-MOD E COMPL SPEC&COLR D ECG 93280 BUCKY RICHARDSON, ROUTINE 9 [facility] R ECG HEART PSC W/LEAST 12 LDS W/I&R L HRT 26038 [place] CATHETERI 9 [place] [facility] R ZATION HEART [place] [address] [facility], C-CATHJ 9 [place] [facility] R F/SLCTV C HEART PSC ANGRPH I SI&R 38819 [facility], F/NJX PX 9 [place] [facility] DURING HEART PSC C-CATHJ VENTR&/AT R ANGRPH I SI&R 58680 [facility], F/NJX PX 9 VAL[facility] CRU[facility] R DURING HEART PSC C-CATHJ PULM&/OR SELECT INJECTION 12910 [facility], CARDIAC 9 [place] CR[facility] R CATHJ L HEART PSC VENTR/L ATR ANGIOGRAP H OBSERVATI 91945 ROCIO CHIN BEE ON/INPATI 9 PRIMARY CARLOS[facility] MINUTES INITIAL 95262 [facility], INPATIENT 9 [place] CRUZ R CONSULT HEART PSC NEW/ESTAB PT 110 MIN GROUND A0425 BRACK[facility] BRACKEN MILEAGE 9 CO AMB CO AMB PER SERVICE SERVICE STATUTE MILE AMBULANCE A0429 BRACKEN BRACKEN SERVICE 9 CO AMB CO AMB BLS SERVICE SERVICE EMERGENCY TRANSPORT AMB A0422 BRACKEN BRACKEN OXYGEN&O2 9 CO AMB CO AMB SUPPLIES SERVICE SERVICE LIFE SUSTAININ G SITUATION RADIOLOGI 52805 [facility] 9 RHONDA S EXAMINATI RADIOLOGY ON CHEST SINGLE ASSOCIATE VIEW S PSC FRONTAL BLS A0382 BRACKEN BRACKEN ROUTINE 9 CO AMB CO AMB DISPOSABL SERVICE SERVICE E SUPPLIES COLLECTIO 03602 ROCIO GONZALES N VENOUS 9 PRIMARY Y, JOVANNI BLOOD CARE V VENIPUNCT CENTERINC URE BASIC 37865 [facility] INC PANEL CALCIUM TOTAL RADEX 09595 RADIOLOGY MELARA, SHOULDER 8 NENA L COMPLETE ASSOCIATE MINIMUM 2 S PSC VIEWS Encounters Encounter Start End Date Code Location Performer Type Date EMERGENCY 96360 ABRIL ANNE, 7 7 PHYSICIAN JR RHOADES S, PLLC T VISIT HIGH/URGE NT [facility] CARLOS ENRIQUE Adhikari 7 [facility] INC T EMERGENCY 97869 [facility]QUE 7 7 [facility] T VISIT LOW/MODER SEVERITY [facility] CARLOS ENRIQUE - 7 7 [facility] T EMERGENCY 29030 CARLOS ENRIQUE 7 7 [facility] T VISIT MODERATE SEVERITY OFFICE 89293 [facility] OUT[facility] 7 7 PAIN & T VISIT SPINE 15 INSTIT MINUTES [facility] - 7 7 [facility] MED[facility] 96173 [facility] PAIN & T VISIT SPINE 15 INSTIT MINUTES HOSPITAL CARLOS ENRIQUE - 6 6 [facility] EMERGENCY 02698 CARLOS ENRIQUE 6 6 [facility] T VISIT HIGH/URGE NT SEVERITY EMERGENCY 60929 ABRIL SALASEAN 6 6 PHYSICIAN U [facility], [facility] T VISIT MODERATE SEVERITY EMERGENCY 82612 ABRIL SALASEAN 6 6 PHYSICIAN U [facility], [facility] T VISIT MODERATE SEVERITY OFFICE 95558 [facility] OUTPATI[facility] 5 5 PAIN & URUGAN T VISIT SPINE HEM 15 INSTIT MINUTES OFFICE 91686 [facility] OUTPATIEN 4 4 PAIN & MAG T VISIT SPINE 15 INSTIT MINUTES OFFICE 03563 [facility] OUTPATIEN 4 4 PAIN & MAG T VISIT SPINE 15 INSTIT MINUTES OFFICE 95481 [facility] OUT[facility] 4 4 PAIN & MAG T VISIT SPINE 15 INSTIT MINUTES HOSPITAL CARLOS ENRIQUE - 4 4 [facility] OUT[facility] INC T EMERGENCY 31316 [facility] 4 4 [place] MOH VISIT EMERGENCY HIGH PHYS SEVERITY& THREAT FUNCJ EMERGENCY 52600 CARLOS ENRIQUE 4 4 [facility] DEPARTMEN INC T VISIT LOW/MODER SEVERITY HOSPITAL CARLOS ENRIQUE - 4 4 [facility] OUTPATIEN INC T OFFICE 77138 [facility] OUTPATIEN 4 4 PAIN & MAG T VISIT SPINE 15 INSTIT MINUTES OFFICE 51956 [facility] MAL OUTPATIEN 4 4 PAIN & IRM T VISIT SPINE 15 INSTIT MINUTES OFFICE 63283 [facility] MAL OUTPATIEN 4 4 PAIN & IRM T VISIT SPINE 15 INSTIT MINUTES OFFICE 00646 [facility]ED MAL OUTPATIEN 4 4 PAIN & IRM T VISIT SPINE 15 INSTIT MINUTES OFFICE 53718 [facility] MAL OUTPATIEN 4 4 PAIN & IRM T VISIT SPINE 15 INSTIT MINUTES OFFICE 72001 [facility] OUTPATIEN 4 4 PAIN & MAG T VISIT SPINE 15 INSTIT MINUTES OFFICE 82058 [facility] OUTPATIEN 4 4 PAIN & MAG T VISIT SPINE 15 INSTIT MINUTES OFFICE 55814 [facility] OUTPATIEN 4 4 PAIN & MAG T VISIT SPINE 15 INSTIT MINUTES OFFICE 64741 [facility] OUTPATIEN 4 4 PAIN & MAG T VISIT SPINE 15 INSTIT MINUTES OFFICE 34556 [facility] OUTPATIEN 4 4 PAIN & MAG T VISIT SPINE 15 INSTIT MINUTES OFFICE 58005 AD[facility]ED MAL OUTPATIEN 4 4 PAIN & IRM T VISIT SPINE 15 INSTIT MINUTES OFFICE 54423 [facility] OUTPATIEN 4 4 PAIN & MAG T VISIT SPINE 15 INSTIT MINUTES OFFICE 71003 [facility] OUTPATIEN 4 4 PAIN & MAG T VISIT SPINE 15 INSTIT MINUTES OFFICE 33777 ADVANCED MAL OUTPATIEN 4 4 PAIN & IRM T VISIT SPINE 15 INSTIT MINUTES OFFICE 96540 MACIAS OUTPATIEN 3 3 THO T VISIT 15 MINUTES EMERGENCY 43561 RICARDO WORTHINGTON 2 2 EMERGENCY [facility] DEPARTMEN SERVICES T VISIT HIGH/URGE NT SEVERITY OFFICE 28689 [facility] OUTPATIEN 2 2 PAIN & MAG T VISIT SPINE 10 INSTIT MINUTES OFFICE 82658 NEUS SRIKANTH OUTPATIEN 2 2 T VISIT 15 MINUTES EMERGENCY 94401 CARLOS ENRIQUE 2 2 [facility] DEPARTMEN INC T VISIT LOW/MODER SEVERITY HOSPITAL CARLOS ENRIQUE - 2 2 [facility] OUTPATIEN INC T EMERGENCY 13736 SUKHWINDER PRETTY CHACORTA 2 2 DEPARTMEN T VISIT MODERATE SEVERITY OFFICE 14198 KERSCHNER KERSCHNER OUTPATIEN 2 2 MAG MAG T NEW 45 MINUTES OFFICE 51805 SONIA PHI SONIA PHI CONSULTAT 2 2 ION NEW/ESTAB PATIENT 40 MIN OFFICE 93431 NEUS SRIKANTH NEUS SRIK[facility]TH OUTPATIEN 1 1 T VISIT 25 MINUTES [facility] OFF[facility] 38153 ROCIO CO NEUS SRIKANTH OUTPATIEN 1 1 PRIMARY T VISIT CARE 15 CENTER MINUTES OFFICE 76573 ROC[facility] CO NEUS SRIKANTH OUTPATIEN 1 1 PRIMARY T VISIT CARE 15 CENTER MINUTES EMERGENCY 84561 RICARDO PRETTY CHAC[place]A 1 1 EMERGENCY DEPARTMEN SERVICES T VISIT HIGH/URGE NT SEVERITY EMERGENCY 23084 RICARDO WORTHINGTON 1 1 EMERGENCY [facility] DEPARTMEN SERVICES T VISIT HIGH/URGE NT SEVERITY EMERGENCY 71498 CARLOS ENRIQUE 1 1 [facility] DEPARTMEN INC T VISIT HIGH/URGE NT SEVERITY HOSPITAL CARLOS ENRIQUE - 1 1 [facility] OUTPATIEN INC T EMERGENCY 63039 RICARDO CASTILLO DEPT 1 1 EMERGENCY ARISTEO VISIT SERVICES HIGH SEVERITY& THREAT FUNCJ EMERGENCY 90147 CARLOS ENRIQUE 1 1 [facility] HIGH/URGE NT SEVERITY HOSPITAL CARLOS ENRIQUE - 1 1 [facility] OUTPATIEN INC T EMERGENCY 12487 RICARDO DIAZ 1 1 EMERGENCY KEE [facility] SERVICES T VISIT MODERATE SEVERITY OFFICE 46893 SHAKILA MCGEE OUTPATIEN 1 1 [facility]INIC [facility] DECKER T VISIT SPINE IN 25 MINUTES [facility] 76215 MEADOWVIE 0 0 W [facility] T VISIT MEDICAL MODERATE SEVERITY HOSPITAL MEADOWVIE - [facility] 74501 SHAKILA ELI CONSULTAT 0 0 CLINIC & SRIKANTH ION SPINE IN NEW/ESTAB PATIENT 40 MIN OFFICE 75126 ROCIO GIRALDO OUTPATIEN 0 0 PRIMARY TYESHA E T VISIT CARE 25 CENTERINC MINUTES EMERGENCY 85976 MEADOWVIE 0 0 W [facility] T VISIT MEDICAL MODERATE CENTER SEVERITY [facility]OSPITAL [facility]OW[facility]IE [facility] 0 0 [facility] 09172 MEADOWVIE 0 0 W [facility] T VISIT MEDICAL MODERATE CENTER SEVERITY OFFICE 26726 ROCIO CO LILLIES OUTPATIEN 0 0 PRIMARY TYESHA E T VISIT CARE 15 CENTERINC MINUTES OFFICE 04086 ZEE EATON 9 9 [facility] DILMA T VISIT ORTHOPAED 25 IC CTR MINUTES PSC EMERGENCY 33466 MEADOWVIE 9 9 W [facility] T VISIT MEDICAL MODERATE CENTER SEVERITY HOSPITAL LEANNEDOWVIE - 9 9 W [facility] OFFICE 28852 VIPIN GUPTA, OUTPATIEN 9 9 LT BRITTANY Robles VISIT ORTHOPAED 25 IC CTR MINUTES [facility] OFFICE 75214 VIPIN GUPTA, OUTPATIEN 9 9 LT [place] Robles VISIT ORTHOPAED 25 IC CTR MINUTES [facility] - 9 9 IVÁN OUTPATIEN T MEDICALCE NTER OFFICE 09382 VIPIN GUPTA, CONSULTAT 9 9 [facility] BRITTANY Do ION ORTHOPAED NEW/ESTAB IC CTR PATIENT PSC 40 MIN OFFICE 58360 [place] DYLAN OUTPATIEN 9 9 LEHR CRUZ R T VISIT HEART PSC 25 MINUTES OFFICE 50406 ROCIO CO KRISTAL OUTPATIEN 9 9 PRIMARY TYESHA E T VISIT CARE 25 CENTERINC MINUTES OFFICE 37117 ROCIO CO DEL OUTPATIEN 9 9 PRIMARY STRAUSS T VISIT CARE DECALVO, 15 CENTERINC BESSY MINUTES FREDDIE V OFFICE 40423 ROCIO CO ALBER OUTPATIEN 9 9 PRIMARY Y, JOVANNI T NEW 20 CARE V MINUTES CENTERINC EMERGENCY 59697 CANDIDO 8 8 CORNELIO [facility] SANJOYDEB T VISIT MODERATE SEVERITY OFFICE 18406 [facility] OUTJOSEFINA 8 8 [place] ROS[place]NI T VISIT FAMILY 25 CARE, MINUTES INC. EMERGENCY 44876 EMERGENCY ELLJOHN, 8 8 REENA JUAREZ DEPARTMEN PHYS T VISIT [facility] NT SEVERITY EMERGENCY [address] [facility] PIN[place], 8 8 IVÁN Do DEPARTMEN MED CTR T VISIT MODERATE SEVERITY EMERGENCY [address] ST BANG, 8 8 IVÁN Dupree DEPARTMEN MED CTR T VISIT HIGH/URGE NT SEVERITY
--- OUTSIDE RECORDS SUMMARY | 2017-01-18 18:56 | External Medical Summary Rpt ---
Demographics Preferred Language Korean Marital Status Unknown Mandaeism Affiliation Unknown Race Unknown Ethnic Group Unknown Author Author , JONELLE WONG Address Unknown Phone Immunization Unable to retrieve immunization data due to connection failure with Immunization Registry. Please try again later.
--- OUTSIDE RECORDS SUMMARY | 2017-01-18 18:56 | External Medical Summary Rpt ---
Demographics Preferred Language Setswana Marital Status Unknown Latter-Day Affiliation Unknown Race Unknown Ethnic Group Unknown Author Author , JONELLE WONG Address Unknown Phone Immunization Unable to retrieve immunization data due to connection failure with Immunization Registry. Please try again later.
--- OUTSIDE RECORDS SUMMARY | 2017-01-18 18:56 | External Medical Summary Rpt ---
Author Author [employer] Rushing, [employer] Address Unknown Phone Unavailable Results Glucose [Mass/volume] in Capillary blood by Glucometer Observa Value Referen Units Interpr Notes Date tion ce etation Range Glucose 70 - 110 mg/dl High No Jan 15 [Mass/vol informati 2017 9:21 ume] in on in PM Capillary source blood by data Glucomete r
== END 2017-01-15 22:00 | disposition short-term general hospital (02) ==
LOC: ER 21:11
DX: S20.219A Contusion of unspecified front wall of thorax, initial encounter (principal); S30.1XXA Contusion of abdominal wall, initial encounter; M54.5 Low back pain; M54.2 Cervicalgia; M25.511 Pain in right shoulder; I10 Essential (primary) hypertension; E11.9 Type 2 diabetes mellitus without complications; W30.89XA Contact with other specified agricultural machinery, initial encounter; Y92.008 Other place in unspecified non-institutional (private) residence as the place of occurrence of the external cause
CPT/HCPCS: J2405

== ENCOUNTER → 2017-03-13 | Outpatient (CLI) | payer MEDICARE, MEDICAID ==
[2017-03-13 17:06] LABS: BUN 9 mg/dL (7-18)
[2017-03-13 17:32] LABS: HEMOGLOBIN 15.8 g/dL (14.1-18.0)
[2017-03-13 17:33] LABS: LYMPH # 3.1 K/mm3 (0.7-4.5); LYMPH % 32.4 % (10-50)
[2017-03-13 18:06] LABS: GFR (ESTIMATED) 80 ML/MIN (>60)
== END ==
LOC: LAB 14:31
PROVIDERS: Neurological Surgery
DX: Z01.818 Encounter for other preprocedural examination (principal)

== ENCOUNTER → 2017-04-05 | Outpatient (CLI) | payer MEDICARE, MEDICAID ==
[2017-04-05 12:53] LABS: BUN 14 mg/dL (7-18)
[2017-04-05 12:54] LABS: GFR (ESTIMATED) 80 ML/MIN (>60)
== END ==
LOC: LAB 11:54
PROVIDERS: Internal Medicine Cardiovascular Disease
DX: I10 Essential (primary) hypertension (principal); E78.5 Hyperlipidemia, unspecified; E66.9 Obesity, unspecified; R06.09 Other forms of dyspnea; R07.9 Chest pain, unspecified; R53.83 Other fatigue

== ENCOUNTER → 2017-04-08 | Outpatient (CLI) | payer MEDICARE, MEDICAID ==
--- NOTE | 2017-04-08 19:06 | RADIOLOGY REPORT PS360 ---
PROCEDURE: 2-D M-mode and color Doppler study INDICATIONS FOR THE TEST: Chest pain X COPD Heart Murmur Tobacco SmokingX Palpitations Fatigue Syncope Edema HypertensionXDiabetes MellitusX Rheumatic Fever SOBXDOE ObesityXHyperlipidemiaX Family History HD Additional History CAD PATIENT INFORMATION HEIGHT: 71 WEIGHT:294 GENDER: Male B/P:114/70 2-D/M-MODE INTERPRETATION: 2-D MEASUREMENTS OBSERVED VALUES IN CMS Right Ventricular Dimension (RVDd) 3.1 Interventricular Septum (Thickness)(IVsd) 1.1 Left Ventricular Internal Dimensions(LVIDd) 4.6 Left Ventricular Posterior Wall (Thickness)(LVPWd) 1.2 Aortic Root 2.5 Aortic Cusp Separation 2.1 Left Atrial Dimensions (LAD) 3.7 2D 1. Left atrium is mildly enlarged, left ventricle is normal size, there is mild concentric left ventricular hypertrophy, visually estimated ejection fraction 55% with no obvious regional wall motion abnormality. 2. The right atrium and right ventricle are mildly enlarged with normal contractility. 3. The aortic valve is minimally thickened and fibrosed, there is no aortic stenosis. 4. The mitral and tricuspid valve are grossly normal. 5. The pulmonic valve is poorly visualized. 6. There is no significant pericardial effusion noted. DOPPLER INTERROGATION: Doppler interrogation of the aortic, mitral and tricuspid valvular presence of mild mitral and tricuspid regurgitation, tricuspid and jet velocity insufficient for calculation of the right ventricular systolic pressure, grade 1 diastolic dysfunction seen without tissue Doppler evidence of raised left atrial pressure. CONCLUSION: 1. Mildly enlarged left atrium, normal left ventricular size, mild concentric left ventricular hypertrophy, visually estimated ejection fraction 55% with no obvious regional wall motion abnormality, grade 1 diastolic dysfunction seen without tissue Doppler evidence of raised left atrial pressure. 2. Mildly enlarged right ventricle with normal contractility. 3. Mild mitral and tricuspid regurgitation. 4. No significant pericardial effusion noted.
--- NOTE | 2017-04-11 15:34 | RADIOLOGY REPORT PS360 ---
History and Indications: History of LA, hypertension, diabetes, hyperlipidemia, tobacco use, family history, chest pain, shortness of breath, syncope and fatigue Procedure: Patient received a 0.4 mg of Lexiscan, resting heart rate was 74 bpm, resting blood pressure 114/70, with Lexiscan maximum heart rate achieved was 98 bpm which is less than 85% of the maximum predicted heart rate and a blood pressure was 127/67. With Lexiscan patient complained of stomach and chest discomfort Electrocardiogram: Resting electrocardiogram showed sinus rhythm, with Lexiscan there is less than 1.[address] segment depression noted from the baseline EKG. The EKG portion of the Lexiscan Myoview is nondiagnostic. Cardiac stress and resting SPECT images: Cardiac stress and rest SPECT images were obtained using technetium 99 Myoview 10.0 mCi at rest and 31.2 mCi at stress, gated SPECT further analysis of segmental wall motion and calculation of the ejection fraction also done. Cardiac stress and rest SPECT images show uniform myocardial activity without any segmental perfusion abnormality, computer derived ejection fraction is 64 percent with no obvious regional wall motion abnormality, right ventricle is mildly enlarged with normal contractility. Conclusion: 1. The EKG portion of the Lexiscan Myoview is nondiagnostic. 2. No obvious scintigraphic evidence of reversible ischemia seen, computer derived ejection fraction is 64% with no obvious regional wall motion abnormality, right ventricle is mildly enlarged with normal contractility.
== END ==
LOC: RAD 06:43
DX: R06.09 Other forms of dyspnea (principal); R07.9 Chest pain, unspecified; R53.83 Other fatigue; E78.5 Hyperlipidemia, unspecified; I10 Essential (primary) hypertension; E66.9 Obesity, unspecified
CPT/HCPCS: A9502; J2785

== ENCOUNTER → 2017-04-10 | Outpatient (CLI) | payer MEDICARE, MEDICAID | LOC: SL 20:17 | DX: G47.33 Obstructive sleep apnea (adult) (pediatric) (principal) ==